=== PATIENT | male | born 1970 | race Caucasian/White ===

== ENCOUNTER 2024-08-15 16:10 | Emergency (ER) | payer SELFPAY ==
[2024-08-15 17:23] LABS: Absolute Basophils 0.2 K/uL (0-0.5); Absolute Eosinophils 0.2 K/uL (0-0.5); Absolute Lymphocytes (CBC) 3.7 K/uL (0.7-4.9); Absolute Monocytes 0.6 K/uL (0.1-1.3); Absolute Neutrophil 2.5 K/uL (1.8-8.0); Basophils % 2.5 % (0-1.3); Eosinophils % 2.6 % (0-4.4); Hematocrit 28.7 % (39.6-49.0); Hemoglobin 10.3 g/dL (13.6-17.9); Lymphocytes % 51.9 % (15.3-44.8); MCH 29.5 pg (27.0-35.0); MCHC 35.9 g/dL (32.0-36.0); MCV 82.3 fL (80-100); MPV 7.7 fL (7.6-11.3); Monocytes % 7.8 % (3.3-12.3); Neutrophils % 35.2 % (41.7-73.7); Nucleated Red Blood Cells % 0.1 % (0-0); Platelets 350 thou/uL (152-406); RBC Red Blood Cell Count 3.49 M/uL (4.33-5.43); Red Cell Distribution Width 16.6 % (12.1-15.2)
[2024-08-15 17:36] LABS: Bicarbonate 36 mEq/L (21-32); Potassium 2.7 mEq/L (3.5-5.1); Sodium Level 138 mEq/L (136-145)
[2024-08-15 17:37] LABS: ALT/SGPT 10 U/L (16-61); AST/SGOT 17 U/L (15-37); Albumin 1.7 g/dL (3.4-5.0); Albumin/Globulin Ratio 0.4 (1.1-1.8); Alkaline Phosphatase 107 U/L (45-117); BUN Blood Urea Nitrogen 8 mg/dL (7-18); Bilirubin Total 0.3 mg/dL (0.2-1.0); Globulin 4.7 g/dL (2.3-3.5); Glomerular Filtration Rate 122 ml/min (=/>90); Glucose Level 200 mg/dL (74-106); Lipase 23 U/L (13-75); Protein, Total 6.4 g/dL (6.4-8.2)
[2024-08-15] MEDS ORDERED: NS KCL 20MEQ 1,000 ML IV ONE (18:28)
[2024-08-15] MEDS ORDERED: POTASSIUM 25 MEQ EFFERV TAB ONE (18:28)
[2024-08-15] MEDS ORDERED: SMZ./TMP. 800/160 MG TABLET ONE (19:26)
--- NOTE | 2024-08-15 20:39 | EDPHYS ---
Physician Documentation [facility] Name: Stuart Patel Age: 54 yrs Sex: Male : 1970 Arrival Date: 08/15/2024 Time: 16:10 Bed 20 Private MD: ED Physician Asim Philip HPI: 08/15 16:55 This 54 yrs old Male presents to ER via EMS with complaints of Decubitus Ulcer. cp 16:55 Patient is a 54-year-old male with past medical history significant for hypertension cp and diabetes who presents to the emergency department with concern for developing a decubitus ulcer. Patient had a visit by home health nurse today who saw concern for a developing ulcer in the decubitus area of the patient today. Patient reportedly had a right below the knee amputation done approximately 2 weeks ago without any complications. Historical: - Allergies: 16:22 No Known Allergies; jb4 - PMHx: 16:22 Hypertension; sciatica; Diabetes mellitus; jb4 - PSHx: 16:22 Right below the knee amputation; jb4 - Immunization history:: Adult Immunizations up to date. - Infectious Disease History:: Denies. - Social history:: Smoking status: Patient denies any tobacco usage or history of. ROS: 17:00 Constitutional: Negative for body aches, chills, fever, poor PO intake, cp 17:00 Constitutional: history per hpi cp 17:00 Neuro: Negative for altered mental status, cp 17:00 All other systems are negative, Exam: 17:05 Constitutional: The patient appears in no acute distress, alert, awake, comfortable, cp non-diaphoretic, non-toxic, well developed, well nourished, 17:05 Head/Face: Normocephalic, atraumatic. cp 17:05 Cardiovascular: Rate: normal, Rhythm: regular, 17:05 Abdomen/GI: Inspection: abdomen appears normal, Palpation: abdomen is soft and non-tender, in all quadrants, 17:05 Musculoskeletal/extremity: Extremities: noted in the right leg: right below knee amputation, surgical wounds appears to be healing well with minimal erythema, wound edges intact, no drainage from wound, 17:05 Skin: small pressure ulcer noted in decubitus area with mild surrounding erythema and swelling, scant drainage from wound. 17:05 Eyes: Periorbital structures: appear normal, Conjunctiva: normal, no exudate, no cp injection, Sclera: no appreciated abnormality, Lids and lashes: appear normal, bilaterally, 17:05 ENT: External ear(s): are unremarkable, Nose: is normal, Mouth: Lips: moist, Oral mucosa: moist, Posterior pharynx: Airway: no evidence of obstruction, patent, 17:05 Neck: ROM/movement: is normal, is supple, without pain, no range of motions limitations, 17:05 Chest/axilla: Inspection: normal, 17:05 Respiratory: the patient does not display signs of respiratory distress, Respirations: normal, no use of accessory muscles, no retractions, labored breathing, is not present, Breath sounds: are clear throughout, no decreased breath sounds, no stridor, no wheezing, 17:05 Neuro: Orientation: to person, place \T\ time. Mentation: is normal, 18:30 ECG was reviewed by the Attending Physician. cp Vital Signs: 16:18 BP 128 / 88; Pulse 92; Resp 16; Temp 97.8(O); Pulse Ox 97% on R/A; Weight 72.57 kg (R); jb4 Height 5 ft. 10 in. ; Pain 4/10; 18:30 BP 134 / 84; Pulse 55; Resp 16; Pulse Ox 96% on R/A; jb4 19:30 BP 142 / 85; Pulse 87; Resp 16; Pulse Ox 94% on R/A; jb4 20:45 BP 114 / 81; Pulse 76; Resp 16; Pulse Ox 95% ; jb4 16:18 Body Mass Index 22.96 (72.57 kg, 177.8 cm) 4 16:18 Pain Scale: Adult jb4 MDM: 16:19 Medical Screening Exam initiated cp 20:38 Data reviewed: vital signs, nurses notes, lab test result(s), and as a result, I will cp discharge patient. 20:38 Differential diagnosis: cellulitis, sepsis, abscess, osteomyelitis. I considered the cp following discharge prescriptions or medication management in the emergency department Medications were administered in the Emergency Department. See MAR. Independent interpretation of the following test(s) in the Emergency Department EKG: See my EKG interpretation above. Care significantly affected by the following chronic conditions: Diabetes, Hypertension. 08/15 16:51 Order name: CBC with Diff; Complete Time: 17:38 cp 0202 17:38 Interpretation: Normal except: RBC 3.49; HGB 10.3; HCT 28.7; RDW 16.6; SANDRA% 35.2; LYM% cp 51.9; BASO% 2.5. 02 16:51 Order name: CMP; Complete Time: 17:38 cp 08/15 17:39 Interpretation: Normal except: K 2.7; CL 97; CO2 36; GLUC 200; CRE 0.49; ALT 10; CA cp 8.1; ALB 1.7; GLOB 4.7; A/G 0.4. 02 16:51 Order name: Lipase; Complete Time: 17:38 cp 08/15 17:41 Order name: EKG; Complete Time: 17:41 cp 08/15 16:51 Order name: Labs collected and sent; Complete Time: 17:18 cp 08/15 16:51 Order name: Wound Care: decubitus ulcer dressing; Complete Time: 20:37 cp 08/15 17:41 Order name: EKG - Nurse/Tech; Complete Time: 18:38 cp EC:30 Rate is 87 beats/min. Rhythm is regular. IA interval is normal. QRS interval is cp prolonged at 102 msec. QT interval is normal. T waves are Inverted in lead aVR. Interpreted by me. Reviewed by me. Administered Medications: 18:38 Drug: NS 0.9% with KCl IV 20 mEq/L 1000 ml IV at calculated rate continuous {Note: jb4 administered over 2 hours per providers instructions..} Route: IV; Rate: calculated rate; Site: right upper arm; 20:38 Follow up: Response: No adverse reaction; IV Status: Completed infusion; IV Intake: jb4 1000ml 18:40 Drug: Potassium PO Effervescent Tablet 50 mEq PO once; dissolve in 4 ounces of water or jb4 juice Route: PO; 21:26 Follow up: Response: No adverse reaction jb4 19:29 Drug: Trimethoprim-Sulfamethoxazole PO (160 mg-800 mg (DS) 1 tablet PO once Route: PO; jb4 21:26 Follow up: Response: No adverse reaction; Marked relief of symptoms jb4 Disposition Summary: 08/15/24 20:39 Discharge Ordered Notes: Location: Home dr5 Problem: new dr5 Symptoms: have improved dr5 Condition: Stable dr5 Diagnosis - Hypokalemia dr5 - Pressure ulcer of other site, stage 2 dr5 Followup: cp - With: Private Physician - When: 5 - 6 days - Reason: Wound Recheck Discharge Instructions: - Discharge Summary Sheet cp - Potassium Content of Foods cp - Preventing Pressure Injuries cp - Pressure Injury cp - Hypokalemia cp Forms: - Medication Reconciliation Form dr5 - Antibiotic Education dr5 - Patient Portal Instructions dr5 - Leadership Thank You Letter dr5 Prescriptions: - Potassium Chloride 20 meq Oral Packet - take 1 packet ORAL route once daily for 5 days 1 packet in 6 (six) ounces of cp water or juice; Take after meal; 5 packet; Refills: 0, Product Selection Permitted - Bactrim DS 800-160 mg Oral Tablet - take 1 tablet ORAL route every 12 hours for 7 days; 14 tablet; Refills: 0, cp Product Selection Permitted Signatures: Dispatcher [employer] EDMS Mohan Wen PA PA cp Alexey Armendariz RN RN jb4 Justen Kearney, SUPERVISOR INTERMEDIATES-C SUPERVISOR INTERMEDIATES-Cdr5 Corrections: (The following items were deleted from the chart) 17:18 16:51 IV Saline Lock ordered. cp jb4
--- NOTE | 2024-08-15 20:39 | ER ---
Nurse's Notes [facility] Name: Stuart Patel Age: 54 yrs Sex: Male : 1970 Arrival Date: 08/15/2024 Time: 16:10 Bed 20 Private MD: Diagnosis: Hypokalemia;Pressure ulcer of other site, stage 2 Presentation: 08/15 16:18 Chief complaint: EMS states: Pt had a recent right below the knee amputation 4 days jb4 ago. Is on IV Cefazolin at home via picc line in the IVAN, Pt is afebrile and A\T\Ox4. Coronavirus screen: At this time, the client does not indicate any symptoms associated with coronavirus-19. Ebola Screen: No symptoms or risks identified at this time. Initial Sepsis Screen: Does the patient meet any 2 criteria? HR > 90 bpm. Yes Does the patient have a suspected source of infection? No. Patient's initial sepsis screen is negative. Risk Assessment: Do you want to hurt yourself or someone else? Patient reports no desire to harm self or others. Onset of symptoms was August 15, 2024. Transition of care: patient was not received from another setting of care. 16:18 Method Of Arrival: EMS: [facility] jb4 16:18 Acuity: VICKI 3 jb4 Triage Assessment: 16:22 General: Appears in no apparent distress. comfortable, Behavior is calm, cooperative, jb4 appropriate for age. Pain: Complains of pain in gluteal cleft Pain does not radiate. Pain currently is 4 out of 10 on a pain scale. EENT: No signs and/or symptoms were reported regarding the EENT system. Neuro: Level of Consciousness is awake, alert, obeys commands, Oriented to person, place, time, situation. Cardiovascular: Patient's skin is warm and dry. Respiratory: Airway is patent Respiratory effort is even, unlabored, Respiratory pattern is regular, symmetrical. GI: No signs and/or symptoms were reported involving the gastrointestinal system. : No signs and/or symptoms were reported regarding the genitourinary system. Derm: Skin is pink, warm \T\ dry. Decubitus located on sacrum approximately 1.5 cm to 2.5 cm is stage II bed has fibrin present is draining none noted. Musculoskeletal: Circulation, motion, and sensation intact. Range of motion: intact in all extremities. Historical: - Allergies: 16:22 No Known Allergies; jb4 - PMHx: 16:22 Hypertension; sciatica; Diabetes mellitus; jb4 - PSHx: 16:22 Right below the knee amputation; jb4 - Immunization history:: Adult Immunizations up to date. - Infectious Disease History:: Denies. - Social history:: Smoking status: Patient denies any tobacco usage or history of. Screenin:24 [facility] ED Fall Risk Assessment (Adult) History of falling in the last 3 months, jb4 including since admission No falls in past 3 months (0 pts) Confusion or Disorientation No (0 pts) Intoxicated or Sedated No (0 pts) Impaired Gait Yes (1 pt) Mobility Assist Device Used Yes (1 pt) Altered Elimination No (0 pt) Score/Fall Risk Level 0 - 2 = Low Risk Oriented to surroundings, Maintained a safe environment. Abuse screen: Denies threats or abuse. Nutritional screening: No deficits noted. Tuberculosis screening: No symptoms or risk factors identified. Assessment: 17:00 Reassessment: Patient appears in no apparent distress at this time. Patient and/or jb4 family updated on plan of care and expected duration. Pain level reassessed. Patient is alert, oriented x 3, equal unlabored respirations, skin warm/dry/pink. 18:00 Reassessment: Patient appears in no apparent distress at this time. Patient and/or jb4 family updated on plan of care and expected duration. Pain level reassessed. Patient is alert, oriented x 3, equal unlabored respirations, skin warm/dry/pink. 18:41 Reassessment: Patient appears in no apparent distress at this time. Patient and/or jb4 family updated on plan of care and expected duration. Pain level reassessed. Patient is alert, oriented x 3, equal unlabored respirations, skin warm/dry/pink. 19:30 Reassessment: Patient appears in no apparent distress at this time. Patient and/or jb4 family updated on plan of care and expected duration. Pain level reassessed. Patient is alert, oriented x 3, equal unlabored respirations, skin warm/dry/pink. 20:37 Reassessment: Patient appears in no apparent distress at this time. Patient and/or jb4 family updated on plan of care and expected duration. Pain level reassessed. Patient is alert, oriented x 3, equal unlabored respirations, skin warm/dry/pink. wet to dry dressing placed on decubitus ulcer. D/c pending consult with ER provider. Vital Signs: 16:18 BP 128 / 88; Pulse 92; Resp 16; Temp 97.8(O); Pulse Ox 97% on R/A; Weight 72.57 kg (R); jb4 Height 5 ft. 10 in. ; Pain 4/10; 18:30 BP 134 / 84; Pulse 55; Resp 16; Pulse Ox 96% on R/A; jb4 19:30 BP 142 / 85; Pulse 87; Resp 16; Pulse Ox 94% on R/A; jb4 20:45 BP 114 / 81; Pulse 76; Resp 16; Pulse Ox 95% ; jb4 16:18 Body Mass Index 22.96 (72.57 kg, 177.8 cm) jb4 16:18 Pain Scale: Adult jb4 ED Course: 16:18 Patient arrived in ED. jb4 16:18 Alexey Armendariz RN is Primary Nurse. jb4 16:19 Mohan Wen PA is PHCP. cp 16:19 Asim Philip MD is Attending Physician. cp 16:22 Triage completed. jb4 16:22 Arm band placed on right wrist. jb4 17:18 Lipase Sent. jb4 17:18 CMP Sent. jb4 17:18 CBC with Diff Sent. jb4 21:24 Patient has correct armband on for positive identification. Bed in low position. Call jb4 light in reach. Side rails up X 1. Provided Education on: discharge instructions. . 21:24 No provider procedures requiring assistance completed. Pt's PICC line remains in place jb4 and working appropriately. Administered Medications: 18:38 Drug: NS 0.9% with KCl IV 20 mEq/L 1000 ml IV at calculated rate continuous {Note: jb4 administered over 2 hours per providers instructions..} Route: IV; Rate: calculated rate; Site: right upper arm; 20:38 Follow up: Response: No adverse reaction; IV Status: Completed infusion; IV Intake: jb4 1000ml 18:40 Drug: Potassium PO Effervescent Tablet 50 mEq PO once; dissolve in 4 ounces of water or jb4 juice Route: PO; 21:26 Follow up: Response: No adverse reaction jb4 19:29 Drug: Trimethoprim-Sulfamethoxazole PO (160 mg-800 mg (DS) 1 tablet PO once Route: PO; jb4 21:26 Follow up: Response: No adverse reaction; Marked relief of symptoms jb4 Medication: 21:24 VIS not applicable for this client. jb4 Intake: 20:38 IV: 1000ml; Total: 1000ml. jb4 Outcome: 20:39 Discharge ordered by . teena 21:24 Discharged to home via wheelchair, with family, jb4 21:24 Condition: stable 21:24 Discharge instructions given to patient, Instructed on discharge instructions, follow up and referral plans. medication usage, Demonstrated understanding of instructions, follow-up care, medications, Prescriptions given X 2, 21:27 Patient left the ED. jb4 Signatures: Mohan Wen PA PA cp Bryson, James, RN RN jb4 Justen Kearney, COMPLIANCE ENGINEER-C COMPLIANCE ENGINEER-Cdr5 Corrections: (The following items were deleted from the chart) 21:24 20:37 Reassessment: Patient appears in no apparent distress at this time. Patient jb4 and/or family updated on plan of care and expected duration. Pain level reassessed. Patient is alert, oriented x 3, equal unlabored respirations, skin warm/dry/pink. wet to dry dressing placed on decubitus ulcer jb4
[2024-08-15 21:31] VITALS: TEMP 97.8
[2024-08-15 21:35] VITALS: BP 114/81; O2SAT 95
--- NOTE | 2024-08-17 12:17 | EKG ---
Test Date: 2024-08-15 Test Time: 18:26:47 Miner Assistant: AM MEASUREMENT RESULTS: Intervals: Rate: 87 SD: 180 QRSD: 102 QT: 400 QTc: 481 Bouse: P: 32 SD: 180 QRS: 61 T: 28 INTERPRETIVE STATEMENTS: Normal sinus rhythm Prolonged QT Abnormal ECG Compared to ECG 08/09/2016 07:12:37 Prolonged QT interval now present Electronically Signed On 08-17-24 12:15:02 NATURAL SCIENCE CURATOR by Gabriel Madrid
== END 2024-08-15 21:27 | disposition home or self-care (01) ==
LOC: ER 16:10
DX: L89.892 Pressure ulcer of other site, stage 2 (principal); E87.6 Hypokalemia
CPT/HCPCS: 36415; 80053; 83690; 85025; 93005; 96360; 96361; 99284; J3480

== ENCOUNTER 2024-08-28 12:44 | Emergency (ER) | payer SELFPAY ==
--- OUTSIDE RECORDS SUMMARY | 2024-08-28 12:50 | XMS REPORT | Continuity of Care Document ---
Author Name Unknown Address [address] [facility] [address] [place] [address] [facility] [address] [facility] [address] [place] [address] Care Team Providers Care Rehab Liaison Name Role Phone Macho Musa Attending Clinician Unavailable Macho Musa Admitting Clinician Unavailable Physician, No Primary or Family Admitting Clinic parker Unavailable Payers Payer Name Policy Type Policy Number Effective Date Expirati on Date Source Allergies, Adverse Reactions, Alerts Allergy Name Allergy Type Status Severity Reaction(s) Onset Date Inactive Date Treating Clinician Comments Source No Known Allergie s DA Active U 2023-07 00:00: 00 [facility] Procedures Procedure Date / Time Performed Performing Clinicia n Source INSERTION OF INFUSION DEV INTO R BASILIC VEIN, PER 2024-08-10 00:00:00 [facility] DETACHMENT AT RIGHT LOWER LEG, HIGH, OPEN APPROACH 2024-07-20 00:00:00 [facility] INSERTION OF INFUSION DEVICE INTO UPPER VEIN, PERC 2024-07-16 00:00:00 [facility] EXCISION OF RIGHT FOOT TENDON, OPEN APPROACH 2024-07-13 00:00:00 [facility] Encounters Start Date/Time End Date/Time Encounter Type Admission Type Attending Clinicians Care Facility Care Department Encounter ID Source 2024-07-13 17:32:00 2024-08-11 20:42:00 Inpatient EM Macho Musa HCABM NEUR [id number] 99 [facility] 2024-07-14 06:02:00 2024-07-14 06:02:00 Outpatient Macho Musa HCACL LABO [id number] 48 [facility] 2022-08-22 13:37:27 2022-08-22 13:37:27 Outpatient SFA SFA [id number] 0[address] [facility] Results Test Description Test Time Test Comments Results Result Co mments Source [id number] 16:31:00* Test Item Value Reference Range Interpretation Comme nts GLUBED (test code = GLUBED) 131 mg/dL 74-106 H Performed by cer tified special warfare operator at [facility] [id number] 12:30:00* Test Item Value Reference Range Interpretation Comme nts GLUBED (test code = GLUBED) 116 mg/dL 74-106 H Performed by cer tified special warfare operator at [facility] [id number] 08:59:00* Test Item Value Reference Range Interpretation Comme nts GLUBED (test code = GLUBED) 88 mg/dL 74-106 N Performed by cer tified special warfare operator at [facility] [id number] 19:45:00* Test Item Value Reference Range Interpretation Comme nts GLUBED (test code = GLUBED) 171 mg/dL 74-106 H Performed by cer tified special warfare operator at [facility] [id number] 16:37:00* Test Item Value Reference Range Interpretation Comme nts GLUBED (test code = GLUBED) 120 mg/dL 74-106 H Performed by cer tified special warfare operator at [facility] [id number] 11:53:00* Test Item Value Reference Range Interpretation Comme nts GLUBED (test code = GLUBED) 119 mg/dL 74-106 H Performed by cer tified special warfare operator at [facility] BASIC METABOLIC [id number] 11:00:00* Test Item Value Reference Range Interpretation Comme nts SODIUM (test code = NA) 139 mmol/L 136-145 N POTASSIUM (test code = K) 3.2 mmol/L 3.5-5.1 L CHLORIDE (test code = CL) 94.0 mmol/L 98-107 L CARBON DIOXIDE (test code = CO2) 35.0 mmol/L 21-32 H ANION GAP (test code = GAP) 13.2 mmol/L 10-20 N GLUCOSE (test code = GLU) 116 mg/dL 74-106 H BLOOD UREA NITROGEN (test code = BUN) 7 mg/dL 7-18 N GLOMERULAR FILTRATION RATE (test code = GFR) > 60 mL/min >=60 The Glomerular Filtration Rate is a calculated parameterbased on serum Creatinine, patient age and sex. GFR valuesless than 60 mL/min/1.73 square meters are indicative ofChronic Kidney Disease. Values less than 15 mL/min/1.73square meters indicate Kidney failure. The calculation forGFR is based on the CKD-EPI (2020) calculation. This formulais race indifferent and is the recommended formula for GFRby the National Kidney Foundation for Adults.The GFR will not calculate if the sex is unknown or if thepatient's age is <18 years. CREATININE (test code = CREAT) 0.40 mg/dL 0.7-1.3 L BUN/CREATININE RATIO (test code = BUN/CREA) 15.6 10-20 N CALCIUM (test code = CA) 7.9 mg/dL 8.5-10.1 L CBC W/AUTO [id number] 10:30:00* Test Item Value Reference Range Interpretation Comme nts WHITE BLOOD CELL (test code = WBC) 7.8 K/mm3 4.5-12.5 N RED BLOOD CELL (test code = RBC) 4.12 mill/mm3 4.0-5.8 N HEMOGLOBIN (test code = HGB) 11.6 gram/dL 13.0-17.5 L HEMATOCRIT (test code = HCT) 36.7 % 42.0-52.0 L MEAN CELL VOLUME (test code = MCV) 89.1 fL 80-98 N MEAN CELL HGB (test code = MCH) 28.2 picogram 27.0-33.0 N MEAN CELL HGB CONCETRATION (test code = MCHC) 31.6 gram/dL 33.0-36.0 L RED CELL DISTRIBUTION WIDTH (test code = RDW) 15.5 % 11.6-16.2 N RED CELL DISTRIBUTION WIDTH SD (test code = RDW-SD) 50.4 fL 37.0-51.0 N PLATELET COUNT (test code = PLT) 385 K/mm3 150-450 N MEAN PLATELET VOLUME (test c ode = MPV) 9.9 fL 6.7-11.0 N NEUTROPHIL % (test code = NT%) 27.6 % 39.0-69.0 L IMMATURE GRANULOCYTE % (test code = IG%) 0.6 % 0.0-5.0 N LYMPHOCYTE % (test code = LY%) 61.3 % 25.0-55.0 H MONOCYTE % (test code = MO%) 7.5 % 0.0-10.0 N EOSINOPHIL % (test code = EO%) 1.5 % 0.0-5.0 N BASOPHIL % (test code = BA%) 1.5 % 0.0-1.0 H NUCLEATED RBC % (test code = NRBC%) 0.0 % 0-0 N NEUTROPHIL # (test code = NT#) 2.14 K/mm3 1.8-7.7 N IMMATURE GRANULOCYTE # (test code = IG#) 0.05 x10 3/uL 0-0.03 H LYMPHOCYTE # (test code = LY#) 4.76 K/mm3 1.0-5.0 N MONOCYTE # (test code = MO#) 0.58 K/mm3 0-0.8 N EOSINOPHIL # (test code = EO#) 0.12 K/mm3 0.0-0.5 N BASOPHIL # (test code = BA#) 0.12 K/mm3 0.0-0.2 N NUCLEATED RBC # (test code = NRBC#) 0.00 K/mm3 0.0-0.1 N [id number] 08:03:00* Test Item Value Reference Range Interpretation Comme nts GLUBED (test code = GLUBED) 81 mg/dL 74-106 N Performed by cer tified special warfare operator at [facility] [id number] 20:45:00* Test Item Value Reference Range Interpretation Comme nts GLUBED (test code = GLUBED) 99 mg/dL 74-106 N Performed by cer tified special warfare operator at [facility] [id number] 16:18:00* Test Item Value Reference Range Interpretation Comme nts GLUBED (test code = GLUBED) 154 mg/dL 74-106 H Performed by cer tified special warfare operator at [facility] [id number] 11:32:00* Test Item Value Reference Range Interpretation Comme nts GLUBED (test code = GLUBED) 155 mg/dL 74-106 H Performed by cer tified special warfare operator at [facility] [id number] 08:18:00* Test Item Value Reference Range Interpretation Comme nts GLUBED (test code = GLUBED) 137 mg/dL 74-106 H Performed by cer tified special warfare operator at [facility] [id number] 20:55:00* Test Item Value Reference Range Interpretation Comme nts GLUBED (test code = GLUBED) 166 mg/dL 74-106 H Performed by cer tified special warfare operator at [facility] [id number] 17:15:00* Test Item Value Reference Range Interpretation Comme nts GLUBED (test code = GLUBED) 136 mg/dL 74-106 H Performed by cer tified special warfare operator at [facility] [id number] 11:09:00* Test Item Value Reference Range Interpretation Comme nts GLUBED (test code = GLUBED) 98 mg/dL 74-106 N Performed by cer tified special warfare operator at [facility] [id number] 07:43:00* Test Item Value Reference Range Interpretation Comme nts GLUBED (test code = GLUBED) 99 mg/dL 74-106 N Performed by cer tified special warfare operator at [facility] [id number] 20:28:00* Test Item Value Reference Range Interpretation Comme nts GLUBED (test code = GLUBED) 137 mg/dL 74-106 H Performed by cer tified special warfare operator at [facility] [id number] 16:32:00* Test Item Value Reference Range Interpretation Comme nts GLUBED (test code = GLUBED) 144 mg/dL 74-106 H Performed by cer tified special warfare operator at [facility] [id number] 12:18:00* Test Item Value Reference Range Interpretation Comme nts GLUBED (test code = GLUBED) 157 mg/dL 74-106 H Performed by cer tified special warfare operator at [facility] [id number] 08:23:00* Test Item Value Reference Range Interpretation Comme nts GLUBED (test code = GLUBED) 98 mg/dL 74-106 N Performed by cer tified special warfare operator at [facility] [id number] 19:57:00* Test Item Value Reference Range Interpretation Comme nts GLUBED (test code = GLUBED) 130 mg/dL 74-106 H Performed by cer tified special warfare operator at [facility] [id number] 16:51:00* Test Item Value Reference Range Interpretation Comme nts GLUBED (test code = GLUBED) 160 mg/dL 74-106 H Performed by cer tified special warfare operator at [facility] [id number] 10:52:00* Test Item Value Reference Range Interpretation Comme nts GLUBED (test code = GLUBED) 92 mg/dL 74-106 N Performed by cer tified special warfare operator at [facility] - MRI L-SPINE W WO [id number] 10:27:00 [facility])Name: CAROLYNN PATEL : 1970 Sex: M FAX: Inga Levin MD [phone] [place]: St: [facility] FAX: Natalya Tolentino [phone] Name: CAROLYNN PATEL [facility] : 1970 Age/S: 54/M [place] [facility] Unit #: [id number] Loc: V[address] [place] [address] Phys: Natalya Tolentino AQUATICS COORDINATOR Acct: [id number] Dis Date: Status: ADM IN PHONE #: [phone] Exam Date: 08/05/2024 1055 FAX #: [phone] Reason: repeatedly bacteremic- MSSA Report Has Been Amended EXAMS: CPT CODE: [id number] MRI L-SPINE W WO CON 09253 Addendum - 08/06/2024 SIGNED 08/06/2024 ADDENDUM: [id number] MRI/[id number] ADDENDUM: Postcontrast images are now available. No enhancement of the conus or the leptomeninges. No leptomeningeal abscess is noted. Intense enhancement of the entire L1 vertebral body with enhancement of the right posterior elements as well. Minimal enhancement of the inferior endplate of T12 vertebral body. These findings may represent osteomyelitis. Less likely contusion. Correlate with ESR and white cell count. Rest of the vertebral body heights are maintained and the marrow signal in normal. IMPRESSION: Intense enhancement of the L1 vertebral body and the inferior endplate of T12 vertebral body. Correlate for osteomyelitis. Less likely contusion. No abnormal enhancement of the conus or the leptomeninges. No disc space enhancement isnoted either including at T12-L1 level to suggest acute discitis. at 1027 Reported and signed by: Rashad Gomez M.D. Transcribed: 08/06/2024 (8354) t.SDR.TH4 Report HISTORY: Repeated bacteremia. COMPARISON: CT abdomen pelvis from August 03, 2024. [facility] MRI L-spine without contrast: PAGE 1 Signed Report (CONTINUED) FAX: Inga Levin MD [phone] [place]: St: [facility] FAX: Natalya Tolentino [phone] Name: CAROLYNN PATEL [facility] : 1970 Age/S: 54/M [address] Unit #: [id number] Loc: [place] [address] Phys: Natalya Tolentino AQUATICS COORDINATOR Acct: [id number] Dis Date: Status: ADM IN PHONE #: [phone] Exam Date: 1055 FAX #: [phone] Reason: repeatedly bacteremic- MSSA Report Has Been Amended EXAMS: CPT CODE: [id number] MRI L-SPINE W WO CON 40537 (Continued) Conus terminating at L1 level without compression, syrinx or myelomalacia. Vertebral body heights are maintained with diffuse edema within the L1 vertebral body. No loss of height. Differential diagnoses includes osteomyelitis or contusion. ADDENDUM will be issued within the postcontrast images are available. Rest of the vertebralbody heights are maintained with normal marrow signal. Disc space loss at T12-L1 and L1-L2 level with disc desiccation. At T12-L1 level no disc herniation, canal or foraminal stenosis. At L1-L2 levelno disc herniation, canal or foraminal stenosis. At L2-L3 level no disc herniation, canal or foraminal stenosis. At L3-L4 level no disc herniation, canal or foraminal stenosis At L4-L5 level no discherniation, canal or foraminal stenosis. Central disc bulge. At L5-S1 level posterior central and bilateral lateral disc protrusion measured 3.8 mm. Effacement of the anterior thecal sac. No canal stenosis. Mild foraminal stenosis bilaterally in combination with facet hypertrophy especially on the right. Correlate for radicular symptoms with exiting bilateral L5 nerve roots specially on the right side. Mild atrophy of the back musculature. IMPRESSION: No conus compression, syrinx or myelomalacia. Diffuse edema of the L1 vertebral body. Correlate for osteomyelitis. Less likely this could represent contusion. No fracture or loss of height. ADDENDUM will be issued when postcontrast images are available. PAGE 2 Signed Report (CONTINUED) FAX: Inga Levin MD [phone] [place]: B St: ADM FAX: Natalya Tolentino [phone] Name: CAROLYNN PATEL [facility] : 1970 Age/S: 54/M [address] [facility] Unit #: [id number] Loc: [address] [place] [address] Phys: Natalya Tolentino AQUATICS COORDINATOR Acct: [id number] Dis Date: Status: ADM IN PHONE #: [phone] Exam Date: 08/05/2024 1055 FAX #: [phone] Reason: repeatedly bacteremic- MSSA Report Has Been Amended EXAMS: CPT CODE: [id number] MRI L-SPINE W WO CON 85168 (Continued) Mild spondylosis at L5-S1 level as described above. at 0854 Reported and signed by: Rashad Gomez M.D. CC: Inga Johns MD; Natalya Tolentino NP Technologist: Marge RIDDLE(R)(MR)(M) Trncard Date/Time/By: 08/06/2024 (0854) : By: [email or web address] Orig Print D/T: S: 08/06/2024 (0908) PAGE 3 Signed [id number] 08:00:00* Test Item Value Reference Range Interpretation Comme nts GLUBED (test code = GLUBED) 85 mg/dL 74-106 N Performed by cer tified special warfare operator at [facility] [id number] 20:30:00* Test Item Value Reference Range Interpretation Comme nts GLUBED (test code = GLUBED) 157 mg/dL 74-106 H Performed by cer tified special warfare operator at [facility] [id number] 16:07:00* Test Item Value Reference Range Interpretation Comme nts GLUBED (test code = GLUBED) 144 mg/dL 74-106 H Performed by cer tified special warfare operator at [facility] [id number] 13:38:00* Test Item Value Reference Range Interpretation Comme nts GLUBED (test code = GLUBED) 107 mg/dL 74-106 H Performed by cer tified special warfare operator at [facility] - MRI C-SPINE W W/O [id number] 12:51:00 [facility] : 1970 Sex: M FAX: Inga Leivn MD [phone] [place]: B St: ADM FAX: Natalya Tolentino [phone] Name: BUDDYCAROLYNN [facility] : 1970 Age/S: 54/M [address] [facility] Unit #: [id number] Loc: [place] [address] Phys: Natalya Tolentino AQUATICS COORDINATOR Acct: [id number] Dis Date: Status: ADM IN PHONE #: [phone] Exam Date: 08/05/2024 1230 FAX #: [phone] Reason: repeatedly bacteremic- MSSA EXAMS: CPTCODE: [id number] MRI C-SPINE W W/O CONT 10202 HISTORY: Repeated bacteremia. COMPARISON: None available. [facility] MRI C-spine with and without contrast: No cerebellar ectopia. No cord compression, syrinx or myelomalacia. No abnormal enhancement of the leptomeninges although the cord after gadolinium administration. No leptomeningeal abscess is noted. Chronic loss of height of C6 vertebral body with normal marrow signal. Rest of the vertebral body heights are maintained and also demonstratednormal marrow signal. Anterolateral marginal osteophytes. Following gadolinium no abnormal enhancement of the vertebral bone marrow. No disc space enhancement. Mild diffuse disc desiccation and diffuse disc space loss. No prevertebral enhancement. At C2-C3 level no disc herniation, canal or foraminal stenosis. At C3-C4 level no disc herniation, canal or foraminal stenosis At C4-C5 level no disc herniation, canal or foraminal stenosis. At C5-C6 level no disc herniation, canal or foraminal stenosis At C6- C7 level no disc herniation, canal or foraminal stenosis. At C7-T1 level no disc herniation, canal or foraminal stenosis. IMPRESSION: No cord compression, syrinx or myelomalacia. No abnormalenhancement of the cord or the leptomeninges. No leptomeningeal abscess. Mild chronic loss of height of C6 vertebral body. Rest of the vertebral body heights are maintained. Marrow signal is normal. No abnormal enhancement of the bone marrow. No prevertebral enhancement. No disc herniation, canal or foraminal stenosis throughout the cervical spine. PAGE 1 Signed Report (CONTINUED) FAX: Inga Levin MD [phone] [place]: St: [facility] FAX: Natalya Tolentino [phone] Name: CAROLYNN PATEL [facility] : 1970 Age/S: 54/M [address] Unit #: [id number] Loc: [address] [place] [address] Phys: Natalya Tolentino NP Acct: [id number] Dis Date: Status: ADM IN PHONE #: [phone] Exam Date: 08/05/2024 1230 FAX #: [phone] Reason: repeatedly bacteremic- MSSA EXAMS: CPT CODE: [id number] MRI C-SPINE W W/O CONT 56508 (Continued) at 1256 Reported and signed by: Rashad Gomez M.D. CC: Inga Johns MD; Natalya Tolentino NP Technologist: Marge Patrick RT(R)(MR)(M) Trnscrd Date/Time/By: 08/05/2024 (6413) : By: [email or web address] Orig Print D/T: S: 08/05/2024 (8752) PAGE 2 Signed Report- MRI T-SPINE W W/O [id number] 12:42:00[facility])Name: CAROLYNN PATEL : 1970 Sex: M FAX: Inga Levin MD [phone] [place]: B St: [facility] FAX: Natalya Tolentino [phone] Name: CAROLYNN PATEL [facility] : 1970 Age/S: 54/M [address] Unit #: [id number] Loc: V.[address] [place] [address] Phys: Natalya Tolentino AQUATICS COORDINATOR Acct: [id number] Dis Date: Status: ADM IN PHONE #: [phone] Exam Date: 08/05/2024 1230 FAX #: [phone] Reason: repeatedly bacteremic- MSSA EXAMS: CPT CODE: [id number] MRI T-SPINE W W/O CONT 24393 HISTORY: Repeated bacteremia. COMPARISON: None available. [facility] MRI T-spine with and without contrast: No cord compression, syrinx or myelomalacia. Following gadolinium no abnormal enhancement of the cord or the leptomeninges. No leptomeningeal abscess visible. Vertebral body heights are maintained. Marrow signal is abnormal and the inferior endplate of T12 vertebral body. Following gadolinium mild enhancement is noted. Correlate for osteomyelitis. Fluid within the disc space at T12-L1 level as well. No significant enhancement around the disc space marked correlate for discitis. Disc spaces otherwise are preserved. No disc herniation, canal or foraminal stenosis throughout the dorsal spine. No prevertebral or paravertebral enhancement is noted. IMPRESSION: No cord compression, syrinx or myelomalacia. No abnormal enhancement of the cord or the leptomeninges or leptomeningeal abscess. Minimal irregularity of the inferior endplate of T12 vertebral body with enhancement may suggest osteomyelitis. Fluid within the disc space as well jxS87-M5 level without significant enhancement. Correlate for discitis. at 1242 Reported and signed by: Rashad Gomez M.D. CC: Inga Johns MD; Natalya Tolentino NP Technologist: Marge Patrick RT(R)(MR)(M) Trnscrd Date/Time/By: 08/05/2024 (1242) : By: [email or web address] Orig Print D/T: S: 08/05/2024 (9662) PAGE 1 Signed [id number] 19:36:00* Test Item Value Reference Range Interpretation Comme nts GLUBED (test code = GLUBED) 154 mg/dL 74-106 H Performed by cer tified special warfare operator at [facility] [id number] 16:12:00* Test Item Value Reference Range Interpretation Comme nts GLUBED (test code = GLUBED) 138 mg/dL 74-106 H Performed by cer tified special warfare operator at [facility] [id number] 11:13:00* Test Item Value Reference Range Interpretation Comme nts GLUBED (test code = GLUBED) 102 mg/dL 74-106 N Performed by cer tified special warfare operator at [facility] [id number] 08:03:00* Test Item Value Reference Range Interpretation Comme nts GLUBED (test code = GLUBED) 136 mg/dL 74-106 H Performed by cer tified special warfare operator at [facility] COMPREHENSIVE METABOLIC [id number] 03:19:00* Test Item Value Reference Range Interpretation Comme nts SODIUM (test code = NA) 137 mmol/L 136-145 N POTASSIUM (test code = K) 3.5 mmol/L 3.5-5.1 N CHLORIDE (test code = CL) 99.0 mmol/L 98-107 N CARBON DIOXIDE (test code = CO2) 32.0 mmol/L 21-32 N ANION GAP (test code = GAP) 9.5 mmol/L 10-20 L GLUCOSE (test code = GLU) 134 mg/dL 74-106 H BLOOD UREA NITROGEN (test code = BUN) 11 mg/dL 7-18 N GLOMERULAR FILTRATION RATE (test code = GFR) > 60 mL/min >=60 The Glomerular Filtration Rate is a calculated parameterbased on serum Creatinine, patient age and sex. GFR valuesless than 60 mL/min/1.73 square meters are indicative ofChronic Kidney Disease. Values less than 15 mL/min/1.73square meters indicate Kidney failure. The calculation forGFR is based on the CKD-EPI (2020) calculation. This formulais race indifferent and is the recommended formula for GFRby the National Kidney Foundation for Adults.The GFR will not calculate if the sex is unknown or if thepatient's age is <18 years. CREATININE (test code = CREAT) 0.50 mg/dL 0.7-1.3 L BUN/CREATININE RATIO (test code = BUN/CREA) 21.2 10-20 H TOTAL PROTEIN (test code = PROT) 6.0 gram/dL 6.4-8.2 L ALBUMIN (test code = ALB) 1.9 g/dL 3.4-5.0 L GLOBULIN (test code = GLOB) 4.1 gram/dL 2.7-4.2 N ALBUMIN/GLOBULIN RATIO (test code = A/G) 0.5 0.75-1.50 L CALCIUM (test code = CA) 8.1 mg/dL 8.5-10.1 L BILIRUBIN TOTAL (test code = BILT) 0.50 mg/dL 0.0-1.0 N SGOT/AST (test code = AST) 34 IUnit/L 15-37 N SGPT/ALT (test code = ALT) 16 IUnit/L 12-78 N ALKALINE PHOSPHATASE TOTAL (test code = ALKP) 106 IUnit/L 45-117 N Note change in reference range due to change in reagent. CBC W/AUTO [id number] 02:56:00* Test Item Value Reference Range Interpretation Comme nts WHITE BLOOD CELL (test code = WBC) 5.0 K/mm3 4.5-12.5 N RED BLOOD CELL (test code = RBC) 3.50 mill/mm3 4.0-5.8 L HEMOGLOBIN (test code = HGB) 10.1 gram/dL 13.0-17.5 L HEMATOCRIT (test code = HCT) 31.0 % 42.0-52.0 L MEAN CELL VOLUME (test code = MCV) 88.6 fL 80-98 N MEAN CELL HGB (test code = MCH) 28.9 picogram 27.0-33.0 N MEAN CELL HGB CONCETRATION (test code = MCHC) 32.6 gram/dL 33.0-36.0 L RED CELL DISTRIBUTION WIDTH (test code = RDW) 16.2 % 11.6-16.2 N RED CELL DISTRIBUTION WIDTH SD (test code = RDW-SD) 51.7 fL 37.0-51.0 H PLATELET COUNT (test code = PLT) 290 K/mm3 150-450 N MEAN PLATELET VOLUME (test c ode = MPV) 9.6 fL 6.7-11.0 N NEUTROPHIL % (test code = NT%) 44.9 % 39.0-69.0 N IMMATURE GRANULOCYTE % (test code = IG%) 3.0 % 0.0-5.0 N LYMPHOCYTE % (test code = LY%) 43.7 % 25.0-55.0 N MONOCYTE % (test code = MO%) 5.2 % 0.0-10.0 N EOSINOPHIL % (test code = EO%) 2.0 % 0.0-5.0 N BASOPHIL % (test code = BA%) 1.2 % 0.0-1.0 H NUCLEATED RBC % (test code = NRBC%) 0.0 % 0-0 N NEUTROPHIL # (test code = NT#) 2.26 K/mm3 1.8-7.7 N IMMATURE GRANULOCYTE # (test code = IG#) 0.15 x10 3/uL 0-0.03 H LYMPHOCYTE # (test code = LY#) 2.20 K/mm3 1.0-5.0 N MONOCYTE # (test code = MO#) 0.26 K/mm3 0-0.8 N EOSINOPHIL # (test code = EO#) 0.10 K/mm3 0.0-0.5 N BASOPHIL # (test code = BA#) 0.06 K/mm3 0.0-0.2 N NUCLEATED RBC # (test code = NRBC#) 0.00 K/mm3 0.0-0.1 N [id number] 19:51:00* Test Item Value Reference Range Interpretation Comme nts GLUBED (test code = GLUBED) 164 mg/dL 74-106 H Performed by cer tified special warfare operator at [facility] - CT CHEST W/O [id number] 18:19:00 [facility]Name: CAROLYNN PATEL : 1970 Sex: M Name: CAROLYNN PATEL [facility] : 1970 Age/S: 54 / M [address] Unit #: [id number] Loc: [place] [address] Phys: Marce Kiser MD Acct: [id number] Dis Date: Status: ADM INPHONE #: [phone] Exam Date: 08/03/2024 1756 FAX #: [phone] Reason: bactermia EXAMS: CPT CODE: [id number] CT CHEST W/O CONTRAST 23688 PROCEDURE: CT chest without contrast INDICATION: bacteremia COMPARISON: None TECHNIQUE: Transaxial CT of the chest was obtained without IV contrast. Coronal and sagittal reformatted images were obtained. All CT scans at this facility use dose modulation, iterative reconstruction, and/or weight-based dosing when appropriate to reduce radiation dose to aslow as reasonably achievable. DICOM images are available for review. FINDINGS: Lower neck and mediastinum: Visualized thyroid is unremarkable. No lymphadenopathy. Esophagus is unremarkable. Cardiovascular: Normal heart size. Thoracic aorta and main pulmonary artery are normal in caliber. No pericardial effusion. Airways, lungs, and pleura: Tracheobronchial tree is unremarkable. Consolidation in the bilateral lung bases including bilateral lower lobes. No pneumothorax or large pleural effusion.Osseous and chest wall: No acute or destructive osseous abnormality. No focal chest wall abnormality. IMPRESSION: Consolidation in the bilateral lung bases concerning for atelectasis or aspiration pneumonitis. at 1819 Reported and signed by: Kelsey Bashir M.D. CC: Inga Johns MD; Marce Kiser MD Technologist:RT ANTOINE CTDI: DLP: Trnscb Date/Time: 08/03/2024 (1818) Orig Print D/T: S: 08/03/2024 (1823) PAGE 1 Signed Report- CT ABD PELVIS W/[id number] 18:16:00 [facility] ([facility])Name: CAROLYNN PATEL : 1970 Sex: M Name: CAROLYNN PATEL [facility] : 1970 Age/S: 54 / M [address] [facility] Unit #: [id number] Loc: [facility] [place] [address] Phys: Marce Kiser MD Acct: [id number] Dis Date: Status: ADM IN PHONE #: [phone] Exam Date: 08/03/2024 175 FAX #: [phone] Reason: bactermia EXAMS: CPT CODE: [id number] CT ABD PELVIS W/CONT 64930 EXAM: - CT ABD PELVIS W/CONT INDICATION: bactermia COMPARISON: None. TECHNIQUE: Helical acquisition was obtained through the abdomen and pelvis after the administration of intravenous contrast. Coronal and sagittal reformats were performed and interpreted. All CT scans at this facility use dose modulation, iterative reconstruction, and/or weight based dosing when appropriate to reduce radiation dose to as low as reasonably achievable. DICOM images are available for review. FINDINGS: Hepatobiliary: 1.4 cm hypodensity in the left hepatic lobe is indeterminate. There is hepatic steatosis. No calcified gallstones. No intrahepatic or extrahepatic biliary dilatation. Spleen: Unremarkable. Pancreas: Unremarkable. Adrenals: Unremarkable. Genitourinary: Normal kidneys. Bladder wall thickening. Gastrointestinal: Normal course and caliber without inflammat ory change. Lymphovascular: Moderate atherosclerotic calcification of the abdominal aorta and branch vessels. Normal course and caliber. Normal IVC. No abdominopelvic lymphadenopathy. Peritoneum: Noascites or pneumoperitoneum. Osseous and abdominal wall: No acute or destructive osseous abnormality. Soft tissues are unremarkable. IMPRESSION: Bladder wall thickening. Correlate with urinalysis for cystitis. PAGE 1 Signed Report (CONTINUED) Name: CAROLYNN PATEL [facility] : 1970 Age/S: 54 / M [address] [facility] Unit #: [id number] Loc: [facility] [place] [address] Phys: Marce iKser MD Acct: [id number] Dis Date: Status: ADM IN PHONE #: [phone] Exam Date: 08/03/2024 1759 FAX #: [phone] Reason: bactermia EXAMS: CPT CODE: [id number] CT ABD PELVIS W/CONT 94881 (Continued) Indeterminate hypodensity in the left hepatic lobe. Nonemergent outpatient follow-up MRI liver is recommended. at 181 Reported and signed by: Sue Bashir M.D. CC: Inga Johns MD; Marce Kiser MD Technologist:RT ANTOINE CTDI: DLP:Trnscb Date/Time: 08/03/2024 (1815) Orig Print D/T: S: 08/03/2024 (1818) PAGE 2 Signed [id number] 17:09:00* Test Item Value Reference Range Interpretation Comme nts GLUBED (test code = GLUBED) 131 mg/dL 74-106 H Performed by cer tified special warfare operator at [facility] [id number] 11:42:00* Test Item Value Reference Range Interpretation Comme nts GLUBED (test code = GLUBED) 161 mg/dL 74-106 H Performed by cer tified special warfare operator at [facility] [id number] 08:07:00* Test Item Value Reference Range Interpretation Comme nts GLUBED (test code = GLUBED) 113 mg/dL 74-106 H Performed by cer tified special warfare operator at [facility] COMPREHENSIVE METABOLIC [id number] 04:09:00* Test Item Value Reference Range Interpretation Comme nts SODIUM (test code = NA) 137 mmol/L 136-145 N POTASSIUM (test code = K) 4.0 mmol/L 3.5-5.1 N CHLORIDE (test code = CL) 98.0 mmol/L 98-107 N CARBON DIOXIDE (test code = CO2) 32.0 mmol/L 21-32 N ANION GAP (test code = GAP) 11.0 mmol/L 10-20 N GLUCOSE (test code = GLU) 116 mg/dL 74-106 H BLOOD UREA NITROGEN (test code = BUN) 12 mg/dL 7-18 N GLOMERULAR FILTRATION RATE (test code = GFR) > 60 mL/min >=60 The Glomerular Filtration Rate is a calculated parameterbased on serum Creatinine, patient age and sex. GFR valuesless than 60 mL/min/1.73 square meters are indicative ofChronic Kidney Disease. Values less than 15 mL/min/1.73square meters indicate Kidney failure. The calculation forGFR is based on the CKD-EPI (202) calculation. This formulais race indifferent and is the recommended formula for GFRby the National Kidney Foundation for Adults.The GFR will not calculate if the sex is unknown or if thepatient's age is <18 years. CREATININE (test code = CREAT) 0.60 mg/dL 0.7-1.3 L BUN/CREATININE RATIO (test code = BUN/CREA) 21.1 10-20 H TOTAL PROTEIN (test code = PROT) 6.0 gram/dL 6.4-8.2 L ALBUMIN (test code = ALB) 1.9 g/dL 3.4-5.0 L GLOBULIN (test code = GLOB) 4.1 gram/dL 2.7-4.2 N ALBUMIN/GLOBULIN RATIO (test code = A/G) 0.5 0.75-1.50 L CALCIUM (test code = CA) 8.2 mg/dL 8.5-10.1 L BILIRUBIN TOTAL (test code = BILT) 0.30 mg/dL 0.0-1.0 N SGOT/AST (test code = AST) 26 IUnit/L 15-37 N SGPT/ALT (test code = ALT) 13 IUnit/L 12-78 N ALKALINE PHOSPHATASE TOTAL (test code = ALKP) 104 IUnit/L 45-117 N Note change in reference range due to change in reagent. CBC W/AUTO [id number] 03:39:00* Test Item Value Reference Range Interpretation Comme nts WHITE BLOOD CELL (test code = WBC) 7.3 K/mm3 4.5-12.5 N RED BLOOD CELL (test code = RBC) 3.33 mill/mm3 4.0-5.8 L HEMOGLOBIN (test code = HGB) 9.6 gram/dL 13.0-17.5 L HEMATOCRIT (test code = HCT) 29.3 % 42.0-52.0 L MEAN CELL VOLUME (test code = MCV) 88.0 fL 80-98 N MEAN CELL HGB (test code = MCH) 28.8 picogram 27.0-33.0 N MEAN CELL HGB CONCETRATION (test code = MCHC) 32.8 gram/dL 33.0-36.0 L RED CELL DISTRIBUTION WIDTH (test code = RDW) 15.9 % 11.6-16.2 N RED CELL DISTRIBUTION WIDTH SD (test code = RDW-SD) 51.2 fL 37.0-51.0 H PLATELET COUNT (test code = PLT) 274 K/mm3 150-450 N MEAN PLATELET VOLUME (test c ode = MPV) 9.7 fL 6.7-11.0 N NEUTROPHIL % (test code = NT%) 44.3 % 39.0-69.0 N IMMATURE GRANULOCYTE % (test code = IG%) 1.4 % 0.0-5.0 N LYMPHOCYTE % (test code = LY%) 45.4 % 25.0-55.0 N MONOCYTE % (test code = MO%) 6.6 % 0.0-10.0 N EOSINOPHIL % (test code = EO%) 1.6 % 0.0-5.0 N BASOPHIL % (test code = BA%) 0.7 % 0.0-1.0 N NUCLEATED RBC % (test code = NRBC%) 0.0 % 0-0 N NEUTROPHIL # (test code = NT#) 3.25 K/mm3 1.8-7.7 N IMMATURE GRANULOCYTE # (test code = IG#) 0.10 x10 3/uL 0-0.03 H LYMPHOCYTE # (test code = LY#) 3.32 K/mm3 1.0-5.0 N MONOCYTE # (test code = MO#) 0.48 K/mm3 0-0.8 N EOSINOPHIL # (test code = EO#) 0.12 K/mm3 0.0-0.5 N BASOPHIL # (test code = BA#) 0.05 K/mm3 0.0-0.2 N NUCLEATED RBC # (test code = NRBC#) 0.00 K/mm3 0.0-0.1 N [id number] 20:45:00* Test Item Value Reference Range Interpretation Comme nts GLUBED (test code = GLUBED) 132 mg/dL 74-106 H Performed by cer tified special warfare operator at [facility] - XR SWLW FUNC W/C [id number] 18:08:00 [facility] 1970 Sex: M FAX: Inga Levin MD [phone] [place]: B St: ADM Name: CAROLYNN PATEL [facility] : 1970 Age/S:54/M [address] [facility] Unit #: [id number] Loc: V.[address] [place] [address] Phys: Inga Johns MD Acct: [id number] Dis Date: Status: ADM IN PHONE #: [phone] Exam Date: 08/02/2024 8530 FAX #: [phone] Reason: RULE OUT ASPIRATION EXAMS: CPT CODE: [id number] XR SWLW FUNC W/C V 26032 CLINICAL HISTORY: RULE OUT ASPIRATION TECHNIQUE: Fluoroscopic swallow function evaluation in conjunction withspeech therapy. Fluoroscopy Time: 131 seconds Number of Images: 14 IMPRESSION: Handling of varying consistencies of barium were evaluated. There is an instance of penetration of mixed consistency barium however no aspiration is seen. Please see separate speech pathology report for complete discussion. [facility] at 1808 Reported and signed by: Bertrand Conklin MD CC: Inga Johns MD Technologist: Aly RIDDLE(R) Trnscrd Date/Time/By: 08/02/2024 (1807) : By: [email or web address] Orig Print D/T: S: 08/02/2024 (1811) PAGE 1 Signed ReportGLUBED 2024-08-02 16:31:00* Test Item Value Reference Range Interpretation Comme nts GLUBED (test code = GLUBED) 174 mg/dL 74-106 H Performed by cer tified special warfare operator at [facility] [id number] 11:25:00* Test Item Value Reference Range Interpretation Comme nts GLUBED (test code = GLUBED) 139 mg/dL 74-106 H Performed by cer tified special warfare operator at [facility] [id number] 08:23:00* Test Item Value Reference Range Interpretation Comme nts GLUBED (test code = GLUBED) 159 mg/dL 74-106 H Performed by cer tified special warfare operator at [facility] COMPREHENSIVE METABOLIC [id number] 06:54:00* Test Item Value Reference Range Interpretation Comme nts SODIUM (test code = NA) 136 mmol/L 136-145 N POTASSIUM (test code = K) 3.8 mmol/L 3.5-5.1 N CHLORIDE (test code = CL) 98.0 mmol/L 98-107 N CARBON DIOXIDE (test code = CO2) 34.0 mmol/L 21-32 H ANION GAP (test code = GAP) 7.8 mmol/L 10-20 L GLUCOSE (test code = GLU) 187 mg/dL 74-106 H BLOOD UREA NITROGEN (test code = BUN) 13 mg/dL 7-18 N GLOMERULAR FILTRATION RATE (test code = GFR) > 60 mL/min >=60 The Glomerular Filtration Rate is a calculated parameterbased on serum Creatinine, patient age and sex. GFR valuesless than 60 mL/min/1.73 square meters are indicative ofChronic Kidney Disease. Values less than 15 mL/min/1.73square meters indicate Kidney failure. The calculation forGFR is based on the CKD-EPI (2021) calculation. This formulais race indifferent and is the recommended formula for GFRby the National Kidney Foundation for Adults.The GFR will not calculate if the sex is unknown or if thepatient's age is <18 years. CREATININE (test code = CREAT) 0.60 mg/dL 0.7-1.3 L BUN/CREATININE RATIO (test code = BUN/CREA) 22.4 10-20 H TOTAL PROTEIN (test code = PROT) 5.5 gram/dL 6.4-8.2 L ALBUMIN (test code = ALB) 1.7 g/dL 3.4-5.0 L GLOBULIN (test code = GLOB) 3.8 gram/dL 2.7-4.2 N ALBUMIN/GLOBULIN RATIO (test code = A/G) 0.4 0.75-1.50 L CALCIUM (test code = CA) 7.7 mg/dL 8.5-10.1 L BILIRUBIN TOTAL (test code = BILT) 0.30 mg/dL 0.0-1.0 N SGOT/AST (test code = AST) 23 IUnit/L 15-37 N SGPT/ALT (test code = ALT) 11 IUnit/L 12-78 L ALKALINE PHOSPHATASE TOTAL (test code = ALKP) 115 IUnit/L 45-117 N Note change in reference range due to change in reagent. CBC W/AUTO [id number] 06:24:00* Test Item Value Reference Range Interpretation Comme nts WHITE BLOOD CELL (test code = WBC) 5.8 K/mm3 4.5-12.5 N RED BLOOD CELL (test code = RBC) 3.19 mill/mm3 4.0-5.8 L HEMOGLOBIN (test code = HGB) 9.2 gram/dL 13.0-17.5 L HEMATOCRIT (test code = HCT) 28.1 % 42.0-52.0 L MEAN CELL VOLUME (test code = MCV) 88.1 fL 80-98 N MEAN CELL HGB (test code = MCH) 28.8 picogram 27.0-33.0 N MEAN CELL HGB CONCETRATION (test code = MCHC) 32.7 gram/dL 33.0-36.0 L RED CELL DISTRIBUTION WIDTH (test code = RDW) 15.9 % 11.6-16.2 N RED CELL DISTRIBUTION WIDTH SD (test code = RDW-SD) 51.5 fL 37.0-51.0 H PLATELET COUNT (test code = PLT) 259 K/mm3 150-450 N MEAN PLATELET VOLUME (test c ode = MPV) 10.3 fL 6.7-11.0 N NEUTROPHIL % (test code = NT%) 38.3 % 39.0-69.0 L IMMATURE GRANULOCYTE % (test code = IG%) 1.7 % 0.0-5.0 N LYMPHOCYTE % (test code = LY%) 49.5 % 25.0-55.0 N MONOCYTE % (test code = MO%) 8.6 % 0.0-10.0 N EOSINOPHIL % (test code = EO%) 1.2 % 0.0-5.0 N BASOPHIL % (test code = BA%) 0.7 % 0.0-1.0 N NUCLEATED RBC % (test code = NRBC%) 0.0 % 0-0 N NEUTROPHIL # (test code = NT#) 2.24 K/mm3 1.8-7.7 N IMMATURE GRANULOCYTE # (test code = IG#) 0.10 x10 3/uL 0-0.03 H LYMPHOCYTE # (test code = LY#) 2.89 K/mm3 1.0-5.0 N MONOCYTE # (test code = MO#) 0.50 K/mm3 0-0.8 N EOSINOPHIL # (test code = EO#) 0.07 K/mm3 0.0-0.5 N BASOPHIL # (test code = BA#) 0.04 K/mm3 0.0-0.2 N NUCLEATED RBC # (test code = NRBC#) 0.00 K/mm3 0.0-0.1 N [id number] 20:43:00* Test Item Value Reference Range Interpretation Comme nts GLUBED (test code = GLUBED) 176 mg/dL 74-106 H Performed by cer tified special warfare operator at [facility] [id number] 17:15:00* Test Item Value Reference Range Interpretation Comme nts GLUBED (test code = GLUBED) 132 mg/dL 74-106 H Performed by cer tified special warfare operator at [facility] [id number] 12:02:00* Test Item Value Reference Range Interpretation Comme nts GLUBED (test code = GLUBED) 132 mg/dL 74-106 H Performed by cer tified special warfare operator at [facility] [id number] 08:18:00* Test Item Value Reference Range Interpretation Comme nts GLUBED (test code = GLUBED) 87 mg/dL 74-106 N Performed by cer tified special warfare operator at [facility] [id number] 20:56:00* Test Item Value Reference Range Interpretation Comme nts GLUBED (test code = GLUBED) 127 mg/dL 74-106 H Performed by cer tified special warfare operator at [facility] [id number] 17:03:00* Test Item Value Reference Range Interpretation Comme nts GLUBED (test code = GLUBED) 108 mg/dL 74-106 H Performed by cer tified special warfare operator at [facility] [id number] 12:47:00* Test Item Value Reference Range Interpretation Comme nts GLUBED (test code = GLUBED) 129 mg/dL 74-106 H Performed by cer tified special warfare operator at [facility] [id number] 07:44:00* Test Item Value Reference Range Interpretation Comme nts GLUBED (test code = GLUBED) 107 mg/dL 74-106 H Performed by cer tified special warfare operator at [facility] [id number] 21:23:00* Test Item Value Reference Range Interpretation Comme nts GLUBED (test code = GLUBED) 177 mg/dL 74-106 H Performed by cer tified special warfare operator at [facility] [id number] 20:07:00* Test Item Value Reference Range Interpretation Comme nts GLUBED (test code = GLUBED) 166 mg/dL 74-106 H Performed by cer tified special warfare operator at [facility] - CTA [id number] 19:46:00 [facility] ([facility])Name: CAROLYNN PATEL : 1970 Sex: M Name: CAROLYNN PATEL [facility] : 1970 Age/S: 54 / M [address] [facility] Unit #: [id number] Loc: [facility] [place] [address] Phys: Romi Henriquez MD Acct: [id number] Dis Date: Status: ADM IN PHONE #: [phone] Exam Date: 07/30/20241915 FAX #: [phone] Reason: Stroke EXAMS: CPTCODE: [id number] CTA NECK [address] ANGIOGRAPHY CLINICAL HISTORY: Stroke COMPARISON: No prior studies are available for comparison. TECHNIQUE: Axial images acquired from the calvarial vertex through the thoracic inlet after the administration of intravenous contrast per routine CT angiography protocol with three-dimensional multiplanar reformatted sequences. All CT scans at [facility] use dose modulation, iterative reconstruction, and/or weight based dosing when appropriate to reduce radiation dose to as low as reasonably achievable. DICOM images are available for review. FINDINGS: Intracranially, the visualized portions of the brain parenchyma demonstrates symmetric enhancement bilaterally without evidence of abnormal parenchymal enhancement. The skull base, calvaria, orbits, and overlying soft tissues are intact. CTA-Intracranial: The visualized anterior and posteriorarterial circulation are patent without flow limiting stenosis, branch vessel occlusion, aneurysm, or vascular malformation. Patent dural venous sinuses. CTA-Extracranial: Classical aortic arch branch configuration is identified, without stenosis of the supraaortic great vessel origins. The course and caliber of the cervical segments of the carotid arteries, to include the carotid bifurcations, appear unremarkable without high grade stenosis, occlusion, or vascular malformation. Vertebral artery origins are patent with normal cervical course and caliber. No high grade stenosis, occlusion, or vascular malformation. The visualized cervical neck soft tissues are within normal limits in CT appearance. The visualized portion of the superior mediastinum and PAGE 1 Signed Report (CONTINUED) Name: CAROLYNN PATEL [facility] : 1970 Age/S: 54 / M [address] [facility] Unit #: [id number] Loc: [facility] [place] [address] Phys: Romi Henriquez MD Acct: [id number] Dis Date: Status: ADM IN PHONE #: [phone] Exam Date: 07/30/20241915 FAX #: [phone] Reason: Stroke EXAMS: CPT CODE: [id number] CTA NECK 37962 (Continued) overlying thoracic tissues are unremarkable. IMPRESSION: Patency of the intracranial vessels bilaterally without vascular abnormality. Patency of the extracranial vessels bilaterally without vascular abnormality. *NASCET criteria was used to calculate the degree of vessel stenosis, if present* at 194 Reported and signed by: Kelsey Bashir M.D. CC: Inga Johns MD; Romi Henriquez MD Technologist:TAYE NGUYEN, RT(R) CT CTDI: DLP: Trnscb Date/Time: 07/30/2024 (1945) Orig Print D/T: S: 07/30/2024 (1948) PAGE 2 Signed Report- CTA [id number] 19:46:00 [facility] ([facility]Name: CAROLYNN PATEL : 1970 Sex: M Name: CAROLYNN PATEL [facility] : 1970 Age/S: 54 / M [address] Unit #: [id number] Loc: [facility] [place] [address] Phys: Romi Henriquez MD Acct: [id number] Dis Date: Status: ADM IN PHONE #: [phone] Exam Date: 07/30/20241915 FAX #: [phone] Reason: Stroke EXAMS: CPTCODE: [id number] CTA HEAD [address] ANGIOGRAPHY CLINICAL HISTORY: Stroke COMPARISON: No prior studies are available for comparison. TECHNIQUE: Axial images acquired from the calvarial vertex through the thoracic inlet after the administration of intravenous contrast per routine CT angiography protocol with three-dimensional multiplanar reformatted sequences. All CT scans at this facility use dose modulation, iterative reconstruction, and/or weight based dosing when appropriate to reduce radiation dose to as low as reasonably achievable. DICOM images are available for review. FINDINGS: Intracranially, the visualized portions of the brain parenchyma demonstrates symmetric enhancement bilaterally without evidence of abnormal parenchymal enhancement. The skull base, calvaria, orbits, and overlying soft tissues are intact. CTA-Intracranial: The visualized anterior and posterior arterial circulation are patent without flow limiting stenosis, branch vessel occlusion, aneurysm, or vascular malformation. Patent dural venous sinuses. CTA-Extracranial: Classical aortic arch branch configuration is identified, without stenosis of the supraaortic great vessel origins. The course and caliber of the cervical segments of the carotid arteries, to include the carotid bifurcations, appear unremarkable without high grade stenosis, occlusion, or vascular malformation. Vertebral arteryorigins are patent with normal cervical course and caliber. No high grade stenosis, occlusion, or vascular malformation. The visualized cervical neck soft tissues are within normal limits in CT appearance. The visualized portion of the superior mediastinum and PAGE 1 Signed Report (CONTINUED) Name:CAROLYNN PATEL [facility] : 1970 Age/S: 54 / M [address] Unit #: [id number] Loc:[facility] [place] [address] Phys: Romi Henriquez MD Acct: [id number] Dis Date: Status: ADM IN PHONE #:[phone] Exam Date: 07/30/20241915 FAX #: [phone] Reason: Stroke EXAMS: CPT CODE: [id number] CTA HEAD 99275 (Continued) overlying thoracic tissues are unremarkable. IMPRESSION: Patency of the intracranial vessels bilaterally without vascular abnormality. Patency of the extracranial vessels bilaterally without vascular abnormality. *NASCET criteria was used to calculate the degree of vessel stenosis, if present* at 1946 Reported and signed by: Kelsey Bashir M.D. CC: Inga Johns MD; Romi Henriquez MD Technologist:TAYE NGUYEN, RT(R) CT CTDI: DLP: Trnscb Date/Time: 07/30/2024 (1945) Orig Print D/T: S: 07/30/2024 (1949) PAGE 2 Signed ReportGLUBED 2024-07-30 16:04:00* Test Item Value Reference Range Interpretation Comme nts GLUBED (test code = GLUBED) 120 mg/dL 74-106 H Performed by [employer] [facility] Not[facility]~Notified Nurse~ [id number] 11:45:00* Test Item Value Reference Range Interpretation Comme nts GLUBED (test code = GLUBED) 173 mg/dL 74-106 H Performed by [employer] special warfare operator at [facility] [id number] 07:53:00* Test Item Value Reference Range Interpretation Comme nts GLUBED (test code = GLUBED) 185 mg/dL 74-106 H Performed by [employer] special warfare operator at [facility] LIPID PROFILE (CORONARY RISK)2024-07-30 05:15:00* Test Item Value Reference Range Interpretation Comme nts TRIGLYCERIDES (test code = TRIG) 307 mg/dL 20-150 H CHOLESTEROL (test code = CHOL) 114 mg/dL 0-200 N CHOLESTEROL/HDL RATIO (test code = CHOLHDL) 19.0 RATIO 0-4.9 H RISK ASSOC IATED WITH CHOL/HDL RATIOS: Risk Male Female1/2 AVERAGE 3.43 3.27AVERAGE 4.97 4.442X AVERAGE 9.55 7.053X AVERAGE 23.39 11.04 REFERENCE VALUE IS RELATED TO RISK LEVELS ASRECOMMENDED BY THE ANDI. HEART, LUNG, AND BLOOD INST. HDL CHOLESTEROL (test code = HDL) 6 mg/dL 40-60 L LIPOPROTEIN LDL (test code = LDL) 52 mg/dL 0-99 N ===== Refe rence Interval: mg/dL mmol/L --Optimal <100 <2.6Near/above optimal 100-129 2.6-3.3Borderline High 130-159 3.4-4.1High 160-189 4.1-4.9Very High >=190 >=4.9========= This LDL result is a direct measurement.========= COMPREHENSIVE METABOLIC [id number] 05:14:00* Test Item Value Reference Range Interpretation Comme nts SODIUM (test code = NA) 140 mmol/L 136-145 N POTASSIUM (test code = K) 3.1 mmol/L 3.5-5.1 L CHLORIDE (test code = CL) 98.0 mmol/L 98-107 N CARBON DIOXIDE (test code = CO2) 36.0 mmol/L 21-32 H ANION GAP (test code = GAP) 9.1 mmol/L 10-20 L GLUCOSE (test code = GLU) 168 mg/dL 74-106 H BLOOD UREA NITROGEN (test code = BUN) 19 mg/dL 7-18 H GLOMERULAR FILTRATION RATE (test code = GFR) > 60 mL/min >=60 The Glomerular Filtration Rate is a calculated parameterbased on serum Creatinine, patient age and sex. GFR valuesless than 60 mL/min/1.73 square meters are indicative ofChronic Kidney Disease. Values less than 15 mL/min/1.73square meters indicate Kidney failure. The calculation forGFR is based on the CKD-EPI (202) calculation. This formulais race indifferent and is the recommended formula for GFRby the National Kidney Foundation for Adults.The GFR will not calculate if the sex is unknown or if thepatient's age is <18 years. CREATININE (test code = CREAT) 0.50 mg/dL 0.7-1.3 L BUN/CREATININE RATIO (test code = BUN/CREA) 35.2 10-20 H TOTAL PROTEIN (test code = PROT) 5.1 gram/dL 6.4-8.2 L ALBUMIN (test code = ALB) 1.5 g/dL 3.4-5.0 L GLOBULIN (test code = GLOB) 3.6 gram/dL 2.7-4.2 N ALBUMIN/GLOBULIN RATIO (test code = A/G) 0.4 0.75-1.50 L CALCIUM (test code = CA) 7.8 mg/dL 8.5-10.1 L BILIRUBIN TOTAL (test code = BILT) 0.30 mg/dL 0.0-1.0 N SGOT/AST (test code = AST) 25 IUnit/L 15-37 N SGPT/ALT (test code = ALT) 11 IUnit/L 12-78 L ALKALINE PHOSPHATASE TOTAL (test code = ALKP) 112 IUnit/L 45-117 N Note change in reference range due to change in reagent. CBC W/AUTO [id number] 04:45:00* Test Item Value Reference Range Interpretation Comme nts WHITE BLOOD CELL (test code = WBC) 7.6 K/mm3 4.5-12.5 N RED BLOOD CELL (test code = RBC) 2.83 mill/mm3 4.0-5.8 L HEMOGLOBIN (test code = HGB) 8.1 gram/dL 13.0-17.5 L HEMATOCRIT (test code = HCT) 25.5 % 42.0-52.0 L MEAN CELL VOLUME (test code = MCV) 90.1 fL 80-98 N MEAN CELL HGB (test code = MCH) 28.6 picogram 27.0-33.0 N MEAN CELL HGB CONCETRATION (test code = MCHC) 31.8 gram/dL 33.0-36.0 L RED CELL DISTRIBUTION WIDTH (test code = RDW) 16.2 % 11.6-16.2 N RED CELL DISTRIBUTION WIDTH SD (test code = RDW-SD) 53.9 fL 37.0-51.0 H PLATELET COUNT (test code = PLT) 178 K/mm3 150-450 N MEAN PLATELET VOLUME (test c ode = MPV) 10.6 fL 6.7-11.0 N NEUTROPHIL % (test code = NT%) 39.9 % 39.0-69.0 N IMMATURE GRANULOCYTE % (test code = IG%) 0.7 % 0.0-5.0 N LYMPHOCYTE % (test code = LY%) 46.4 % 25.0-55.0 N MONOCYTE % (test code = MO%) 10.6 % 0.0-10.0 H EOSINOPHIL % (test code = EO%) 1.7 % 0.0-5.0 N BASOPHIL % (test code = BA%) 0.7 % 0.0-1.0 N NUCLEATED RBC % (test code = NRBC%) 0.0 % 0-0 N NEUTROPHIL # (test code = NT#) 3.04 K/mm3 1.8-7.7 N IMMATURE GRANULOCYTE # (test code = IG#) 0.05 x10 3/uL 0-0.03 H LYMPHOCYTE # (test code = LY#) 3.53 K/mm3 1.0-5.0 N MONOCYTE # (test code = MO#) 0.81 K/mm3 0-0.8 H EOSINOPHIL # (test code = EO#) 0.13 K/mm3 0.0-0.5 N BASOPHIL # (test code = BA#) 0.05 K/mm3 0.0-0.2 N NUCLEATED RBC # (test code = NRBC#) 0.00 K/mm3 0.0-0.1 N [id number] 21:11:00* Test Item Value Reference Range Interpretation Comme nts GLUBED (test code = GLUBED) 148 mg/dL 74-106 H Performed by cer arsen special warfare operator at [facility] - MRI BRAIN W/O [id number] 20:24:00 [facility] ([facility])Name: CAROLYNN PATEL DOB: 1970 Sex: M FAX: Inga Levin MD [phone] [place]: St: ADM Name: CAROLYNN PATEL [facility] : 1970 Age/S: 54/M [address] [facility] Unit #: [id number] Loc: [address] [place] [address] Phys: Inga Johns MD Acct: [id number] Dis Date: Status: ADM IN PHONE #: [phone] Exam Date: 07/29/2024 1755 FAX #: [phone] Reason: Acute vs chronic infarct seen on CT EXAMS: CPT CODE: [id number] MRI BRAIN W/O CONTRAST 46557 PROCEDURE: MRI BRAIN WITHOUT CONTRAST INDICATION: 54 years of age, Male, with concern forinfarct.. TECHNIQUE: Whole brain sagittal T1, axial FSE T2, FLAIR, diffusion, and T1 and potentially coronal FSE T2 or similar sequences were obtained. COMPARISON: None. FINDINGS: Restricted diffusion with associated FLAIR signal hyperintensity in the left occipital lobe and temporal lobe compatible with acute infarct. Discrete intra-axial mass lesion is not identified. No hydrocephalus or midline shift. No aggressive or destructive osseous lesion within the skull base or calvaria. IMPRESSION: Acute infarct involving the left temporal and occipital lobe. Significant findings were verbally relayed to Dr. Tan on 07/29/2024 8:24 PM. at 2023 Reported and signed by: Kelsey Bashir M.D. CC: Inga Johns MD Technologist: Marge Patrick RT(R)(MR)(M) Trnscrd Date/Time/By: 07/29/2024 (2023) : By: Orig Print D/T: S: 07/29/2024 (2027) PAGE 1 Signed [id number] 16:24:00* Test Item Value Reference Range Interpretation Comme nts GLUBED (test code = GLUBED) 244 mg/dL 74-106 H Performed by cer tified special warfare operator at [facility] - CT HEAD/BRAIN W/O [id number] 12:06:00 [facility])Name: CAROLYNN PATEL : 1970 Sex: M Name: CAROLYNN PATEL [facility] : 1970 Age/S: 54 / M [address] [facility] Unit #: [id number] Loc: [place] [address] Phys: Natalya Tolentino AQUATICS COORDINATOR Acct: [id number] Dis Date: Status: ADM IN PHONE #: [phone] Exam Date: 07/29/2024 1201 FAX #: [phone] Reason: CODE STROKE EXAMS: CPT CODE: [id number] CT HEAD/BRAIN W/O CONT 87593 HISTORY: CODE STROKE TECHNIQUE: Noncontrast 2.5mm axial CT of the head. Examination acquired within [address] dose reduction protocol: Automated exposure control adjustment of mA and/or kV according to patient size or iterative reconstruction dose optimization techniques were used. COMPARISON: None FINDINGS: No lacerations or contusions of the scalp or facial soft tissues. Calvarium and skull base are intact. No acute hemorrhage. No intracranial mass, mass effect, or midline shift. No effacement of the sulci or dalal-white matter interface. 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 There is an infarct in the left temporal lobe adjacent to the posterior horn of the left lateral ventricle. Visualized paranasal sinuses are clear. Partial opacification of the right mastoid air cells. Left mastoid air cells are clear. Orbital contents are unremarkable. IMPRESSION: No acute intracranial hemorrhage. 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 There is an infarct in the left temporal lobe adjacent to the posterior horn of the left lateral ventricle which is age indeterminate. This can be better assessed with MRI. Findings were reported by telephone at 12:05 PM July 29, [address] Johns. [facility] PAGE 1 Signed Report (CONTINUED) Name: CAROLYNN PATEL [facility] : 1970 Age/S: 54 / M [address] [facility] Unit #: [id number] Loc: [place] [address] Phys: Natalya Tolentino Acct: [id number] Dis Date: Status: ADM IN PHONE #: [phone] Exam Date: 07/29/2024 1201 FAX #: [phone] Reason: CODE STROKE EXAMS: CPT CODE: [id number] CT HEAD/BRAIN W/O CONT 75899 (Continued) at 1206 Reported and signed by: Bertrand Conklin MD CC: Inga Johns MD; Natalya Tolentino NP Technologist:Kellie GuevaraRT(R),CT; TAYE Duval CTDI: DLP: Trnscb Date/Time: 07/29/2024 (1206) [id number] Orig Print D/T: S: 07/29/2024 (0106) PAGE 2 Signed [id number] 11:20:00* Test Item Value Reference Range Interpretation Comme nts GLUBED (test code = GLUBED) 164 mg/dL 74-106 H Performed by cer tified special warfare operator at [facility] [id number] 08:23:00* Test Item Value Reference Range Interpretation Comme nts GLUBED (test code = GLUBED) 162 mg/dL 74-106 H Performed by cer tified special warfare operator at [facility] [id number] 21:34:00* Test Item Value Reference Range Interpretation Comme nts GLUBED (test code = GLUBED) 232 mg/dL 74-106 H Performed by cer tified special warfare operator at [facility] [id number] 13:05:00* Test Item Value Reference Range Interpretation Comme nts GLUBED (test code = GLUBED) 118 mg/dL 74-106 H Performed by cer tified special warfare operator at [facility] [id number] 10:58:00* Test Item Value Reference Range Interpretation Comme nts GLUBED (test code = GLUBED) 97 mg/dL 74-106 N Performed by cer tified special warfare operator at [facility] [id number] 08:42:00* Test Item Value Reference Range Interpretation Comme nts GLUBED (test code = GLUBED) 193 mg/dL 74-106 H Performed by cer tified special warfare operator at [facility] [id number] 07:37:00* Test Item Value Reference Range Interpretation Comme nts GLUBED (test code = GLUBED) 177 mg/dL 74-106 H Performed by cer tified special warfare operator at [facility] PROTHROMBIN [id number] 04:55:00* Test Item Value Reference Range Interpretation Comme nts PROTHROMBIN TIME PATIENT (test code = PTP) 12.6 seconds 10.0-14.0 N INTERNATIONAL NORMAL RATIO (test code = INR) 1.2 0.8-1.2 N The therapeutic range for oral anticoagulant therapy formost indications is an international normalized ratio (INR)of between 2.0 and 3.0. The recommended therapeutic INRrange for various clinical situations is listed below: Clinical Situation INR range Pulmonary embolism treatment (2.0-3.0)Venous thrombosis treatmentVenous thrombosis prophylaxis (high risk surgery)Prevention of systemic embolism from: Acute myocardial infarction Valvular heart disease Atrial fibrillation Mechanical prosthetic heart valves (2.5-3.5) IS PATIENT ON ANTICOAGULANTS? NSPECIMEN COMMENTS: Do STAT unless on chartCOMMENTS TO FOUNDER PRESIDENT AND CEO: and results w/in last 7 daysBASIC METABOLIC PANEL 2024-07-28 04:41:00* Test Item Value Reference Range Interpretation Comme nts SODIUM (test code = NA) 139 mmol/L 136-145 N POTASSIUM (test code = K) 2.8 mmol/L 3.5-5.1 LL Results called t o [id number] by [id number] 07/28/24 0440Critical results verified and read back by Nurse? Y FOR ALL ICU PATIENT EXCLUDING HOLD PLEASE CALL [phone] CHLORIDE (test code = CL) 96.0 mmol/L 98-107 L CARBON DIOXIDE (test code = CO2) 38.0 mmol/L 21-32 H ANION GAP (test code = GAP) 7.8 mmol/L 10-20 L GLUCOSE (test code = GLU) 147 mg/dL 74-106 H BLOOD UREA NITROGEN (test code = BUN) 19 mg/dL 7-18 H GLOMERULAR FILTRATION RATE (test code = GFR) > 60 mL/min >=60 The Glomerular Filtration Rate is a calculated parameterbased on serum Creatinine, patient age and sex. GFR valuesless than 60 mL/min/1.73 square meters are indicative ofChronic Kidney Disease. Values less than 15 mL/min/1.73square meters indicate Kidney failure. The calculation forGFR is based on the CKD-EPI (2020) calculation. This formulais race indifferent and is the recommended formula for GFRby the National Kidney Foundation for Adults.The GFR will not calculate if the sex is unknown or if thepatient's age is <18 years. CREATININE (test code = CREAT) 0.50 mg/dL 0.7-1.3 L BUN/CREATININE RATIO (test code = BUN/CREA) 39.6 10-20 H CALCIUM (test code = CA) 7.9 mg/dL 8.5-10.1 L SPECIMEN COMMENTS: Do STAT unless on chart SPECIMEN COMMENTS: and results are w/[facility] [id number] 04:32:00* Test Item Value Reference Range Interpretation Comme nts WHITE BLOOD CELL (test code = WBC) 9.3 K/mm3 4.5-12.5 N RED BLOOD CELL (test code = RBC) 2.98 mill/mm3 4.0-5.8 L HEMOGLOBIN (test code = HGB) 8.7 gram/dL 13.0-17.5 L HEMATOCRIT (test code = HCT) 26.9 % 42.0-52.0 L MEAN CELL VOLUME (test code = MCV) 90.3 fL 80-98 N MEAN CELL HGB (test code = MCH) 29.2 picogram 27.0-33.0 N MEAN CELL HGB CONCETRATION (test code = MCHC) 32.3 gram/dL 33.0-36.0 L RED CELL DISTRIBUTION WIDTH (test code = RDW) 15.9 % 11.6-16.2 N RED CELL DISTRIBUTION WIDTH SD (test code = RDW-SD) 52.9 fL 37.0-51.0 H PLATELET COUNT (test code = PLT) 264 K/mm3 150-450 MEAN PLATELET VOLUME (test c ode = MPV) 10.4 fL 6.7-11.0 N NEUTROPHIL % (test code = NT%) 56.6 % 39.0-69.0 N IMMATURE GRANULOCYTE % (test code = IG%) 1.3 % 0.0-5.0 N LYMPHOCYTE % (test code = LY%) 32.2 % 25.0-55.0 N MONOCYTE % (test code = MO%) 8.2 % 0.0-10.0 N EOSINOPHIL % (test code = EO%) 1.1 % 0.0-5.0 N BASOPHIL % (test code = BA%) 0.6 % 0.0-1.0 N NUCLEATED RBC % (test code = NRBC%) 0.0 % 0-0 N NEUTROPHIL # (test code = NT#) 5.28 K/mm3 1.8-7.7 N IMMATURE GRANULOCYTE # (test code = IG#) 0.12 x10 3/uL 0-0.03 H LYMPHOCYTE # (test code = LY#) 3.01 K/mm3 1.0-5.0 N MONOCYTE # (test code = MO#) 0.77 K/mm3 0-0.8 N EOSINOPHIL # (test code = EO#) 0.10 K/mm3 0.0-0.5 N BASOPHIL # (test code = BA#) 0.06 K/mm3 0.0-0.2 N NUCLEATED RBC # (test code = NRBC#) 0.00 K/mm3 0.0-0.1 N SPECIMEN COMMENTS: Do STAT unless on chartSPECIMEN COMMENTS: and results are w/in last 7 [id number] 20:34:00* Test Item Value Reference Range Interpretation Comme nts GLUBED (test code = GLUBED) 125 mg/dL 74-106 H Performed by cer tified special warfare operator at [facility] [id number] 20:34:00* Test Item Value Reference Range Interpretation Comme nts GLUBED (test code = GLUBED) 150 mg/dL 74-106 H Performed by cer tified special warfare operator at [facility] [id number] 11:01:00* Test Item Value Reference Range Interpretation Comme nts GLUBED (test code = GLUBED) 179 mg/dL 74-106 H Performed by cer tified special warfare operator at [facility] [id number] 07:42:00* Test Item Value Reference Range Interpretation Comme nts GLUBED (test code = GLUBED) 118 mg/dL 74-106 H Performed by cer tified special warfare operator at [facility] - XR CHEST 1 [id number] 07:18:00 [facility] ([facility])Name: BUDDYCAROLYNN : 1970 Sex: M FAX: Inga Levin MD [phone] [place]: St: ADM FAX: Jamel Viera [phone] Name: CAROLYNN PATEL [facility] : 1970 Age/S: 54/M [address] [facility] Unit #: [id number] Loc: V.[address] [place] [address] Phys: Jamel Viera MD Acct: [id number] Dis Date: Status: ADM IN PHONE #: [phone] Exam Date: 07/27/2024 0226 FAX #: [phone] Reason: LOW BP, RAPID RESPONSE CALLED EXAMS: CPT CODE: [id number] XR CHEST 1 V 59669 HISTORY: Low BP and rapid response. COMPARISON: Previous day. [facility]. Suboptimal inspiration. Crowding of bronchovascular markings. Dependent changes. Patchy new right mid lung infiltrate. No effusion. No congestion. Cardiomegaly. IMPRESSION: Patchy new right mid lung infiltrate. at 0718 Reported and signed by: Rashad Gomez M.D. CC: Inga Johns MD; Jamel Viera MD Technologist: GERALD RIDDLE(R) Trnscrd Date/Time/By: 07/27/2024 (0718) : By: SusanaTH4 Orig Print D/T: S: 07/27/2024 (0743) PAGE 1 Signed [id number] 07:05:00* Test Item Value Reference Range Interpretation Comme nts GLUBED (test code = GLUBED) 349 mg/dL 74-106 H Performed by cer tified special warfare operator [facility]~ CBC W/MANUAL [id number] 03:33:00* Test Item Value Reference Range Interpretation Comme nts WHITE BLOOD CELL (test code = WBC) 16.3 K/mm3 4.5-12.5 H RED BLOOD CELL (test code = RBC) 2.90 mill/mm3 4.0-5.8 L HEMOGLOBIN (test code = HGB) 8.7 gram/dL 13.0-17.5 L HEMATOCRIT (test code = HCT) 26.5 % 42.0-52.0 L MEAN CELL VOLUME (test code = MCV) 91.4 fL 80-98 N MEAN CELL HGB (test code = MCH) 30.0 picogram 27.0-33.0 N MEAN CELL HGB CONCETRATION (test code = MCHC) 32.8 gram/dL 33.0-36.0 L RED CELL DISTRIBUTION WIDTH (test code = RDW) 16.1 % 11.6-16.2 N RED CELL DISTRIBUTION WIDTH SD (test code = RDW-SD) 53.5 fL 37.0-51.0 H PLATELET COUNT (test code = PLT) 316 K/mm3 150-450 RESULT VERIFIED BY REPEAT ANALYSIS MEAN PLATELET VOLUME (test code = MPV) 10.7 fL 6.7-11.0 N NEUTROPHIL % (test code = NT%) 72.5 % 39.0-69.0 H IMMATURE GRANULOCYTE % (test code = IG%) 0.9 % 0.0-5.0 N LYMPHOCYTE % (test code = LY%) 21.8 % 25.0-55.0 L MONOCYTE % (test code = MO%) 4.4 % 0.0-10.0 N EOSINOPHIL % (test code = EO%) 0.2 % 0.0-5.0 N BASOPHIL % (test code = BA%) 0.2 % 0.0-1.0 N NUCLEATED RBC % (test code = NRBC%) 0.0 % 0-0 N NEUTROPHIL # (test code = NT#) 11.81 K/mm3 1.8-7.7 H IMMATURE GRANULOCYTE # (test code = IG#) 0.14 x10 3/uL 0-0.03 H LYMPHOCYTE # (test code = LY#) 3.55 K/mm3 1.0-5.0 N MONOCYTE # (test code = MO#) 0.71 K/mm3 0-0.8 N EOSINOPHIL # (test code = EO#) 0.03 K/mm3 0.0-0.5 N BASOPHIL # (test code = BA#) 0.04 K/mm3 0.0-0.2 N NUCLEATED RBC # (test code = NRBC#) 0.00 K/mm3 0.0-0.1 N STAIN ACCEPTABILITY (test code = STN ACCEPTABLE) STAIN ACCEPTABLE TOTAL CELLS COUNTED (test code = TCC) 120 #CELLS SEGMENTED NEUTROPHILS (test code = SEG) 88.3 % 39-69 H LYMPHOCYTE (test code = LYMPH) 10.0 % 25-55 L MONOCYTE (test code = MON) 1.7 % 0-10 N MORPHOLOGY COMMENT (test code = MOC) PLATELET ESTIMATE (test code = PLTEST) ADEQUATE PLATELET MORPHOLOGY (test code = PLTMORPH) NORMAL MANUAL DIFF REQUIRED (test code = MDIFF) DIFF NEEDED BAND NEUTROPHIL (test code = BAND) 0 % 0-10 N REACTIVE LYMPH (test code = RELYMPH) 0 % EOSINOPHIL (test code = EOS) 0 % 0.0-5.0 N BASOPHIL (test code = BASO) 0 % 0-1.0 N METAMYELOCYTE (test code = META) 0 % 0-0 N MYELOCYTE (test code = MYELO) 0 % 0.0-0.0 N PROMYELOCYTE (test code = PROM) 0 % 0-0 N POLYCHROMASIA (test code = POLC) 1+ HYPOCHROMIA (test code = HYPO) 1+ ANISOCYTOSIS (test code = ANISO) 1+ IMMATURE FORMS (test code = IMMAT) 0 % 0-0 N COMPREHENSIVE METABOLIC [id number] 03:06:00* Test Item Value Reference Range Interpretation Comme nts SODIUM (test code = NA) 139 mmol/L 136-145 N POTASSIUM (test code = K) 3.5 mmol/L 3.5-5.1 N CHLORIDE (test code = CL) 97.0 mmol/L 98-107 L CARBON DIOXIDE (test code = CO2) 35.0 mmol/L 21-32 H ANION GAP (test code = GAP) 10.5 mmol/L 10-20 N GLUCOSE (test code = GLU) 140 mg/dL 74-106 H BLOOD UREA NITROGEN (test code = BUN) 26 mg/dL 7-18 H GLOMERULAR FILTRATION RATE (test code = GFR) > 60 mL/min >=60 The Glomerular Filtration Rate is a calculated parameterbased on serum Creatinine, patient age and sex. GFR valuesless than 60 mL/min/1.73 square meters are indicative ofChronic Kidney Disease. Values less than 15 mL/min/1.73square meters indicate Kidney failure. The calculation forGFR is based on the CKD-EPI (2020) calculation. This formulais race indifferent and is the recommended formula for GFRby the National Kidney Foundation for Adults.The GFR will not calculate if the sex is unknown or if thepatient's age is <18 years. CREATININE (test code = CREAT) 0.60 mg/dL 0.7-1.3 L BUN/CREATININE RATIO (test code = BUN/CREA) 44.1 10-20 H TOTAL PROTEIN (test code = PROT) 5.8 gram/dL 6.4-8.2 L ALBUMIN (test code = ALB) 1.4 g/dL 3.4-5.0 L GLOBULIN (test code = GLOB) 4.4 gram/dL 2.7-4.2 H ALBUMIN/GLOBULIN RATIO (test code = A/G) 0.3 0.75-1.50 L CALCIUM (test code = CA) 7.9 mg/dL 8.5-10.1 L BILIRUBIN TOTAL (test code = BILT) 0.20 mg/dL 0.0-1.0 N SGOT/AST (test code = AST) 35 IUnit/L 15-37 N SGPT/ALT (test code = ALT) 15 IUnit/L 12-78 N ALKALINE PHOSPHATASE TOTAL (test code = ALKP) 153 IUnit/L 45-117 H Note change in reference range due to change in reagent. [id number] 03:06:00* Test Item Value Reference Range Interpretation Comme nts PHOSPHORUS (test code = PHOS) 3.0 mg/dL 2.5-4.9 N [id number] 03:06:00* Test Item Value Reference Range Interpretation Comme nts MAGNESIUM (test code = MAG) 1.9 mg/dL 1.8-2.4 N HEPATIC FUNCTION [id number] 21:08:00* Test Item Value Reference Range Interpretation Comme nts TOTAL PROTEIN (test code = PROT) 6.8 gram/dL 6.4-8.2 N ALBUMIN (test code = ALB) 1.9 g/dL 3.4-5.0 L GLOBULIN (test code = GLOB) 4.9 gram/dL 2.7-4.2 H ALBUMIN/GLOBULIN RATIO (test code = A/G) 0.4 0.75-1.50 L BILIRUBIN TOTAL (test code = BILT) 0.40 mg/dL 0.0-1.0 N BILIRUBIN DIRECT (test code = BILD) 0.20 mg/dL 0.0-0.20 N SGOT/AST (test code = AST) 41 IUnit/L 15-37 H SGPT/ALT (test code = ALT) 16 IUnit/L 12-78 N ALKALINE PHOSPHATASE TOTAL (test code = ALKP) 194 IUnit/L 45-117 H Note change in reference range due to change in reagent. [id number] 20:26:00* Test Item Value Reference Range Interpretation Comme nts GLUBED (test code = GLUBED) 208 mg/dL 74-106 H Performed by cer tified special warfare operator at [facility] LACTIC [id number] 18:34:00* Test Item Value Reference Range Interpretation Comme nts LACTIC ACID (test code = LACT) 1.4 mmol/L 0.50-1.90 N BASIC METABOLIC [id number] 18:20:00* Test Item Value Reference Range Interpretation Comme nts SODIUM (test code = NA) 136 mmol/L 136-145 N POTASSIUM (test code = K) 2.7 mmol/L 3.5-5.1 Results called t o [id number] by [id number] 07/26/24 1817Critical results verified and read back by Nurse? Y FOR ALL ICU PATIENT EXCLUDING HOLD PLEASE CALL [phone] CHLORIDE (test code = CL) 92.0 mmol/L 98-107 L CARBON DIOXIDE (test code = CO2) 39.0 mmol/L 21-32 H ANION GAP (test code = GAP) 7.7 mmol/L 10-20 L GLUCOSE (test code = GLU) 145 mg/dL 74-106 H BLOOD UREA NITROGEN (test code = BUN) 25 mg/dL 7-18 H GLOMERULAR FILTRATION RATE (test code = GFR) > 60 mL/min >=60 The Glomerular Filtration Rate is a calculated parameterbased on serum Creatinine, patient age and sex. GFR valuesless than 60 mL/min/1.73 square meters are indicative ofChronic Kidney Disease. Values less than 15 mL/min/1.73square meters indicate Kidney failure. The calculation forGFR is based on the CKD-EPI (2020) calculation. This formulais race indifferent and is the recommended formula for GFRby the National Kidney Foundation for Adults.The GFR will not calculate if the sex is unknown or if thepatient's age is <18 years. CREATININE (test code = CREAT) 0.70 mg/dL 0.7-1.3 N BUN/CREATININE RATIO (test code = BUN/CREA) 35.2 10-20 H CALCIUM (test code = CA) 8.3 mg/dL 8.5-10.1 L [id number] 18:20:00* Test Item Value Reference Range Interpretation Comme nts PHOSPHORUS (test code = PHOS) 1.1 mg/dL 2.5-4.9 L [id number] 18:20:00* Test Item Value Reference Range Interpretation Comme nts MAGNESIUM (test code = MAG) 1.6 mg/dL 1.8-2.4 L [id number] 17:48:00* Test Item Value Reference Range Interpretation Comme nts GLUBED (test code = GLUBED) 144 mg/dL 74-106 H Performed by cer tified special warfare operator at [facility] LACTIC [id number] 17:38:00* Test Item Value Reference Range Interpretation Comme nts LACTIC ACID (test code = LACT) 1.9 mmol/L 0.50-1.90 N CALCIUM [id number] 17:35:00* Test Item Value Reference Range Interpretation Comme nts CALCIUM IONIZED (test code = SAKSHI) 1.09 mmol/L 1.09-1.30 N CBC W/AUTO [id number] 17:13:00* Test Item Value Reference Range Interpretation Comme nts WHITE BLOOD CELL (test code = WBC) 17.0 K/mm3 4.5-12.5 H RED BLOOD CELL (test code = RBC) 3.42 mill/mm3 4.0-5.8 L HEMOGLOBIN (test code = HGB) 10.1 gram/dL 13.0-17.5 L HEMATOCRIT (test code = HCT) 29.8 % 42.0-52.0 L MEAN CELL VOLUME (test code = MCV) 87.1 fL 80-98 N MEAN CELL HGB (test code = MCH) 29.5 picogram 27.0-33.0 N MEAN CELL HGB CONCETRATION (test code = MCHC) 33.9 gram/dL 33.0-36.0 N RED CELL DISTRIBUTION WIDTH (test code = RDW) 15.8 % 11.6-16.2 N RED CELL DISTRIBUTION WIDTH SD (test code = RDW-SD) 50.4 fL 37.0-51.0 N PLATELET COUNT (test code = PLT) 368 K/mm3 150-450 N MEAN PLATELET VOLUME (test c ode = MPV) 10.3 fL 6.7-11.0 N NEUTROPHIL % (test code = NT%) 84.4 % 39.0-69.0 H IMMATURE GRANULOCYTE % (test code = IG%) 0.8 % 0.0-5.0 N LYMPHOCYTE % (test code = LY%) 9.4 % 25.0-55.0 L MONOCYTE % (test code = MO%) 4.8 % 0.0-10.0 N EOSINOPHIL % (test code = EO%) 0.1 % 0.0-5.0 N BASOPHIL % (test code = BA%) 0.5 % 0.0-1.0 N NUCLEATED RBC % (test code = NRBC%) 0.0 % 0-0 N NEUTROPHIL # (test code = NT#) 14.34 K/mm3 1.8-7.7 H IMMATURE GRANULOCYTE # (test code = IG#) 0.14 x10 3/uL 0-0.03 H LYMPHOCYTE # (test code = LY#) 1.59 K/mm3 1.0-5.0 N MONOCYTE # (test code = MO#) 0.82 K/mm3 0-0.8 H EOSINOPHIL # (test code = EO#) 0.02 K/mm3 0.0-0.5 N BASOPHIL # (test code = BA#) 0.08 K/mm3 0.0-0.2 N NUCLEATED RBC # (test code = NRBC#) 0.00 K/mm3 0.0-0.1 N - XR CHEST 1 [id number] 17:12:00 [facility] : 1970 Sex: M FAX: Inga Levin MD [phone] [place]: [address] St: ADM Name: CAROLYNN PATEL [facility] : 1970 Age/S:54/M [address] [facility] Unit #: [id number] Loc: V.[address] [place] [address] Phys: Inga Johns MD Acct: [id number] Dis Date: Status: ADM IN PHONE #: [phone] Exam Date: 07/26/2024 1700 FAX #: [phone] Reason: SEPSIS EXAMS: CPT CODE: [id number] XR CHEST 1 V 41216 Single View Portable Chest Clinical History: SEPSIS Results: Single view chest compared to recent previous exam reveals bilateral interstitial lung opacities to be persistent but improved. The remaining visualized lines and tubes are unchanged. Impression: Improved chest. at 1712 Reported and signed by: Kelsey Bashir M.D. CC: Inga Johns MD Technologist: Aly Oneill RT(R) [place] Date/Time/By: 07/26/2024 ([id number]) : By: Orig Print D/T: S: 07/26/2024 ([id number]) PAGE 1 Signed [id number] 12:14:00* Test Item Value Reference Range Interpretation Comme nts SURGICAL (test code = SR) R UN DATE: 07/26/24 [facility] PAGE 1 RUN TIME: 1214 Specimen Inquiry RUN USER: INTERFACE P ATIENT: CAROLYNN PATEL LOC: SKY U #: [id number] AGE/SX: 54/M ROOM: [facility] RE07/13/24REG DR: Inga Johns MD : 70 BED: A DIS: STATUS: ADM IN TLOC: SPEC #: [id number] RECD: 07/21/24 STATUS: JACKIE COSTA #: [id number] [place]: 07/20/24- SUBM DR: Jimenez Sanchez MD ENTERED: 07/21/24 SP TYPE: SURGICAL OTHR DR: No Primary or Family Physician Macho Musa MD, David W MD Shebib, Zaher MD Young, Lauren E NPORDERED: [id number], [id number], ANATOMIC SPEC COPIES TO: No Primary or Family Physician Jimenez Sanchez MD [address] [place] [address] [place] [address] [facility] [place] [address] [email or web address] Juan Carlos Lord MD [address] [place] [address] Marce Kiser MD [address] [facility]. [address] [place] [address] Kim Mansfield AQUATICS COORDINATOR [address] [place] [address] PROCEDURES: 60745 (07/21/24) 84816 (07/26/24-120) TISSUES: AMPUTATED LARGE PART (EXTREMITY), NON-TRAUMATIC - RIGHT BKA CONTINUED ON NEXT PAGE R UN DATE: 07/26/24 [facility] PAGE 2 RUN TIME: 1214 Specimen Inquiry RUN USER: INTERFACE S PEC #: [id number] PATIENT: CAROLYNN PATEL #[id number] (Continued) FINAL DIAGNOSIS RIGHT LEG, BELOW KNEE AMPUTATION:- Gangrene- Acute osteomyelitis.- Severe peripheral vascular disease.- Viable surgical resection margins. GROSS DESCRIPTION Specimen A is received fresh in a red biohazard bag, labeled with the patient's name,medical record number, "right EMMA" and consists of a right below the knee amputation (heelto toe: 23.0, heel to resection: 36.0) which is cleanly transected below the knee. The legis welch-pink with 5 yellow tinged nail bearing toes. There is a portion of skin that hasbeen previously removed on the plantar surface of the foot to the medial aspect of thelower leg that appears to be dusky and necroitc. The 5th toe is sectioned to revealslightly porous welch-pink to dusky cut surfaces. The anterior tibial artery is sectioned toreveal stenosis up to 10% and the posterior tibial artery is sectioned to reveal stenosisup to 5%. Transplant Nurse Practitioner sections are submitted in A1-A5, following decalcification of A3. Section code:A1: Bone marrow resection margin, representativeA2: Skin and soft tissue resection margin, representativeA3: 5th toe, bilingual inside sales representative cross sectionA4: Anterior tibial artery, bilingual inside sales representative cross sectionA5: Posterior tibial artery, bilingual inside sales representative cross section Technical component excluding immunohistochemistry is performed at [facility], [address] [place] [address],[place] [address] Technical component of all immunohistochemistry is performed at [facility], [address] [place] [address], [address], [place] [address] Immunohistochemistry: This test was developed and its performance characteristicsdetermined by this laboratory. It has not been approved nor does it need approval by the USFDA. Appropriate positive and negative controls are reviewed and judged to be acceptable.This laboratory is certified under the Clinical Laboratory Improvement Amendments (CLIA-88)as qualified to perform high complexity clinical laboratory testing. Unless gross only, the diagnosis is based upon microscopic examination. CLINICAL INFORMATION COLLECTION DATE: 07/20/2024PRE-OP DIAGNOSIS: RIGHT FOOT NECROSIS ------- Signed SIGNATURE ON FILE Elodia Cash 07/26/24 1214 END OF REPORT [id number] 11:52:00* Test Item Value Reference Range Interpretation Comme nts GLUBED (test code = GLUBED) 197 mg/dL 74-106 H Performed by cer tified special warfare operator at [facility] [id number] 08:08:00* Test Item Value Reference Range Interpretation Comme nts GLUBED (test code = GLUBED) 179 mg/dL 74-106 H Performed by cer tified special warfare operator at [facility] [id number] 20:49:00* Test Item Value Reference Range Interpretation Comme nts GLUBED (test code = GLUBED) 127 mg/dL 74-106 H Performed by cer tified special warfare operator at [facility] [id number] 17:16:00* Test Item Value Reference Range Interpretation Comme nts GLUBED (test code = GLUBED) 154 mg/dL 74-106 H Performed by cer tified special warfare operator at [facility] CBC W/MANUAL [id number] 12:03:00* Test Item Value Reference Range Interpretation Comme nts WHITE BLOOD CELL (test code = WBC) 8.0 K/mm3 4.5-12.5 N RED BLOOD CELL (test code = RBC) 3.02 mill/mm3 4.0-5.8 L HEMOGLOBIN (test code = HGB) 8.9 gram/dL 13.0-17.5 L HEMATOCRIT (test code = HCT) 26.8 % 42.0-52.0 L MEAN CELL VOLUME (test code = MCV) 88.7 fL 80-98 N MEAN CELL HGB (test code = MCH) 29.5 picogram 27.0-33.0 N MEAN CELL HGB CONCETRATION (test code = MCHC) 33.2 gram/dL 33.0-36.0 N RED CELL DISTRIBUTION WIDTH (test code = RDW) 15.5 % 11.6-16.2 N RED CELL DISTRIBUTION WIDTH SD (test code = RDW-SD) 50.2 fL 37.0-51.0 N PLATELET COUNT (test code = PLT) 405 K/mm3 150-450 N MEAN PLATELET VOLUME (test code = MPV) 10.1 fL 6.7-11.0 N NEUTROPHIL % (test code = NT%) % 39.0-69.0 IMMATURE GRANULOCYTE % (test code = IG%) 0.9 % 0.0-5.0 N LYMPHOCYTE % (test code = LY%) % 25.0-55.0 MONOCYTE % (test code = MO%) % 0.0-10.0 EOSINOPHIL % (test code = EO%) % 0.0-5.0 BASOPHIL % (test code = BA%) % 0.0-1.0 NEUTROPHIL # (test code = NT#) 4.55 K/mm3 1.8-7.7 N LYMPHOCYTE # (test code = LY#) 2.65 K/mm3 1.0-5.0 N MONOCYTE # (test code = MO#) 0.66 K/mm3 0-0.8 N EOSINOPHIL # (test code = EO#) 0.06 K/mm3 0.0-0.5 N BASOPHIL # (test code = BA#) 0.05 K/mm3 0.0-0.2 N MANUAL DIFF REQUIRED (test code = MDIFF) DIFF NEEDED STAIN ACCEPTABILITY (test code = STN ACCEPTABLE) STAIN ACCEPTABLE TOTAL CELLS COUNTED (test code = TCC) 115 #CELLS SEGMENTED NEUTROPHILS (test code = SEG) 65.2 % 39-69 N LYMPHOCYTE (test code = LYMPH) 13.0 % 25-55 L MONOCYTE (test code = MON) 6.1 % 0-10 N EOSINOPHIL (test code = EOS) 0 % 0.0-5.0 N CABOT RINGS (test code = CAB) MORPHOLOGY COMMENT (test code = MOC) NORMAL PLATELET ESTIMATE (test code = PLTEST) ADEQUATE PLATELET MORPHOLOGY (test code = PLTMORPH) SIZE VARIABLE NUCLEATED RBC % (test code = NRBC%) 0.0 % 0-0 N IMMATURE GRANULOCYTE # (test code = IG#) 0.07 x10 3/uL 0-0.03 H NUCLEATED RBC # (test code = NRBC#) 0.00 K/mm3 0.0-0.1 N BAND NEUTROPHIL (test code = BAND) 15.7 % 0-10 H REACTIVE LYMPH (test code = RELYMPH) 0 % BASOPHIL (test code = BASO) 0 % 0-1.0 N METAMYELOCYTE (test code = META) 0 % 0-0 N MYELOCYTE (test code = MYELO) 0 % 0.0-0.0 N PROMYELOCYTE (test code = PROM) 0 % 0-0 N HYPOCHROMIA (test code = HYPO) 1+ ANISOCYTOSIS (test code = ANISO) 1+ MACROCYTOSIS (test code = MACR) 1+ IMMATURE FORMS (test code = IMMAT) 0 % 0-0 N [id number] 12:01:00* Test Item Value Reference Range Interpretation Comme nts GLUBED (test code = GLUBED) 237 mg/dL 74-106 H Performed by cer tified special warfare operator at [facility] BASIC METABOLIC [id number] 11:50:00* Test Item Value Reference Range Interpretation Comme nts SODIUM (test code = NA) 133 mmol/L 136-145 L POTASSIUM (test code = K) 3.0 mmol/L 3.5-5.1 L CHLORIDE (test code = CL) 90.0 mmol/L 98-107 L CARBON DIOXIDE (test code = CO2) 39.0 mmol/L 21-32 H ANION GAP (test code = GAP) 7.0 mmol/L 10-20 L GLUCOSE (test code = GLU) 226 mg/dL 74-106 H BLOOD UREA NITROGEN (test code = BUN) 20 mg/dL 7-18 H GLOMERULAR FILTRATION RATE (test code = GFR) > 60 mL/min >=60 The Glomerular Filtration Rate is a calculated parameterbased on serum Creatinine, patient age and sex. GFR valuesless than 60 mL/min/1.73 square meters are indicative ofChronic Kidney Disease. Values less than 15 mL/min/1.73square meters indicate Kidney failure. The calculation forGFR is based on the CKD-EPI (202) calculation. This formulais race indifferent and is the recommended formula for GFRby the National Kidney Foundation for Adults.The GFR will not calculate if the sex is unknown or if thepatient's age is <18 years. CREATININE (test code = CREAT) 0.50 mg/dL 0.7-1.3 L BUN/CREATININE RATIO (test code = BUN/CREA) 37.0 10-20 H CALCIUM (test code = CA) 7.7 mg/dL 8.5-10.1 L [id number] 08:21:00* Test Item Value Reference Range Interpretation Comme nts GLUBED (test code = GLUBED) 178 mg/dL 74-106 H Performed by cer tified special warfare operator at [facility] [id number] 19:55:00* Test Item Value Reference Range Interpretation Comme nts GLUBED (test code = GLUBED) 192 mg/dL 74-106 H Performed by cer tified special warfare operator [facility]Notified Nurse~ [id number] 15:57:00* Test Item Value Reference Range Interpretation Comme nts GLUBED (test code = GLUBED) 136 mg/dL 74-106 H Performed by cer tified special warfare operator at [facility] [id number] 11:34:00* Test Item Value Reference Range Interpretation Comme nts GLUBED (test code = GLUBED) 213 mg/dL 74-106 H Performed by cer tified special warfare operator at [facility] [id number] 07:34:00* Test Item Value Reference Range Interpretation Comme nts GLUBED (test code = GLUBED) 271 mg/dL 74-106 H Performed by cer tified special warfare operator at [facility] [id number] 20:26:00* Test Item Value Reference Range Interpretation Comme nts GLUBED (test code = GLUBED) 227 mg/dL 74-106 H Performed by cer tified special warfare operator at [facility] [id number] 16:17:00* Test Item Value Reference Range Interpretation Comme nts GLUBED (test code = GLUBED) 171 mg/dL 74-106 H Performed by cer tified special warfare operator at [facility] [id number] 11:42:00* Test Item Value Reference Range Interpretation Comme nts GLUBED (test code = GLUBED) 147 mg/dL 74-106 H Performed by cer tified special warfare operator at [facility] [id number] 07:41:00* Test Item Value Reference Range Interpretation Comme nts GLUBED (test code = GLUBED) 188 mg/dL 74-106 H Performed by cer tified special warfare operator at [facility] [id number] 20:15:00* Test Item Value Reference Range Interpretation Comme nts GLUBED (test code = GLUBED) 211 mg/dL 74-106 H Performed by cer tified special warfare operator at [facility] [id number] 15:50:00* Test Item Value Reference Range Interpretation Comme nts GLUBED (test code = GLUBED) 189 mg/dL 74-106 H Performed by cer tified special warfare operator at [facility] - XR CHEST 1 [id number] 11:40:00 [facility]Name: CAROLYNN PATEL : 1970 Sex: M FAX: Y Tom Barillas [phone] [place]: St: [facility] FAX: Jimenez Sanchez MD [phone] Name: CAROLYNN PATEL [facility] : 1970 Age/S: 54/M [address] [facility] Unit #: [id number] Loc: V.30[address] [place] [address] Phys: Tom Barillas MD Acct: [id number] Dis Date: Status: ADM IN PHONE #: [phone] Exam Date: 07/22/2024 1110 FAX #: [phone] Reason: DYSPNEA EXAMS: CPT CODE: [id number] XR CHEST 1 V 52016 HISTORY: Dyspnea. COMPARISON: July 13, 2024. [facility] Suboptimal inspiration. Dependent changes. No infiltrates, effusion or congestion. Moderate cardiomegaly. IMPRESSION: No acute infiltrates, effusion or congestion. Dependent changes. at 1140 Reported and signed by: Rashad Gomez M.D. CC: Tom Barillas MD; Jimenez Sanchez MD Technologist: Morgan Wilkerson RT(R); Rebekah Pace RT(R) Trnscrd Date/Time/By: 07/22/2024 (1140) : By: [email or web address] Orig Print D/T: S: 07/22/2024 (6048) PAGE 1 Signed [id number] 11:15:00* Test Item Value Reference Range Interpretation Comme nts GLUBED (test code = GLUBED) 128 mg/dL 74-106 H Performed by cer tified special warfare operator at [facility] [id number] 08:41:00* Test Item Value Reference Range Interpretation Comme nts GLUBED (test code = GLUBED) 132 mg/dL 74-106 H Performed by cer tified special warfare operator at [facility] [id number] 20:53:00* Test Item Value Reference Range Interpretation Comme nts GLUBED (test code = GLUBED) 130 mg/dL 74-106 H Performed by cer tified special warfare operator at [facility] [id number] 18:22:00* Test Item Value Reference Range Interpretation Comme nts GLUBED (test code = GLUBED) 160 mg/dL 74-106 H Performed by cer tified special warfare operator at [facility] [id number] 12:49:00* Test Item Value Reference Range Interpretation Comme nts GLUBED (test code = GLUBED) 142 mg/dL 74-106 H Performed by cer tified special warfare operator at [facility] [id number] 08:58:00* Test Item Value Reference Range Interpretation Comme nts GLUBED (test code = GLUBED) 104 mg/dL 74-106 N Performed by cer tified special warfare operator at [facility] CBC W/MANUAL [id number] 05:31:00* Test Item Value Reference Range Interpretation Comme nts WHITE BLOOD CELL (test code = WBC) 10.6 K/mm3 4.5-12.5 N RED BLOOD CELL (test code = RBC) 3.19 mill/mm3 4.0-5.8 L HEMOGLOBIN (test code = HGB) 9.5 gram/dL 13.0-17.5 L HEMATOCRIT (test code = HCT) 28.4 % 42.0-52.0 L MEAN CELL VOLUME (test code = MCV) 89.0 fL 80-98 N MEAN CELL HGB (test code = MCH) 29.8 picogram 27.0-33.0 N MEAN CELL HGB CONCETRATION (test code = MCHC) 33.5 gram/dL 33.0-36.0 N RED CELL DISTRIBUTION WIDTH (test code = RDW) 15.5 % 11.6-16.2 N RED CELL DISTRIBUTION WIDTH SD (test code = RDW-SD) 50.4 fL 37.0-51.0 N PLATELET COUNT (test code = PLT) 615 K/mm3 150-450 H MEAN PLATELET VOLUME (test code = MPV) 9.3 fL 6.7-11.0 N IMMATURE GRANULOCYTE % (test code = IG%) 7.4 % 0.0-5.0 H "The appeara nce of immature granulocytes (myelocytes,pro-my elocytes, meta-myelocytes) in the peripheral blood ofnon- individuals can indicate a response toinfection, inflammation, or other stimulus to the bonemarrow" NUCLEATED RBC % (test code = NRBC%) 0.0 % 0-0 N NEUTROPHIL # (test code = NT#) 7.43 K/mm3 1.8-7.7 N IMMATURE GRANULOCYTE # (test code = IG#) 0.78 x10 3/uL 0-0.03 H LYMPHOCYTE # (test code = LY#) 1.58 K/mm3 1.0-5.0 N MONOCYTE # (test code = MO#) 0.60 K/mm3 0-0.8 N EOSINOPHIL # (test code = EO#) 0.09 K/mm3 0.0-0.5 N BASOPHIL # (test code = BA#) 0.10 K/mm3 0.0-0.2 N NUCLEATED RBC # (test code = NRBC#) 0.00 K/mm3 0.0-0.1 N MANUAL DIFF REQUIRED (test code = MDIFF) YES STAIN ACCEPTABILITY (test code = STN ACCEPTABLE) STAIN ACCEPTABLE TOTAL CELLS COUNTED (test code = TCC) 115 #CELLS SEGMENTED NEUTROPHILS (test code = SEG) 86.9 % 39-69 H LYMPHOCYTE (test code = LYMPH) 7.8 % 25-55 L MONOCYTE (test code = MON) 1.7 % 0-10 N EOSINOPHIL (test code = EOS) 0.9 % 0.0-5.0 N CABOT RINGS (test code = CAB) MORPHOLOGY COMMENT (test code = MOC) PLATELET ESTIMATE (test code = PLTEST) INCREASED PLATELET MORPHOLOGY (test code = PLTMORPH) NORMAL BAND NEUTROPHIL (test code = BAND) 0 % 0-10 N REACTIVE LYMPH (test code = RELYMPH) 0 % BASOPHIL (test code = BASO) 0.9 % 0-1.0 N METAMYELOCYTE (test code = META) 0 % 0-0 N MYELOCYTE (test code = MYELO) 0.9 % 0.0-0.0 H PROMYELOCYTE (test code = PROM) 0 % 0-0 N POLYCHROMASIA (test code = POLC) 1+ ANISOCYTOSIS (test code = ANISO) 1+ MACROCYTOSIS (test code = MACR) 1+ IMMATURE FORMS (test code = IMMAT) 0.9 % 0-0 H BASIC METABOLIC [id number] 05:04:00* Test Item Value Reference Range Interpretation Comme nts SODIUM (test code = NA) 128 mmol/L 136-145 L POTASSIUM (test code = K) 4.3 mmol/L 3.5-5.1 N CHLORIDE (test code = CL) 93.0 mmol/L 98-107 L CARBON DIOXIDE (test code = CO2) 31.0 mmol/L 21-32 N ANION GAP (test code = GAP) 8.3 mmol/L 10-20 L GLUCOSE (test code = GLU) 110 mg/dL 74-106 H BLOOD UREA NITROGEN (test code = BUN) 13 mg/dL 7-18 N GLOMERULAR FILTRATION RATE (test code = GFR) > 60 mL/min >=60 The Glomerular Filtration Rate is a calculated parameterbased on serum Creatinine, patient age and sex. GFR valuesless than 60 mL/min/1.73 square meters are indicative ofChronic Kidney Disease. Values less than 15 mL/min/1.73square meters indicate Kidney failure. The calculation forGFR is based on the CKD-EPI (202) calculation. This formulais race indifferent and is the recommended formula for GFRby the National Kidney Foundation for Adults.The GFR will not calculate if the sex is unknown or if thepatient's age is <18 years. CREATININE (test code = CREAT) 0.40 mg/dL 0.7-1.3 L BUN/CREATININE RATIO (test code = BUN/CREA) 34.2 10-20 H CALCIUM (test code = CA) 7.4 mg/dL 8.5-10.1 L [id number] 21:06:00* Test Item Value Reference Range Interpretation Comme nts GLUBED (test code = GLUBED) 124 mg/dL 74-106 H Performed by cer tified special warfare operator at [facility] [id number] 15:58:00* Test Item Value Reference Range Interpretation Comme nts GLUBED (test code = GLUBED) 109 mg/dL 74-106 H Performed by cer tified special warfare operator at [facility] [id number] 11:02:00* Test Item Value Reference Range Interpretation Comme nts GLUBED (test code = GLUBED) 143 mg/dL 74-106 H Performed by cer tified special warfare operator at [facility] [id number] 07:36:00* Test Item Value Reference Range Interpretation Comme nts GLUBED (test code = GLUBED) 200 mg/dL 74-106 H Performed by cer tified special warfare operator at [facility] [id number] 19:52:00* Test Item Value Reference Range Interpretation Comme nts GLUBED (test code = GLUBED) 190 mg/dL 74-106 H Performed by cer tified special warfare operator at [facility] [id number] 16:06:00* Test Item Value Reference Range Interpretation Comme nts GLUBED (test code = GLUBED) 164 mg/dL 74-106 H Performed by cer tified special warfare operator at [facility] [id number] 12:18:00* Test Item Value Reference Range Interpretation Comme nts GLUBED (test code = GLUBED) 228 mg/dL 74-106 H Performed by cer tified special warfare operator at [facility] [id number] 07:10:00* Test Item Value Reference Range Interpretation Comme nts GLUBED (test code = GLUBED) 150 mg/dL 74-106 H Performed by cer tified special warfare operator at [facility] [id number] 23:04:00* Test Item Value Reference Range Interpretation Comme nts GLUBED (test code = GLUBED) 243 mg/dL 74-106 H Performed by cer tified special warfare operator at [facility] [id number] 15:49:00* Test Item Value Reference Range Interpretation Comme nts GLUBED (test code = GLUBED) 187 mg/dL 74-106 H Performed by cer tified special warfare operator at [facility] [id number] 11:32:00* Test Item Value Reference Range Interpretation Comme nts GLUBED (test code = GLUBED) 168 mg/dL 74-106 H Performed by cer tified special warfare operator at [facility] [id number] 07:09:00* Test Item Value Reference Range Interpretation Comme nts GLUBED (test code = GLUBED) 132 mg/dL 74-106 H Performed by cer tified special warfare operator at [facility] BASIC METABOLIC [id number] 04:10:00* Test Item Value Reference Range Interpretation Comme nts SODIUM (test code = NA) 131 mmol/L 136-145 L POTASSIUM (test code = K) 3.0 mmol/L 3.5-5.1 L CHLORIDE (test code = CL) 94.0 mmol/L 98-107 L CARBON DIOXIDE (test code = CO2) 33.0 mmol/L 21-32 H ANION GAP (test code = GAP) 7.0 mmol/L 10-20 L GLUCOSE (test code = GLU) 137 mg/dL 74-106 H BLOOD UREA NITROGEN (test code = BUN) 8 mg/dL 7-18 N GLOMERULAR FILTRATION RATE (test code = GFR) > 60 mL/min >=60 The Glomerular Filtration Rate is a calculated parameterbased on serum Creatinine, patient age and sex. GFR valuesless than 60 mL/min/1.73 square meters are indicative ofChronic Kidney Disease. Values less than 15 mL/min/1.73square meters indicate Kidney failure. The calculation forGFR is based on the CKD-EPI (202) calculation. This formulais race indifferent and is the recommended formula for GFRby the National Kidney Foundation for Adults.The GFR will not calculate if the sex is unknown or if thepatient's age is <18 years. CREATININE (test code = CREAT) 0.50 mg/dL 0.7-1.3 L BUN/CREATININE RATIO (test code = BUN/CREA) 17.0 10-20 N CALCIUM (test code = CA) 7.6 mg/dL 8.5-10.1 L CBC W/O [id number] 03:55:00* Test Item Value Reference Range Interpretation Comme nts WHITE BLOOD CELL (test code = WBC) 17.4 K/mm3 4.5-12.5 H RED BLOOD CELL (test code = RBC) 3.35 mill/mm3 4.0-5.8 L HEMOGLOBIN (test code = HGB) 10.1 gram/dL 13.0-17.5 L HEMATOCRIT (test code = HCT) 29.2 % 42.0-52.0 L MEAN CELL VOLUME (test code = MCV) 87.2 fL 80-98 N MEAN CELL HGB (test code = MCH) 30.1 picogram 27.0-33.0 N MEAN CELL HGB CONCETRATION (test code = MCHC) 34.6 gram/dL 33.0-36.0 N RED CELL DISTRIBUTION WIDTH (test code = RDW) 15.3 % 11.6-16.2 N PLATELET COUNT (test code = PLT) 463 K/mm3 150-450 H MEAN PLATELET VOLUME (test c ode = MPV) 10.3 fL 6.7-11.0 N [id number] 20:50:00* Test Item Value Reference Range Interpretation Comme nts GLUBED (test code = GLUBED) 189 mg/dL 74-106 H Performed by cer tified special warfare operator at [facility] [id number] 15:54:00* Test Item Value Reference Range Interpretation Comme nts GLUBED (test code = GLUBED) 148 mg/dL 74-106 H Performed by cer tified special warfare operator at [facility] [id number] 11:03:00* Test Item Value Reference Range Interpretation Comme nts GLUBED (test code = GLUBED) 225 mg/dL 74-106 H Performed by cer tified special warfare operator at [facility] [id number] 07:17:00* Test Item Value Reference Range Interpretation Comme nts GLUBED (test code = GLUBED) 181 mg/dL 74-106 H Performed by cer tified special warfare operator at [facility] [id number] 23:24:00* Test Item Value Reference Range Interpretation Comme nts GLUBED (test code = GLUBED) 175 mg/dL 74-106 H Performed by cer tified special warfare operator at [facility] [id number] 19:59:00* Test Item Value Reference Range Interpretation Comme nts GLUBED (test code = GLUBED) 176 mg/dL 74-106 H Performed by cer tified special warfare operator at [facility] [id number] 15:35:00* Test Item Value Reference Range Interpretation Comme nts GLUBED (test code = GLUBED) 176 mg/dL 74-106 H Performed by cer tified special warfare operator at [facility] [id number] 13:41:00* Test Item Value Reference Range Interpretation Dixon alvarez SURGICAL (test code = SR) R UN DATE: 07/16/24 [facility] - [facility] PAGE 1 RUN TIME: 1341 Specimen Inquiry RUN USER: INTERFACE P ATIENT: CAROLYNN PATEL LOC: [facility] U #: [id number] AGE/SX: 54/M ROOM: [facility] RE07/13/24REG DR: Jimenez Sanchez MD : 70 BED: A DIS: STATUS: ADM IN TLOC: SPEC #: [id number] RECD: 07/15/24 STATUS: JACKIE REEstuardo #: [id number] [place]: 07/13/24- SUBM DR: Jimenez Sanchez MD ENTERED: 07/15/24 SP TYPE: SURGICAL OTHR DR: No Primary or Family Physician Macho Musa MD,Marce Wylie MD, MD, Lauren E NPORDERED: [id number], ANATOMIC SPEC COPIES TO: No Primary or Family Physician Jimenez Sanchez MD [address] [place] [address] [place] [address] [facility] [place] [address] [email or web address] Juan Carlos Lord MD [address] [place] [address] Marce Kiser MD [address] [place] [address] Kim Mansfield AQUATICS COORDINATOR [address] [place] [address] PROCEDURES: [id number] (07/15/24) TISSUES: DEBRIDEMENT SKIN OR SOFT TISSUE - RIGHT FOOT CONTINUED ON NEXT PAGE R UN DATE: 07/16/24 [facility] PAGE 2 RUN TIME: 1341 Specimen Inquiry RUN USER: INTERFACE S PEC #: [id number] PATIENT: CAROLYNN PATEL #[id number] (Continued) FINAL DIAGNOSIS RIGHT FOOT, DEBRIDEMENT:- Acute inflammation, necrosis and reparative changes.- No malignant features noted. GROSS DESCRIPTION Specimen A is received in formalin labeled with the patient's name, medical record number"right foot debrided tissue" and consists of an aggregate of welch-brown necrotic skin andsoft tissue fragments measuring 12.0 x 10.0 x 5.0 cm in aggregate. The specimen issectioned to reveal necrotic cut surfaces. Transplant Nurse Practitioner sections are submitted in A1-A2. Technical component excluding immunohistochemistry is performed at [facility], [address] [place] [address] Technical component of all immunohistochemistry is performed at [facility], [address] [place] [address], [address], [place] [address] Immunohistochemistry: This test was developed and its performance characteristicsdetermined by this laboratory. It has not been approved nor does it need approval by the USFDA. Appropriate positive and negative controls are reviewed and judged to be acceptable.This laboratory is certified under the Clinical Laboratory Improvement Amendments (CLIA-88)as qualified to perform high complexity clinical laboratory testing. Unless gross only, the diagnosis is based upon microscopic examination. CLINICAL INFORMATION COLLECTION DATE: 07/13/24 ------- Signed SIGNATURE ON FILE Elodia Cash 07/16/24 1341 END OF REPORT - CT ABD PELVIS [id number] 13:12:00 [facility] ([facility])Name: CAROLYNN PATEL : 1970 Sex: M Name: CAROLYNN PATEL [facility] : 1970 Age/S: 54 / M [address] [facility] Unit #: [id number] Loc: [facility] [place] [address] Phys: Marce Kiser MD Acct: [id number] Dis Date: Status: ADM IN PHONE #: [phone] Exam Date: 07/16/2024 1110 FAX #: [phone] Reason: sepsis bactermia EXAMS: CPT CODE: [id number] CT ABD PELVIS W/CONT [id number] REASON FOR EXAM: sepsis bactermia EXAM ORDER DATE: 07/16/2024 10:13 AM Ordering M.DPricilla: Marce Kiser MD PROCEDURE: Axial CT images were acquired through the abdomen/pelvis at 5 mm intervals. Sagittal and coronal reformatted images were generated. CT dosereduction protocol: Automated exposure control adjustment of mA and/or kV according to patient sizeor iterative reconstruction dose optimization techniques were used. Phases of contrast: venous and delayed COMPARISON: None FINDINGS: Visualized thorax: Tiny bilateral pleural effusions. Bibasilar subsegmental atelectasis. Hepatobiliary system: Grossly normal Pancreas: Grossly normal Spleen: Grossly normal Adrenal glands: Grossly normal Genitourinary system: Grossly normal Gastrointestinal tract and appendix: Grossly normal Abdominal vascular structures: Grossly normal Other: No free fluid or free air. No abnormal lymph nodes. Musculoskeletal structures and abdominal wall: Grossly normal IMPRESSION: The abdomen and pelvis are within normal limits. There are tiny bilateral pleural effusions with subsegmental atelectasis in the underlying lung bases. PAGE 1 Signed Report (CONTINUED) Name: CAROLYNN PATEL [facility] : 1970 Age/S: 54 / M [facility] Unit #: [id number] Loc: [facility] [place] [address] Phys: Marce Kiser MD Acct: [id number] Dis Date: Status: ADM IN PHONE #: [phone] Exam Date: 07/16/2024 1110 FAX #: [phone] Reason: sepsis bactermia EXAMS: CPT CODE: [id number] CT ABD PELVIS W/CONT [id number] (Continued) [facility] 1312 Reported and signed by: Bertrand Conklin MD CC: Jimenez Sanchez MD; Marce Kiser MD Technologist:TAYE NGUYEN, RT(R) CT CTDI: DLP: Trnscb Date/Time: 07/16/2024 (1312) t.SDR.RR31 PAGE 2 Signed ReportAB HIV 1 11:25:00* Test Item Value Reference Range Interpretation Comme nts AB HIV 1 2 (test code = CAT07KZ) Nonreactive NonReactive It is recognized that currently available assays for thedetection of antibodies to HIV-1 and/or HIV-2 may notdetect all infected individuals. A negative test result doesnot exclude the possibility of exposure to or infection withHIV. HIV antibodies may be undetectable in some stages ofthe infection and in some clinical conditions. [id number] 11:24:00* Test Item Value Reference Range Interpretation Comme nts GLUBED (test code = GLUBED) 173 mg/dL 74-106 H Performed by cer tified special warfare operator at [facility] [id number] 07:11:00* Test Item Value Reference Range Interpretation Comme nts GLUBED (test code = GLUBED) 189 mg/dL 74-106 H Performed by cer tified special warfare operator at [facility] BASIC METABOLIC [id number] 06:25:00* Test Item Value Reference Range Interpretation Comme nts SODIUM (test code = NA) 134 mmol/L 136-145 L POTASSIUM (test code = K) 3.6 mmol/L 3.5-5.1 N CHLORIDE (test code = CL) 98.0 mmol/L 98-107 N CARBON DIOXIDE (test code = CO2) 27.0 mmol/L 21-32 N ANION GAP (test code = GAP) 12.6 mmol/L 10-20 N GLUCOSE (test code = GLU) 169 mg/dL 74-106 H BLOOD UREA NITROGEN (test code = BUN) 16 mg/dL 7-18 N GLOMERULAR FILTRATION RATE (test code = GFR) > 60 mL/min >=60 The Glomerular Filtration Rate is a calculated parameterbased on serum Creatinine, patient age and sex. GFR valuesless than 60 mL/min/1.73 square meters are indicative ofChronic Kidney Disease. Values less than 15 mL/min/1.73square meters indicate Kidney failure. The calculation forGFR is based on the CKD-EPI (2020) calculation. This formulais race indifferent and is the recommended formula for GFRby the National Kidney Foundation for Adults.The GFR will not calculate if the sex is unknown or if thepatient's age is <18 years. CREATININE (test code = CREAT) 0.50 mg/dL 0.7-1.3 L BUN/CREATININE RATIO (test code = BUN/CREA) 33.3 10-20 H CALCIUM (test code = CA) 7.5 mg/dL 8.5-10.1 L [id number] 20:03:00* Test Item Value Reference Range Interpretation Comme nts GLUBED (test code = GLUBED) 138 mg/dL 74-106 H Performed by cer tified special warfare operator at [facility] [id number] 16:25:00* Test Item Value Reference Range Interpretation Comme nts GLUBED (test code = GLUBED) 172 mg/dL 74-106 H Performed by cer tified special warfare operator at [facility] [id number] 11:16:00* Test Item Value Reference Range Interpretation Comme nts GLUBED (test code = GLUBED) 205 mg/dL 74-106 H Performed by cer tified special warfare operator at [facility] [id number] 07:19:00* Test Item Value Reference Range Interpretation Comme nts GLUBED (test code = GLUBED) 199 mg/dL 74-106 H Performed by cer tified special warfare operator at [facility] COMPREHENSIVE METABOLIC [id number] 06:53:00* Test Item Value Reference Range Interpretation Comme nts SODIUM (test code = NA) 134 mmol/L 136-145 L POTASSIUM (test code = K) 3.7 mmol/L 3.5-5.1 N CHLORIDE (test code = CL) 98.0 mmol/L 98-107 N CARBON DIOXIDE (test code = CO2) 26.0 mmol/L 21-32 N ANION GAP (test code = GAP) 13.7 mmol/L 10-20 N GLUCOSE (test code = GLU) 228 mg/dL 74-106 H BLOOD UREA NITROGEN (test code = BUN) 25 mg/dL 7-18 H GLOMERULAR FILTRATION RATE (test code = GFR) > 60 mL/min >=60 The Glomerular Filtration Rate is a calculated parameterbased on serum Creatinine, patient age and sex. GFR valuesless than 60 mL/min/1.73 square meters are indicative ofChronic Kidney Disease. Values less than 15 mL/min/1.73square meters indicate Kidney failure. The calculation forGFR is based on the CKD-EPI (202) calculation. This formulais race indifferent and is the recommended formula for GFRby the National Kidney Foundation for Adults.The GFR will not calculate if the sex is unknown or if thepatient's age is <18 years. CREATININE (test code = CREAT) 0.60 mg/dL 0.7-1.3 L BUN/CREATININE RATIO (test code = BUN/CREA) 43.9 10-20 H TOTAL PROTEIN (test code = PROT) 4.8 gram/dL 6.4-8.2 L ALBUMIN (test code = ALB) 1.1 g/dL 3.4-5.0 L GLOBULIN (test code = GLOB) 3.7 gram/dL 2.7-4.2 N ALBUMIN/GLOBULIN RATIO (test code = A/G) 0.3 0.75-1.50 L CALCIUM (test code = CA) 7.7 mg/dL 8.5-10.1 L BILIRUBIN TOTAL (test code = BILT) 0.50 mg/dL 0.0-1.0 N SGOT/AST (test code = AST) 100 IUnit/L 15-37 H SGPT/ALT (test code = ALT) 46 IUnit/L 12-78 N ALKALINE PHOSPHATASE TOTAL (test code = ALKP) 131 IUnit/L 45-117 H Note change in reference range due to change in reagent. CBC W/O [id number] 06:27:00* Test Item Value Reference Range Interpretation Comme nts WHITE BLOOD CELL (test code = WBC) 16.7 K/mm3 4.5-12.5 H RED BLOOD CELL (test code = RBC) 3.34 mill/mm3 4.0-5.8 L HEMOGLOBIN (test code = HGB) 10.1 gram/dL 13.0-17.5 L HEMATOCRIT (test code = HCT) 29.9 % 42.0-52.0 L MEAN CELL VOLUME (test code = MCV) 89.5 fL 80-98 N MEAN CELL HGB (test code = MCH) 30.2 picogram 27.0-33.0 N MEAN CELL HGB CONCETRATION (test code = MCHC) 33.8 gram/dL 33.0-36.0 N RED CELL DISTRIBUTION WIDTH (test code = RDW) 14.8 % 11.6-16.2 N PLATELET COUNT (test code = PLT) 364 K/mm3 150-450 N MEAN PLATELET VOLUME (test c ode = MPV) 11.2 fL 6.7-11.0 H [id number] 19:22:00* Test Item Value Reference Range Interpretation Comme nts GLUBED (test code = GLUBED) 132 mg/dL 74-106 H Performed by cer tified special warfare operator at [facility] [id number] 15:19:00* Test Item Value Reference Range Interpretation Comme nts GLUBED (test code = GLUBED) 207 mg/dL 74-106 H Performed by cer tified special warfare operator at [facility] [id number] 11:08:00* Test Item Value Reference Range Interpretation Comme nts GLUBED (test code = GLUBED) 154 mg/dL 74-106 H Performed by cer tified special warfare operator at [facility] [id number] 07:19:00* Test Item Value Reference Range Interpretation Comme nts GLUBED (test code = GLUBED) 183 mg/dL 74-106 H Performed by cer tified special warfare operator at [facility] CBC W/MANUAL [id number] 05:59:00* Test Item Value Reference Range Interpretation Comme nts WHITE BLOOD CELL (test code = WBC) 18.4 K/mm3 4.5-12.5 H RED BLOOD CELL (test code = RBC) 3.57 mill/mm3 4.0-5.8 L HEMOGLOBIN (test code = HGB) 10.7 gram/dL 13.0-17.5 L HEMATOCRIT (test code = HCT) 31.4 % 42.0-52.0 L MEAN CELL VOLUME (test code = MCV) 88.0 fL 80-98 N MEAN CELL HGB (test code = MCH) 30.0 picogram 27.0-33.0 N MEAN CELL HGB CONCETRATION (test code = MCHC) 34.1 gram/dL 33.0-36.0 N RED CELL DISTRIBUTION WIDTH (test code = RDW) 14.0 % 11.6-16.2 N RED CELL DISTRIBUTION WIDTH SD (test code = RDW-SD) 45.4 fL 37.0-51.0 N PLATELET COUNT (test code = PLT) 342 K/mm3 150-450 N MEAN PLATELET VOLUME (test code = MPV) 11.2 fL 6.7-11.0 H IMMATURE GRANULOCYTE % (test code = IG%) 4.9 % 0.0-5.0 N NUCLEATED RBC % (test code = NRBC%) 0.0 % 0-0 N NEUTROPHIL # (test code = NT#) 14.37 K/mm3 1.8-7.7 H IMMATURE GRANULOCYTE # (test code = IG#) 0.89 x10 3/uL 0-0.03 H LYMPHOCYTE # (test code = LY#) 2.11 K/mm3 1.0-5.0 N MONOCYTE # (test code = MO#) 0.88 K/mm3 0-0.8 H EOSINOPHIL # (test code = EO#) 0.04 K/mm3 0.0-0.5 N BASOPHIL # (test code = BA#) 0.06 K/mm3 0.0-0.2 N NUCLEATED RBC # (test code = NRBC#) 0.00 K/mm3 0.0-0.1 N MANUAL DIFF REQUIRED (test code = MDIFF) YES STAIN ACCEPTABILITY (test code = STN ACCEPTABLE) STAIN ACCEPTABLE TOTAL CELLS COUNTED (test code = TCC) 115 #CELLS SEGMENTED NEUTROPHILS (test code = SEG) 88.7 % 39-69 H LYMPHOCYTE (test code = LYMPH) 8.7 % 25-55 L MONOCYTE (test code = MON) 2.6 % 0-10 N EOSINOPHIL (test code = EOS) 0 % 0.0-5.0 N CABOT RINGS (test code = CAB) MORPHOLOGY COMMENT (test code = MOC) NORMAL PLATELET ESTIMATE (test code = PLTEST) ADEQUATE PLATELET MORPHOLOGY (test code = PLTMORPH) SIZE VARIABLE BAND NEUTROPHIL (test code = BAND) 0 % 0-10 N REACTIVE LYMPH (test code = RELYMPH) 0 % BASOPHIL (test code = BASO) 0 % 0-1.0 N METAMYELOCYTE (test code = META) 0 % 0-0 N MYELOCYTE (test code = MYELO) 0 % 0.0-0.0 N PROMYELOCYTE (test code = PROM) 0 % 0-0 N POLYCHROMASIA (test code = POLC) 3+ ANISOCYTOSIS (test code = ANISO) 2+ MACROCYTOSIS (test code = MACR) 1+ SPHEROCYTES (test code = SPH) 1+ ELLIPTOCYTES (test code = ELL) 1+ OVALOCYTES (test code = OVAL) 1+ IMMATURE FORMS (test code = IMMAT) 0 % 0-0 N COMPREHENSIVE METABOLIC [id number] 04:32:00* Test Item Value Reference Range Interpretation Comme nts SODIUM (test code = NA) 136 mmol/L 136-145 N POTASSIUM (test code = K) 3.0 mmol/L 3.5-5.1 L CHLORIDE (test code = CL) 96.0 mmol/L 98-107 L CARBON DIOXIDE (test code = CO2) 31.0 mmol/L 21-32 N ANION GAP (test code = GAP) 12.0 mmol/L 10-20 N GLUCOSE (test code = GLU) 152 mg/dL 74-106 H BLOOD UREA NITROGEN (test code = BUN) 32 mg/dL 7-18 H GLOMERULAR FILTRATION RATE (test code = GFR) > 60 mL/min >=60 The Glomerular Filtration Rate is a calculated parameterbased on serum Creatinine, patient age and sex. GFR valuesless than 60 mL/min/1.73 square meters are indicative ofChronic Kidney Disease. Values less than 15 mL/min/1.73square meters indicate Kidney failure. The calculation forGFR is based on the CKD-EPI (2020) calculation. This formulais race indifferent and is the recommended formula for GFRby the National Kidney Foundation for Adults.The GFR will not calculate if the sex is unknown or if thepatient's age is <18 years. CREATININE (test code = CREAT) 0.70 mg/dL 0.7-1.3 N BUN/CREATININE RATIO (test code = BUN/CREA) 43.2 10-20 H TOTAL PROTEIN (test code = PROT) 5.9 gram/dL 6.4-8.2 L ALBUMIN (test code = ALB) 1.7 g/dL 3.4-5.0 L GLOBULIN (test code = GLOB) 4.2 gram/dL 2.7-4.2 N ALBUMIN/GLOBULIN RATIO (test code = A/G) 0.4 0.75-1.50 L CALCIUM (test code = CA) 8.4 mg/dL 8.5-10.1 L BILIRUBIN TOTAL (test code = BILT) 0.40 mg/dL 0.0-1.0 N SGOT/AST (test code = AST) 88 IUnit/L 15-37 H SGPT/ALT (test code = ALT) 35 IUnit/L 12-78 N ALKALINE PHOSPHATASE TOTAL (test code = ALKP) 141 IUnit/L 45-117 H Note change in reference range due to change in reagent. [id number] 04:32:00* Test Item Value Reference Range Interpretation Comme nts PHOSPHORUS (test code = PHOS) 2.7 mg/dL 2.5-4.9 N [id number] 04:32:00* Test Item Value Reference Range Interpretation Comme nts MAGNESIUM (test code = MAG) 2.4 mg/dL 1.8-2.4 N [id number] 04:24:00* Test Item Value Reference Range Interpretation Comme nts TROPONIN-HS (test code = TROPI) 6.370 pg/mL 0-54 N 99th Percentile Upper Reference Limit (URL):Females: 34 pg/mLMales: 54 pg/mL In order to distinguish acute elevations of high sensitivitytroponin from other clinical conditions, the FourthUniversal Definition of Myocardial Infarction stressesclinical assessment and the demonstration of a rise and/orfall in serial troponin results above the URL. These results were obtained using [employer] IM TnIHreagent. Results from different methodologies should not becompared to one another as quantitative results and URLs mayvary by method. NOTE: A Positive Bias may occur for patients taking Biotin Supplements.NOTE: Current test methodology (pg/mL) units differ from prior test methodology (ng/mL) by a factor of 1000. DRUGS OF ABUSE SCREEN [id number] 02:50:00* Test Item Value Reference Range Interpretation Comme nts URN COCAINE (test code = COCAURN) NEGATIVE See_Comment [Automated messa ge] The system which generated this result transmitted reference range: <300 ng/mL. The reference range was not used to interpret this result as normal/abnormal. URN CANNABINOIDS (test code = CANNABURN) NEGATIVE See_Comment [Automated mes olimpia] The system which generated this result transmitted reference range: <50 ng/mL. The reference range was not used to interpret this result as normal/abnormal. URN AMPHETAMINE (test code = AMPHETURN) NEGATIVE See_Comment [Automated mes olimpia] The system which generated this result transmitted reference range: <1000 ng/mL. The reference range was not used to interpret this result as normal/abnormal. URN BARBITURATE (test code = BARBITURN) NEGATIVE See_Comment [Automated mes olimpia] The system which generated this result transmitted reference range: <200 ng/mL. The reference range was not used to interpret this result as normal/abnormal. URN BENZODIAZEPINE (test code = BENZOURN) NEGATIVE See_Comment [Automated mess age] The system which generated this result transmitted reference range: <200 ng/mL. The reference range was not used to interpret this result as normal/abnormal. URN OPIATES (test code = OPIATURN) POSITIVE See_Comment [Automated messa ge] The system which generated this result transmitted reference range: <300 ng/mL. The reference range was not used to interpret this result as normal/abnormal. URN PHENCYCLIDINE (PCP) (test code = PHENCURN) NEGATIVE See_Comment [Automate d message] The system which generated this result transmitted reference range: <25 ng/mL. The reference range was not used to interpret this result as normal/abnormal. URN METHADONE (test code = METHAURN) NEGATIVE See_Comment [Automated messa ge] The system which generated this result transmitted reference range: <300 ng/mL. The reference range was not used to interpret this result as normal/abnormal. Indication for culture: RiskForSepsis-no oth srcURINALYSIS [id number] 02:50:00* Test Item Value Reference Range Interpretation Comme nts UA COLOR (test code = COLU) PINKISH YELLOW A UA APPEARANCE (test code = APPU) CLOUDY CLEAR A UA GLUCOSE DIPSTICK (test code = DGLUU) 70-100 (1+) mg/dL NEGATIVE UA BILIRUBIN DIPSTICK (test code = BILU) 1+ (Small 0.5-1.0) NEGATIVE UA KETONE DIPSTICK (test code = KETU) 2+ mg/dL NEGATIVE UA SPECIFIC GRAVITY (test code = SGU) <=1.005 1.001-1.035 UA BLOOD DIPSTICK (test code = EUSEBIO) TRACE NEGATIVE UA PH DIPSTICK (test code = MAREK) 6.0 5.0-8.0 UA PROTEIN DIPSTICK (test code = PROU) 1+ mg/dL Neg-15 UA UROBILINIOGEN DIPSTICK (test code = URO) >=8.0 mg/dL 0.0-0.2 UA NITRITE DIPSTICK (test code = BRANDON) NEGATIVE NEGATIVE UA LEUKOCYTE ESTERASE W REFLEX (test code = LEUUR) NEGATIVE NEGATIVE UA WBC (test code = WBCU) 0-5 per HPF 0-5 UA RBC (test code = RBCU) 0-2 #/HPF 0-5 UA EPITHELIAL CELLS (test code = EPIU) Rare (0-1/hpf) per HPF FEW UA BACTERIA (test code = BACU) FEW #/HPF NONE Indication for culture: RiskForSepsis-no oth srcUA RFLX MICR CULT IF INDICATED 2024-07-14 02:37:00* Test Item Value Reference Range Interpretation Comme nts UA COLOR (test code = COLU) YELLOW UA APPEARANCE (test code = APPU) CLEAR UA BILIRUBIN DIPSTICK (test code = BILU) NEGATIVE UA SPECIFIC GRAVITY (test code = SGU) 1.001-1.0 35 UA PH DIPSTICK (test code = MAREK) 5.0-8.0 UA UROBILINIOGEN DIPSTICK (t est code = URO) mg/dL 0.0-0.2 UA NITRITE DIPSTICK (test co de = BRANDON) NEGATIVE UA LEUKOCYTE ESTERASE W REFL EX (test code = LEUUR) NEGATIVE UA WBC (test code = WBCU) per HPF 0-5 UA RBC (test code = RBCU) per HPF 0-5 UA EPITHELIAL CELLS (test co de = EPIU) per HPF Few UA BACTERIA (test code = BACU) per HPF NONE Indication for culture: RiskForSepsis-no oth [id number] 02:06:00* Test Item Value Reference Range Interpretation Comme nts GLUBED (test code = GLUBED) 162 mg/dL 74-106 H Performed by cer tified special warfare operator at [facility] [id number] 23:44:00* Test Item Value Reference Range Interpretation Comme nts TROPONIN-HS (test code = TROPI) 6.000 pg/mL 0-54 N 99th Percentile Upper Reference Limit (URL):Females: 34 pg/mLMales: 54 pg/mL In order to distinguish acute elevations of high sensitivitytroponin from other clinical conditions, the FourthUniversal Definition of Myocardial Infarction stressesclinical assessment and the demonstration of a rise and/orfall in serial troponin results above the URL. These results were obtained using [employer] IM TnIHreagent. Results from different methodologies should not becompared to one another as quantitative results and URLs mayvary by method. NOTE: A Positive Bias may occur for patients taking Biotin Supplements.NOTE: Current test methodology (pg/mL) units differ from prior test methodology (ng/mL) by a factor of 1000. [id number] 23:38:00* Test Item Value Reference Range Interpretation Comme nts GLYCOSYLATED HEMOGLOBIN (HA1C) (test code = GLYHGB) 11.2 % HbA1 SUGGESTED DIAGNOSIS: HbA1C (%) ------ Diabetic >6.4Prediabetes 5.7 - 6.4Normal <5.7 ESTIMATED AVERAGE GLUCOSE (test code = EAG) 275 MG/DL [id number] 21:08:00* Test Item Value Reference Range Interpretation Comme nts GLUBED (test code = GLUBED) 222 mg/dL 74-106 H Performed by cer tified special warfare operator at [facility] CBC W/MANUAL [id number] 18:06:00* Test Item Value Reference Range Interpretation Comme nts WHITE BLOOD CELL (test code = WBC) 22.7 K/mm3 4.5-12.5 H RED BLOOD CELL (test code = RBC) 3.85 mill/mm3 4.0-5.8 L HEMOGLOBIN (test code = HGB) 12.0 gram/dL 13.0-17.5 L HEMATOCRIT (test code = HCT) 34.1 % 42.0-52.0 L MEAN CELL VOLUME (test code = MCV) 88.6 fL 80-98 N MEAN CELL HGB (test code = MCH) 31.2 picogram 27.0-33.0 N MEAN CELL HGB CONCETRATION (test code = MCHC) 35.2 gram/dL 33.0-36.0 N RED CELL DISTRIBUTION WIDTH (test code = RDW) 14.1 % 11.6-16.2 N RED CELL DISTRIBUTION WIDTH SD (test code = RDW-SD) 45.6 fL 37.0-51.0 N PLATELET COUNT (test code = PLT) 376 K/mm3 150-450 N MEAN PLATELET VOLUME (test code = MPV) 11.1 fL 6.7-11.0 H IMMATURE GRANULOCYTE % (test code = IG%) 4.3 % 0.0-5.0 N NUCLEATED RBC % (test code = NRBC%) 0.0 % 0-0 N NEUTROPHIL # (test code = NT#) 18.99 K/mm3 1.8-7.7 H IMMATURE GRANULOCYTE # (test code = IG#) 0.98 x10 3/uL 0-0.03 H LYMPHOCYTE # (test code = LY#) 1.57 K/mm3 1.0-5.0 N MONOCYTE # (test code = MO#) 1.09 K/mm3 0-0.8 H EOSINOPHIL # (test code = EO#) 0.00 K/mm3 0.0-0.5 N BASOPHIL # (test code = BA#) 0.08 K/mm3 0.0-0.2 N NUCLEATED RBC # (test code = NRBC#) 0.00 K/mm3 0.0-0.1 N MANUAL DIFF REQUIRED (test code = MDIFF) YES STAIN ACCEPTABILITY (test code = STN ACCEPTABLE) STAIN ACCEPTABLE TOTAL CELLS COUNTED (test code = TCC) 116 #CELLS SEGMENTED NEUTROPHILS (test code = SEG) 73.3 % 39-69 H BAND NEUTROPHIL (test code = BAND) 13.8 % 0-10 H LYMPHOCYTE (test code = LYMPH) 7.7 % 25-55 L REACTIVE LYMPH (test code = RELYMPH) 0 % MONOCYTE (test code = MON) 0.9 % 0-10 N EOSINOPHIL (test code = EOS) 0 % 0.0-5.0 N BASOPHIL (test code = BASO) 0 % 0-1.0 N METAMYELOCYTE (test code = META) 0 % 0-0 N MYELOCYTE (test code = MYELO) 0 % 0.0-0.0 N PROMYELOCYTE (test code = PROM) 1.7 % 0-0 H PLASMA CELL (test code = MAI) 2.6 0.0-0.0 H POLYCHROMASIA (test code = POLC) 1+ POIKILOCYTOSIS (test code = POIK) 1+ ANISOCYTOSIS (test code = ANISO) 1+ MACROCYTOSIS (test code = MACR) 1+ STOMATOCYTES (test code = STO) 1+ PLATELET ESTIMATE (test code = PLTEST) ADEQUATE PLATELET MORPHOLOGY (test code = PLTMORPH) SIZE VARIABLE IMMATURE FORMS (test code = IMMAT) 0 % 0-0 N Notes Date/Time Note Provider Source 2024-08-11 11:39:00 [facility] ([facility]) Hospitalist Discharge Summary REPORT#:[id number] REPORT STATUS: Signed REPORT INITIALIZATION DATE:08/11/24 TIME: 1138 PATIENT: CAROLYNN PATEL UNIT #: [id number] ROOM/BED: : 70 AGE: 54 SEX: M ATTEND: Macho Musa MD ADM AUTHOR: Naima Tse NP REPT SERVICE DT/TIME: 08/11/24 1139 * ALL edits or amendments must be made on the electronic/computer document * General Information Date of admission: Observation Start Date: Date of admission: 07/13/24 Discharge date: 08/11/24 Discharge diagnosis: see dc diagnosis below in hosital course Hospital course: 1.Acute necrotizing fasciitis of right lower extremity -Status post debridement by general surgery on 07/13/24, general surgeon recommends BKA -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 -Patient started on IV cefazolin 2 g every 8 hours.Will need IV ancef for 8 weeks on dc. -Repeat blood cx ordered growing gram positive cocci in clusters on gram stain. -Dced ancef and switched to naficillin. Repeat blood culture x 72 hours negative 2.Acute hypoxic respiratory failure -07/22: Possibly related to lethargy from MANUFACTURING INTERN pump, MANUFACTURING INTERN pump discontinued, started on IV Dilaudid and [place] p.o. -Obtain chest x-ray: No acute infiltrates, effusions or congestion -Sputum cultures ordered -Incentive spirometery -Started on breathing treatments -Pulm consult: Severe hypoalbuminemia, recommends diuresis ,check urine protein level.Ordered,not sent out. -Started on Lasix 20 mg IV every 12 hours and reassess clinically -CTA chest shows consolidation B/L lung bases concerning for atelectasis or aspiration pneumonitis. RESOLVED 3.Sepsis secondary to necrotizing fasciitis -Present on admission, normal lactic acid, wbc elevated, Tachycardic -Blood cultures positive for Staphylococcus aureus -Wound with Morganella morganii continue with cefazolin every 8 hrs x 8 weeks from 07/16/24 per ID -IV antibiotics to be set up. -Pt spiking fevers ,hypotensive and tachycardic ,given IV fluid boluses. -CXR shows patchy new right mid lung infiltrate. -Repeat blood cx ordered shows gram positive cocci in clusters on gram stain. -Dced ancef and started on naficillin. -CT abdomen/pelvis shows bladder wall thickening. Correlate with urinalysis for cystitis.Indeterminate hypodensity in the left hepatic lobe. Nonemergent outpatient follow-up MRI liver is recommended. -Check UA. -CTA chest shows consolidation B/L lung bases concerning for atelectasis or aspiration pneumonitis. Improving 4.MSSA bacteremia -IV cefazolin 2g q8hrs x 8 weeks from 07/16/2024 per ID. -Cardiology consulted for KALYAN.Unable to be done since unable to be scheduled and unable to get consent. -Repeat blood cx ordered growing gram positive cocci in clusters on gram stain. -Dced ancef and started on naficillin. 5.Type II diabetes mellitus with hyperglycemia -Uncontrolled, Hgb A1C 11.2% -On insulin sliding scale and lantus 10u bedtime 6.Hypokalemia -Potassium 3.0, given 40meq oral KCL -Replace and monitor as needed. -Is 3.1 ,replaced. Resolved 7.Superficial thrombosis of cephalic vein in right upper extremity -DVT ruled out -Doppler US is negative for DVT, but showed superficial vein thrombosis noted in the right cephalic vein 8.Hypertension -Blood pressure 160s-170s systolic. -Started on Coreg 3.125 mg twice daily -Allow for permissive hypertension ,contorl BP for systolic greater than 190 and diastolic greater than 110.On prn hydralazine based on these parameters. 9.Tobacco use disorder -Nicotine patch prn 10.Leukocytosis -WBC count is 16 ,due to MSSA bacteremia . -On ancef ,ID following.Dced ancef and switched to naficillin.Trend white count and vital signs .Improved. Resolved 11.Anemia of chronic disease -Monitor H and H ,transfuse if Hb is less than 7. 12.Acute metabolic enecephalopathy due to acute cerebrovascular accident -CT of the brain shows no acute intracranial hemorrhage. 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 There is an infarct in the left temporal lobe adjacent to the posterior horn of the left lateral ventricle which is age indeterminate. This can be better assessed with MRI. -MRI brain without contrast shows acute infarct involving the left temporal and occipital lobe.. -Started on ASA and statin.Monitor neurochecks. -CTA head and neck unremarkable. -2D echo ordered showed EF OF 60-64%. -Allow for permissive hypertension ,contorl BP for systolic greater than 190 and diastolic greater than 110.On prn hydralazine based on these parameters. -PT/OT/ST consulted.Modified barium swallow done ,showed handling of varying consistencies of barium . There is an instance of penetration of mixed consistency barium however no aspiration is seen. -Neurology consulted. Improved DVT Px :Lovenox 40mg daily Code status :Full code.No known next of kin information. Pt. condition on discharge: stable Med Rec Med Rec Discharge meds: Start taking the following new medications: ATORVASTATIN (LIPITOR) 40 MG TAB 40 MILLIGRAM ORAL BEDTIME. Qty = 90 Refills = 1 carvediloL (carvediloL) 3.125 MG TAB 3.125 MILLIGRAM ORAL TWICE DAILY. Qty = 90 Refills = 1 ASPIRIN EC (ECOTRIN) 81 MG TAB.EC 81 MILLIGRAM ORAL DAILY. Qty = 90 Refills = 1 INSULIN NPH/REG INSULIN HUM (NovoLIN 70/30) 100 UNIT/ML (70-30) VIAL 10 UNITS SUBCUTANEOUS TWICE DAILY BEFORE MEALS. Qty = 100 Refills = 1 Instructions: dispense with insulin needles Objective VS/I O Last Documented: Result Date Time Pulse Ox 96 08/11 917 B/P 120/72 08/11 917 B/P Mean 87.7 08/11 917 Temp 98.2 08/11 917 Pulse 72 08/11 09 Resp 18 08/11 0414 O2 Flow Rate 2 08/01 0748 O2 Delivery Nasal cannula 07/31 1999 FiO2 32 07/28 0847 General appearance: alert, awake Head/Eyes: atraumatic, normal conjunctiva/sclera, normocephalic, PERRL ENT: moist mucosal membranes, normal ear left, normal ear right, normal nose Neck: supple/no meningismus, no masses or swelling Cardiovascular: normal capillary refill, normal heart sounds, regular rate rhythm Respiratory: decreased breath sounds, hypoxia, on oxygen, symmetric expansion, no distress Abdomen: normal bowel sounds, soft, no distention Genitourinary: no bladder distention, no flank pain, no urinary catheter Extremities: edema, moves all, right BKA Musculoskeletal: decreased ROM (R BKA) Neuro/ADDICTION COUNSELOR: alert Skin: dry, intact Psychiatry: abnl judgment/insight, normal affect, normal mood Results Findings/Data: Laboratory Tests: 08/11 08/10 08/10 08/10 0848 1941 1619 1144 Chemistry POC Glucose (74 - 106 mg/dL) 88 171 H 120 H 119 H Discharge Instructions PCP PCP follow-up: PCP: No Primary or Family Physician Discharge to: Home/Self Care Additional Discharge Routines: Contract Specialist Follow-Up Diet: Resume Home Diet/Feeds Activity: Resume Normal Activity Follow-up Appointments Consulting provider 1: Provider 1: Marce Kiser MD Specialty: Infectious Disease Consult follow up timeframe: In 1-2 weeks Quality: Discharge Current Medications Current medication review: I attest that the foregoing medication list in the medical record is true, accurate, and complete to the best of my knowledge. at 1144 at 1437 RPT #:[id number] END OF REPORT [facility] 2024-08-11 09:02:00 [facility] ([facility]) Infectious Dis. Progress Note REPORT#:[id number] REPORT STATUS: Signed REPORT INITIALIZATION DATE:08/11/24 TIME: 901 PATIENT: CAROLYNN PATEL UNIT #: [id number] ROOM/BED: [address] : 70 AGE: 54 SEX: M ATTEND: Macho Musa MD ADM AUTHOR: Marce Kiser MD REPT SERVICE DT/TIME: 08/11/24 0902 * ALL edits or amendments must be made on the electronic/computer document * Marce Kiser 08/11/24 0902: Subjective Chief complaint: Bacteremia Staphylococcus aureus Septic Emboli to brain likely Objective Physical Exam Wound/incision: Location: Right foot dressing Site condition: dressing clean dry Head/Eyes: atraumatic ENT: moist mucosal membranes, normal dentition, normal nose Neck: full range of motion, non-tender, normal thyroid Cardiovascular: normal heart sounds, regular rate rhythm Respiratory: clear to auscultation, aerating well Extremities: moves all, normal capillary refill Musculoskeletal: normal inspection Psychiatry: normal affect Diagnosis, Assessment Plan Free Text A P: Sepsis on admission -we will recheck a blood culture -the patient remains bacteremic MSSA bacteremia present on admission Wound with Morganella morganii Necrotizing soft tissue infection Wound with morgenella IMPRESSION: The abdomen and pelvis are within normal limits. There are tiny bilateral pleural effusions with subsegmental atelectasis in the underlying lung bases. s/p BKA 07/20 The patient remains bacteremic we will recheck a blood culture nafcillin And Invanz septic emboli to brain MRI -Ostoemyelitis of Lumbar spine -thoracic spine osteomyelitis/discitis -will speak with IR for any aspiration that may be necessary KALYAN still needed- but unable to obtain consent repeat cultures are pending The case discussed with the family prognosis extremely poor they are aware recommend comfort care Natalya Tolentino 08/11/24 1318: Diagnosis, Assessment Plan Free Text A P: Discharging home with his father on IV ABT at 1318 at 1700 RPT #:[id number] END OF REPORT [facility] 2024-08-10 16:35:00 [facility] ([facility] Infectious Dis. Progress Note REPORT#:[id number] REPORT STATUS: Signed REPORT INITIALIZATION DATE:08/10/24 TIME: 163 PATIENT: CAROLYNN PATEL UNIT #: [id number] ROOM/BED: [address] : 70 AGE: 54 SEX: M ATTEND: Macho Musa MD ADM AUTHOR: Natalay Tolentino AQUATICS COORDINATOR REPT SERVICE DT/TIME: 08/10/24 1635 * ALL edits or amendments must be made on the electronic/computer document * Subjective Chief complaint: Bacteremia Staphylococcus aureus Septic Emboli to brain likely Objective General VS/I O: Vital Signs Date Temp Pulse Resp B/P B/P Mean Pulse Ox FiO2 08/10-08/11 97.7-98.6 63-73 17-18 108-124/69-78 81.7-93.1 94-98 Last Documented: Result Date Time Pulse Ox 96 08/11 1158 B/P 121/76 08/11 1158 B/P Mean 91.0 08/11 1158 O2 Delivery Room air 08/11 1158 Temp 97.9 08/11 1158 Pulse 70 08/11 1158 Resp 17 08/11 1158 O2 Flow Rate 2 08/01 0748 FiO2 32 07/28 0847 Vital Signs: Date Time Temp Pulse Resp B/P B/P Pulse O2 O2 Flow FiO2 Mean Ox Delivery Rate 08/11 1158 97.9 70 17 121/76 91.0 96 Room air 08/11 0918 98.2 72 120/72 87.7 96 08/11 0414 97.7 68 18 118/76 89.6 95 08/11 0035 98.6 63 18 124/78 93.1 98 08/10 1934 98.1 73 18 108/69 81.7 94 08/10 1634 98.1 71 17 119/73 88.2 94 PATIENT WEIGHT: Weight (lb): 140 Weight (oz): 4.69 Weight (kg): 63.636 Medications: Active Meds + DC'd Last 24 Hrs Sodium Chloride (SODIUM CHLORIDE PF 10 ML FLUSH) 10 ML BID IV Lidocaine HCl (LIDOCAINE HCL 1%) 5 ML ONCE ONE INJ (CAN) Sodium Chloride (SODIUM CHLORIDE PF 10 ML FLUSH) 10 ML ASDIR PRN IV Nafcillin Sodium (NAFCILLIN SODIUM) 2 GM Q6H IV Dextrose/Water (DEXTROSE 5%) 100 ML Ertapenem (INVanz) 1 G Q24H IV Sodium Chloride (SODIUM CHLORIDE 0.9%) 100 ML Aspirin (ECOTRIN) 81 MG DAILY PO Atorvastatin Calcium (LIPITOR 40MG TAB) 40 MG BEDTIME PO Perflutren Lipid Microsphere (DEFINITY) 1.1 ML PROCEDURE IV (CKD) Acetaminophen (ACETAMINOPHEN) 650 MG Q6H PRN PRN RECTAL Sodium Chloride (SODIUM CHLORIDE 0.9%) 1,000 ML .[id number] IV Acetaminophen (TYLENOL) 650 MG Q6H PRN PRN PO Furosemide (LASIX 20MG Inj) 20 MG Q12HR IV Albuterol Sulfate (ALBUTEROL SULFATE) 1.25 MG RTQ4H PRN PRN INH Diphenhydramine HCl (diphenhydrAMINE HCL) 12.5 MG Q4H PRN PRN IV Naloxone HCl (NARCAN) 0.1 MG Q2M PRN PRN IV Ondansetron HCl (ondansetron HCL) 4 MG Q6H PRN PRN IV Nicotine (HABITROL 21MG PATCH) 21 MG DAILY PRN PRN TRANSDERM (CKD) Carvedilol (COREG 3.125MG TAB) 3.125 MG BID PO Insulin Glargine (Lantus/Semglee) 10 UNIT BEDTIME SUBQ Famotidine (PEPCID TAB) 20 MG BID AC PO Enoxaparin Sodium (LOVENOX 40MG SYRINGE) 40 MG 1700 SUBQ Tramadol HCl (ULTRAM) 50 MG Q4H PRN PRN PO Thiamine HCl (THIAMINE HCL) 100 MG DAILY PO Calcium Carbonate (TUMS 500MG) 1,000 MG Q6H PRN PRN PO Docusate Sodium (COLACE 100 MG CAPSULE) 100 MG BID PRN PRN PO Guaifenesin (guaiFENesin) 200 MG Q6H PRN PRN PO Insulin Human Lispro (Admelog) S/SCALE MED AC HS SUBQ Melatonin (MELATONIN) 6 MG BEDTIME PRN PRN PO Simethicone (SIMETHICONE) 80 MG Q6H PRN PRN PO Dextrose/Water (DEXTROSE 50%-WATER) 50 ML ASDIR PRN IV (CKD) Physical Exam Wound/incision: Location: Right foot dressing Site condition: dressing clean dry Head/Eyes: atraumatic ENT: moist mucosal membranes, normal dentition, normal nose Neck: full range of motion, non-tender, normal thyroid Cardiovascular: normal heart sounds, regular rate rhythm Respiratory: clear to auscultation, aerating well Extremities: moves all, normal capillary refill Musculoskeletal: normal inspection Psychiatry: normal affect Diagnosis, Assessment Plan Free Text A P: Sepsis on admission -we will recheck a blood culture -the patient remains bacteremic MSSA bacteremia present on admission Wound with Morganella morganii Necrotizing soft tissue infection Wound with morgenella IMPRESSION: The abdomen and pelvis are within normal limits. There are tiny bilateral pleural effusions with subsegmental atelectasis in the underlying lung bases. s/p BKA 07/20 The patient remains bacteremic we will recheck a blood culture nafcillin And Invanz septic emboli to brain MRI -Ostoemyelitis of Lumbar spine -thoracic spine osteomyelitis/discitis -will speak with IR for any aspiration that may be necessary Patient is discharging with IV ABT with his father at home explained this patient is very sick however, father understands and so does the mother Discussed with Dr. kiser at 1318 at 1700 RPT #:[id number] END OF REPORT [facility] 2024-08-10 09:50:00 [facility] ([facility]) Hospitalist Progress Note REPORT#:[id number] REPORT STATUS: Signed REPORT INITIALIZATION DATE:08/10/24 TIME: 949 PATIENT: CAROLYNN PATEL UNIT #: [id number] ROOM/BED: [facility] : 70 AGE: 54 SEX: M ATTEND: Macho Musa MD ADM AUTHOR: Kings Oliva AQUATICS COORDINATOR REPT SERVICE DT/TIME: 08/10/24 0950 * ALL edits or amendments must be made on the electronic/computer document * Kings Oliva 08/10/24 0950: Subjective Chief complaint: Blood culture negative x 72 hours. Insert PICC line, case management to arrange for home antibiotics Ancef 2 g every 8 hours x 6 weeks per ID Patient reports: No: complaints. Nursing reports: No: complaints. Objective General VS/I O: Vital Signs: Date Time Temp Pulse Resp B/P B/P Pulse O2 O2 Flow FiO2 Mean Ox Delivery Rate 08/10 0727 36.8 66 17 132/83 99.2 93 08/10 0439 36.5 59 18 112/74 86.8 95 08/09 2332 36.5 84 18 120/78 91.9 94 08/09 2040 36.5 78 18 129/76 93.6 98 08/09 1609 36.8 78 17 119/71 87.1 94 08/09 1141 36.4 68 17 126/76 93.0 98 24 hour I O ending at 0700: 08/10 0700 08/09 1900 Intake Total Output Total 250 Balance -250 Output, Urine 250 PATIENT WEIGHT: Weight (lb): 140 Weight (oz): 4.69 Weight (kg): 63.636 Medications: Active Meds + DC'd Last 24 Hrs Nafcillin Sodium (NAFCILLIN SODIUM) 2 GM Q6H IV Dextrose/Water (DEXTROSE 5%) 100 ML Ertapenem (INVanz) 1 G Q24H IV Sodium Chloride (SODIUM CHLORIDE 0.9%) 100 ML Aspirin (ECOTRIN) 81 MG DAILY PO Atorvastatin Calcium (LIPITOR 40MG TAB) 40 MG BEDTIME PO Perflutren Lipid Microsphere (DEFINITY) 1.1 ML PROCEDURE IV (CKD) Acetaminophen (ACETAMINOPHEN) 650 MG Q6H PRN PRN RECTAL Sodium Chloride (SODIUM CHLORIDE 0.9%) 1,000 ML .[id number] IV Acetaminophen (TYLENOL) 650 MG Q6H PRN PRN PO Furosemide (LASIX 20MG Inj) 20 MG Q12HR IV Albuterol Sulfate (ALBUTEROL SULFATE) 1.25 MG RTQ4H PRN PRN INH Diphenhydramine HCl (diphenhydrAMINE HCL) 12.5 MG Q4H PRN PRN IV Naloxone HCl (NARCAN) 0.1 MG Q2M PRN PRN IV Ondansetron HCl (ondansetron HCL) 4 MG Q6H PRN PRN IV Nicotine (HABITROL 21MG PATCH) 21 MG DAILY PRN PRN TRANSDERM (CKD) Carvedilol (COREG 3.125MG TAB) 3.125 MG BID PO Insulin Glargine (Lantus/Semglee) 10 UNIT BEDTIME SUBQ Famotidine (PEPCID TAB) 20 MG BID AC PO Enoxaparin Sodium (LOVENOX 40MG SYRINGE) 40 MG 1700 SUBQ Tramadol HCl (ULTRAM) 50 MG Q4H PRN PRN PO Thiamine HCl (THIAMINE HCL) 100 MG DAILY PO Calcium Carbonate (TUMS 500MG) 1,000 MG Q6H PRN PRN PO Docusate Sodium (COLACE 100 MG CAPSULE) 100 MG BID PRN PRN PO Guaifenesin (guaiFENesin) 200 MG Q6H PRN PRN PO Insulin Human Lispro (Admelog) S/SCALE MED AC HS SUBQ Melatonin (MELATONIN) 6 MG BEDTIME PRN PRN PO Simethicone (SIMETHICONE) 80 MG Q6H PRN PRN PO Dextrose/Water (DEXTROSE 50%-WATER) 50 ML ASDIR PRN IV (CKD) Physical Exam General appearance: alert, awake Head/Eyes: atraumatic, normal conjunctiva/sclera, normocephalic, PERRL ENT: moist mucosal membranes, normal ear left, normal ear right, normal nose Neck: supple/no meningismus, no masses or swelling Cardiovascular: normal capillary refill, normal heart sounds, regular rate rhythm Respiratory: decreased breath sounds, hypoxia, on oxygen, symmetric expansion, no distress Abdomen: normal bowel sounds, soft, no distention Genitourinary: no bladder distention, no flank pain, no urinary catheter Extremities: edema, moves all, right BKA Musculoskeletal: decreased ROM (R BKA) Neuro/ADDICTION COUNSELOR: alert Skin: dry, intact Psychiatry: abnl judgment/insight, normal affect, normal mood Results Findings/Data: Laboratory Tests 08/10 08/09 08/09 08/09 0759 2037 1603 1107 Chemistry POC Glucose (74 - 106 mg/dL) 81 99 154 H 155 H Results: vital signs reviewed, current med profile rev'd Diagnosis, Assessment Plan Free Text DxA P Notes Free text DxA P notes: 1.Acute necrotizing fasciitis of right lower extremity -Status post debridement by general surgery on 07/13/24, general surgeon recommends BKA -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 -Patient started on IV cefazolin 2 g every 8 hours.Will need IV ancef for 8 weeks on dc. -Repeat blood cx ordered growing gram positive cocci in clusters on gram stain. -Dced ancef and switched to naficillin. Repeat blood culture x 72 hours negative 2.Acute hypoxic respiratory failure -07/22: Possibly related to lethargy from MANUFACTURING INTERN pump, MANUFACTURING INTERN pump discontinued, started on IV Dilaudid and [place] p.o. -Obtain chest x-ray: No acute infiltrates, effusions or congestion -Sputum cultures ordered -Incentive spirometery -Started on breathing treatments -Pulm consult: Severe hypoalbuminemia, recommends diuresis ,check urine protein level.Ordered,not sent out. -Started on Lasix 20 mg IV every 12 hours and reassess clinically -CTA chest shows consolidation B/L lung bases concerning for atelectasis or aspiration pneumonitis. RESOLVED 3.Sepsis secondary to necrotizing fasciitis -Present on admission, normal lactic acid, wbc elevated, Tachycardic -Blood cultures positive for Staphylococcus aureus -Wound with Morganella morganii continue with cefazolin every 8 hrs x 8 weeks from 07/16/24 per ID -IV antibiotics to be set up. -Pt spiking fevers ,hypotensive and tachycardic ,given IV fluid boluses. -CXR shows patchy new right mid lung infiltrate. -Repeat blood cx ordered shows gram positive cocci in clusters on gram stain. -Dced ancef and started on naficillin. -CT abdomen/pelvis shows bladder wall thickening. Correlate with urinalysis for cystitis.Indeterminate hypodensity in the left hepatic lobe. Nonemergent outpatient follow-up MRI liver is recommended. -Check UA. -CTA chest shows consolidation B/L lung bases concerning for atelectasis or aspiration pneumonitis. Improving 4.MSSA bacteremia -IV cefazolin 2g q8hrs x 8 weeks from 07/16/2024 per ID. -Cardiology consulted for KALYAN.Unable to be done since unable to be scheduled and unable to get consent. -Repeat blood cx ordered growing gram positive cocci in clusters on gram stain. -Dced ancef and started on naficillin. 5.Type II diabetes mellitus with hyperglycemia -Uncontrolled, Hgb A1C 11.2% -On insulin sliding scale and lantus 10u bedtime 6.Hypokalemia -Potassium 3.0, given 40meq oral KCL -Replace and monitor as needed. -Is 3.1 ,replaced. Resolved 7.Superficial thrombosis of cephalic vein in right upper extremity -DVT ruled out -Doppler US is negative for DVT, but showed superficial vein thrombosis noted in the right cephalic vein 8.Hypertension -Blood pressure 160s-170s systolic. -Started on Coreg 3.125 mg twice daily -Allow for permissive hypertension ,contorl BP for systolic greater than 190 and diastolic greater than 110.On prn hydralazine based on these parameters. 9.Tobacco use disorder -Nicotine patch prn 10.Leukocytosis -WBC count is 16 ,due to MSSA bacteremia . -On ancef ,ID following.Dced ancef and switched to naficillin.Trend white count and vital signs .Improved. Resolved 11.Anemia of chronic disease -Monitor H and H ,transfuse if Hb is less than 7. 12.Acute metabolic enecephalopathy due to acute cerebrovascular accident -CT of the brain shows no acute intracranial hemorrhage. 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 There is an infarct in the left temporal lobe adjacent to the posterior horn of the left lateral ventricle which is age indeterminate. This can be better assessed with MRI. -MRI brain without contrast shows acute infarct involving the left temporal and occipital lobe.. -Started on ASA and statin.Monitor neurochecks. -CTA head and neck unremarkable. -2D echo ordered showed EF OF 60-64%. -Allow for permissive hypertension ,contorl BP for systolic greater than 190 and diastolic greater than 110.On prn hydralazine based on these parameters. -PT/OT/ST consulted.Modified barium swallow done ,showed handling of varying consistencies of barium . There is an instance of penetration of mixed consistency barium however no aspiration is seen. -Neurology consulted. Improved DVT Px :Lovenox 40mg daily Code status :Full code.No known next of kin information. 35 minutes spent in reviewing labs ,imaging and discussing plan of care with the patient. Dispo: repeat Blood CX negative/PICC line/abx per ID Quality: Gen Med Crit Care VTE Prophylaxis VTE prophylaxis initiated: yes (Lovenox) Current Medications Current medication review: I attest that the foregoing medication list in the medical record is true, accurate, and complete to the best of my knowledge. Advanced Care Plan 65 or Older Discussed with: patient (full code) at 0951 at 1635 RPT #:[id number] END OF REPORT [facility] 2024-08-09 19:50:00 [facility] ([facility]) Infectious Dis. Progress Note REPORT#:[id number] REPORT STATUS: Signed REPORT INITIALIZATION DATE:08/09/24 TIME: 1949 PATIENT: CAROLYNN PATEL UNIT #: [id number] ROOM/BED: A : 70 AGE: 54 SEX: M ATTEND: Macho Musa MD ADM AUTHOR: Natalya Tolentino AQUATICS COORDINATOR REPT SERVICE DT/TIME: 08/09/241949 * ALL edits or amendments must be made on the electronic/computer document * Subjective Chief complaint: Bacteremia Staphylococcus aureus Septic Emboli to brain likely Objective General VS/I O: Vital Signs Date Temp Pulse Resp B/P B/P Mean Pulse Ox FiO2 08/10-08/11 97.7-98.6 63-73 17-18 108-124/69-78 81.7-93.1 94-98 Last Documented: Result Date Time Pulse Ox 96 08/11 1158 B/P 121/76 08/11 1158 B/P Mean 91.0 08/11 1158 O2 Delivery Room air 08/11 1158 Temp 97.9 08/11 1158 Pulse 70 08/11 1158 Resp 17 08/11 1158 O2 Flow Rate 2 08/01 0748 FiO2 32 07/28 0847 Vital Signs: Date Time Temp Pulse Resp B/P B/P Pulse O2 O2 Flow FiO2 Mean Ox Delivery Rate 08/11 1158 97.9 70 17 121/76 91.0 96 Room air 08/11 0918 98.2 72 120/72 87.7 96 08/11 0414 97.7 68 18 118/76 89.6 95 08/11 0035 98.6 63 18 124/78 93.1 98 08/10 1934 98.1 73 18 108/69 81.7 94 08/10 1634 98.1 71 17 119/73 88.2 94 PATIENT WEIGHT: Weight (lb): 140 Weight (oz): 4.69 Weight (kg): 63.636 Medications: Active Meds + DC'd Last 24 Hrs Sodium Chloride (SODIUM CHLORIDE PF 10 ML FLUSH) 10 ML BID IV Lidocaine HCl (LIDOCAINE HCL 1%) 5 ML ONCE ONE INJ (CAN) Sodium Chloride (SODIUM CHLORIDE PF 10 ML FLUSH) 10 ML ASDIR PRN IV Nafcillin Sodium (NAFCILLIN SODIUM) 2 GM Q6H IV Dextrose/Water (DEXTROSE 5%) 100 ML Ertapenem (INVanz) 1 G Q24H IV Sodium Chloride (SODIUM CHLORIDE 0.9%) 100 ML Aspirin (ECOTRIN) 81 MG DAILY PO Atorvastatin Calcium (LIPITOR 40MG TAB) 40 MG BEDTIME PO Perflutren Lipid Microsphere (DEFINITY) 1.1 ML PROCEDURE IV (CKD) Acetaminophen (ACETAMINOPHEN) 650 MG Q6H PRN PRN RECTAL Sodium Chloride (SODIUM CHLORIDE 0.9%) 1,000 ML .[id number] IV Acetaminophen (TYLENOL) 650 MG Q6H PRN PRN PO Furosemide (LASIX 20MG Inj) 20 MG Q12HR IV Albuterol Sulfate (ALBUTEROL SULFATE) 1.25 MG RTQ4H PRN PRN INH Diphenhydramine HCl (diphenhydrAMINE HCL) 12.5 MG Q4H PRN PRN IV Naloxone HCl (NARCAN) 0.1 MG Q2M PRN PRN IV Ondansetron HCl (ondansetron HCL) 4 MG Q6H PRN PRN IV Nicotine (HABITROL 21MG PATCH) 21 MG DAILY PRN PRN TRANSDERM (CKD) Carvedilol (COREG 3.125MG TAB) 3.125 MG BID PO Insulin Glargine (Lantus/Semglee) 10 UNIT BEDTIME SUBQ Famotidine (PEPCID TAB) 20 MG BID AC PO Enoxaparin Sodium (LOVENOX 40MG SYRINGE) 40 MG 1700 SUBQ Tramadol HCl (ULTRAM) 50 MG Q4H PRN PRN PO Thiamine HCl (THIAMINE HCL) 100 MG DAILY PO Calcium Carbonate (TUMS 500MG) 1,000 MG Q6H PRN PRN PO Docusate Sodium (COLACE 100 MG CAPSULE) 100 MG BID PRN PRN PO Guaifenesin (guaiFENesin) 200 MG Q6H PRN PRN PO Insulin Human Lispro (Admelog) S/SCALE MED AC HS SUBQ Melatonin (MELATONIN) 6 MG BEDTIME PRN PRN PO Simethicone (SIMETHICONE) 80 MG Q6H PRN PRN PO Dextrose/Water (DEXTROSE 50%-WATER) 50 ML ASDIR PRN IV (CKD) Physical Exam General appearance: alert, awake Wound/incision: Location: Right foot dressing Site condition: dressing clean dry Head/Eyes: atraumatic ENT: moist mucosal membranes, normal dentition, normal nose Neck: full range of motion, non-tender, normal thyroid Cardiovascular: normal heart sounds, regular rate rhythm Respiratory: clear to auscultation, aerating well Extremities: moves all, normal capillary refill Musculoskeletal: normal inspection Psychiatry: normal affect Results Findings/Data: Laboratory Tests 08/11 08/11 08/10 08/10 1214 0848 1941 1619 Chemistry POC Glucose (74 - 106 mg/dL) 116 H 88 171 H 120 H Diagnosis, Assessment Plan Free Text A P: Sepsis on admission -we will recheck a blood culture -the patient remains bacteremic MSSA bacteremia present on admission Wound with Morganella morganii Necrotizing soft tissue infection Wound with morgenella IMPRESSION: The abdomen and pelvis are within normal limits. There are tiny bilateral pleural effusions with subsegmental atelectasis in the underlying lung bases. s/p BKA 07/20 The patient remains bacteremic we will recheck a blood culture nafcillin And Invanz septic emboli to brain MRI -Ostoemyelitis of Lumbar spine -thoracic spine osteomyelitis/discitis -will speak with IR for any aspiration that may be necessary KALYAN still needed- but unable to obtain consent repeat cultures are pending The case discussed with the family prognosis extremely poor they are aware recommend comfort care at 1314 at 1700 RPT #:[id number] END OF REPORT [facility] 2024-08-09 10:00:00 [facility] ([facility] Hospitalist Progress Note REPORT#:[id number] REPORT STATUS: Signed REPORT INITIALIZATION DATE:08/09/24 TIME: 1000 PATIENT: CAROLYNN PATEL UNIT #: [id number] ROOM/BED: [address] : 70 AGE: 54 SEX: M ATTEND: Macho Musa MD ADM AUTHOR: Kings Oliva AQUATICS COORDINATOR REPT SERVICE DT/TIME: 08/09/24 1000 * ALL edits or amendments must be made on the electronic/computer document * Kings Oliva 08/09/24 1000: Subjective Chief complaint: Blood culture negative x 72 hours. Insert PICC line, case management to arrange for home antibiotics Ancef 2 g every 8 hours x 6 weeks per ID Patient reports: No: complaints. Nursing reports: No: complaints. Objective General VS/I O: Vital Signs: Date Time Temp Pulse Resp B/P B/P Pulse O2 O2 Flow FiO2 Mean Ox Delivery Rate 08/09 0714 36.5 70 17 122/80 93.6 95 08/09 0435 36.5 73 18 108/72 83.7 95 08/08 2332 36.6 74 18 106/69 81.3 91 08/08 1933 36.5 74 18 102/64 76.6 90 08/08 1638 36.6 69 17 111/72 85.0 95 08/08 1117 36.4 69 17 118/77 90.6 98 24 hour I O ending at 0700: 08/09 0700 08/08 1900 Intake Total Output Total 900 Balance -900 Output, Urine 900 PATIENT WEIGHT: Weight (lb): 140 Weight (oz): 4.69 Weight (kg): 63.636 Medications: Active Meds + DC'd Last 24 Hrs Nafcillin Sodium (NAFCILLIN SODIUM) 2 GM Q6H IV Dextrose/Water (DEXTROSE 5%) 100 ML Ertapenem (INVanz) 1 G Q24H IV Sodium Chloride (SODIUM CHLORIDE 0.9%) 100 ML Aspirin (ECOTRIN) 81 MG DAILY PO Atorvastatin Calcium (LIPITOR 40MG TAB) 40 MG BEDTIME PO Perflutren Lipid Microsphere (DEFINITY) 1.1 ML PROCEDURE IV (CKD) Acetaminophen (ACETAMINOPHEN) 650 MG Q6H PRN PRN RECTAL Sodium Chloride (SODIUM CHLORIDE 0.9%) 1,000 ML .[id number] IV Acetaminophen (TYLENOL) 650 MG Q6H PRN PRN PO Furosemide (LASIX 20MG Inj) 20 MG Q12HR IV Albuterol Sulfate (ALBUTEROL SULFATE) 1.25 MG RTQ4H PRN PRN INH Diphenhydramine HCl (diphenhydrAMINE HCL) 12.5 MG Q4H PRN PRN IV Naloxone HCl (NARCAN) 0.1 MG Q2M PRN PRN IV Ondansetron HCl (ondansetron HCL) 4 MG Q6H PRN PRN IV Nicotine (HABITROL 21MG PATCH) 21 MG DAILY PRN PRN TRANSDERM (CKD) Carvedilol (COREG 3.125MG TAB) 3.125 MG BID PO Insulin Glargine (Lantus/Semglee) 10 UNIT BEDTIME SUBQ Famotidine (PEPCID TAB) 20 MG BID AC PO Enoxaparin Sodium (LOVENOX 40MG SYRINGE) 40 MG 1700 SUBQ Tramadol HCl (ULTRAM) 50 MG Q4H PRN PRN PO Thiamine HCl (THIAMINE HCL) 100 MG DAILY PO Calcium Carbonate (TUMS 500MG) 1,000 MG Q6H PRN PRN PO Docusate Sodium (COLACE 100 MG CAPSULE) 100 MG BID PRN PRN PO Guaifenesin (guaiFENesin) 200 MG Q6H PRN PRN PO Insulin Human Lispro (Admelog) S/SCALE MED AC HS SUBQ Melatonin (MELATONIN) 6 MG BEDTIME PRN PRN PO Simethicone (SIMETHICONE) 80 MG Q6H PRN PRN PO Dextrose/Water (DEXTROSE 50%-WATER) 50 ML ASDIR PRN IV (CKD) Physical Exam General appearance: alert, awake Head/Eyes: atraumatic, normal conjunctiva/sclera, normocephalic, PERRL ENT: moist mucosal membranes, normal ear left, normal ear right, normal nose Neck: supple/no meningismus, no masses or swelling Cardiovascular: normal capillary refill, normal heart sounds, regular rate rhythm Respiratory: decreased breath sounds, hypoxia, on oxygen, symmetric expansion, no distress Abdomen: normal bowel sounds, soft, no distention Genitourinary: no bladder distention, no flank pain, no urinary catheter Extremities: edema, moves all, right BKA Musculoskeletal: decreased ROM (R BKA) Neuro/ADDICTION COUNSELOR: alert Skin: dry, intact Psychiatry: abnl judgment/insight, normal affect, normal mood Results Findings/Data: Laboratory Tests 08/09 08/08 08/08 08/08 0812 2054 1705 1108 Chemistry POC Glucose (74 - 106 mg/dL) 137 H 166 H 136 H 98 Results: vital signs reviewed, current med profile rev'd Diagnosis, Assessment Plan Orders: Procedure Date/time Status PICC 08/09 0957 Active Free Text DxA P Notes Free text DxA P notes: 1.Acute necrotizing fasciitis of right lower extremity -Status post debridement by general surgery on 07/13/24, general surgeon recommends BKA -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 -Patient started on IV cefazolin 2 g every 8 hours.Will need IV ancef for 8 weeks on dc. -Repeat blood cx ordered growing gram positive cocci in clusters on gram stain. -Dced ancef and switched to naficillin. Repeat blood culture x 72 hours negative 2.Acute hypoxic respiratory failure -07/22: Possibly related to lethargy from MANUFACTURING INTER[employer] pump, MANUFACTURING INTERN pump discontinued, started on IV Dilaudid and [place] p.o. -Obtain chest x-ray: No acute infiltrates, effusions or congestion -Sputum cultures ordered -Incentive spirometery -Started on breathing treatments -Pulm consult: Severe hypoalbuminemia, recommends diuresis ,check urine protein level.Ordered,not sent out. -Started on Lasix 20 mg IV every 12 hours and reassess clinically -CTA chest shows consolidation B/L lung bases concerning for atelectasis or aspiration pneumonitis. RESOLVED 3.Sepsis secondary to necrotizing fasciitis -Present on admission, normal lactic acid, wbc elevated, Tachycardic -Blood cultures positive for Staphylococcus aureus -Wound with Morganella morganii continue with cefazolin every 8 hrs x 8 weeks from 07/16/24 per ID -IV antibiotics to be set up. -Pt spiking fevers ,hypotensive and tachycardic ,given IV fluid boluses. -CXR shows patchy new right mid lung infiltrate. -Repeat blood cx ordered shows gram positive cocci in clusters on gram stain. -Dced ancef and started on naficillin. -CT abdomen/pelvis shows bladder wall thickening. Correlate with urinalysis for cystitis.Indeterminate hypodensity in the left hepatic lobe. Nonemergent outpatient follow-up MRI liver is recommended. -Check UA. -CTA chest shows consolidation B/L lung bases concerning for atelectasis or aspiration pneumonitis. Improving 4.MSSA bacteremia -IV cefazolin 2g q8hrs x 8 weeks from 07/16/2024 per ID. -Cardiology consulted for KALYAN.Unable to be done since unable to be scheduled and unable to get consent. -Repeat blood cx ordered growing gram positive cocci in clusters on gram stain. -Dced ancef and started on naficillin. 5.Type II diabetes mellitus with hyperglycemia -Uncontrolled, Hgb A1C 11.2% -On insulin sliding scale and lantus 10u bedtime 6.Hypokalemia -Potassium 3.0, given 40meq oral KCL -Replace and monitor as needed. -Is 3.1 ,replaced. Resolved 7.Superficial thrombosis of cephalic vein in right upper extremity -DVT ruled out -Doppler US is negative for DVT, but showed superficial vein thrombosis noted in the right cephalic vein 8.Hypertension -Blood pressure 160s-170s systolic. -Started on Coreg 3.125 mg twice daily -Allow for permissive hypertension ,contorl BP for systolic greater than 190 and diastolic greater than 110.On prn hydralazine based on these parameters. 9.Tobacco use disorder -Nicotine patch prn 10.Leukocytosis -WBC count is 16 ,due to MSSA bacteremia . -On ancef ,ID following.Dced ancef and switched to naficillin.Trend white count and vital signs .Improved. Resolved 11.Anemia of chronic disease -Monitor H and H ,transfuse if Hb is less than 7. 12.Acute metabolic enecephalopathy due to acute cerebrovascular accident -CT of the brain shows no acute intracranial hemorrhage. 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 There is an infarct in the left temporal lobe adjacent to the posterior horn of the left lateral ventricle which is age indeterminate. This can be better assessed with MRI. -MRI brain without contrast shows acute infarct involving the left temporal and occipital lobe.. -Started on ASA and statin.Monitor neurochecks. -CTA head and neck unremarkable. -2D echo ordered showed EF OF 60-64%. -Allow for permissive hypertension ,contorl BP for systolic greater than 190 and diastolic greater than 110.On prn hydralazine based on these parameters. -PT/OT/ST consulted.Modified barium swallow done ,showed handling of varying consistencies of barium . There is an instance of penetration of mixed consistency barium however no aspiration is seen. -Neurology consulted. Improved DVT Px :Lovenox 40mg daily Code status :Full code.No known next of kin information. 35 minutes spent in reviewing labs ,imaging and discussing plan of care with the patient. Dispo: repeat Blood CX negative/PICC line/abx per ID Quality: Gen Med Crit Care VTE Prophylaxis VTE prophylaxis initiated: yes (Lovenox) Current Medications Current medication review: I attest that the foregoing medication list in the medical record is true, accurate, and complete to the best of my knowledge. Advanced Care Plan 65 or Older Discussed with: patient (full code) at 1005 at 1415 RPT #:[id number] END OF REPORT [facility] 2024-08-08 10:12:00 [facility] ([facility]) Hospitalist Progress Note REPORT#:[id number] REPORT STATUS: Signed REPORT INITIALIZATION DATE:08/08/24 TIME: 101 PATIENT: CAROLYNN PATEL UNIT #: [id number] ROOM/BED: [address] : 70 AGE: 54 SEX: M ATTEND: Macho Musa MD ADM AUTHOR: Kings Oliva AQUATICS COORDINATOR REPT SERVICE DT/TIME: 08/08/24 1012 * ALL edits or amendments must be made on the electronic/computer document * Kings Oliva 08/08/24 1012: Subjective Chief complaint: stable/ spoke to dad in room and called marie JIM at [phone] PO abx upon discharge. Family will take patient to [place] Patient reports: No: complaints. Nursing reports: No: complaints. Objective General VS/I O: Vital Signs: Date Time Temp Pulse Resp B/P B/P Pulse O2 O2 Flow FiO2 Mean Ox Delivery Rate 08/08 0743 36.5 69 17 121/79 92.6 95 08/08 0440 36.3 69 18 110/74 85.8 94 08/07 2331 36.6 63 18 131/88 0.0 99 08/07 1916 36.4 79 18 117/78 91.2 94 08/07 1559 36.3 80 16 119/76 90.1 96 08/07 1207 36.4 78 17 148/84 105.2 94 PATIENT WEIGHT: Weight (lb): 140 Weight (oz): 4.69 Weight (kg): 63.636 Medications: Active Meds + DC'd Last 24 Hrs Nafcillin Sodium (NAFCILLIN SODIUM) 2 GM Q6H IV Dextrose/Water (DEXTROSE 5%) 100 ML Ertapenem (INVanz) 1 G Q24H IV Sodium Chloride (SODIUM CHLORIDE 0.9%) 100 ML Aspirin (ECOTRIN) 81 MG DAILY PO Atorvastatin Calcium (LIPITOR 40MG TAB) 40 MG BEDTIME PO Perflutren Lipid Microsphere (DEFINITY) 1.1 ML PROCEDURE IV (CKD) Acetaminophen (ACETAMINOPHEN) 650 MG Q6H PRN PRN RECTAL Sodium Chloride (SODIUM CHLORIDE 0.9%) 1,000 ML .[id number] IV Acetaminophen (TYLENOL) 650 MG Q6H PRN PRN PO Furosemide (LASIX 20MG Inj) 20 MG Q12HR IV Albuterol Sulfate (ALBUTEROL SULFATE) 1.25 MG RTQ4H PRN PRN INH Diphenhydramine HCl (diphenhydrAMINE HCL) 12.5 MG Q4H PRN PRN IV Naloxone HCl (NARCAN) 0.1 MG Q2M PRN PRN IV Ondansetron HCl (ondansetron HCL) 4 MG Q6H PRN PRN IV Nicotine (HABITROL 21MG PATCH) 21 MG DAILY PRN PRN TRANSDERM (CKD) Carvedilol (COREG 3.125MG TAB) 3.125 MG BID PO Insulin Glargine (Lantus/Semglee) 10 UNIT BEDTIME SUBQ Famotidine (PEPCID TAB) 20 MG BID AC PO Enoxaparin Sodium (LOVENOX 40MG SYRINGE) 40 MG 1700 SUBQ Tramadol HCl (ULTRAM) 50 MG Q4H PRN PRN PO Thiamine HCl (THIAMINE HCL) 100 MG DAILY PO Calcium Carbonate (TUMS 500MG) 1,000 MG Q6H PRN PRN PO Docusate Sodium (COLACE 100 MG CAPSULE) 100 MG BID PRN PRN PO Guaifenesin (guaiFENesin) 200 MG Q6H PRN PRN PO Insulin Human Lispro (Admelog) S/SCALE MED AC HS SUBQ Melatonin (MELATONIN) 6 MG BEDTIME PRN PRN PO Simethicone (SIMETHICONE) 80 MG Q6H PRN PRN PO Dextrose/Water (DEXTROSE 50%-WATER) 50 ML ASDIR PRN IV (CKD) Physical Exam General appearance: alert, awake Head/Eyes: atraumatic, normal conjunctiva/sclera, normocephalic, PERRL ENT: moist mucosal membranes, normal ear left, normal ear right, normal nose Neck: supple/no meningismus, no masses or swelling Cardiovascular: normal capillary refill, normal heart sounds, regular rate rhythm Respiratory: decreased breath sounds, hypoxia, on oxygen, symmetric expansion, no distress Abdomen: normal bowel sounds, soft, no distention Genitourinary: no bladder distention, no flank pain, no urinary catheter Extremities: edema, moves all, right BKA Musculoskeletal: decreased ROM (R BKA) Neuro/ADDICTION COUNSELOR: alert Skin: dry, intact Psychiatry: abnl judgment/insight, normal affect, normal mood Results Findings/Data: Laboratory Tests 08/08 08/07 08/07 08/07 0742 2027 1628 1211 Chemistry POC Glucose (74 - 106 mg/dL) 99 137 H 144 H 157 H Results: vital signs reviewed, current med profile rev'd Diagnosis, Assessment Plan Free Text DxA P Notes Free text DxA P notes: 1.Acute necrotizing fasciitis of right lower extremity -Status post debridement by general surgery on 07/13/24, general surgeon recommends BKA -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 -Patient started on IV cefazolin 2 g every 8 hours.Will need IV ancef for 8 weeks on dc. -Repeat blood cx ordered growing gram positive cocci in clusters on gram stain. -Dced ancef and switched to naficillin. Repeat blood culture x 48 hours negative 2.Acute hypoxic respiratory failure -07/22: Possibly related to lethargy from MANUFACT[employer]ING INTER[employer] pump, MANUFACTURING INTERN pump discontinued, started on IV Dilaudid and [place] p.o. -Obtain chest x-ray: No acute infiltrates, effusions or congestion -Sputum cultures ordered -Incentive spirometery -Started on breathing treatments -Pulm consult: Severe hypoalbuminemia, recommends diuresis ,check urine protein level.Ordered,not sent out. -Started on Lasix 20 mg IV every 12 hours and reassess clinically -CTA chest shows consolidation B/L lung bases concerning for atelectasis or aspiration pneumonitis. RESOLVED 3.Sepsis secondary to necrotizing fasciitis -Present on admission, normal lactic acid, wbc elevated, Tachycardic -Blood cultures positive for Staphylococcus aureus -Wound with Morganella morganii continue with cefazolin every 8 hrs x 8 weeks from 07/16/24 per ID -IV antibiotics to be set up. -Pt spiking fevers ,hypotensive and tachycardic ,given IV fluid boluses. -CXR shows patchy new right mid lung infiltrate. -Repeat blood cx ordered shows gram positive cocci in clusters on gram stain. -Dced ancef and started on naficillin. -CT abdomen/pelvis shows bladder wall thickening. Correlate with urinalysis for cystitis.Indeterminate hypodensity in the left hepatic lobe. Nonemergent outpatient follow-up MRI liver is recommended. -Check UA. -CTA chest shows consolidation B/L lung bases concerning for atelectasis or aspiration pneumonitis. Improving 4.MSSA bacteremia -IV cefazolin 2g q8hrs x 8 weeks from 07/16/2024 per ID. -Cardiology consulted for KALYAN.Unable to be done since unable to be scheduled and unable to get consent. -Repeat blood cx ordered growing gram positive cocci in clusters on gram stain. -Dced ancef and started on naficillin. 5.Type II diabetes mellitus with hyperglycemia -Uncontrolled, Hgb A1C 11.2% -On insulin sliding scale and lantus 10u bedtime 6.Hypokalemia -Potassium 3.0, given 40meq oral KCL -Replace and monitor as needed. -Is 3.1 ,replaced. Resolved 7.Superficial thrombosis of cephalic vein in right upper extremity -DVT ruled out -Doppler US is negative for DVT, but showed superficial vein thrombosis noted in the right cephalic vein 8.Hypertension -Blood pressure 160s-170s systolic. -Started on Coreg 3.125 mg twice daily -Allow for permissive hypertension ,contorl BP for systolic greater than 190 and diastolic greater than 110.On prn hydralazine based on these parameters. 9.Tobacco use disorder -Nicotine patch prn 10.Leukocytosis -WBC count is 16 ,due to MSSA bacteremia . -On ancef ,ID following.Dced ancef and switched to naficillin.Trend white count and vital signs .Improved. Resolved 11.Anemia of chronic disease -Monitor H and H ,transfuse if Hb is less than 7. 12.Acute metabolic enecephalopathy due to acute cerebrovascular accident -CT of the brain shows no acute intracranial hemorrhage. 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 There is an infarct in the left temporal lobe adjacent to the posterior horn of the left lateral ventricle which is age indeterminate. This can be better assessed with MRI. -MRI brain without contrast shows acute infarct involving the left temporal and occipital lobe.. -Started on ASA and statin.Monitor neurochecks. -CTA head and neck unremarkable. -2D echo ordered showed EF OF 60-64%. -Allow for permissive hypertension ,contorl BP for systolic greater than 190 and diastolic greater than 110.On prn hydralazine based on these parameters. -PT/OT/ST consulted.Modified barium swallow done ,showed handling of varying consistencies of barium . There is an instance of penetration of mixed consistency barium however no aspiration is seen. -Neurology consulted. Improved DVT Px :Lovenox 40mg daily Code status :Full code.No known next of kin information. 35 minutes spent in reviewing labs ,imaging and discussing plan of care with the patient. Dispo: repeat Blood CX negative/will DC with p.o. antibiotic Quality: Gen Med Crit Care VTE Prophylaxis VTE prophylaxis initiated: yes (Lovenox) Current Medications Current medication review: I attest that the foregoing medication list in the medical record is true, accurate, and complete to the best of my knowledge. Advanced Care Plan 65 or Older Discussed with: patient (full code) at 1015 at 1208 RPT #:[id number] END OF REPORT [facility] 2024-08-07 15:06:00 [facility] ([facility]) Infectious Dis. Progress Note REPORT#:[id number] REPORT STATUS: Signed REPORT INITIALIZATION DATE:08/07/24 TIME: 1506 PATIENT: CAROLYNN PATEL UNIT #: [id number] ROOM/BED: [facility] : 70 AGE: 54 SEX: M ATTEND: Macho Musa MD ADM AUTHOR: Marce Kiser MD REPT SERVICE DT/TIME: 08/07/24 1506 * ALL edits or amendments must be made on the electronic/computer document * Subjective Chief complaint: Bacteremia Staphylococcus aureus Septic Emboli to brain likely Objective Physical Exam Wound/incision: Location: Right foot dressing Site condition: dressing clean dry Head/Eyes: atraumatic ENT: moist mucosal membranes, normal dentition, normal nose Neck: full range of motion, non-tender, normal thyroid Cardiovascular: normal heart sounds, regular rate rhythm Respiratory: clear to auscultation, aerating well Extremities: moves all, normal capillary refill Musculoskeletal: normal inspection Psychiatry: normal affect Diagnosis, Assessment Plan Free Text A P: Sepsis on admission -we will recheck a blood culture -the patient remains bacteremic MSSA bacteremia present on admission Wound with Morganella morganii Necrotizing soft tissue infection Wound with morgenella IMPRESSION: The abdomen and pelvis are within normal limits. There are tiny bilateral pleural effusions with subsegmental atelectasis in the underlying lung bases. s/p BKA 07/20 The patient remains bacteremic we will recheck a blood culture nafcillin And Invanz septic emboli to brain MRI -Ostoemyelitis of Lumbar spine -thoracic spine osteomyelitis/discitis -will speak with IR for any aspiration that may be necessary KALYAN still needed- but unable to obtain consent repeat cultures are pending The case discussed with the family prognosis extremely poor they are aware recommend comfort care at 1507 RPT #:[id number] END OF REPORT [facility] 2024-08-07 13:37:00 [facility] ([facility] Hospitalist Progress Note REPORT#:[id number] REPORT STATUS: Signed REPORT INITIALIZATION DATE:08/07/24 TIME: 1336 PATIENT: CAROLYNN PATEL UNIT #: [id number] ROOM/BED: [address] : 70 AGE: 54 SEX: M ATTEND: Macho Musa MD ADM AUTHOR: Kings Oliva AQUATICS COORDINATOR REPT SERVICE DT/TIME: 08/07/241336 * ALL edits or amendments must be made on the electronic/computer document * Kings Oliva 08/07/24 133: Subjective Chief complaint: stable/ spoke to dad in room Patient reports: No: complaints. Nursing reports: No: complaints. Objective General VS/I O: Vital Signs: Date Time Temp Pulse Resp B/P B/P Pulse O2 O2 Flow FiO2 Mean Ox Delivery Rate 08/07 1207 36.4 78 17 148/84 105.2 94 08/07 0758 36.3 70 17 153/82 105.4 93 08/07 0420 36.5 62 18 128/84 98.5 97 08/06 2338 36.3 71 18 122/79 93.6 94 08/06 1947 36.4 68 18 123/82 95.7 92 08/06 1601 36.8 74 17 110/70 83.3 93 PATIENT WEIGHT: Weight (lb): 140 Weight (oz): 4.69 Weight (kg): 63.636 Medications: Active Meds + DC'd Last 24 Hrs Gadoterate Meglumine (DOTAREM) 12.7272 ML ONCE PRN IV (DC) Sodium Chloride (SODIUM CHLORIDE PF 10 ML FLUSH) 10 ML ASDIR PRN IV (DC) Nafcillin Sodium (NAFCILLIN SODIUM) 2 GM Q6H IV Dextrose/Water (DEXTROSE 5%) 100 ML Ertapenem (INVanz) 1 G Q24H IV Sodium Chloride (SODIUM CHLORIDE 0.9%) 100 ML Aspirin (ECOTRIN) 81 MG DAILY PO Atorvastatin Calcium (LIPITOR 40MG TAB) 40 MG BEDTIME PO Perflutren Lipid Microsphere (DEFINITY) 1.1 ML PROCEDURE IV (CKD) Acetaminophen (ACETAMINOPHEN) 650 MG Q6H PRN PRN RECTAL Sodium Chloride (SODIUM CHLORIDE 0.9%) 1,000 ML .[id number] IV Acetaminophen (TYLENOL) 650 MG Q6H PRN PRN PO Furosemide (LASIX 20MG Inj) 20 MG Q12HR IV Albuterol Sulfate (ALBUTEROL SULFATE) 1.25 MG RTQ4H PRN PRN INH Diphenhydramine HCl (diphenhydrAMINE HCL) 12.5 MG Q4H PRN PRN IV Naloxone HCl (NARCAN) 0.1 MG Q2M PRN PRN IV Ondansetron HCl (ondansetron HCL) 4 MG Q6H PRN PRN IV Nicotine (HABITROL 21MG PATCH) 21 MG DAILY PRN PRN TRANSDERM (CKD) Carvedilol (COREG 3.125MG TAB) 3.125 MG BID PO Insulin Glargine (Lantus/Semglee) 10 UNIT BEDTIME SUBQ Famotidine (PEPCID TAB) 20 MG BID AC PO Enoxaparin Sodium (LOVENOX 40MG SYRINGE) 40 MG 1700 SUBQ Tramadol HCl (ULTRAM) 50 MG Q4H PRN PRN PO Thiamine HCl (THIAMINE HCL) 100 MG DAILY PO Calcium Carbonate (TUMS 500MG) 1,000 MG Q6H PRN PRN PO Docusate Sodium (COLACE 100 MG CAPSULE) 100 MG BID PRN PRN PO Guaifenesin (guaiFENesin) 200 MG Q6H PRN PRN PO Insulin Human Lispro (Admelog) S/SCALE MED AC HS SUBQ Melatonin (MELATONIN) 6 MG BEDTIME PRN PRN PO Simethicone (SIMETHICONE) 80 MG Q6H PRN PRN PO Dextrose/Water (DEXTROSE 50%-WATER) 50 ML ASDIR PRN IV (CKD) Physical Exam General appearance: alert, awake Head/Eyes: atraumatic, normal conjunctiva/sclera, normocephalic, PERRL ENT: moist mucosal membranes, normal ear left, normal ear right, normal nose Neck: supple/no meningismus, no masses or swelling Cardiovascular: normal capillary refill, normal heart sounds, regular rate rhythm Respiratory: decreased breath sounds, hypoxia, on oxygen, symmetric expansion, no distress Abdomen: normal bowel sounds, soft, no distention Genitourinary: no bladder distention, no flank pain, no urinary catheter Extremities: edema, moves all, right BKA Musculoskeletal: decreased ROM (R BKA) Neuro/ADDICTION COUNSELOR: alert Skin: dry, intact Psychiatry: abnl judgment/insight, normal affect, normal mood Results Findings/Data: Laboratory Tests 08/07 08/07 08/06 08/06 1211 0731 1944 1600 Chemistry POC Glucose (74 - 106 mg/dL) 157 H 98 130 H 160 H Results: vital signs reviewed, current med profile rev'd Diagnosis, Assessment Plan Free Text DxA P Notes Free text DxA P notes: 1.Acute necrotizing fasciitis of right lower extremity -Status post debridement by general surgery on 07/13/24, general surgeon recommends BKA -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 -Patient started on IV cefazolin 2 g every 8 hours.Will need IV ancef for 8 weeks on dc. -Repeat blood cx ordered growing gram positive cocci in clusters on gram stain. -Dced ancef and switched to naficillin. 2.Acute hypoxic respiratory failure -07/22: Possibly related to lethargy from MANUFACTURING INTERN pump, MANUFACTURING INTERN pump discontinued, started on IV Dilaudid and [place] p.o. -Obtain chest x-ray: No acute infiltrates, effusions or congestion -Sputum cultures ordered -Incentive spirometery -Started on breathing treatments -Pulm consult: Severe hypoalbuminemia, recommends diuresis ,check urine protein level.Ordered,not sent out. -Started on Lasix 20 mg IV every 12 hours and reassess clinically -CTA chest shows consolidation B/L lung bases concerning for atelectasis or aspiration pneumonitis. 3.Sepsis secondary to necrotizing fasciitis -Present on admission, normal lactic acid, wbc elevated, Tachycardic -Blood cultures positive for Staphylococcus aureus -Wound with Morganella morganii continue with cefazolin every 8 hrs x 8 weeks from 07/16/24 per ID -IV antibiotics to be set up. -Pt spiking fevers ,hypotensive and tachycardic ,given IV fluid boluses. -CXR shows patchy new right mid lung infiltrate. -Repeat blood cx ordered shows gram positive cocci in clusters on gram stain. -Dced ancef and started on naficillin. -CT abdomen/pelvis shows bladder wall thickening. Correlate with urinalysis for cystitis.Indeterminate hypodensity in the left hepatic lobe. Nonemergent outpatient follow-up MRI liver is recommended. -Check UA. -CTA chest shows consolidation B/L lung bases concerning for atelectasis or aspiration pneumonitis. 4.MSSA bacteremia -IV cefazolin 2g q8hrs x 8 weeks from 07/16/2024 per ID. -Cardiology consulted for KALYAN.Unable to be done since unable to be scheduled and unable to get consent. -Repeat blood cx ordered growing gram positive cocci in clusters on gram stain. -Dced ancef and started on naficillin. 5.Type II diabetes mellitus with hyperglycemia -Uncontrolled, Hgb A1C 11.2% -On insulin sliding scale and lantus 10u bedtime 6.Hypokalemia -Potassium 3.0, given 40meq oral KCL -Replace and monitor as needed. -Is 3.1 ,replaced. 7.Superficial thrombosis of cephalic vein in right upper extremity -DVT ruled out -Doppler US is negative for DVT, but showed superficial vein thrombosis noted in the right cephalic vein 8.Hypertension -Blood pressure 160s-170s systolic. -Started on Coreg 3.125 mg twice daily -Allow for permissive hypertension ,contorl BP for systolic greater than 190 and diastolic greater than 110.On prn hydralazine based on these parameters. 9.Tobacco use disorder -Nicotine patch prn 10.Leukocytosis -WBC count is 16 ,due to MSSA bacteremia . -On ancef ,ID following.Dced ancef and switched to naficillin.Trend white count and vital signs .Improved. 11.Anemia of chronic disease -Monitor H and H ,transfuse if Hb is less than 7. 12.Acute metabolic enecephalopathy due to acute cerebrovascular accident -CT of the brain shows no acute intracranial hemorrhage. 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 There is an infarct in the left temporal lobe adjacent to the posterior horn of the left lateral ventricle which is age indeterminate. This can be better assessed with MRI. -MRI brain without contrast shows acute infarct involving the left temporal and occipital lobe.. -Started on ASA and statin.Monitor neurochecks. -CTA head and neck unremarkable. -2D echo ordered showed EF OF 60-64%. -Allow for permissive hypertension ,contorl BP for systolic greater than 190 and diastolic greater than 110.On prn hydralazine based on these parameters. -PT/OT/ST consulted.Modified barium swallow done ,showed handling of varying consistencies of barium . There is an instance of penetration of mixed consistency barium however no aspiration is seen. -Neurology consulted. DVT Px :Lovenox 40mg daily Code status :Full code.No known next of kin information. 35 minutes spent in reviewing labs ,imaging and discussing plan of care with the patient. Dispo:Rehab eval ordered.If pt not accepted at rehab ,will need to DC home with home health.Repeat blood cx ordered,once negative can dc Quality: Gen Med Crit Care VTE Prophylaxis VTE prophylaxis initiated: yes (Lovenox) Current Medications Current medication review: I attest that the foregoing medication list in the medical record is true, accurate, and complete to the best of my knowledge. Advanced Care Plan 65 or Older Discussed with: patient (full code) at [phone] at [phone] RPT #:[id number] END OF REPORT [facility] 2024-08-06 11:32:00 [facility] ([facility]) Infectious Dis. Progress Note REPORT#:[id number] REPORT STATUS: Signed REPORT INITIALIZATION DATE:08/06/24 TIME: 113 PATIENT: CAROLYNN PATEL UNIT #: [id number] ROOM/BED: [address] : 70 AGE: 54 SEX: M ATTEND: Macho Musa MD ADM AUTHOR: Natalya Tolentino AQUATICS COORDINATOR REPT SERVICE DT/TIME: 08/06/24 1132 * ALL edits or amendments must be made on the electronic/computer document * Subjective Chief complaint: Bacteremia Staphylococcus aureus Septic Emboli to brain likely Review of Systems All systems rev neg: except as marked Unable to obtain due to: limited Objective General VS/I O: Vital Signs Date Temp Pulse Resp B/P B/P Mean Pulse Ox FiO2 08/05-08/06 97.7-99.1 68-94 15- 94-122/64-82 73.7-94.9 93-95 Last Documented: Result Date Time Pulse Ox 95 08/06 1117 B/P 110/77 08/06 1117 B/P Mean 88.0 08/06 1117 Temp 97.7 08/06 1117 Pulse 74 08/06 1117 Resp 17 08/06 1117 O2 Flow Rate 2 08/01 0748 O2 Delivery Nasal cannula 07/31 2000 FiO2 32 07/28 0847 Vital Signs: Date Time Temp Pulse Resp B/P B/P Pulse O2 O2 Flow FiO2 Mean Ox Delivery Rate 08/06 1117 97.7 74 17 110/77 88.0 95 08/06 0736 98.1 73 15 122/79 93.2 94 08/06 0431 98.1 68 18 114/76 88.8 95 08/05 2351 97.9 78 18 121/82 94.9 94 08/05 1944 99.1 94 18 94/64 73.7 93 08/05 1528 98.1 88 15 101/70 80.5 93 24 hour I O ending at 0700: 08/06 0700 08/05 1900 Intake Total 1180.00 Output Total 300 Balance 880.00 Intake, IV 1100.00 Intake, Oral 80 Output, Urine 300 Patient 63.636 kg Weight Weight Estimated Measurement Method PATIENT WEIGHT: Weight (lb): 140 Weight (oz): 4.69 Weight (kg): 63.636 Medications: Active Meds + DC'd Last 24 Hrs Gadoterate Meglumine (DOTAREM) 12.7272 ML ONCE PRN IV (CKD) Gadoterate Meglumine (DOTAREM) 0 .STK-MED ONE IV (DC) Sodium Chloride (SODIUM CHLORIDE PF 10 ML FLUSH) 10 ML ASDIR PRN IV Gadoterate Meglumine (DOTAREM) 12.7272 ML ONCE PRN IV (DC) Sodium Chloride (SODIUM CHLORIDE PF 10 ML FLUSH) 10 ML ASDIR PRN IV (DC) Nafcillin Sodium (NAFCILLIN SODIUM) 2 GM Q6H IV Dextrose/Water (DEXTROSE 5%) 100 ML Ertapenem (INVanz) 1 G Q24H IV Sodium Chloride (SODIUM CHLORIDE 0.9%) 100 ML Aspirin (ECOTRIN) 81 MG DAILY PO Atorvastatin Calcium (LIPITOR 40MG TAB) 40 MG BEDTIME PO Perflutren Lipid Microsphere (DEFINITY) 1.1 ML PROCEDURE IV (CKD) Acetaminophen (ACETAMINOPHEN) 650 MG Q6H PRN PRN RECTAL Sodium Chloride (SODIUM CHLORIDE 0.9%) 1,000 ML .[id number] IV Acetaminophen (TYLENOL) 650 MG Q6H PRN PRN PO Furosemide (LASIX 20MG Inj) 20 MG Q12HR IV Albuterol Sulfate (ALBUTEROL SULFATE) 1.25 MG RTQ4H PRN PRN INH Diphenhydramine HCl (diphenhydrAMINE HCL) 12.5 MG Q4H PRN PRN IV Naloxone HCl (NARCAN) 0.1 MG Q2M PRN PRN IV Ondansetron HCl (ondansetron HCL) 4 MG Q6H PRN PRN IV Nicotine (HABITROL 21MG PATCH) 21 MG DAILY PRN PRN TRANSDERM (CKD) Carvedilol (COREG 3.125MG TAB) 3.125 MG BID PO Insulin Glargine (Lantus/Semglee) 10 UNIT BEDTIME SUBQ Famotidine (PEPCID TAB) 20 MG BID AC PO Enoxaparin Sodium (LOVENOX 40MG SYRINGE) 40 MG 1700 SUBQ Tramadol HCl (ULTRAM) 50 MG Q4H PRN PRN PO Thiamine HCl (THIAMINE HCL) 100 MG DAILY PO Calcium Carbonate (TUMS 500MG) 1,000 MG Q6H PRN PRN PO Docusate Sodium (COLACE 100 MG CAPSULE) 100 MG BID PRN PRN PO Guaifenesin (guaiFENesin) 200 MG Q6H PRN PRN PO Insulin Human Lispro (Admelog) S/SCALE MED AC HS SUBQ Melatonin (MELATONIN) 6 MG BEDTIME PRN PRN PO Simethicone (SIMETHICONE) 80 MG Q6H PRN PRN PO Dextrose/Water (DEXTROSE 50%-WATER) 50 ML ASDIR PRN IV (CKD) Physical Exam General appearance: alert, awake Wound/incision: Location: Right foot dressing Site condition: dressing clean dry Head/Eyes: atraumatic ENT: moist mucosal membranes, normal dentition, normal nose Neck: full range of motion, non-tender, normal thyroid Cardiovascular: normal heart sounds, regular rate rhythm Respiratory: clear to auscultation, aerating well Extremities: moves all, normal capillary refill Musculoskeletal: normal inspection Psychiatry: normal affect Results Findings/Data: Laboratory Tests 08/06 08/06 08/05 08/05 08/05 1047 0753 2000 1552 1244 Chemistry POC Glucose (74 - 106 mg/dL) 92 85 157 H 144 H 107 H Diagnosis, Assessment Plan Free Text A P: Sepsis on admission -we will recheck a blood culture -the patient remains bacteremic MSSA bacteremia present on admission Wound with Morganella morganii Necrotizing soft tissue infection Wound with morgenella IMPRESSION: The abdomen and pelvis are within normal limits. There are tiny bilateral pleural effusions with subsegmental atelectasis in the underlying lung bases. s/p BKA 07/20 The patient remains bacteremic we will recheck a blood culture nafcillin And Invanz septic emboli to brain MRI -Ostoemyelitis of Lumbar spine -thoracic spine osteomyelitis/discitis -will speak with IR for any aspiration that may be necessary KALYAN still needed- but unable to obtain consent repeat cultures are pending prognosis is poor discussed with Dr. Kiser at 1139 at 1411 RPT #:[id number] END OF REPORT [facility] 2024-08-06 10:20:00 [facility] ([facility]) Hospitalist Progress Note REPORT#:[id number] REPORT STATUS: Signed REPORT INITIALIZATION DATE:08/06/24 TIME: 1020 PATIENT: CAROLYNN PATEL UNIT #: [id number] ROOM/BED: [address] : 70 AGE: 54 SEX: M ATTEND: Macho Musa MD ADM AUTHOR: Kings Oliva AQUATICS COORDINATOR REPT SERVICE DT/TIME: 08/06/24 1020 * ALL edits or amendments must be made on the electronic/computer document * Kings Oliva 08/06/24 1020: Subjective Chief complaint: pending negative blood cx/will need PO abx since patient have no benefit Patient reports: No: complaints. Nursing reports: No: complaints. Objective General VS/I O: Vital Signs: Date Time Temp Pulse Resp B/P B/P Pulse O2 O2 Flow FiO2 Mean Ox Delivery Rate 08/06 0736 36.7 73 15 122/79 93.2 94 08/06 0431 36.7 68 18 114/76 88.8 95 08/05 2351 36.6 78 18 121/82 94.9 94 08/05 1944 37.3 94 18 94/64 73.7 93 08/05 1528 36.7 88 15 101/70 80.5 93 24 hour I O ending at 0700: 08/06 0700 08/05 1900 Intake Total 1180.00 Output Total 300 Balance 880.00 Intake, IV 1100.00 Intake, Oral 80 Output, Urine 300 Patient 63.636 kg Weight Weight Estimated Measurement Method PATIENT WEIGHT: Weight (lb): 140 Weight (oz): 4.69 Weight (kg): 63.636 Medications: Active Meds + DC'd Last 24 Hrs Gadoterate Meglumine (DOTAREM) 12.7272 ML ONCE PRN IV (CKD) Gadoterate Meglumine (DOTAREM) 0 .STK-MED ONE IV (DC) Sodium Chloride (SODIUM CHLORIDE PF 10 ML FLUSH) 10 ML ASDIR PRN IV Gadoterate Meglumine (DOTAREM) 0 .STK-MED ONE .ROUTE (DC) Gadoterate Meglumine (DOTAREM) 12.7272 ML ONCE PRN IV (DC) Sodium Chloride (SODIUM CHLORIDE PF 10 ML FLUSH) 10 ML ASDIR PRN IV (DC) Nafcillin Sodium (NAFCILLIN SODIUM) 2 GM Q6H IV Dextrose/Water (DEXTROSE 5%) 100 ML Ertapenem (INVanz) 1 G Q24H IV Sodium Chloride (SODIUM CHLORIDE 0.9%) 100 ML Aspirin (ECOTRIN) 81 MG DAILY PO Atorvastatin Calcium (LIPITOR 40MG TAB) 40 MG BEDTIME PO Perflutren Lipid Microsphere (DEFINITY) 1.1 ML PROCEDURE IV (CKD) Acetaminophen (ACETAMINOPHEN) 650 MG Q6H PRN PRN RECTAL Sodium Chloride (SODIUM CHLORIDE 0.9%) 1,000 ML .[id number] IV Acetaminophen (TYLENOL) 650 MG Q6H PRN PRN PO Furosemide (LASIX 20MG Inj) 20 MG Q12HR IV Albuterol Sulfate (ALBUTEROL SULFATE) 1.25 MG RTQ4H PRN PRN INH Diphenhydramine HCl (diphenhydrAMINE HCL) 12.5 MG Q4H PRN PRN IV Naloxone HCl (NARCAN) 0.1 MG Q2M PRN PRN IV Ondansetron HCl (ondansetron HCL) 4 MG Q6H PRN PRN IV Nicotine (HABITROL 21MG PATCH) 21 MG DAILY PRN PRN TRANSDERM (CKD) Carvedilol (COREG 3.125MG TAB) 3.125 MG BID PO Insulin Glargine (Lantus/Semglee) 10 UNIT BEDTIME SUBQ Famotidine (PEPCID TAB) 20 MG BID AC PO Enoxaparin Sodium (LOVENOX 40MG SYRINGE) 40 MG 1700 SUBQ Tramadol HCl (ULTRAM) 50 MG Q4H PRN PRN PO Thiamine HCl (THIAMINE HCL) 100 MG DAILY PO Calcium Carbonate (TUMS 500MG) 1,000 MG Q6H PRN PRN PO Docusate Sodium (COLACE 100 MG CAPSULE) 100 MG BID PRN PRN PO Guaifenesin (guaiFENesin) 200 MG Q6H PRN PRN PO Insulin Human Lispro (Admelog) S/SCALE MED AC HS SUBQ Melatonin (MELATONIN) 6 MG BEDTIME PRN PRN PO Simethicone (SIMETHICONE) 80 MG Q6H PRN PRN PO Dextrose/Water (DEXTROSE 50%-WATER) 50 ML ASDIR PRN IV (CKD) Physical Exam General appearance: alert, awake Head/Eyes: atraumatic, normal conjunctiva/sclera, normocephalic, PERRL ENT: moist mucosal membranes, normal ear left, normal ear right, normal nose Neck: supple/no meningismus, no masses or swelling Cardiovascular: normal capillary refill, normal heart sounds, regular rate rhythm Respiratory: decreased breath sounds, hypoxia, on oxygen, symmetric expansion, no distress Abdomen: normal bowel sounds, soft, no distention Genitourinary: no bladder distention, no flank pain, no urinary catheter Extremities: edema, moves all, right BKA Musculoskeletal: decreased ROM (R BKA) Neuro/ADDICTION COUNSELOR: alert Skin: dry, intact Psychiatry: abnl judgment/insight, normal affect, normal mood Results Findings/Data: Laboratory Tests 08/06 08/05 08/05 08/05 0753 2000 1552 1244 Chemistry POC Glucose (74 - 106 mg/dL) 85 157 H 144 H 107 H Radiology data: Recent Impressions: [facility] - MRI L-SPINE W WO CON 08/05 1045 Report Impression - Status: SIGNED Entered: 08/06/2024 0908 IMPRESSION: No conus compression, syrinx or myelomalacia. Diffuse edema of the L1 vertebral body. Correlate for osteomyelitis. Less likely this could represent contusion. No fracture or loss of height. ADDENDUM will be issued when postcontrast images are available. Mild spondylosis at L5-S1 level as described above. Impression By: Sonu Gomez M.D. [facility] - MRI C-SPINE W W/O CONT 08/05 1050 Report Impression - Status: SIGNED Entered: 08/05/2024 1254 IMPRESSION: No cord compression, syrinx or myelomalacia. No abnormal enhancement of the cord or the leptomeninges. No leptomeningeal abscess. Mild chronic loss of height of C6 vertebral body. Rest of the vertebral body heights are maintained. Marrow signal is normal. No abnormal enhancement of the bone marrow. No prevertebral enhancement. No disc herniation, canal or foraminal stenosis throughout the cervical spine. Impression By: Sonu Gomez M.D. [facility] - MRI T-SPINE W W/O CONT 08/05 1050 Report Impression - Status: SIGNED Entered: 08/05/2024 1245 IMPRESSION: No cord compression, syrinx or myelomalacia. No abnormal enhancement of the cord or the leptomeninges or leptomeningeal abscess. Minimal irregularity of the inferior endplate of T12 vertebral body with enhancement may suggest osteomyelitis. Fluid within the disc space as well at T12-L1 level without significant enhancement. Correlate for discitis. Impression By: [email or web address] - Rashad Gomez M.D. Results: vital signs reviewed, current med profile rev'd Diagnosis, Assessment Plan Free Text DxA P Notes Free text DxA P notes: 1.Acute necrotizing fasciitis of right lower extremity -Status post debridement by general surgery on 07/13/24, general surgeon recommends BKA -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 -Patient started on IV cefazolin 2 g every 8 hours.Will need IV ancef for 8 weeks on dc. -Repeat blood cx ordered growing gram positive cocci in clusters on gram stain. -Dced ancef and switched to naficillin. 2.Acute hypoxic respiratory failure -07/22: Possibly related to lethargy from MANUFACTURING INTERN pump, MANUFACTURING INTERN pump discontinued, started on IV Dilaudid and [place] p.o. -Obtain chest x-ray: No acute infiltrates, effusions or congestion -Sputum cultures ordered -Incentive spirometery -Started on breathing treatments -Pulm consult: Severe hypoalbuminemia, recommends diuresis ,check urine protein level.Ordered,not sent out. -Started on Lasix 20 mg IV every 12 hours and reassess clinically -CTA chest shows consolidation B/L lung bases concerning for atelectasis or aspiration pneumonitis. 3.Sepsis secondary to necrotizing fasciitis -Present on admission, normal lactic acid, wbc elevated, Tachycardic -Blood cultures positive for Staphylococcus aureus -Wound with Morganella morganii continue with cefazolin every 8 hrs x 8 weeks from 07/16/24 per ID -IV antibiotics to be set up. -Pt spiking fevers ,hypotensive and tachycardic ,given IV fluid boluses. -CXR shows patchy new right mid lung infiltrate. -Repeat blood cx ordered shows gram positive cocci in clusters on gram stain. -Dced ancef and started on naficillin. -CT abdomen/pelvis shows bladder wall thickening. Correlate with urinalysis for cystitis.Indeterminate hypodensity in the left hepatic lobe. Nonemergent outpatient follow-up MRI liver is recommended. -Check UA. -CTA chest shows consolidation B/L lung bases concerning for atelectasis or aspiration pneumonitis. 4.MSSA bacteremia -IV cefazolin 2g q8hrs x 8 weeks from 07/16/2024 per ID. -Cardiology consulted for KALYAN.Unable to be done since unable to be scheduled and unable to get consent. -Repeat blood cx ordered growing gram positive cocci in clusters on gram stain. -Dced ancef and started on naficillin. 5.Type II diabetes mellitus with hyperglycemia -Uncontrolled, Hgb A1C 11.2% -On insulin sliding scale and lantus 10u bedtime 6.Hypokalemia -Potassium 3.0, given 40meq oral KCL -Replace and monitor as needed. -Is 3.1 ,replaced. 7.Superficial thrombosis of cephalic vein in right upper extremity -DVT ruled out -Doppler US is negative for DVT, but showed superficial vein thrombosis noted in the right cephalic vein 8.Hypertension -Blood pressure 160s-170s systolic. -Started on Coreg 3.125 mg twice daily -Allow for permissive hypertension ,contorl BP for systolic greater than 190 and diastolic greater than 110.On prn hydralazine based on these parameters. 9.Tobacco use disorder -Nicotine patch prn 10.Leukocytosis -WBC count is 16 ,due to MSSA bacteremia . -On ancef ,ID following.Dced ancef and switched to naficillin.Trend white count and vital signs .Improved. 11.Anemia of chronic disease -Monitor H and H ,transfuse if Hb is less than 7. 12.Acute metabolic enecephalopathy due to acute cerebrovascular accident -CT of the brain shows no acute intracranial hemorrhage. 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 There is an infarct in the left temporal lobe adjacent to the posterior horn of the left lateral ventricle which is age indeterminate. This can be better assessed with MRI. -MRI brain without contrast shows acute infarct involving the left temporal and occipital lobe.. -Started on ASA and statin.Monitor neurochecks. -CTA head and neck unremarkable. -2D echo ordered showed EF OF 60-64%. -Allow for permissive hypertension ,contorl BP for systolic greater than 190 and diastolic greater than 110.On prn hydralazine based on these parameters. -PT/OT/ST consulted.Modified barium swallow done ,showed handling of varying consistencies of barium . There is an instance of penetration of mixed consistency barium however no aspiration is seen. -Neurology consulted. DVT Px :Lovenox 40mg daily Code status :Full code.No known next of kin information. 35 minutes spent in reviewing labs ,imaging and discussing plan of care with the patient. Dispo:Rehab eval ordered.If pt not accepted at rehab ,will need to DC home with home health.Repeat blood cx ordered,once negative can dc Quality: Gen Med Crit Care VTE Prophylaxis VTE prophylaxis initiated: yes (Lovenox) Current Medications Current medication review: I attest that the foregoing medication list in the medical record is true, accurate, and complete to the best of my knowledge. Advanced Care Plan 65 or Older Discussed with: patient (full code) at 1021 at 1213 RPT #:[id number] END OF REPORT [facility] 2024-08-05 13:22:00 [facility] ([facility]) Infectious Dis. Progress Note REPORT#:[id number] REPORT STATUS: Signed REPORT INITIALIZATION DATE:08/05/24 TIME: 1321 PATIENT: CAROLYNN PATEL UNIT #: [id number] ROOM/BED: 2045-A : 70 AGE: 54 SEX: M ATTEND: Macho Musa MD ADM AUTHOR: Marce Kiser MD REPT SERVICE DT/TIME: 08/05/24 1322 * ALL edits or amendments must be made on the electronic/computer document * Subjective Chief complaint: Bacteremia Staphylococcus aureus Septic Emboli to brain likely Objective Physical Exam Wound/incision: Location: Right foot dressing Site condition: dressing clean dry Head/Eyes: atraumatic ENT: moist mucosal membranes, normal dentition, normal nose Neck: full range of motion, non-tender, normal thyroid Cardiovascular: normal heart sounds, regular rate rhythm Respiratory: clear to auscultation, aerating well Extremities: moves all, normal capillary refill Musculoskeletal: normal inspection Psychiatry: normal affect Diagnosis, Assessment Plan Free Text A P: Sepsis on admission we will recheck a blood culture the patient remains bacteremic MSSA bacteremia present on admission Wound with Morganella morganii Necrotizing soft tissue infection Wound with morgenella IMPRESSION: The abdomen and pelvis are within normal limits. There are tiny bilateral pleural effusions with subsegmental atelectasis in the underlying lung bases. s/p BKA 07/20 The patient remains bacteremic we will recheck a blood culture The patient remains bacteremic Will change to nafcillin And Invanz septic emboli to brain get MRI spine if able KALYAN still needed- but unable to obtain consent repeat cultures tomorrow prognosis is poor discussed with Dr. Kiser at 1416 RPT #:[id number] END OF REPORT [facility] 2024-08-05 13:18:00 [facility] ([facility]) Hospitalist Progress Note REPORT#:[id number] REPORT STATUS: Signed REPORT INITIALIZATION DATE:08/05/24 TIME: 1317 PATIENT: CAROLYNN PATEL UNIT #: [id number] ROOM/BED: [facility] : 70 AGE: 54 SEX: M ATTEND: Macho Musa MD ADM AUTHOR: Kings Oliva AQUATICS COORDINATOR REPT SERVICE DT/TIME: 08/05/241317 * ALL edits or amendments must be made on the electronic/computer document * Kings Oliva 08/05/24 1318: Subjective Chief complaint: pending negative blood cx/will need PO abx since patient have no benefit Patient reports: No: complaints. Nursing reports: No: complaints. Objective General VS/I O: Vital Signs: Date Time Temp Pulse Resp B/P B/P Pulse O2 O2 Flow FiO2 Mean Ox Delivery Rate 08/05 0747 36.7 74 15 126/83 97.1 95 08/05 0504 36.7 74 18 133/87 102.3 96 08/05 0004 36.4 64 18 113/76 88.6 97 08/04 1917 36.6 68 18 96/59 71.4 98 08/04 1505 36.8 73 14 103/70 80.9 90 24 hour I O ending at 0700: 08/05 0700 08/04 1900 Intake Total Output Total Balance Patient 63.636 kg Weight Weight Estimated Measurement Method PATIENT WEIGHT: Weight (lb): 140 Weight (oz): 4.69 Weight (kg): 63.636 Medications: Active Meds + DC'd Last 24 Hrs Gadoterate Meglumine (DOTAREM) 0 .STK-MED ONE .ROUTE (DC) Gadoterate Meglumine (DOTAREM) 12.7272 ML ONCE PRN IV (CKD) Sodium Chloride (SODIUM CHLORIDE PF 10 ML FLUSH) 10 ML ASDIR PRN IV Nafcillin Sodium (NAFCILLIN SODIUM) 2 GM Q6H IV Dextrose/Water (DEXTROSE 5%) 100 ML Ertapenem (INVanz) 1 G Q24H IV Sodium Chloride (SODIUM CHLORIDE 0.9%) 100 ML Aspirin (ECOTRIN) 81 MG DAILY PO Atorvastatin Calcium (LIPITOR 40MG TAB) 40 MG BEDTIME PO Perflutren Lipid Microsphere (DEFINITY) 1.1 ML PROCEDURE IV (CKD) Acetaminophen (ACETAMINOPHEN) 650 MG Q6H PRN PRN RECTAL Sodium Chloride (SODIUM CHLORIDE 0.9%) 1,000 ML .[id number] IV Acetaminophen (TYLENOL) 650 MG Q6H PRN PRN PO Furosemide (LASIX 20MG Inj) 20 MG Q12HR IV Albuterol Sulfate (ALBUTEROL SULFATE) 1.25 MG RTQ4H PRN PRN INH Diphenhydramine HCl (diphenhydrAMINE HCL) 12.5 MG Q4H PRN PRN IV Naloxone HCl (NARCAN) 0.1 MG Q2M PRN PRN IV Ondansetron HCl (ondansetron HCL) 4 MG Q6H PRN PRN IV Nicotine (HABITROL 21MG PATCH) 21 MG DAILY PRN PRN TRANSDERM (CKD) Carvedilol (COREG 3.125MG TAB) 3.125 MG BID PO Insulin Glargine (Lantus/Semglee) 10 UNIT BEDTIME SUBQ Famotidine (PEPCID TAB) 20 MG BID AC PO Enoxaparin Sodium (LOVENOX 40MG SYRINGE) 40 MG 1700 SUBQ Tramadol HCl (ULTRAM) 50 MG Q4H PRN PRN PO Thiamine HCl (THIAMINE HCL) 100 MG DAILY PO Calcium Carbonate (TUMS 500MG) 1,000 MG Q6H PRN PRN PO Docusate Sodium (COLACE 100 MG CAPSULE) 100 MG BID PRN PRN PO Guaifenesin (guaiFENesin) 200 MG Q6H PRN PRN PO Insulin Human Lispro (Admelog) S/SCALE MED AC HS SUBQ Melatonin (MELATONIN) 6 MG BEDTIME PRN PRN PO Simethicone (SIMETHICONE) 80 MG Q6H PRN PRN PO Dextrose/Water (DEXTROSE 50%-WATER) 50 ML ASDIR PRN IV (CKD) Physical Exam General appearance: alert, awake Head/Eyes: atraumatic, normal conjunctiva/sclera, normocephalic, PERRL ENT: moist mucosal membranes, normal ear left, normal ear right, normal nose Neck: supple/no meningismus, no masses or swelling Cardiovascular: normal capillary refill, normal heart sounds, regular rate rhythm Respiratory: decreased breath sounds, hypoxia, on oxygen, symmetric expansion, no distress Abdomen: normal bowel sounds, soft, no distention Genitourinary: no bladder distention, no flank pain, no urinary catheter Extremities: edema, moves all, right BKA Musculoskeletal: decreased ROM (R BKA) Neuro/ADDICTION COUNSELOR: alert Skin: dry, intact Psychiatry: abnl judgment/insight, normal affect, normal mood Diagnosis, Assessment Plan Free Text DxA P Notes Free text DxA P notes: 1.Acute necrotizing fasciitis of right lower extremity -Status post debridement by general surgery on 07/13/24, general surgeon recommends BKA -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 -Patient started on IV cefazolin 2 g every 8 hours.Will need IV ancef for 8 weeks on dc. -Repeat blood cx ordered growing gram positive cocci in clusters on gram stain. -Dced ancef and switched to naficillin. 2.Acute hypoxic respiratory failure -1/9: Possibly related to lethargy from MANUFACTURING INTERN pump, MANUFACTURING INTERN pump discontinued, started on IV Dilaudid and [place] p.o. -Obtain chest x-ray: No acute infiltrates, effusions or congestion -Sputum cultures ordered -Incentive spirometery -Started on breathing treatments -Pulm consult: Severe hypoalbuminemia, recommends diuresis ,check urine protein level.Ordered,not sent out. -Started on Lasix 20 mg IV every 12 hours and reassess clinically -CTA chest shows consolidation B/L lung bases concerning for atelectasis or aspiration pneumonitis. 3.Sepsis secondary to necrotizing fasciitis -Present on admission, normal lactic acid, wbc elevated, Tachycardic -Blood cultures positive for Staphylococcus aureus -Wound with Morganella morganii continue with cefazolin every 8 hrs x 8 weeks from 07/16/24 per ID -IV antibiotics to be set up. -Pt spiking fevers ,hypotensive and tachycardic ,given IV fluid boluses. -CXR shows patchy new right mid lung infiltrate. -Repeat blood cx ordered shows gram positive cocci in clusters on gram stain. -Dced ancef and started on naficillin. -CT abdomen/pelvis shows bladder wall thickening. Correlate with urinalysis for cystitis.Indeterminate hypodensity in the left hepatic lobe. Nonemergent outpatient follow-up MRI liver is recommended. -Check UA. -CTA chest shows consolidation B/L lung bases concerning for atelectasis or aspiration pneumonitis. 4.MSSA bacteremia -IV cefazolin 2g q8hrs x 8 weeks from 07/16/2024 per ID. -Cardiology consulted for KALYAN.Unable to be done since unable to be scheduled and unable to get consent. -Repeat blood cx ordered growing gram positive cocci in clusters on gram stain. -Dced ancef and started on naficillin. 5.Type II diabetes mellitus with hyperglycemia -Uncontrolled, Hgb A1C 11.2% -On insulin sliding scale and lantus 10u bedtime 6.Hypokalemia -Potassium 3.0, given 40meq oral KCL -Replace and monitor as needed. -Is 3.1 ,replaced. 7.Superficial thrombosis of cephalic vein in right upper extremity -DVT ruled out -Doppler US is negative for DVT, but showed superficial vein thrombosis noted in the right cephalic vein 8.Hypertension -Blood pressure 160s-170s systolic. -Started on Coreg 3.125 mg twice daily -Allow for permissive hypertension ,contorl BP for systolic greater than 190 and diastolic greater than 110.On prn hydralazine based on these parameters. 9.Tobacco use disorder -Nicotine patch prn 10.Leukocytosis -WBC count is 16 ,due to MSSA bacteremia . -On ancef ,ID following.Dced ancef and switched to naficillin.Trend white count and vital signs .Improved. 11.Anemia of chronic disease -Monitor H and H ,transfuse if Hb is less than 7. 12.Acute metabolic enecephalopathy due to acute cerebrovascular accident -CT of the brain shows no acute intracranial hemorrhage. 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 There is an infarct in the left temporal lobe adjacent to the posterior horn of the left lateral ventricle which is age indeterminate. This can be better assessed with MRI. -MRI brain without contrast shows acute infarct involving the left temporal and occipital lobe.. -Started on ASA and statin.Monitor neurochecks. -CTA head and neck unremarkable. -2D echo ordered showed EF OF 60-64%. -Allow for permissive hypertension ,contorl BP for systolic greater than 190 and diastolic greater than 110.On prn hydralazine based on these parameters. -PT/OT/ST consulted.Modified barium swallow done ,showed handling of varying consistencies of barium . There is an instance of penetration of mixed consistency barium however no aspiration is seen. -Neurology consulted. DVT Px :Lovenox 40mg daily Code status :Full code.No known next of kin information. 35 minutes spent in reviewing labs ,imaging and discussing plan of care with the patient. Dispo:Rehab eval ordered.If pt not accepted at rehab ,will need to DC home with home health.Repeat blood cx ordered,once negative can dc Quality: Gen Med Crit Care VTE Prophylaxis VTE prophylaxis initiated: yes (Lovenox) Current Medications Current medication review: I attest that the foregoing medication list in the medical record is true, accurate, and complete to the best of my knowledge. Advanced Care Plan 65 or Older Discussed with: patient (full code) at 1327 at 1412 RPT #:[id number] END OF REPORT [facility] 2024-08-04 15:45:00 [facility] ([facility]) Infectious Dis. Progress Note REPORT#:[id number] REPORT STATUS: Signed REPORT INITIALIZATION DATE:08/04/24 TIME: 1544 PATIENT: CAROLYNN PATEL UNIT #: [id number] ROOM/BED: [address] : 70 AGE: 54 SEX: M ATTEND: Inga Johns MD ADM AUTHOR: Natalya Tolentino AQUATICS COORDINATOR REPT SERVICE DT/TIME: 08/04/24 154 * ALL edits or amendments must be made on the electronic/computer document * Natalya Tolentino 08/04/24 154: Subjective Chief complaint: Bacteremia Staphylococcus aureus Septic Emboli to brain likely Review of Systems Unable to obtain due to: limited Objective General VS/I O: Vital Signs Date Temp Pulse Resp B/P B/P Mean Pulse Ox FiO2 08/03-08/04 97.7-99.5 71-91 14-18 103-127/70-80 80.9-95.8 90-98 Last Documented: Result Date Time Pulse Ox 90 08/04 1505 B/P 103/70 08/04 1505 B/P Mean 80.9 08/04 1505 Temp 98.2 08/04 1505 Pulse 73 08/04 1505 Resp 14 08/04 1505 O2 Flow Rate 2 08/01 0748 O2 Delivery Nasal cannula 07/31 2000 FiO2 32 07/28 0847 Vital Signs: Date Time Temp Pulse Resp B/P B/P Pulse O2 O2 Flow FiO2 Mean Ox Delivery Rate 08/04 1505 98.2 73 14 103/70 80.9 90 08/04 1050 98.1 76 14 106/70 82.2 95 08/04 0728 99.5 85 17 115/77 89.7 93 08/04 0444 97.9 91 18 122/79 93.2 98 08/04 0018 97.7 78 18 127/80 95.8 98 08/03 1938 98.2 71 18 122/79 93.3 93 08/03 1648 98.2 75 17 113/72 86.0 92 PATIENT WEIGHT: Weight (lb): 140 Weight (oz): 4.69 Weight (kg): 63.636 Medications: Active Meds + DC'd Last 24 Hrs Nafcillin Sodium (NAFCILLIN SODIUM) 2 GM Q6H IV Dextrose/Water (DEXTROSE 5%) 100 ML Iopamidol (ISOVUE-370) 0 .STK-MED ONE .ROUTE (DC) Ertapenem (INVanz) 1 G Q24H IV Sodium Chloride (SODIUM CHLORIDE 0.9%) 100 ML Nafcillin Sodium (NAFCILLIN SODIUM) 2 GM Q6H IV (DC) Dextrose/Water (DEXTROSE 5%) 100 ML Ertapenem (INVanz) 1 G Q24H IV (CAN) Aspirin (ECOTRIN) 81 MG DAILY PO Atorvastatin Calcium (LIPITOR 40MG TAB) 40 MG BEDTIME PO Perflutren Lipid Microsphere (DEFINITY) 1.1 ML PROCEDURE IV (CKD) Acetaminophen (ACETAMINOPHEN) 650 MG Q6H PRN PRN RECTAL Sodium Chloride (SODIUM CHLORIDE 0.9%) 1,000 ML .[id number] IV Acetaminophen (TYLENOL) 650 MG Q6H PRN PRN PO Furosemide (LASIX 20MG Inj) 20 MG Q12HR IV Albuterol Sulfate (ALBUTEROL SULFATE) 1.25 MG RTQ4H PRN PRN INH Diphenhydramine HCl (diphenhydrAMINE HCL) 12.5 MG Q4H PRN PRN IV Naloxone HCl (NARCAN) 0.1 MG Q2M PRN PRN IV Ondansetron HCl (ondansetron HCL) 4 MG Q6H PRN PRN IV Nicotine (HABITROL 21MG PATCH) 21 MG DAILY PRN PRN TRANSDERM (CKD) Carvedilol (COREG 3.125MG TAB) 3.125 MG BID PO Insulin Glargine (Lantus/Semglee) 10 UNIT BEDTIME SUBQ Cefazolin Sodium (Cefazolin Sodium) 2 GM Q8H IV (DC) Sodium Chloride (SODIUM CHLORIDE 0.9%) 100 ML Famotidine (PEPCID TAB) 20 MG BID AC PO Enoxaparin Sodium (LOVENOX 40MG SYRINGE) 40 MG 1700 SUBQ Tramadol HCl (ULTRAM) 50 MG Q4H PRN PRN PO Thiamine HCl (THIAMINE HCL) 100 MG DAILY PO Calcium Carbonate (TUMS 500MG) 1,000 MG Q6H PRN PRN PO Docusate Sodium (COLACE 100 MG CAPSULE) 100 MG BID PRN PRN PO Guaifenesin (guaiFENesin) 200 MG Q6H PRN PRN PO Insulin Human Lispro (Admelog) S/SCALE MED AC HS SUBQ Melatonin (MELATONIN) 6 MG BEDTIME PRN PRN PO Simethicone (SIMETHICONE) 80 MG Q6H PRN PRN PO Dextrose/Water (DEXTROSE 50%-WATER) 50 ML ASDIR PRN IV (CKD) Physical Exam General appearance: alert, awake Wound/incision: Location: Right foot dressing Site condition: dressing clean dry Head/Eyes: atraumatic ENT: moist mucosal membranes, normal dentition, normal nose Neck: full range of motion, non-tender, normal thyroid Cardiovascular: normal heart sounds, regular rate rhythm Respiratory: clear to auscultation, aerating well Extremities: moves all, normal capillary refill Musculoskeletal: normal inspection Psychiatry: normal affect Results Findings/Data: Laboratory Tests 08/04 08/04 08/04 08/03 08/03 1108 0758 [id number] 1950 1703 Chemistry Sodium (136 - 145 mmol/L) 137 Potassium (3.5 - 5.1 mmol/L) 3.5 Chloride (98 - 107 mmol/L) 99.0 Carbon Dioxide (21 - 32 mmol/L) 32.0 Anion Gap (10 - 20 mmol/L) 9.5 L BUN (7 - 18 mg/dL) 11 Creatinine (0.7 - 1.3 mg/dL) 0.50 L Glomerular Filtr Rate (>=60 mL/min) > 60 BUN/Creatinine Ratio (10 - 20) 21.2 H Glucose (74 - 106 mg/dL) 134 H POC Glucose (74 - 106 mg/dL) 102 136 H 164 H 131 H Calcium (8.5 - 10.1 mg/dL) 8.1 L Total Bilirubin (0.0 - 1.0 mg/dL) 0.50 AST (15 - 37 IUnit/L) 34 ALT (12 - 78 IUnit/L) 16 Total Alk Phosphatase (45 - 117 106 IUnit/L) Total Protein (6.4 - 8.2 gram/dL) 6.0 L Albumin (3.4 - 5.0 g/dL) 1.9 L Globulin (2.7 - 4.2 gram/dL) 4.1 Albumin/Globulin Ratio (0.75 - 1.50) 0.5 L Laboratory Tests 08/04 0246 Hematology WBC (4.5 - 12.5 K/mm3) 5.0 RBC (4.0 - 5.8 mill/mm3) 3.50 L Hgb (13.0 - 17.5 gram/dL) 10.1 L Hct (42.0 - 52.0 %) 31.0 L MCV (80 - 98 fL) 88.6 MCH (27.0 - 33.0 picogram) 28.9 MCHC (33.0 - 36.0 gram/dL) 32.6 L RDW (11.6 - 16.2 %) 16.2 RDW Std Deviation (37.0 - 51.0 fL) 51.7 H Plt Count (150 - 450 K/mm3) 290 MPV (6.7 - 11.0 fL) 9.6 Neut % (Auto) (39.0 - 69.0 %) 44.9 Lymph % (Auto) (25.0 - 55.0 %) 43.7 [place] % (Auto) (0.0 - 10.0 %) 5.2 Eos % (Auto) (0.0 - 5.0 %) 2.0 Baso % (Auto) (0.0 - 1.0 %) 1.2 H Neut # (Auto) (1.8 - 7.7 K/mm3) 2.26 Lymph # (Auto) (1.0 - 5.0 K/mm3) 2.20 [place] # (Auto) (0 - 0.8 K/mm3) 0.26 Eos # (Auto) (0.0 - 0.5 K/mm3) 0.10 Baso # (Auto) (0.0 - 0.2 K/mm3) 0.06 Nucleated RBC % (0 - 0 %) 0.0 Nucleated RBCs # (Man) (0.0 - 0.1 K/mm3) 0.00 Radiology data: Recent Impressions: CAT SCAN - CT CHEST W/O CONTRAST 08/03 1751 Report Impression - Status: SIGNED Entered: 08/03/2024 9813 IMPRESSION: Consolidation in the bilateral lung bases concerning for atelectasis or aspiration pneumonitis. Impression By: DR.DIWWA Karo Bashir M.D. CAT SCAN - CT ABD PELVIS W/CONT 08/03 1756 Report Impression - Status: SIGNED Entered: 08/03/20241818 IMPRESSION: Bladder wall thickening. Correlate with urinalysis for cystitis. Indeterminate hypodensity in the left hepatic lobe. Nonemergent outpatient follow-up MRI liver is recommended. Impression By: DR.DIWWA Karo Bashir M.D. Diagnosis, Assessment Plan Free Text A P: Sepsis on admission we will recheck a blood culture the patient remains bacteremic MSSA bacteremia present on admission Wound with Morganella morganii Necrotizing soft tissue infection Wound with morgenella IMPRESSION: The abdomen and pelvis are within normal limits. There are tiny bilateral pleural effusions with subsegmental atelectasis in the underlying lung bases. s/p BKA 07/20 The patient remains bacteremic we will recheck a blood culture The patient remains bacteremic Will change to nafcillin And Invanz septic emboli to brain get MRI spine if able KALYAN still needed- but unable to obtain consent repeat cultures tomorrow prognosis is poor discussed with Dr. Kiser Orders: Procedure Date/time Status MRI Procedure Screening 08/04 1547 Active MRI T-SPINE W W/O CONT 08/04 154 Active MRI L-SPINE W W/O CONT 08/04 1547 Active MRI C-SPINE W W/O CONT 08/04 1547 Active at 1550 at 0821 RPT #:[id number] END OF REPORT [facility] 2024-08-04 14:39:00 [facility] ([facility]) Hospitalist Progress Note REPORT#:[id number] REPORT STATUS: Signed REPORT INITIALIZATION DATE:08/04/24 TIME: 1438 PATIENT: CAROLYNN PATEL UNIT #: [id number] ROOM/BED: 2045- : 70 AGE: 54 SEX: M ATTEND: Inga Johns MD ADM AUTHOR: Kings Oliva NP REPT SERVICE DT/TIME: 08/04/24 1439 * ALL edits or amendments must be made on the electronic/computer document * Kings Oliva N 08/04/24 1439: Subjective Chief complaint: pending negative blood cx Patient reports: No: complaints. Nursing reports: No: complaints. Objective General VS/I O: Vital Signs: Date Time Temp Pulse Resp B/P B/P Pulse O2 O2 Flow FiO2 Mean Ox Delivery Rate 08/04 1050 36.7 76 14 106/70 82.2 95 08/04 0728 37.5 85 17 115/77 89.7 93 08/04 0444 36.6 91 18 122/79 93.2 98 08/04 0018 36.5 78 18 127/80 95.8 98 08/03 1938 36.8 71 18 122/79 93.3 93 08/03 1648 36.8 75 17 113/72 86.0 92 PATIENT WEIGHT: Weight (lb): 140 Weight (oz): 4.69 Weight (kg): 63.636 Medications: Active Meds + DC'd Last 24 Hrs Nafcillin Sodium (NAFCILLIN SODIUM) 2 GM Q6H IV Dextrose/Water (DEXTROSE 5%) 100 ML Iopamidol (ISOVUE-370) 0 .STK-MED ONE .ROUTE (DC) Ertapenem (INVanz) 1 G Q24H IV Sodium Chloride (SODIUM CHLORIDE 0.9%) 100 ML Nafcillin Sodium (NAFCILLIN SODIUM) 2 GM Q6H IV (DC) Dextrose/Water (DEXTROSE 5%) 100 ML Ertapenem (INVanz) 1 G Q24H IV (CAN) Aspirin (ECOTRIN) 81 MG DAILY PO Atorvastatin Calcium (LIPITOR 40MG TAB) 40 MG BEDTIME PO Perflutren Lipid Microsphere (DEFINITY) 1.1 ML PROCEDURE IV (CKD) Acetaminophen (ACETAMINOPHEN) 650 MG Q6H PRN PRN RECTAL Sodium Chloride (SODIUM CHLORIDE 0.9%) 1,000 ML .[id number] IV Acetaminophen (TYLENOL) 650 MG Q6H PRN PRN PO Furosemide (LASIX 20MG Inj) 20 MG Q12HR IV Albuterol Sulfate (ALBUTEROL SULFATE) 1.25 MG RTQ4H PRN PRN INH Diphenhydramine HCl (diphenhydrAMINE HCL) 12.5 MG Q4H PRN PRN IV Naloxone HCl (NARCAN) 0.1 MG Q2M PRN PRN IV Ondansetron HCl (ondansetron HCL) 4 MG Q6H PRN PRN IV Nicotine (HABITROL 21MG PATCH) 21 MG DAILY PRN PRN TRANSDERM (CKD) Carvedilol (COREG 3.125MG TAB) 3.125 MG BID PO Insulin Glargine (Lantus/Semglee) 10 UNIT BEDTIME SUBQ Cefazolin Sodium (Cefazolin Sodium) 2 GM Q8H IV (DC) Sodium Chloride (SODIUM CHLORIDE 0.9%) 100 ML Famotidine (PEPCID TAB) 20 MG BID AC PO Enoxaparin Sodium (LOVENOX 40MG SYRINGE) 40 MG 1700 SUBQ Tramadol HCl (ULTRAM) 50 MG Q4H PRN PRN PO Thiamine HCl (THIAMINE HCL) 100 MG DAILY PO Calcium Carbonate (TUMS 500MG) 1,000 MG Q6H PRN PRN PO Docusate Sodium (COLACE 100 MG CAPSULE) 100 MG BID PRN PRN PO Guaifenesin (guaiFENesin) 200 MG Q6H PRN PRN PO Insulin Human Lispro (Admelog) S/SCALE MED AC HS SUBQ Melatonin (MELATONIN) 6 MG BEDTIME PRN PRN PO Simethicone (SIMETHICONE) 80 MG Q6H PRN PRN PO Dextrose/Water (DEXTROSE 50%-WATER) 50 ML ASDIR PRN IV (CKD) Physical Exam General appearance: alert, awake Head/Eyes: atraumatic, normal conjunctiva/sclera, normocephalic, PERRL ENT: moist mucosal membranes, normal ear left, normal ear right, normal nose Neck: supple/no meningismus, no masses or swelling Cardiovascular: normal capillary refill, normal heart sounds, regular rate rhythm Respiratory: decreased breath sounds, hypoxia, on oxygen, symmetric expansion, no distress Abdomen: normal bowel sounds, soft, no distention Genitourinary: no bladder distention, no flank pain, no urinary catheter Extremities: edema, moves all, right BKA Musculoskeletal: decreased ROM (R BKA) Neuro/ADDICTION COUNSELOR: alert Skin: dry, intact Psychiatry: abnl judgment/insight, normal affect, normal mood Results Findings/Data: Laboratory Tests 08/04 08/04 08/04 08/03 08/03 1108 0758 0246 1950 1703 Chemistry Sodium (136 - 145 mmol/L) 137 Potassium (3.5 - 5.1 mmol/L) 3.5 Chloride (98 - 107 mmol/L) 99.0 Carbon Dioxide (21 - 32 mmol/L) 32.0 Anion Gap (10 - 20 mmol/L) 9.5 L BUN (7 - 18 mg/dL) 11 Creatinine (0.7 - 1.3 mg/dL) 0.50 L Glomerular Filtr Rate (>=60 mL/min) > 60 BUN/Creatinine Ratio (10 - 20) 21.2 H Glucose (74 - 106 mg/dL) 134 H POC Glucose (74 - 106 mg/dL) 102 136 H 164 H 131 H Calcium (8.5 - 10.1 mg/dL) 8.1 L Total Bilirubin (0.0 - 1.0 mg/dL) 0.50 AST (15 - 37 IUnit/L) 34 ALT (12 - 78 IUnit/L) 16 Total Alk Phosphatase (45 - 117 106 IUnit/L) Total Protein (6.4 - 8.2 gram/dL) 6.0 L Albumin (3.4 - 5.0 g/dL) 1.9 L Globulin (2.7 - 4.2 gram/dL) 4.1 Albumin/Globulin Ratio (0.75 - 1.50) 0.5 L Laboratory Tests 08/04 0246 Hematology WBC (4.5 - 12.5 K/mm3) 5.0 RBC (4.0 - 5.8 mill/mm3) 3.50 L Hgb (13.0 - 17.5 gram/dL) 10.1 L Hct (42.0 - 52.0 %) 31.0 L MCV (80 - 98 fL) 88.6 MCH (27.0 - 33.0 picogram) 28.9 MCHC (33.0 - 36.0 gram/dL) 32.6 L RDW (11.6 - 16.2 %) 16.2 RDW Std Deviation (37.0 - 51.0 fL) 51.7 H Plt Count (150 - 450 K/mm3) 290 MPV (6.7 - 11.0 fL) 9.6 Neut % (Auto) (39.0 - 69.0 %) 44.9 Lymph % (Auto) (25.0 - 55.0 %) 43.7 [place] % (Auto) (0.0 - 10.0 %) 5.2 Eos % (Auto) (0.0 - 5.0 %) 2.0 Baso % (Auto) (0.0 - 1.0 %) 1.2 H Neut # (Auto) (1.8 - 7.7 K/mm3) 2.26 Lymph # (Auto) (1.0 - 5.0 K/mm3) 2.20 [place] # (Auto) (0 - 0.8 K/mm3) 0.26 Eos # (Auto) (0.0 - 0.5 K/mm3) 0.10 Baso # (Auto) (0.0 - 0.2 K/mm3) 0.06 Nucleated RBC % (0 - 0 %) 0.0 Nucleated RBCs # (Man) (0.0 - 0.1 K/mm3) 0.00 Radiology data: Recent Impressions: CAT SCAN - CT CHEST W/O CONTRAST 08/03 1751 Report Impression - Status: SIGNED Entered: 08/03/2024 1823 IMPRESSION: Consolidation in the bilateral lung bases concerning for atelectasis or aspiration pneumonitis. Impression By: DR.DIWWA Karo Bashir M.D. CAT SCAN - CT ABD PELVIS W/CONT 08/03 1755 Report Impression - Status: SIGNED Entered: 08/03/2024 1819 IMPRESSION: Bladder wall thickening. Correlate with urinalysis for cystitis. Indeterminate hypodensity in the left hepatic lobe. Nonemergent outpatient follow-up MRI liver is recommended. Impression By: DR.DIWWA Karo Bashir M.D. Results: vital signs reviewed, current med profile rev'd Diagnosis, Assessment Plan Free Text DxA P Notes Free text DxA P notes: 1.Acute necrotizing fasciitis of right lower extremity -Status post debridement by general surgery on 07/13/24, general surgeon recommends BKA -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 -Patient started on IV cefazolin 2 g every 8 hours.Will need IV ancef for 8 weeks on dc. -Repeat blood cx ordered growing gram positive cocci in clusters on gram stain. -Dced ancef and switched to naficillin. 2.Acute hypoxic respiratory failure -07/22: Possibly related to lethargy from MANUFACTURING INTERN pump, MANUFACTURING INTERN pump discontinued, started on IV Dilaudid and [place] p.o. -Obtain chest x-ray: No acute infiltrates, effusions or congestion -Sputum cultures ordered -Incentive spirometery -Started on breathing treatments -Pulm consult: Severe hypoalbuminemia, recommends diuresis ,check urine protein level.Ordered,not sent out. -Started on Lasix 20 mg IV every 12 hours and reassess clinically -CTA chest shows consolidation B/L lung bases concerning for atelectasis or aspiration pneumonitis. 3.Sepsis secondary to necrotizing fasciitis -Present on admission, normal lactic acid, wbc elevated, Tachycardic -Blood cultures positive for Staphylococcus aureus -Wound with Morganella morganii continue with cefazolin every 8 hrs x 8 weeks from 07/16/24 per ID -IV antibiotics to be set up. -Pt spiking fevers ,hypotensive and tachycardic ,given IV fluid boluses. -CXR shows patchy new right mid lung infiltrate. -Repeat blood cx ordered shows gram positive cocci in clusters on gram stain. -Dced ancef and started on naficillin. -CT abdomen/pelvis shows bladder wall thickening. Correlate with urinalysis for cystitis.Indeterminate hypodensity in the left hepatic lobe. Nonemergent outpatient follow-up MRI liver is recommended. -Check UA. -CTA chest shows consolidation B/L lung bases concerning for atelectasis or aspiration pneumonitis. 4.MSSA bacteremia -IV cefazolin 2g q8hrs x 8 weeks from 07/16/2024 per ID. -Cardiology consulted for KALYAN.Unable to be done since unable to be scheduled and unable to get consent. -Repeat blood cx ordered growing gram positive cocci in clusters on gram stain. -Dced ancef and started on naficillin. 5.Type II diabetes mellitus with hyperglycemia -Uncontrolled, Hgb A1C 11.2% -On insulin sliding scale and lantus 10u bedtime 6.Hypokalemia -Potassium 3.0, given 40meq oral KCL -Replace and monitor as needed. -Is 3.1 ,replaced. 7.Superficial thrombosis of cephalic vein in right upper extremity -DVT ruled out -Doppler US is negative for DVT, but showed superficial vein thrombosis noted in the right cephalic vein 8.Hypertension -Blood pressure 160s-170s systolic. -Started on Coreg 3.125 mg twice daily -Allow for permissive hypertension ,contorl BP for systolic greater than 190 and diastolic greater than 110.On prn hydralazine based on these parameters. 9.Tobacco use disorder -Nicotine patch prn 10.Leukocytosis -WBC count is 16 ,due to MSSA bacteremia . -On ancef ,ID following.Dced ancef and switched to naficillin.Trend white count and vital signs .Improved. 11.Anemia of chronic disease -Monitor H and H ,transfuse if Hb is less than 7. 12.Acute metabolic enecephalopathy due to acute cerebrovascular accident -CT of the brain shows no acute intracranial hemorrhage. 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 There is an infarct in the left temporal lobe adjacent to the posterior horn of the left lateral ventricle which is age indeterminate. This can be better assessed with MRI. -MRI brain without contrast shows acute infarct involving the left temporal and occipital lobe.. -Started on ASA and statin.Monitor neurochecks. -CTA head and neck unremarkable. -2D echo ordered showed EF OF 60-64%. -Allow for permissive hypertension ,contorl BP for systolic greater than 190 and diastolic greater than 110.On prn hydralazine based on these parameters. -PT/OT/ST consulted.Modified barium swallow done ,showed handling of varying consistencies of barium . There is an instance of penetration of mixed consistency barium however no aspiration is seen. -Neurology consulted. DVT Px :Lovenox 40mg daily Code status :Full code.No known next of kin information. 35 minutes spent in reviewing labs ,imaging and discussing plan of care with the patient. Dispo:Rehab eval ordered.If pt not accepted at rehab ,will need to DC home with home health.Repeat blood cx ordered yesterday,continue to be positive ,once negative ,PICC line can be placed. Quality: Gen Med Crit Care VTE Prophylaxis VTE prophylaxis initiated: yes (Lovenox) Current Medications Current medication review: I attest that the foregoing medication list in the medical record is true, accurate, and complete to the best of my knowledge. Advanced Care Plan 65 or Older Discussed with: patient (full code) at 1441 at 2114 RPT #:[id number] END OF REPORT [facility] 2024-08-03 19:27:00 [facility] ([facility]) Hospitalist Progress Note REPORT#:[id number] REPORT STATUS: Signed REPORT INITIALIZATION DATE:08/03/24 TIME: 1926 PATIENT: CAROLYNN PATEL UNIT #: [id number] ROOM/BED: : 70 AGE: 54 SEX: M ATTEND: Inga Johns MD ADM AUTHOR: Inga Johns MD REPT SERVICE DT/TIME: 08/03/241926 * ALL edits or amendments must be made on the electronic/computer document * Subjective Chief complaint: Pt seen and examined,is awake ,alert ,reports pain in R LE .Has dyarthria, slurred speech.Was febrile ,hypotensive and tachycardic .Resolved now.Was to have KALYAN ,cancelled since unable to be scheduled and unable to get consent. Patient reports: Yes: complaints, pain (R LE), pain controlled. Nursing reports: Yes: complaints (dysarthria,slurred speech), pain (R LE), pain controlled. Review of Systems Constitutional: Reports: generalized weakness, lethargy, malaise. Musculoskeletal: Reports: extremity pain (R LE). All systems rev neg: except as noted Objective General VS/I O: Vital Signs: Date Time Temp Pulse Resp B/P B/P Pulse O2 O2 Flow FiO2 Mean Ox Delivery Rate 08/03 1648 98.2 75 17 113/72 86.0 92 08/03 1115 97.7 81 16 125/72 89.3 91 08/03 0731 98.2 75 17 133/84 100.4 95 08/03 0459 98.2 70 18 125/80 94.7 96 08/02 2330 97.7 81 18 134/79 97.5 95 08/02 1948 97.7 69 18 155/85 108.0 98 PATIENT WEIGHT: Weight (lb): 140 Weight (oz): 4.69 Weight (kg): 63.636 Medications: Active Meds + DC'd Last 24 Hrs Nafcillin Sodium (NAFCILLIN SODIUM) 2 GM Q6H IV Dextrose/Water (DEXTROSE 5%) 100 ML Iopamidol (ISOVUE-370) 0 .STK-MED ONE .ROUTE (DC) Ertapenem (INVanz) 1 G Q24H IV Sodium Chloride (SODIUM CHLORIDE 0.9%) 100 ML Nafcillin Sodium (NAFCILLIN SODIUM) 2 GM Q6H IV (DC) Dextrose/Water (DEXTROSE 5%) 100 ML Ertapenem (INVanz) 1 G Q24H IV (CAN) Aspirin (ECOTRIN) 81 MG DAILY PO Atorvastatin Calcium (LIPITOR 40MG TAB) 40 MG BEDTIME PO Perflutren Lipid Microsphere (DEFINITY) 1.1 ML PROCEDURE IV (CKD) Acetaminophen (ACETAMINOPHEN) 650 MG Q6H PRN PRN RECTAL Sodium Chloride (SODIUM CHLORIDE 0.9%) 1,000 ML .[id number] IV Acetaminophen (TYLENOL) 650 MG Q6H PRN PRN PO Furosemide (LASIX 20MG Inj) 20 MG Q12HR IV Albuterol Sulfate (ALBUTEROL SULFATE) 1.25 MG RTQ4H PRN PRN INH Diphenhydramine HCl (diphenhydrAMINE HCL) 12.5 MG Q4H PRN PRN IV Naloxone HCl (NARCAN) 0.1 MG Q2M PRN PRN IV Ondansetron HCl (ondansetron HCL) 4 MG Q6H PRN PRN IV Nicotine (HABITROL 21MG PATCH) 21 MG DAILY PRN PRN TRANSDERM (CKD) Carvedilol (COREG 3.125MG TAB) 3.125 MG BID PO Insulin Glargine (Lantus/Semglee) 10 UNIT BEDTIME SUBQ Cefazolin Sodium (Cefazolin Sodium) 2 GM Q8H IV (DC) Sodium Chloride (SODIUM CHLORIDE 0.9%) 100 ML Famotidine (PEPCID TAB) 20 MG BID AC PO Enoxaparin Sodium (LOVENOX 40MG SYRINGE) 40 MG 1700 SUBQ Tramadol HCl (ULTRAM) 50 MG Q4H PRN PRN PO Thiamine HCl (THIAMINE HCL) 100 MG DAILY PO Calcium Carbonate (TUMS 500MG) 1,000 MG Q6H PRN PRN PO Docusate Sodium (COLACE 100 MG CAPSULE) 100 MG BID PRN PRN PO Guaifenesin (guaiFENesin) 200 MG Q6H PRN PRN PO Insulin Human Lispro (Admelog) S/SCALE MED AC HS SUBQ Melatonin (MELATONIN) 6 MG BEDTIME PRN PRN PO Simethicone (SIMETHICONE) 80 MG Q6H PRN PRN PO Dextrose/Water (DEXTROSE 50%-WATER) 50 ML ASDIR PRN IV (CKD) Physical Exam General appearance: alert, awake, oriented Head/Eyes: atraumatic, normal conjunctiva/sclera, normocephalic, PERRL ENT: moist mucosal membranes, normal ear left, normal ear right, normal nose Neck: supple/no meningismus, no masses or swelling Cardiovascular: normal capillary refill, normal heart sounds, regular rate rhythm Respiratory: decreased breath sounds, hypoxia, on oxygen, symmetric expansion, no distress Abdomen: normal bowel sounds, soft, no distention Genitourinary: no bladder distention, no flank pain, no urinary catheter Extremities: edema, moves all, right BKA Musculoskeletal: decreased ROM (R BKA) Neuro/ADDICTION COUNSELOR: abnormal speech (Slurred,dysarthric), alert, oriented X 3, CNII-XII intact, no motor deficits, no sensory deficits Skin: dry, intact Psychiatry: abnl judgment/insight, normal affect, normal mood Results Findings/Data: Laboratory Tests 08/03 08/03 08/03 08/03 08/03 1950 1703 1135 0758 0256 Chemistry Sodium (136 - 145 mmol/L) 137 Potassium (3.5 - 5.1 mmol/L) 4.0 Chloride (98 - 107 mmol/L) 98.0 Carbon Dioxide (21 - 32 mmol/L) 32.0 Anion Gap (10 - 20 mmol/L) 11.0 BUN (7 - 18 mg/dL) 12 Creatinine (0.7 - 1.3 mg/dL) 0.60 L Glomerular Filtr Rate (>=60 mL/min) > 60 BUN/Creatinine Ratio (10 - 20) 21.1 H Glucose (74 - 106 mg/dL) 116 H POC Glucose (74 - 106 mg/dL) 164 H 131 H 161 H 113 H Calcium (8.5 - 10.1 mg/dL) 8.2 L Total Bilirubin (0.0 - 1.0 mg/dL) 0.30 AST (15 - 37 IUnit/L) 26 ALT (12 - 78 IUnit/L) 13 Total Alk Phosphatase (45 - 117 IUnit/L) 104 Total Protein (6.4 - 8.2 gram/dL) 6.0 L Albumin (3.4 - 5.0 g/dL) 1.9 L Globulin (2.7 - 4.2 gram/dL) 4.1 Albumin/Globulin Ratio (0.75 - 1.50) 0.5 L Laboratory Tests 08/03 0256 Hematology WBC (4.5 - 12.5 K/mm3) 7.3 RBC (4.0 - 5.8 mill/mm3) 3.33 L Hgb (13.0 - 17.5 gram/dL) 9.6 L Hct (42.0 - 52.0 %) 29.3 L MCV (80 - 98 fL) 88.0 MCH (27.0 - 33.0 picogram) 28.8 MCHC (33.0 - 36.0 gram/dL) 32.8 L RDW (11.6 - 16.2 %) 15.9 RDW Std Deviation (37.0 - 51.0 fL) 51.2 H Plt Count (150 - 450 K/mm3) 274 MPV (6.7 - 11.0 fL) 9.7 Neut % (Auto) (39.0 - 69.0 %) 44.3 Lymph % (Auto) (25.0 - 55.0 %) 45.4 [place] % (Auto) (0.0 - 10.0 %) 6.6 Eos % (Auto) (0.0 - 5.0 %) 1.6 Baso % (Auto) (0.0 - 1.0 %) 0.7 Neut # (Auto) (1.8 - 7.7 K/mm3) 3.25 Lymph # (Auto) (1.0 - 5.0 K/mm3) 3.32 [place] # (Auto) (0 - 0.8 K/mm3) 0.48 Eos # (Auto) (0.0 - 0.5 K/mm3) 0.12 Baso # (Auto) (0.0 - 0.2 K/mm3) 0.05 Nucleated RBC % (0 - 0 %) 0.0 Nucleated RBCs # (Man) (0.0 - 0.1 K/mm3) 0.00 Radiology data: Recent Impressions: CAT SCAN - CT CHEST W/O CONTRAST 08/03 1751 Report Impression - Status: SIGNED Entered: 08/03/2024 182 IMPRESSION: Consolidation in the bilateral lung bases concerning for atelectasis or aspiration pneumonitis. Impression By: DR.[email or web address] Karo Bashir M.D. CAT SCAN - CT ABD PELVIS W/CONT 08/03 1755 Report Impression - Status: SIGNED Entered: 08/03/2024 181 IMPRESSION: Bladder wall thickening. Correlate with urinalysis for cystitis. Indeterminate hypodensity in the left hepatic lobe. Nonemergent outpatient follow-up MRI liver is recommended. Impression By: DR.DIWWA Karo Bashir M.D. 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 -Patient started on IV cefazolin 2 g every 8 hours.Will need IV ancef for 8 weeks on dc. -Repeat blood cx ordered growing gram positive cocci in clusters on gram stain. -Dced ancef and switched to naficillin. 2.Acute hypoxic respiratory failure -07/22: Possibly related to lethargy from MANUFACTURING INTERN pump, MANUFACTURING INTERN pump discontinued, started on IV Dilaudid and [place] p.o. -Obtain chest x-ray: No acute infiltrates, effusions or congestion -Sputum cultures ordered -Incentive spirometery -Started on breathing treatments -Pulm consult: Severe hypoalbuminemia, recommends diuresis ,check urine protein level.Ordered,not sent out. -Started on Lasix 20 mg IV every 12 hours and reassess clinically -CTA chest shows consolidation B/L lung bases concerning for atelectasis or aspiration pneumonitis. 3.Sepsis secondary to necrotizing fasciitis -Present on admission, normal lactic acid, wbc elevated, Tachycardic -Blood cultures positive for Staphylococcus aureus -Wound with Morganella morganii continue with cefazolin every 8 hrs x 8 weeks from 07/16/24 per ID -IV antibiotics to be set up. -Pt spiking fevers ,hypotensive and tachycardic ,given IV fluid boluses. -CXR shows patchy new right mid lung infiltrate. -Repeat blood cx ordered shows gram positive cocci in clusters on gram stain. -Dced ancef and started on naficillin. -CT abdomen/pelvis shows bladder wall thickening. Correlate with urinalysis for cystitis.Indeterminate hypodensity in the left hepatic lobe. Nonemergent outpatient follow-up MRI liver is recommended. -Check UA. -CTA chest shows consolidation B/L lung bases concerning for atelectasis or aspiration pneumonitis. 4.MSSA bacteremia -IV cefazolin 2g q8hrs x 8 weeks from 07/16/2024 per ID. -Cardiology consulted for KALYAN.Unable to be done since unable to be scheduled and unable to get consent. -Repeat blood cx ordered growing gram positive cocci in clusters on gram stain. -Dced ancef and started on naficillin. 5.Type II diabetes mellitus with hyperglycemia -Uncontrolled, Hgb A1C 11.2% -On insulin sliding scale and lantus 10u bedtime 6.Hypokalemia -Potassium 3.0, given 40meq oral KCL -Replace and monitor as needed. -Is 3.1 ,replaced. 7.Superficial thrombosis of cephalic vein in right upper extremity -DVT ruled out -Doppler US is negative for DVT, but showed superficial vein thrombosis noted in the right cephalic vein 8.Hypertension -Blood pressure 160s-170s systolic. -Started on Coreg 3.125 mg twice daily -Allow for permissive hypertension ,contorl BP for systolic greater than 190 and diastolic greater than 110.On prn hydralazine based on these parameters. 9.Tobacco use disorder -Nicotine patch prn 10.Leukocytosis -WBC count is 16 ,due to MSSA bacteremia . -On ancef ,ID following.Dced ancef and switched to naficillin.Trend white count and vital signs .Improved. 11.Anemia of chronic disease -Monitor H and H ,transfuse if Hb is less than 7. 12.Acute metabolic enecephalopathy due to acute cerebrovascular accident -CT of the brain shows no acute intracranial hemorrhage. 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 There is an infarct in the left temporal lobe adjacent to the posterior horn of the left lateral ventricle which is age indeterminate. This can be better assessed with MRI. -MRI brain without contrast shows acute infarct involving the left temporal and occipital lobe.. -Started on ASA and statin.Monitor neurochecks. -CTA head and neck unremarkable. -2D echo ordered showed EF OF 60-64%. -Allow for permissive hypertension ,contorl BP for systolic greater than 190 and diastolic greater than 110.On prn hydralazine based on these parameters. -PT/OT/ST consulted.Modified barium swallow done ,showed handling of varying consistencies of barium . There is an instance of penetration of mixed consistency barium however no aspiration is seen. -Neurology consulted. DVT Px :Lovenox 40mg daily Code status :Full code.No known next of kin information. 35 minutes spent in reviewing labs ,imaging and discussing plan of care with the patient. Dispo:Rehab eval ordered.If pt not accepted at rehab ,will need to DC home with home health.Repeat blood cx ordered yesterday,continue to be positive ,once negative ,PICC line can be placed. Quality: Gen Med Crit Care VTE Prophylaxis VTE prophylaxis initiated: yes (Lovenox) Current Medications Current medication review: I attest that the foregoing medication list in the medical record is true, accurate, and complete to the best of my knowledge. Advanced Care Plan 65 or Older Discussed with: patient (full code) at 2211 RPT #:[id number] END OF REPORT [facility] 2024-08-03 16:19:00 [facility] ([facility]) Infectious Dis. Progress Note REPORT#:[id number] REPORT STATUS: Signed REPORT INITIALIZATION DATE:08/03/24 TIME: 1618 PATIENT: CAROLYNN PATEL UNIT #: [id number] [address] AGE: 54 SEX: M ATTEND: Inga Johns MD ADM AUTHOR: Marce Kiser MD REPT SERVICE DT/TIME: 08/03/24 1619 * ALL edits or amendments must be made on the electronic/computer document * Subjective Chief complaint: Bacteremia Staphylococcus aureus present on admission MSSA bacteremia right lower extremity painPt seen and examined,is confused,lethargic ,not following commands.Was febrile ,hypotensive and tachycardic .Was to have KALYAN yesterday ,cancelled since unable to be scheduled and unable to get consent. Review of Systems Constitutional: fatigue. Objective General VS/I O: Vital Signs Date Temp Pulse Resp B/P B/P Mean Pulse Ox FiO2 08/02-08/03 97.7-98.2 69-81 16-18 125-155/72-85 89.3-108.0 91-98 Last Documented: Result Date Time Pulse Ox 91 08/03 1115 B/P 125/72 08/03 1115 B/P Mean 89.3 08/03 1115 Temp 97.7 08/03 1115 Pulse 81 08/03 1115 Resp 16 08/03 1115 O2 Flow Rate 2 08/01 0748 O2 Delivery Nasal cannula 07/31 2000 FiO2 32 07/28 0847 Vital Signs: Date Time Temp Pulse Resp B/P B/P Pulse O2 O2 Flow FiO2 Mean Ox Delivery Rate 08/03 1115 97.7 81 16 125/72 89.3 91 08/03 0731 98.2 75 17 133/84 100.4 95 08/03 0459 98.2 70 18 125/80 94.7 96 08/02 2330 97.7 81 18 134/79 97.5 95 08/02 1948 97.7 69 18 155/85 108.0 98 PATIENT WEIGHT: Weight (lb): 140 Weight (oz): 4.69 Weight (kg): 63.636 Medications: Active Meds + DC'd Last 24 Hrs Aspirin (ECOTRIN) 81 MG DAILY PO Atorvastatin Calcium (LIPITOR 40MG TAB) 40 MG BEDTIME PO Perflutren Lipid Microsphere (DEFINITY) 1.1 ML PROCEDURE IV (CKD) Acetaminophen (ACETAMINOPHEN) 650 MG Q6H PRN PRN RECTAL Sodium Chloride (SODIUM CHLORIDE 0.9%) 1,000 ML .[id number] IV Acetaminophen (TYLENOL) 650 MG Q6H PRN PRN PO Furosemide (LASIX 20MG Inj) 20 MG Q12HR IV Albuterol Sulfate (ALBUTEROL SULFATE) 1.25 MG RTQ4H PRN PRN INH Diphenhydramine HCl (diphenhydrAMINE HCL) 12.5 MG Q4H PRN PRN IV Naloxone HCl (NARCAN) 0.1 MG Q2M PRN PRN IV Ondansetron HCl (ondansetron HCL) 4 MG Q6H PRN PRN IV Nicotine (HABITROL 21MG PATCH) 21 MG DAILY PRN PRN TRANSDERM (CKD) Carvedilol (COREG 3.125MG TAB) 3.125 MG BID PO Insulin Glargine (Lantus/Semglee) 10 UNIT BEDTIME SUBQ Cefazolin Sodium (Cefazolin Sodium) 2 GM Q8H IV Sodium Chloride (SODIUM CHLORIDE 0.9%) 100 ML Famotidine (PEPCID TAB) 20 MG BID AC PO Enoxaparin Sodium (LOVENOX 40MG SYRINGE) 40 MG 1700 SUBQ Tramadol HCl (ULTRAM) 50 MG Q4H PRN PRN PO Thiamine HCl (THIAMINE HCL) 100 MG DAILY PO Calcium Carbonate (TUMS 500MG) 1,000 MG Q6H PRN PRN PO Docusate Sodium (COLACE 100 MG CAPSULE) 100 MG BID PRN PRN PO Guaifenesin (guaiFENesin) 200 MG Q6H PRN PRN PO Insulin Human Lispro (Admelog) S/SCALE MED AC HS SUBQ Melatonin (MELATONIN) 6 MG BEDTIME PRN PRN PO Simethicone (SIMETHICONE) 80 MG Q6H PRN PRN PO Dextrose/Water (DEXTROSE 50%-WATER) 50 ML ASDIR PRN IV (CKD) Physical Exam General appearance: altered mental status Wound/incision: Location: Right foot dressing Site condition: dressing clean dry Head/Eyes: atraumatic ENT: moist mucosal membranes, normal dentition, normal nose Neck: full range of motion, non-tender, normal thyroid Cardiovascular: normal heart sounds, regular rate rhythm Respiratory: clear to auscultation, aerating well Extremities: moves all, normal capillary refill Musculoskeletal: normal inspection Psychiatry: normal affect Diagnosis, Assessment Plan Free Text A P: Sepsis on admission we will recheck a blood culture the patient remains bacteremic MSSA bacteremia present on admission Wound with Morganella morganii Necrotizing soft tissue infection Wound with morgenella IMPRESSION: The abdomen and pelvis are within normal limits. There are tiny bilateral pleural effusions with subsegmental atelectasis in the underlying lung bases. s/p BKA 07/20 The patient remains bacteremic we will recheck a blood culture The patient remains bacteremic Will change to nafcillin And Invanz at 1623 RPT #:[id number] END OF REPORT [facility] 2024-08-02 22:39:00 [facility] ([facility]) Hospitalist Progress Note REPORT#:[id number] REPORT STATUS: Signed REPORT INITIALIZATION DATE:08/02/24 TIME: 2238 PATIENT: CAROLYNN PATEL UNIT #: [id number] ROOM/BED: 2045 : 70 AGE: 54 SEX: M ATTEND: Inga Johns MD ADM AUTHOR: Inga Johns MD REPT SERVICE DT/TIME: 08/02/242238 * ALL edits or amendments must be made on the electronic/computer document * Subjective Chief complaint: Pt seen and examined,is awake ,alert ,reports pain in R LE .Has dyarthria, slurred speech.Was febrile ,hypotensive and tachycardic .Resolved now.Was to have KALYAN ,cancelled since unable to be scheduled and unable to get consent. Patient reports: Yes: complaints, pain (R LE), pain controlled. Nursing reports: Yes: complaints (dysarthria,slurred speech), pain (R LE), pain controlled. Review of Systems Constitutional: Reports: generalized weakness, lethargy, malaise. Musculoskeletal: Reports: extremity pain (R LE). All systems rev neg: except as noted Objective General VS/I O: Vital Signs: Date Time Temp Pulse Resp B/P B/P Pulse O2 O2 Flow FiO2 Mean Ox Delivery Rate 08/02 1948 97.7 69 18 155/85 108.0 98 08/02 1612 98.1 66 16 122/76 91.1 98 08/02 1121 98.1 69 16 115/72 86.2 97 08/02 0800 98.2 67 16 135/81 98.9 93 08/02 0501 97.7 66 18 107/71 83.3 94 08/02 0003 97.9 76 18 117/75 88.8 88 24 hour I O ending at 0700: 08/02 0700 08/01 1900 Intake Total Output Total Balance Number 1 Bowel Movements PATIENT WEIGHT: Weight (lb): 140 Weight (oz): 4.69 Weight (kg): 63.636 Medications: Active Meds + DC'd Last 24 Hrs Barium Sulfate (VARIBAR PUDDING) 10 ML .STK-MED ONE PO (DC) Barium Sulfate (VARIBAR THIN LIQUID) 30 ML .STK-MED ONE PO (DC) Aspirin (ECOTRIN) 81 MG DAILY PO Atorvastatin Calcium (LIPITOR 40MG TAB) 40 MG BEDTIME PO Perflutren Lipid Microsphere (DEFINITY) 1.1 ML PROCEDURE IV (CKD) Acetaminophen (ACETAMINOPHEN) 650 MG Q6H PRN PRN RECTAL Sodium Chloride (SODIUM CHLORIDE 0.9%) 1,000 ML .[id number] IV Acetaminophen (TYLENOL) 650 MG Q6H PRN PRN PO Furosemide (LASIX 20MG Inj) 20 MG Q12HR IV Albuterol Sulfate (ALBUTEROL SULFATE) 1.25 MG RTQ4H PRN PRN INH Diphenhydramine HCl (diphenhydrAMINE HCL) 12.5 MG Q4H PRN PRN IV Naloxone HCl (NARCAN) 0.1 MG Q2M PRN PRN IV Ondansetron HCl (ondansetron HCL) 4 MG Q6H PRN PRN IV Nicotine (HABITROL 21MG PATCH) 21 MG DAILY PRN PRN TRANSDERM (CKD) Carvedilol (COREG 3.125MG TAB) 3.125 MG BID PO Insulin Glargine (Lantus/Semglee) 10 UNIT BEDTIME SUBQ Cefazolin Sodium (Cefazolin Sodium) 2 GM Q8H IV Sodium Chloride (SODIUM CHLORIDE 0.9%) 100 ML Famotidine (PEPCID TAB) 20 MG BID AC PO Enoxaparin Sodium (LOVENOX 40MG SYRINGE) 40 MG 1700 SUBQ Tramadol HCl (ULTRAM) 50 MG Q4H PRN PRN PO Thiamine HCl (THIAMINE HCL) 100 MG DAILY PO Calcium Carbonate (TUMS 500MG) 1,000 MG Q6H PRN PRN PO Docusate Sodium (COLACE 100 MG CAPSULE) 100 MG BID PRN PRN PO Guaifenesin (guaiFENesin) 200 MG Q6H PRN PRN PO Insulin Human Lispro (Admelog) S/SCALE MED AC HS SUBQ Melatonin (MELATONIN) 6 MG BEDTIME PRN PRN PO Simethicone (SIMETHICONE) 80 MG Q6H PRN PRN PO Dextrose/Water (DEXTROSE 50%-WATER) 50 ML ASDIR PRN IV (CKD) Physical Exam General appearance: alert, awake, oriented Head/Eyes: atraumatic, normal conjunctiva/sclera, normocephalic, PERRL ENT: moist mucosal membranes, normal ear left, normal ear right, normal nose Neck: supple/no meningismus, no masses or swelling Cardiovascular: normal capillary refill, normal heart sounds, regular rate rhythm Respiratory: decreased breath sounds, hypoxia, on oxygen, symmetric expansion, no distress Abdomen: normal bowel sounds, soft, no distention Genitourinary: no bladder distention, no flank pain, no urinary catheter Extremities: edema, moves all, right BKA Musculoskeletal: decreased ROM (R BKA) Neuro/ADDICTION COUNSELOR: abnormal speech (Slurred,dysarthric), alert, oriented X 3, CNII-XII intact, no motor deficits, no sensory deficits Skin: dry, intact Psychiatry: abnl judgment/insight, normal affect, normal mood Results Findings/Data: Laboratory Tests 08/02 1611 1120 0801 0523 Chemistry Sodium (136 - 145 mmol/L) 136 Potassium (3.5 - 5.1 mmol/L) 3.8 Chloride (98 - 107 mmol/L) 98.0 Carbon Dioxide (21 - 32 mmol/L) 34.0 H Anion Gap (10 - 20 mmol/L) 7.8 L BUN (7 - 18 mg/dL) 13 Creatinine (0.7 - 1.3 mg/dL) 0.60 L Glomerular Filtr Rate (>=60 mL/min) > 60 BUN/Creatinine Ratio (10 - 20) 22.4 H Glucose (74 - 106 mg/dL) 187 H POC Glucose (74 - 106 mg/dL) 132 H 174 H 139 H 159 H Calcium (8.5 - 10.1 mg/dL) 7.7 L Total Bilirubin (0.0 - 1.0 mg/dL) 0.30 AST (15 - 37 IUnit/L) 23 ALT (12 - 78 IUnit/L) 11 L Total Alk Phosphatase (45 - 117 115 IUnit/L) Total Protein (6.4 - 8.2 gram/dL) 5.5 L Albumin (3.4 - 5.0 g/dL) 1.7 L Globulin (2.7 - 4.2 gram/dL) 3.8 Albumin/Globulin Ratio (0.75 - 1.50) 0.4 L Laboratory Tests 08/02 0523 Hematology WBC (4.5 - 12.5 K/mm3) 5.8 RBC (4.0 - 5.8 mill/mm3) 3.19 L Hgb (13.0 - 17.5 gram/dL) 9.2 L Hct (42.0 - 52.0 %) 28.1 L MCV (80 - 98 fL) 88.1 MCH (27.0 - 33.0 picogram) 28.8 MCHC (33.0 - 36.0 gram/dL) 32.7 L RDW (11.6 - 16.2 %) 15.9 RDW Std Deviation (37.0 - 51.0 fL) 51.5 H Plt Count (150 - 450 K/mm3) 259 MPV (6.7 - 11.0 fL) 10.3 Neut % (Auto) (39.0 - 69.0 %) 38.3 L Lymph % (Auto) (25.0 - 55.0 %) 49.5 [place] % (Auto) (0.0 - 10.0 %) 8.6 Eos % (Auto) (0.0 - 5.0 %) 1.2 Baso % (Auto) (0.0 - 1.0 %) 0.7 Neut # (Auto) (1.8 - 7.7 K/mm3) 2.24 Lymph # (Auto) (1.0 - 5.0 K/mm3) 2.89 [place] # (Auto) (0 - 0.8 K/mm3) 0.50 Eos # (Auto) (0.0 - 0.5 K/mm3) 0.07 Baso # (Auto) (0.0 - 0.2 K/mm3) 0.04 Nucleated RBC % (0 - 0 %) 0.0 Nucleated RBCs # (Man) (0.0 - 0.1 K/mm3) 0.00 Radiology data: Recent Impressions: RADIOLOGY - XR SWLW FUNC W/C V 08/02 1403 Report Impression - Status: SIGNED Entered: 08/02/2024 1812 IMPRESSION: Handling of varying consistencies of barium were evaluated. There is an instance of penetration of mixed consistency barium however no aspiration is seen. Please see separate speech pathology report for complete discussion. 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 -Patient started on IV cefazolin 2 g every 8 hours.Will need IV ancef for 8 weeks on dc. -Repeat blood cx ordered. 2.Acute hypoxic respiratory failure -07/22: Possibly related to lethargy from MANUFACTURING INTERN pump, MANUFACTURING INTERN pump discontinued, started on IV Dilaudid and [place] p.o. -Obtain chest x-ray: No acute infiltrates, effusions or congestion -Sputum cultures -Incentive spirometery -Started on breathing treatments -Pulm consult: Severe hypoalbuminemia, recommends diuresis ,check urine protein level.Ordered,not sent out. -Started on Lasix 20 mg IV every 12 hours and reassess clinically 3.Sepsis secondary to necrotizing fasciitis -Present on admission, normal lactic acid, wbc elevated, Tachycardic -Blood cultures positive for Staphylococcus aureus -Wound with Morganella morganii continue with cefazolin every 8 hrs x 8 weeks from 07/16/24 per ID -IV antibiotics to be set up. -Pt spiking fevers ,hypotensive and tachycardic ,given IV fluid boluses. -CXR shows patchy new right mid lung infiltrate. -Repeat blood cx ordered. 4.MSSA bacteremia -IV cefazolin 2g q8hrs x 8 weeks from 07/16/2024 per ID. -Cardiology consulted for KALYAN.Unable to be done since unable to be scheduled and unable to get consent. -Repeat blood cx ordered. 5.Type II diabetes mellitus with hyperglycemia -Uncontrolled, Hgb A1C 11.2% -On insulin sliding scale and lantus 10u bedtime 6.Hypokalemia -Potassium 3.0, given 40meq oral KCL -Replace and monitor as needed. -Is 3.1 ,replaced. 7.Superficial thrombosis of cephalic vein in right upper extremity -DVT ruled out -Doppler US is negative for DVT, but showed superficial vein thrombosis noted in the right cephalic vein 8.Hypertension -Blood pressure 160s-170s systolic. -Started on Coreg 3.125 mg twice daily -Allow for permissive hypertension ,contorl BP for systolic greater than 190 and diastolic greater than 110.On prn hydralazine based on these parameters. 9.Tobacco use disorder -Nicotine patch prn 10.Leukocytosis -WBC count is 16 ,due to MSSA bacteremia . -On ancef ,ID following.Trend white count and vital signs .Improved. 11.Anemia of chronic disease -Monitor H and H ,transfuse if Hb is less than 7. 12.Acute metabolic enecephalopathy due to acute cerebrovascular accident -CT of the brain shows no acute intracranial hemorrhage. 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 There is an infarct in the left temporal lobe adjacent to the posterior horn of the left lateral ventricle which is age indeterminate. This can be better assessed with MRI. -MRI brain without contrast shows acute infarct involving the left temporal and occipital lobe.. -Started on ASA and statin.Monitor neurochecks. -CTA head and neck unremarkable. -2D echo ordered showed EF OF 60-64%. -Allow for permissive hypertension ,contorl BP for systolic greater than 190 and diastolic greater than 110.On prn hydralazine based on these parameters. -PT/OT/ST consulted.Modified barium swallow done ,showed handling of varying consistencies of barium . There is an instance of penetration of mixed consistency barium however no aspiration is seen. -Neurology consulted. DVT Px :Lovenox 40mg daily Code status :Full code.No known next of kin information. 35 minutes spent in reviewing labs ,imaging and discussing plan of care with the patient. Dispo:Rehab eval ordered.If pt not accepted at rehab ,will need to DC home with home health.Repeat blood cx ordered today,if negative ,PICC line can be placed. Quality: Gen Med Crit Care VTE Prophylaxis VTE prophylaxis initiated: yes (Lovenox) Current Medications Current medication review: I attest that the foregoing medication list in the medical record is true, accurate, and complete to the best of my knowledge. Advanced Care Plan 65 or Older Discussed with: patient (full code) at 2244 RPT #:[id number] END OF REPORT [facility] 2024-08-02 15:49:00 [facility] ([facility]) Infectious Dis. Progress Note REPORT#:[id number] REPORT STATUS: Signed REPORT INITIALIZATION DATE:08/02/24 TIME: 154 PATIENT: CAROLYNN PATEL UNIT #: [id number] ROOM/BED: [facility] : 70 AGE: 54 SEX: M ATTEND: Inga Johns MD ADM AUTHOR: Marce Kiser MD REPT SERVICE DT/TIME: 08/02/24 1549 * ALL edits or amendments must be made on the electronic/computer document * Subjective Chief complaint: Bacteremia Staphylococcus aureus present on admission MSSA bacteremia right lower extremity painPt seen and examined,is confused,lethargic ,not following commands.Was febrile ,hypotensive and tachycardic .Was to have KALYAN yesterday ,cancelled since unable to be scheduled and unable to get consent. Review of Systems Constitutional: fatigue. Objective General VS/I O: Vital Signs Date Temp Pulse Resp B/P B/P Mean Pulse Ox FiO2 08/01-08/02 97.7-98.2 66-78 16-18 107-159/71-87 83.3-110.8 88-97 Last Documented: Result Date Time Pulse Ox 97 08/02 1121 B/P 115/72 08/02 1121 B/P Mean 86.2 08/02 1121 Temp 98.1 08/02 1121 Pulse 69 08/02 1121 Resp 16 08/02 1121 O2 Flow Rate 2 08/01 0748 O2 Delivery Nasal cannula 07/31 2000 FiO2 32 07/28 0847 Vital Signs: Date Time Temp Pulse Resp B/P B/P Pulse O2 O2 Flow FiO2 Mean Ox Delivery Rate 08/02 1121 98.1 69 16 115/72 86.2 97 08/02 0800 98.2 67 16 135/81 98.9 93 08/02 0501 97.7 66 18 107/71 83.3 94 08/02 0003 97.9 76 18 117/75 88.8 88 08/01 1921 97.9 78 18 147/86 106.5 95 08/01 1559 97.7 66 16 159/87 110.8 96 24 hour I O ending at 0700: 08/02 0700 08/01 1900 Intake Total Output Total Balance Number 1 Bowel Movements PATIENT WEIGHT: Weight (lb): 140 Weight (oz): 4.69 Weight (kg): 63.636 Medications: Active Meds + DC'd Last 24 Hrs Barium Sulfate (VARIBAR PUDDING) 10 ML .STK-MED ONE PO (DC) Barium Sulfate (VARIBAR THIN LIQUID) 30 ML .STK-MED ONE PO (DC) Aspirin (ECOTRIN) 81 MG DAILY PO Atorvastatin Calcium (LIPITOR 40MG TAB) 40 MG BEDTIME PO Perflutren Lipid Microsphere (DEFINITY) 1.1 ML PROCEDURE IV (CKD) Acetaminophen (ACETAMINOPHEN) 650 MG Q6H PRN PRN RECTAL Sodium Chloride (SODIUM CHLORIDE 0.9%) 1,000 ML .[id number] IV Acetaminophen (TYLENOL) 650 MG Q6H PRN PRN PO Furosemide (LASIX 20MG Inj) 20 MG Q12HR IV Albuterol Sulfate (ALBUTEROL SULFATE) 1.25 MG RTQ4H PRN PRN INH Diphenhydramine HCl (diphenhydrAMINE HCL) 12.5 MG Q4H PRN PRN IV Naloxone HCl (NARCAN) 0.1 MG Q2M PRN PRN IV Ondansetron HCl (ondansetron HCL) 4 MG Q6H PRN PRN IV Nicotine (HABITROL 21MG PATCH) 21 MG DAILY PRN PRN TRANSDERM (CKD) Carvedilol (COREG 3.125MG TAB) 3.125 MG BID PO Insulin Glargine (Lantus/Semglee) 10 UNIT BEDTIME SUBQ Cefazolin Sodium (Cefazolin Sodium) 2 GM Q8H IV Sodium Chloride (SODIUM CHLORIDE 0.9%) 100 ML Famotidine (PEPCID TAB) 20 MG BID AC PO Enoxaparin Sodium (LOVENOX 40MG SYRINGE) 40 MG 1700 SUBQ Tramadol HCl (ULTRAM) 50 MG Q4H PRN PRN PO Thiamine HCl (THIAMINE HCL) 100 MG DAILY PO Calcium Carbonate (TUMS 500MG) 1,000 MG Q6H PRN PRN PO Docusate Sodium (COLACE 100 MG CAPSULE) 100 MG BID PRN PRN PO Guaifenesin (guaiFENesin) 200 MG Q6H PRN PRN PO Insulin Human Lispro (Admelog) S/SCALE MED AC HS SUBQ Melatonin (MELATONIN) 6 MG BEDTIME PRN PRN PO Simethicone (SIMETHICONE) 80 MG Q6H PRN PRN PO Dextrose/Water (DEXTROSE 50%-WATER) 50 ML ASDIR PRN IV (CKD) Physical Exam General appearance: alert, awake Wound/incision: Location: Right foot dressing Site condition: dressing clean dry Head/Eyes: atraumatic ENT: moist mucosal membranes, normal dentition, normal nose Neck: full range of motion, non-tender, normal thyroid Cardiovascular: normal heart sounds, regular rate rhythm Respiratory: clear to auscultation, aerating well Extremities: moves all, normal capillary refill Musculoskeletal: normal inspection Psychiatry: normal affect Diagnosis, Assessment Plan Free Text A P: Sepsis on admission we will recheck a blood culture MSSA bacteremia present on admission Wound with Morganella morganii Necrotizing soft tissue infection Wound with morgenella IMPRESSION: The abdomen and pelvis are within normal limits. There are tiny bilateral pleural effusions with subsegmental atelectasis in the underlying lung bases. s/p BKA 07/20 The patient remains bacteremic we will recheck a blood culture at 1550 [facility] #:[id number] END OF REPORT [facility] 2024-08-01 23:48:00 [facility] ([facility]) Hospitalist Progress Note REPORT#:[id number] REPORT STATUS: Signed REPORT INITIALIZATION DATE:08/01/24 TIME: 2347 PATIENT: CAROLYNN PATEL UNIT #: [id number] ROOM/BED: : 70 AGE: 54 SEX: M ATTEND: Inga Johns MD ADM AUTHOR: Inga Johns MD REPT SERVICE DT/TIME: 08/01/242347 * ALL edits or amendments must be made on the electronic/computer document * Subjective Chief complaint: Pt seen and examined,is awake ,alert ,reports pain in R LE .Has dyarthria, slurred speech.Was febrile ,hypotensive and tachycardic .Resolved now.Was to have KALYAN ,cancelled since unable to be scheduled and unable to get consent. Patient reports: Yes: complaints, pain (RLE), pain controlled. Nursing reports: Yes: complaints (Slurred speech,dysarthria), pain (R LE), pain controlled. Review of Systems Constitutional: Reports: generalized weakness, lethargy, malaise. Musculoskeletal: Reports: extremity pain (R LE). All systems rev neg: except as noted Objective General VS/I O: Vital Signs: Date Time Temp Pulse Resp B/P B/P Pulse O2 O2 Flow FiO2 Mean Ox Delivery Rate 08/01 1921 97.9 78 18 147/86 106.5 95 08/01 1559 97.7 66 16 159/87 110.8 96 08/01 1139 98.2 62 16 149/87 107.9 94 08/01 0748 2 08/01 0730 98.2 67 16 122/78 92.8 95 08/01 0446 97.5 64 18 124/78 93.6 96 07/31 2353 97.7 65 18 112/70 84.1 95 PATIENT WEIGHT: Weight (lb): 140 Weight (oz): 4.69 Weight (kg): 63.636 Medications: Active Meds + DC'd Last 24 Hrs Aspirin (ECOTRIN) 81 MG DAILY PO Atorvastatin Calcium (LIPITOR 40MG TAB) 40 MG BEDTIME PO Perflutren Lipid Microsphere (DEFINITY) 1.1 ML PROCEDURE IV (CKD) Acetaminophen (ACETAMINOPHEN) 650 MG Q6H PRN PRN RECTAL Sodium Chloride (SODIUM CHLORIDE 0.9%) 1,000 ML .[id number] IV Acetaminophen (TYLENOL) 650 MG Q6H PRN PRN PO Furosemide (LASIX 20MG Inj) 20 MG Q12HR IV Albuterol Sulfate (ALBUTEROL SULFATE) 1.25 MG RTQ4H PRN PRN INH Diphenhydramine HCl (diphenhydrAMINE HCL) 12.5 MG Q4H PRN PRN IV Naloxone HCl (NARCAN) 0.1 MG Q2M PRN PRN IV Ondansetron HCl (ondansetron HCL) 4 MG Q6H PRN PRN IV Nicotine (HABITROL 21MG PATCH) 21 MG DAILY PRN PRN TRANSDERM (CKD) Carvedilol (COREG 3.125MG TAB) 3.125 MG BID PO Insulin Glargine (Lantus/Semglee) 10 UNIT BEDTIME SUBQ Cefazolin Sodium (Cefazolin Sodium) 2 GM Q8H IV Sodium Chloride (SODIUM CHLORIDE 0.9%) 100 ML Famotidine (PEPCID TAB) 20 MG BID AC PO Enoxaparin Sodium (LOVENOX 40MG SYRINGE) 40 MG 1700 SUBQ Tramadol HCl (ULTRAM) 50 MG Q4H PRN PRN PO Thiamine HCl (THIAMINE HCL) 100 MG DAILY PO Calcium Carbonate (TUMS 500MG) 1,000 MG Q6H PRN PRN PO Docusate Sodium (COLACE 100 MG CAPSULE) 100 MG BID PRN PRN PO Guaifenesin (guaiFENesin) 200 MG Q6H PRN PRN PO Insulin Human Lispro (Admelog) S/SCALE MED AC HS SUBQ Melatonin (MELATONIN) 6 MG BEDTIME PRN PRN PO Simethicone (SIMETHICONE) 80 MG Q6H PRN PRN PO Dextrose/Water (DEXTROSE 50%-WATER) 50 ML ASDIR PRN IV (CKD) Physical Exam General appearance: alert, awake, oriented Head/Eyes: atraumatic, normal conjunctiva/sclera, normocephalic, PERRL ENT: moist mucosal membranes, normal ear left, normal ear right, normal nose Neck: supple/no meningismus, no masses or swelling Cardiovascular: normal capillary refill, normal heart sounds, regular rate rhythm Respiratory: decreased breath sounds, hypoxia, on oxygen, symmetric expansion, no distress Abdomen: normal bowel sounds, soft, no distention Genitourinary: no bladder distention, no flank pain, no urinary catheter Extremities: edema, moves all, right BKA Musculoskeletal: decreased ROM (R BKA) Neuro/ADDICTION COUNSELOR: abnormal speech (Slurred,dysarthric), alert, oriented X 3, CNII-XII intact, no motor deficits, no sensory deficits Skin: dry, intact Psychiatry: abnl judgment/insight, normal affect, normal mood Results Findings/Data: Laboratory Tests 08/01 1558 1137 0730 Chemistry POC Glucose (74 - 106 mg/dL) 176 H 132 H 132 H 87 Diagnosis, Assessment Plan Free Text DxA P Notes Free text DxA P notes: 1.Acute necrotizing fasciitis of right lower extremity -Status post debridement by general surgery on 07/13/24, general surgeon recommends BKA -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 -Patient started on IV cefazolin 2 g every 8 hours.Will need IV ancef for 8 weeks on dc. 2.Acute hypoxic respiratory failure -07/22: Possibly related to lethargy from MANUFACTURING INTER[employer] pump, MANUFACTURING INTERN pump discontinued, started on IV Dilaudid and [place] p.o. -Obtain chest x-ray: No acute infiltrates, effusions or congestion -Sputum cultures -Incentive spirometery -Started on breathing treatments -Pulm consult: Severe hypoalbuminemia, recommends diuresis ,check urine protein level.Ordered,not sent out. -Started on Lasix 20 mg IV every 12 hours and reassess clinically 3.Sepsis secondary to necrotizing fasciitis -Present on admission, normal lactic acid, wbc elevated, Tachycardic -Blood cultures positive for Staphylococcus aureus -Wound with Morganella morganii continue with cefazolin every 8 hrs x 8 weeks from 07/16/24 per ID -IV antibiotics to be set up. -Pt spiking fevers ,hypotensive and tachycardic ,given IV fluid boluses. -CXR shows patchy new right mid lung infiltrate. 4.MSSA bacteremia -IV cefazolin 2g q8hrs x 8 weeks from 07/16/2024 per ID. -Cardiology consulted for KALYAN.Unable to be done since unable to be scheduled and unable to get consent. 5.Type II diabetes mellitus with hyperglycemia -Uncontrolled, Hgb A1C 11.2% -On insulin sliding scale and lantus 10u bedtime 6.Hypokalemia -Potassium 3.0, given 40meq oral KCL -Replace and monitor as needed. -Is 3.1 today,replaced. 7.Superficial thrombosis of cephalic vein in right upper extremity -DVT ruled out -Doppler US is negative for DVT, but showed superficial vein thrombosis noted in the right cephalic vein 8.Hypertension -Blood pressure 160s-170s systolic. -Started on Coreg 3.125 mg twice daily -Allow for permissive hypertension ,contorl BP for systolic greater than 190 and diastolic greater than 110.On prn hydralazine based on these parameters. 9.Tobacco use disorder -Nicotine patch prn 10.Leukocytosis -WBC count is 16 ,due to MSSA bacteremia . -On ancef ,ID following.Trend white count and vital signs .Improved. 11.Anemia of chronic disease -Monitor H and H ,transfuse if Hb is less than 7. 12.Acute metabolic enecephalopathy due to acute cerebrovascular accident -CT of the brain shows no acute intracranial hemorrhage. 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 There is an infarct in the left temporal lobe adjacent to the posterior horn of the left lateral ventricle which is age indeterminate. This can be better assessed with MRI. -MRI brain without contrast shows acute infarct involving the left temporal and occipital lobe.. -Started on ASA and statin.Monitor neurochecks. -CTA head and neck unremarkable. -2D echo ordered showed EF OF 60-64%. -Allow for permissive hypertension ,contorl BP for systolic greater than 190 and diastolic greater than 110.On prn hydralazine based on these parameters. -PT/OT/ST consulted. -Neurology consulted. DVT Px :Lovenox 40mg daily Code status :Full code.No known next of kin information. 35 minutes spent in reviewing labs ,imaging and discussing plan of care with the patient. Dispo:Rehab eval ordered. Quality: Gen [facility] Crit Care VTE Prophylaxis VTE prophylaxis initiated: yes (Lovenox) Current Medications Current medication review: I attest that the foregoing medication list in the medical record is true, accurate, and complete to the best of my knowledge. Advanced Care Plan 65 or Older Discussed with: patient (full code) at 0137 RPT #:[id number] END OF REPORT [facility] 2024-08-01 14:45:00 [facility] ([facility]) Infectious Dis. Progress Note REPORT#:[id number] REPORT STATUS: Signed REPORT INITIALIZATION DATE:08/01/24 TIME: 1445 PATIENT: CAROLYNN PATEL UNIT #: [id number] ROOM/BED: [address] : 70 AGE: 54 SEX: M ATTEND: Inga Johns MD ADM AUTHOR: Marce Kiser MD REPT SERVICE DT/TIME: 08/01/24 1445 * ALL edits or amendments must be made on the electronic/computer document * Subjective Chief complaint: Bacteremia Staphylococcus aureus present on admission MSSA bacteremia right lower extremity painPt seen and examined,is confused,lethargic ,not following commands.Was febrile ,hypotensive and tachycardic .Was to have KALYAN yesterday ,cancelled since unable to be scheduled and unable to get consent. Review of Systems Constitutional: fatigue. Objective General VS/I O: Vital Signs Date Temp Pulse Resp B/P B/P Mean Pulse Ox FiO2 07/31-08/01 97.5-98.4 62-84 16-18 100-149/51-87 0.0-107.9 91-96 Last Documented: Result Date Time Pulse Ox 94 08/01 1139 B/P 149/87 08/01 1139 B/P Mean 107.9 08/01 1139 Temp 98.2 08/01 1139 Pulse 62 08/01 1139 Resp 16 08/01 1139 O2 Flow Rate 2 08/01 0748 O2 Delivery Nasal cannula 07/31 1999 FiO2 32 07/28 0847 Vital Signs: Date Time Temp Pulse Resp B/P B/P Pulse O2 O2 Flow FiO2 Mean Ox Delivery Rate 08/01 1139 98.2 62 16 149/87 107.9 94 08/01 0748 2 08/01 0730 98.2 67 16 122/78 92.8 95 08/01 0446 97.5 64 18 124/78 93.6 96 07/31 2353 97.7 65 18 112/70 84.1 95 07/31 2015 97.7 70 18 102/51 0.0 95 07/31 1999 Nasal 2 cannula 07/31 1639 98.4 84 16 100/63 75.3 91 PATIENT WEIGHT: Weight (lb): 140 Weight (oz): 4.69 Weight (kg): 63.636 Medications: Active Meds + DC'd Last 24 Hrs Aspirin (ECOTRIN) 81 MG DAILY PO Iopamidol (ISOVUE-370) 100 ML ONCE PRN IV (DC) Sodium Chloride (SODIUM CHLORIDE PF 10 ML FLUSH) 10 ML ASDIR PRN IV (DC) Atorvastatin Calcium (LIPITOR 40MG TAB) 40 MG BEDTIME PO Perflutren Lipid Microsphere (DEFINITY) 1.1 ML PROCEDURE IV (CKD) Acetaminophen (ACETAMINOPHEN) 650 MG Q6H PRN PRN RECTAL Sodium Chloride (SODIUM CHLORIDE 0.9%) 1,000 ML .[id number] IV Acetaminophen (TYLENOL) 650 MG Q6H PRN PRN PO Furosemide (LASIX 20MG Inj) 20 MG Q12HR IV Albuterol Sulfate (ALBUTEROL SULFATE) 1.25 MG RTQ4H PRN PRN INH Diphenhydramine HCl (diphenhydrAMINE HCL) 12.5 MG Q4H PRN PRN IV Naloxone HCl (NARCAN) 0.1 MG Q2M PRN PRN IV Ondansetron HCl (ondansetron HCL) 4 MG Q6H PRN PRN IV Nicotine (HABITROL 21MG PATCH) 21 MG DAILY PRN PRN TRANSDERM (CKD) Carvedilol (COREG 3.125MG TAB) 3.125 MG BID PO Insulin Glargine (Lantus/Semglee) 10 UNIT BEDTIME SUBQ Cefazolin Sodium (Cefazolin Sodium) 2 GM Q8H IV Sodium Chloride (SODIUM CHLORIDE 0.9%) 100 ML Famotidine (PEPCID TAB) 20 MG BID AC PO Enoxaparin Sodium (LOVENOX 40MG SYRINGE) 40 MG 1700 SUBQ Tramadol HCl (ULTRAM) 50 MG Q4H PRN PRN PO Thiamine HCl (THIAMINE HCL) 100 MG DAILY PO Calcium Carbonate (TUMS 500MG) 1,000 MG Q6H PRN PRN PO Docusate Sodium (COLACE 100 MG CAPSULE) 100 MG BID PRN PRN PO Guaifenesin (guaiFENesin) 200 MG Q6H PRN PRN PO Insulin Human Lispro (Admelog) S/SCALE MED AC HS SUBQ Melatonin (MELATONIN) 6 MG BEDTIME PRN PRN PO Simethicone (SIMETHICONE) 80 MG Q6H PRN PRN PO Dextrose/Water (DEXTROSE 50%-WATER) 50 ML ASDIR PRN IV (CKD) Physical Exam General appearance: alert, awake Wound/incision: Location: Right foot dressing Site condition: dressing clean dry Head/Eyes: atraumatic ENT: moist mucosal membranes, normal dentition, normal nose Neck: full range of motion, non-tender, normal thyroid Cardiovascular: normal heart sounds, regular rate rhythm Respiratory: clear to auscultation, aerating well Extremities: moves all, normal capillary refill Musculoskeletal: normal inspection Psychiatry: normal affect Diagnosis, Assessment Plan Free Text A P: Sepsis on admission MSSA bacteremia present on admission Wound with Morganella morganii Necrotizing soft tissue infection Wound with morgenella IMPRESSION: The abdomen and pelvis are within normal limits. There are tiny bilateral pleural effusions with subsegmental atelectasis in the underlying lung bases. Will need long-term IV antibiotic at least 8 weeks End therapy 09/11 blood cultures negative s/p BKA 07/20 at 1446 RPT #:[id number] END OF REPORT [facility] 2024-07-31 19:43:00 [facility] ([facility]) Hospitalist Progress Note REPORT#:[id number] REPORT STATUS: Signed REPORT INITIALIZATION DATE:07/31/24 TIME: 1942 PATIENT: CAROLYNN PATEL UNIT #: [id number] ROOM/BED: 6-A : 70 AGE: 54 SEX: M ATTEND: Inga Johns MD ADM AUTHOR: Inga Johns MD REPT SERVICE DT/TIME: 07/31/241942 * ALL edits or amendments must be made on the electronic/computer document * Subjective Chief complaint: Pt seen and examined,is awake ,alert ,reports pain in R LE .Has dyarthria, slurred speech.Was febrile ,hypotensive and tachycardic .Was to have KALYAN ,cancelled since unable to be scheduled and unable to get consent. Patient reports: Yes: complaints, pain (R LE), pain controlled. Nursing reports: Yes: complaints (dysarthria,slurred speech), pain (R LE ), pain controlled. Review of Systems Constitutional: Reports: generalized weakness, lethargy, malaise. Musculoskeletal: Reports: extremity pain (R LE). All systems rev neg: except as noted Objective General VS/I O: Vital Signs: Date Time Temp Pulse Resp B/P B/P Pulse O2 O2 Flow FiO2 Mean Ox Delivery Rate 07/31 1639 98.4 84 16 100/63 75.3 91 07/31 1115 98.2 72 16 111/72 84.8 96 07/31 1003 2 07/31 0744 97.5 71 16 104/67 79.2 92 07/31 0524 97.9 77 16 100/63 75.4 96 07/30 2311 98.4 121 16 116/75 88.5 95 07/30 2006 97.2 65 19 131/82 98.2 100 24 hour I O ending at 0700: 07/31 0700 07/30 1900 Intake Total Output Total 800 Balance -800 Output, Urine 800 PATIENT WEIGHT: Weight (lb): 140 Weight (oz): 4.69 Weight (kg): 63.636 Medications: Active Meds + DC'd Last 24 Hrs Aspirin (ECOTRIN) 81 MG DAILY PO Iopamidol (ISOVUE-370) 100 ML ONCE PRN IV (DC) Sodium Chloride (SODIUM CHLORIDE PF 10 ML FLUSH) 10 ML ASDIR PRN IV (DC) Aspirin (ECOTRIN) 325 MG DAILY PO (DC) Atorvastatin Calcium (LIPITOR 40MG TAB) 40 MG BEDTIME PO Perflutren Lipid Microsphere (DEFINITY) 1.1 ML PROCEDURE IV (CKD) Acetaminophen (ACETAMINOPHEN) 650 MG Q6H PRN PRN RECTAL Sodium Chloride (SODIUM CHLORIDE 0.9%) 1,000 ML .[id number] IV Acetaminophen (TYLENOL) 650 MG Q6H PRN PRN PO Furosemide (LASIX 20MG Inj) 20 MG Q12HR IV Albuterol Sulfate (ALBUTEROL SULFATE) 1.25 MG RTQ4H PRN PRN INH Diphenhydramine HCl (diphenhydrAMINE HCL) 12.5 MG Q4H PRN PRN IV Naloxone HCl (NARCAN) 0.1 MG Q2M PRN PRN IV Ondansetron HCl (ondansetron HCL) 4 MG Q6H PRN PRN IV Nicotine (HABITROL 21MG PATCH) 21 MG DAILY PRN PRN TRANSDERM (CKD) Carvedilol (COREG 3.125MG TAB) 3.125 MG BID PO Insulin Glargine (Lantus/Semglee) 10 UNIT BEDTIME SUBQ Cefazolin Sodium (Cefazolin Sodium) 2 GM Q8H IV Sodium Chloride (SODIUM CHLORIDE 0.9%) 100 ML Famotidine (PEPCID TAB) 20 MG BID AC PO Enoxaparin Sodium (LOVENOX 40MG SYRINGE) 40 MG 1700 SUBQ Tramadol HCl (ULTRAM) 50 MG Q4H PRN PRN PO Thiamine HCl (THIAMINE HCL) 100 MG DAILY PO Calcium Carbonate (TUMS 500MG) 1,000 MG Q6H PRN PRN PO Docusate Sodium (COLACE 100 MG CAPSULE) 100 MG BID PRN PRN PO Guaifenesin (guaiFENesin) 200 MG Q6H PRN PRN PO Insulin Human Lispro (Admelog) S/SCALE MED AC HS SUBQ Melatonin (MELATONIN) 6 MG BEDTIME PRN PRN PO Simethicone (SIMETHICONE) 80 MG Q6H PRN PRN PO Dextrose/Water (DEXTROSE 50%-WATER) 50 ML ASDIR PRN IV (CKD) Physical Exam General appearance: alert, awake, oriented Head/Eyes: atraumatic, normal conjunctiva/sclera, normocephalic, PERRL ENT: moist mucosal membranes, normal ear left, normal ear right, normal nose Neck: supple/no meningismus, no masses or swelling Cardiovascular: normal capillary refill, normal heart sounds, regular rate rhythm Respiratory: decreased breath sounds, hypoxia, on oxygen, symmetric expansion, no distress Abdomen: normal bowel sounds, soft, no distention Genitourinary: no bladder distention, no flank pain, no urinary catheter Extremities: edema, moves all, right BKA Musculoskeletal: decreased ROM (R BKA) Neuro/ADDICTION COUNSELOR: abnormal speech (Slurred,dysarthric), alert, oriented X 3, CNII-XII intact, no motor deficits, no sensory deficits Skin: dry, intact Psychiatry: abnl judgment/insight, normal affect, normal mood Results Findings/Data: Laboratory Tests 07/31 07/31 07/31 07/30 07/30 1654 1246 0743 [id number] 2005 Chemistry POC Glucose (74 - 106 mg/dL) 108 H 129 H 107 H 177 H 166 H Diagnosis, Assessment Plan Free Text DxA P Notes Free text DxA P notes: 1.Acute necrotizing fasciitis of right lower extremity -Status post debridement by general surgery on 07/13/24, general surgeon recommends BKA -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 -Patient started on IV cefazolin 2 g every 8 hours.Will need IV ancef for 8 weeks on dc. 2.Acute hypoxic respiratory failure -07/22: Possibly related to lethargy from MANUFACT[employer]ING INTER[employer] pump, MANUFACTURING INTER[employer] pump discontinued, started on IV Dilaudid and [place] p.o. -Obtain chest x-ray: No acute infiltrates, effusions or congestion -Sputum cultures -Incentive spirometery -Started on breathing treatments -Pulm consult: Severe hypoalbuminemia, recommends diuresis ,check urine protein level.Ordered,not sent out. -Started on Lasix 20 mg IV every 12 hours and reassess clinically 3.Sepsis secondary to necrotizing fasciitis -Present on admission, normal lactic acid, wbc elevated, Tachycardic -Blood cultures positive for Staphylococcus aureus -Wound with Morganella morganii continue with cefazolin every 8 hrs x 8 weeks from 07/16/24 per ID -IV antibiotics to be set up. -Pt spiking fevers ,hypotensive and tachycardic ,given IV fluid boluses. -CXR shows patchy new right mid lung infiltrate. 4.MSSA bacteremia -IV cefazolin 2g q8hrs x 8 weeks from 07/16/2024 per ID. -Cardiology consulted for KALYAN.Unable to be done since unable to be scheduled and unable to get consent. 5.Type II diabetes mellitus with hyperglycemia -Uncontrolled, Hgb A1C 11.2% -On insulin sliding scale and lantus 10u bedtime 6.Hypokalemia -Potassium 3.0, given 40meq oral KCL -Replace and monitor as needed. -Is 3.1 today,replaced. 7.Superficial thrombosis of cephalic vein in right upper extremity -DVT ruled out -Doppler US is negative for DVT, but showed superficial vein thrombosis noted in the right cephalic vein 8.Hypertension -Blood pressure 160s-170s systolic. -Started on Coreg 3.125 mg twice daily -Allow for permissive hypertension ,contorl BP for systolic greater than 190 and diastolic greater than 110.On prn hydralazine based on these parameters. 9.Tobacco use disorder -Nicotine patch prn 10.Leukocytosis -WBC count is 16 ,due to MSSA bacteremia . -On ancef ,ID following.Trend white count and vital signs .Improved. 11.Anemia of chronic disease -Monitor H and H ,transfuse if Hb is less than 7. 12.Acute metabolic enecephalopathy due to acute cerebrovascular accident -CT of the brain shows no acute intracranial hemorrhage. 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 There is an infarct in the left temporal lobe adjacent to the posterior horn of the left lateral ventricle which is age indeterminate. This can be better assessed with MRI. -MRI brain without contrast shows acute infarct involving the left temporal and occipital lobe.. -Started on ASA and statin.Monitor neurochecks. -CTA head and neck unremarkable. -2D echo ordered showed EF OF 60-64%. -Allow for permissive hypertension ,contorl BP for systolic greater than 190 and diastolic greater than 110.On prn hydralazine based on these parameters. -PT/OT/ST consulted. -Neurology consulted. DVT Px :Lovenox 40mg daily Code status :Full code.No known next of kin information. 35 minutes spent in reviewing labs ,imaging and discussing plan of care with the patient. Dispo:Rehab eval ordered. Quality: Gen [facility] Crit Care VTE Prophylaxis VTE prophylaxis initiated: yes (Lovenox) Current Medications Current medication review: I attest that the foregoing medication list in the medical record is true, accurate, and complete to the best of my knowledge. Advanced Care Plan 65 or Older Discussed with: patient (full code) at 2348 RPT #:[id number] END OF REPORT [facility] 2024-07-31 18:11:00 [facility] ([facility] Neurology Progress Note REPORT#:[id number] REPORT STATUS: Signed REPORT INITIALIZATION DATE:07/31/24 TIME: 1810 PATIENT: CAROLYNN PATEL UNIT #: [id number] ROOM/BED: [facility] : 70 AGE: 54 SEX: M ATTEND: Inga Johns MD ADM AUTHOR: Romi Henriquez MD REPT SERVICE DT/TIME: 07/31/241 * ALL edits or amendments must be made on the electronic/computer document * Subjective Chief Complaint: Hospital follow up for stroke HPI: No acute events overnight. Mr. Patel remains encephalopathic, though he answers more orientation questions correctly during this encounter. The patient voices no concerns. Review of Systems Constitutional: Denies: chills, fatigue, fever, generalized weakness, lethargy, malaise, recent wt loss. Skin: Denies: abrasion, bruising, contusion, diaphoresis, ecchymosis, itching, laceration, rash, swelling. Allergy/Immun: Denies: allergic reaction, anaphylaxis, hives, itching, rhinorrhea, sneezing. Eyes: Denies: redness, discharge, visual loss/blurred, itching, diplopia, eye pain, photophobia, swelling. ENT: Denies: earache, hearing loss, nasal congestion, sore throat, voice change. Respiratory: Denies: MOLINA (dyspnea on exertion), non productive cough, productive cough ( sputum), SOB, wheezing. Cardiovascular: Denies: chest pain, edema, palpitations. GI: Denies: abdominal pain, anorexia, constipation, diarrhea, dysphagia, GERD, nausea, vomiting. Musculoskeletal: Arthritis: Denies: left upper, left lower, right upper, right lower, bilateral. Extremity pain: Denies: left upper, left lower, right upper, right lower, bilateral. Extremity swelling: Denies: left upper, left lower, right upper, right lower, bilateral. Joint pain: Denies: left upper, left lower, right upper, right lower, bilateral. Joint swelling: Denies: left upper, left lower, right upper, right lower, bilateral. Myalgias: Denies: left upper, left lower, right upper, right lower, bilateral. Other musculoskeletal: Denies: lumbar pain, neck pain, thoracic pain. Heme: Denies: bleeding, bruising. Endocrine: Denies: cold intolerance, heat intolerance, polydipsia, polyphagia, polyuria, weight gain, weight loss. Neuro: Reports: confusion. Denies: bladder dysfunction, bowel dysfunction, change in LOC, dizziness, focal weakness, gait problem, headache, lightheaded, numbness, seizure, slurred speech, spinning sensation, syncope, unable to speak, vision change, weakness. Psych: Reports: confusion. Denies: agitation, anxiety, auditory hallucination, change in mental status, depression, homicidal ideation, suicidal ideation, visual hallucination. Objective General VS: Last Documented: Result Date Time Pulse Ox 91 07/31 1639 B/P 100/63 07/31 1639 B/P Mean 75.3 07/31 1639 Temp 98.4 07/31 1639 Pulse 84 07/31 1639 Resp 16 07/31 1639 O2 Flow Rate 2 07/31 1003 O2 Delivery Nasal cannula 07/30 193 FiO2 32 07/28 0847 PATIENT WEIGHT: Weight (lb): 140 Weight (oz): 4.69 Weight (kg): 63.636 Medications Active Meds + DC'd Last 24 Hrs Aspirin (ECOTRIN) 81 MG DAILY PO Iopamidol (ISOVUE-370) 0 .STK-MED ONE .ROUTE (DC) Iopamidol (ISOVUE-370) 0 .STK-MED ONE .ROUTE (DC) Iopamidol (ISOVUE-370) 100 ML ONCE PRN IV (DC) Sodium Chloride (SODIUM CHLORIDE PF 10 ML FLUSH) 10 ML ASDIR PRN IV (DC) Aspirin (ECOTRIN) 325 MG DAILY PO (DC) Atorvastatin Calcium (LIPITOR 40MG TAB) 40 MG BEDTIME PO Perflutren Lipid Microsphere (DEFINITY) 1.1 ML PROCEDURE IV (CKD) Acetaminophen (ACETAMINOPHEN) 650 MG Q6H PRN PRN RECTAL Sodium Chloride (SODIUM CHLORIDE 0.9%) 1,000 ML .[id number] IV Acetaminophen (TYLENOL) 650 MG Q6H PRN PRN PO Furosemide (LASIX 20MG Inj) 20 MG Q12HR IV Albuterol Sulfate (ALBUTEROL SULFATE) 1.25 MG RTQ4H PRN PRN INH Diphenhydramine HCl (diphenhydrAMINE HCL) 12.5 MG Q4H PRN PRN IV Naloxone HCl (NARCAN) 0.1 MG Q2M PRN PRN IV Ondansetron HCl (ondansetron HCL) 4 MG Q6H PRN PRN IV Nicotine (HABITROL 21MG PATCH) 21 MG DAILY PRN PRN TRANSDERM (CKD) Carvedilol (COREG 3.125MG TAB) 3.125 MG BID PO Insulin Glargine (Lantus/Semglee) 10 UNIT BEDTIME SUBQ Cefazolin Sodium (Cefazolin Sodium) 2 GM Q8H IV Sodium Chloride (SODIUM CHLORIDE 0.9%) 100 ML Famotidine (PEPCID TAB) 20 MG BID AC PO Enoxaparin Sodium (LOVENOX 40MG SYRINGE) 40 MG 1700 SUBQ Tramadol HCl (ULTRAM) 50 MG Q4H PRN PRN PO Thiamine HCl (THIAMINE HCL) 100 MG DAILY PO Calcium Carbonate (TUMS 500MG) 1,000 MG Q6H PRN PRN PO Docusate Sodium (COLACE 100 MG CAPSULE) 100 MG BID PRN PRN PO Guaifenesin (guaiFENesin) 200 MG Q6H PRN PRN PO Insulin Human Lispro (Admelog) S/SCALE MED AC HS SUBQ Melatonin (MELATONIN) 6 MG BEDTIME PRN PRN PO Simethicone (SIMETHICONE) 80 MG Q6H PRN PRN PO Dextrose/Water (DEXTROSE 50%-WATER) 50 ML ASDIR PRN IV (CKD) Physical Exam General appearance: alert, awake, no acute distress Head/Eyes: atraumatic, clear cornea, normal conjunctiva/sclera, normocephalic ENT: moist mucosal membranes Cardiovascular: regular rate and rhythm, normal heart sounds, no murmur Respiratory: aerating well, clear to auscultation, no distress Extremities: moves all, normal temperature, pulses present, no edema, Right [id number] amputation Musculoskeletal: full range of motion, normal inspection Skin: dry, intact, normal color, normal temperature, Healing incision of the right foreleg stump Speech Speech: normal Mental Status Orientation: Yes: to place (Hospital/[facility] (), state), to person. No: to time, to situation. LOC: alert Mental status: normal Cognitive Function Cognitive function: poor recall Cranial Nerves Cranial nerves: Normal: II, III, IV, V, , VII, VIII, IX, X, XI, XII. Sensory Exam Sensory: Normal: pin prick, light touch. Motor Testing Motor testing 1: Normal: tone, strength. Abnormal: bulk (Diffusely diminished). Motor Testing 2: No asterixis, No dystonia, No fasciculation, No myoclonus, No tremor Upper strength detail: R bicep (5/5), L bicep (5/5), R tricep (5/5), L tricep (5 /5), R wrist extensor (5/5), L wrist extensor (5/5), R wrist flexor (5/5), L wrist flexor (5/5), R intrinsics hand (5/5), L intrinsics hand (5/5), R thenar ( 5/5), L thenar (5/5), No drift of either arm Lower strength detail: R illiopsoas (5/5), L illiopsoas (5/5), R quadriceps (5/5 ), L quadriceps (5/5), R hamstring (5/5), L hamstring (5/5), L gastroc (5/5), L anterior tib (5/5), L toe extensors (5/5), L toe flexors (5/5), No drift of either leg Cerebellar Test Cerebellar test: Normal R finger/nose/finger, Normal L finger/nose/finger, Normal L heel/knee/ odell Nystagmus: absent Reflexes Tendon reflexes: 1+: R Bicep, L Bicep, R Tricep, L Tricep, R brachioradialis, L brachioradialis, R Patella (Trace), L Patella (Trace), L achilles (Trace). Plantar reflexes: Down: Left. Gait Gait: Deferred Results Findings/Data: Laboratory Tests 07/31 07/31 07/31 07/30 07/30 1654 1246 0743 2122 2005 Chemistry POC Glucose (74 - 106 mg/dL) 108 H 129 H 107 H 177 H 166 H Radiology Data: Recent Impressions: CAT SCAN - CTA NECK 07/30 1915 Report Impression - Status: SIGNED Entered: 07/30/2024 194 IMPRESSION: Patency of the intracranial vessels bilaterally without vascular abnormality. Patency of the extracranial vessels bilaterally without vascular abnormality. *NASCET criteria was used to calculate the degree of vessel stenosis, if present* Impression By: DR.DIWWA Karo Bashir M.D. CAT SCAN - CTA HEAD 07/30 1915 Report Impression - Status: SIGNED Entered: 07/30/2024 1950 IMPRESSION: Patency of the intracranial vessels bilaterally without vascular abnormality. Patency of the extracranial vessels bilaterally without vascular abnormality. *NASCET criteria was used to calculate the degree of vessel stenosis, if present* Impression By: DR.DIWWA Karo Bashir M.D. Results: labs reviewed, vital signs reviewed, vital signs stable, current med profile rev'd Scores - Neuro NIH Stroke Scale NIHSS applicable: Yes NIHSS NIHSS Response Value Level of consciousness: Alert and responsive (0) 0 Ask month age: 1 question right (1) 1 Blink eyes/squeeze hands: Performs both tasks (0) 0 Horizontal EOM: NL side/side eye mvmt (0) 0 Visual chan: No visual loss (0) 0 Facial palsy: Normal symmetry (0) 0 Right arm motor drift (10s) No drift 10 sec (0) 0 Left arm motor drift (10s) No drift 10 sec (0) 0 Right leg motor drift (5s) No drift 5 sec (0) 0 Left leg motor drift (5s) No drift 5 sec (0) 0 Limb ataxia FNF/Heel-Odell No ataxia (0) 0 Sensation (arms/legs/face): No sensory loss (0) 0 Language aphasia: No aphasia, normal (0) 0 Dysarthria: No dysarthria (0) 0 Extinction/inattention: No extinct/inattent (0) 0 Total 1 Diagnosis, Assessment Plan Problem List/A P: 1. Encephalopathy 2. Cerebral infarction involving left middle cerebral artery Free Text A P: Mr. Patel is a 54 y.o. man with past medical history as detailed admitted to [facility] with necrotizing fasciitis. The findings from the patient's neurological examination are detailed above. His laboratory data and other diagnostic studies were reviewed and are documented above. Neurological: A complete stroke evaluation will be performed as follows- 1. Lipid panel, hemoglobin [id number] see below. 2. MRI of the brain without contrast-Subacute ischemic stroke in the left parietal lobe adjacent to the left lateral ventricle. 3. Echocardiogram-Normal left ventricular systolic function with an ejection fraction of 60-64%, mild left ventricular hypertrophy, dilated left atrium. 4. CTA of the brain and neck with contrast-No hemodynamically significant stenosis(es) of the intracranial or extracranial blood vessels. 5. Continue treatment with Aspirin 81 mg by mouth daily for stroke prophylaxis. 6. The patient's blood pressures may be gradually normalized with a goal blood pressure of less than 140/90 mmHg. Continue treatment with the current antihypertensive medication(s). Monitor vital signs per unit protocol and add/ adjust antihypertensive medication(s) to achieve the patient's goal blood pressure. 7. The patient's goal total cholesterol is less than 200 with a LDL of less than 70. The patient's total cholesterol was 114 with a LDL of 52. Treatment with atorvastatin 40 mg by mouth at bedtime daily was prescribed to the patient. 8. The patient's goal hemoglobin A1C is less than 7.0. The patient's hemoglobin A1C was 11.2. Tight glycemic control is recommended while the patient is hospitalized. Continue treatment with Lantus/Semglee 10 units subcutaneously at bedtime daily and SSI per protocol. 9. PT, OT, and ST as recommended. 10. Tobacco cessation counseling was provided to the patient. at 1819 RPT #:[id number] END OF REPORT [facility] 2024-07-31 15:09:00 [facility] ([facility]) Infectious Dis. Progress Note REPORT#:[id number] REPORT STATUS: Signed REPORT INITIALIZATION DATE:07/31/24 TIME: 150 PATIENT: CAROLNYN PATEL UNIT #: [id number] ROOM/BED: 2045-A : 70 AGE: 54 SEX: M ATTEND: Inga Johns MD ADM AUTHOR: Marce Kiser MD REPT SERVICE DT/TIME: 07/31/24 1509 * ALL edits or amendments must be made on the electronic/computer document * Subjective Chief complaint: Bacteremia Staphylococcus aureus present on admission MSSA bacteremia right lower extremity painPt seen and examined,is confused,lethargic ,not following commands.Was febrile ,hypotensive and tachycardic .Was to have KALYAN yesterday ,cancelled since unable to be scheduled and unable to get consent. Review of Systems Constitutional: fatigue. Objective General VS/I O: Vital Signs Date Temp Pulse Resp B/P B/P Mean Pulse Ox FiO2 07/30-07/31 97.2-98.4 64-121 16-19 100-131/63-82 75.4-98.2 92-100 Last Documented: Result Date Time Pulse Ox 96 07/31 1115 B/P 111/72 07/31 1115 B/P Mean 84.8 07/31 1115 Temp 98.2 07/31 1115 Pulse 72 07/31 1115 Resp 16 07/31 1115 O2 Flow Rate 2 07/31 1003 O2 Delivery Nasal cannula 07/30 1930 FiO2 32 07/28 0847 Vital Signs: Date Time Temp Pulse Resp B/P B/P Pulse O2 O2 Flow FiO2 Mean Ox Delivery Rate 07/31 1115 98.2 72 16 111/72 84.8 96 07/31 1003 2 07/31 0744 97.5 71 16 104/67 79.2 92 07/31 0524 97.9 77 16 100/63 75.4 96 07/30 2311 98.4 121 16 116/75 88.5 95 07/30 2006 97.2 65 19 131/82 98.2 100 07/30 1930 Nasal 2 cannula 07/30 1558 97.9 64 18 122/78 92.9 100 24 hour I O ending at 0700: 07/31 0700 07/30 1900 Intake Total Output Total 800 Balance -800 Output, Urine 800 PATIENT WEIGHT: Weight (lb): 140 Weight (oz): 4.69 Weight (kg): 63.636 Medications: Active Meds + DC'd Last 24 Hrs Aspirin (ECOTRIN) 81 MG DAILY PO Iopamidol (ISOVUE-370) 0 .STK-MED ONE .ROUTE (DC) Iopamidol (ISOVUE-370) 0 .STK-MED ONE .ROUTE (DC) Iopamidol (ISOVUE-370) 100 ML ONCE PRN IV Sodium Chloride (SODIUM CHLORIDE PF 10 ML FLUSH) 10 ML ASDIR PRN IV Aspirin (ECOTRIN) 325 MG DAILY PO (DC) Atorvastatin Calcium (LIPITOR 40MG TAB) 40 MG BEDTIME PO Perflutren Lipid Microsphere (DEFINITY) 1.1 ML PROCEDURE IV (CKD) Acetaminophen (ACETAMINOPHEN) 650 MG Q6H PRN PRN RECTAL Sodium Chloride (SODIUM CHLORIDE 0.9%) 1,000 ML .[id number] IV Acetaminophen (TYLENOL) 650 MG Q6H PRN PRN PO Furosemide (LASIX 20MG Inj) 20 MG Q12HR IV Albuterol Sulfate (ALBUTEROL SULFATE) 1.25 MG RTQ4H PRN PRN INH Diphenhydramine HCl (diphenhydrAMINE HCL) 12.5 MG Q4H PRN PRN IV Naloxone HCl (NARCAN) 0.1 MG Q2M PRN PRN IV Ondansetron HCl (ondansetron HCL) 4 MG Q6H PRN PRN IV Nicotine (HABITROL 21MG PATCH) 21 MG DAILY PRN PRN TRANSDERM (CKD) Carvedilol (COREG 3.125MG TAB) 3.125 MG BID PO Insulin Glargine (Lantus/Semglee) 10 UNIT BEDTIME SUBQ Cefazolin Sodium (Cefazolin Sodium) 2 GM Q8H IV Sodium Chloride (SODIUM CHLORIDE 0.9%) 100 ML Famotidine (PEPCID TAB) 20 MG BID AC PO Enoxaparin Sodium (LOVENOX 40MG SYRINGE) 40 MG 1700 SUBQ Tramadol HCl (ULTRAM) 50 MG Q4H PRN PRN PO Thiamine HCl (THIAMINE HCL) 100 MG DAILY PO Calcium Carbonate (TUMS 500MG) 1,000 MG Q6H PRN PRN PO Docusate Sodium (COLACE 100 MG CAPSULE) 100 MG BID PRN PRN PO Guaifenesin (guaiFENesin) 200 MG Q6H PRN PRN PO Insulin Human Lispro (Admelog) S/SCALE MED AC HS SUBQ Melatonin (MELATONIN) 6 MG BEDTIME PRN PRN PO Simethicone (SIMETHICONE) 80 MG Q6H PRN PRN PO Dextrose/Water (DEXTROSE 50%-WATER) 50 ML ASDIR PRN IV (CKD) Physical Exam General appearance: altered mental status Wound/incision: Location: Right foot dressing Site condition: dressing clean dry Head/Eyes: atraumatic ENT: moist mucosal membranes, normal dentition, normal nose Neck: full range of motion, non-tender, normal thyroid Cardiovascular: normal heart sounds, regular rate rhythm Respiratory: clear to auscultation, aerating well Extremities: moves all, normal capillary refill Musculoskeletal: normal inspection Psychiatry: normal affect Diagnosis, Assessment Plan Free Text A P: Sepsis on admission MSSA bacteremia present on admission Wound with Morganella morganii Necrotizing soft tissue infection Wound with morgenella IMPRESSION: The abdomen and pelvis are within normal limits. There are tiny bilateral pleural effusions with subsegmental atelectasis in the underlying lung bases. Will need long-term IV antibiotic at least 8 weeks End therapy 09/11 blood cultures negative s/p BKA 07/20 at 1510 RPT #:[id number] END OF REPORT [facility] 2024-07-30 23:55:00 [facility] ([facility]) Hospitalist Progress Note REPORT#:[id number] REPORT STATUS: Signed REPORT INITIALIZATION DATE:07/30/24 TIME: 2354 PATIENT: CAROLYNN PATEL UNIT #: [id number] ROOM/BED: [facility] : 70 AGE: 54 SEX: M ATTEND: Inga Johns MD ADM AUTHOR: Inga Johns MD REPT SERVICE DT/TIME: 07/30/242354 * ALL edits or amendments must be made on the electronic/computer document * Subjective Chief complaint: Pt seen and examined,is awake ,alert ,reports pain in R LE .Has dyarthria , slurred speech.Was febrile ,hypotensive and tachycardic .Was to have KALYAN ,cancelled since unable to be scheduled and unable to get consent. Patient reports: Yes: complaints, pain (R LE), pain controlled. Nursing reports: Yes: complaints (slurred speech,dysarthric), pain (R LE), pain controlled. Review of Systems Constitutional: Reports: generalized weakness, lethargy, malaise. Musculoskeletal: Reports: extremity pain (R LE). All systems rev neg: except as noted Objective General VS/I O: Vital Signs: Date Time Temp Pulse Resp B/P B/P Pulse O2 O2 Flow FiO2 Mean Ox Delivery Rate 07/30 2311 98.4 121 16 116/75 88.5 95 07/30 2005 97.2 65 19 131/82 98.2 100 07/30 1930 Nasal 2 cannula 07/30 1558 97.9 64 18 122/78 92.9 100 07/30 1143 97.5 62 16 126/76 92.7 100 07/30 0746 97.5 59 17 123/82 95.6 100 07/30 0354 97.3 61 17 112/72 85.3 97 24 hour I O ending at 0700: 07/30 0700 07/29 1900 Intake Total Output Total 700 Balance -700 Output, Urine 700 Patient 63.636 kg Weight Weight Estimated Measurement Method PATIENT WEIGHT: Weight (lb): 140 Weight (oz): 4.69 Weight (kg): 63.636 Medications: Active Meds + DC'd Last 24 Hrs Aspirin (ECOTRIN) 81 MG DAILY PO Iopamidol (ISOVUE-370) 0 .STK-MED ONE .ROUTE (DC) Iopamidol (ISOVUE-370) 0 .STK-MED ONE .ROUTE (DC) Iopamidol (ISOVUE-370) 100 ML ONCE PRN IV Sodium Chloride (SODIUM CHLORIDE PF 10 ML FLUSH) 10 ML ASDIR PRN IV Aspirin (ECOTRIN) 325 MG DAILY PO (DC) Potassium Chloride/Water (POTASSIUM CHLORIDE) 100 ML Q2H IV (DC) Atorvastatin Calcium (LIPITOR 40MG TAB) 40 MG BEDTIME PO Perflutren Lipid Microsphere (DEFINITY) 1.1 ML PROCEDURE IV (CKD) Acetaminophen (ACETAMINOPHEN) 650 MG Q6H PRN PRN RECTAL Sodium Chloride (SODIUM CHLORIDE 0.9%) 1,000 ML .[id number] IV Acetaminophen (TYLENOL) 650 MG Q6H PRN PRN PO Furosemide (LASIX 20MG Inj) 20 MG Q12HR IV Albuterol Sulfate (ALBUTEROL SULFATE) 1.25 MG RTQ4H PRN PRN INH Diphenhydramine HCl (diphenhydrAMINE HCL) 12.5 MG Q4H PRN PRN IV Naloxone HCl (NARCAN) 0.1 MG Q2M PRN PRN IV Ondansetron HCl (ondansetron HCL) 4 MG Q6H PRN PRN IV Nicotine (HABITROL 21MG PATCH) 21 MG DAILY PRN PRN TRANSDERM (CKD) Carvedilol (COREG 3.125MG TAB) 3.125 MG BID PO Insulin Glargine (Lantus/Semglee) 10 UNIT BEDTIME SUBQ Cefazolin Sodium (Cefazolin Sodium) 2 GM Q8H IV Sodium Chloride (SODIUM CHLORIDE 0.9%) 100 ML Famotidine (PEPCID TAB) 20 MG BID AC PO Enoxaparin Sodium (LOVENOX 40MG SYRINGE) 40 MG 1700 SUBQ Tramadol HCl (ULTRAM) 50 MG Q4H PRN PRN PO Thiamine HCl (THIAMINE HCL) 100 MG DAILY PO Calcium Carbonate (TUMS 500MG) 1,000 MG Q6H PRN PRN PO Docusate Sodium (COLACE 100 MG CAPSULE) 100 MG BID PRN PRN PO Guaifenesin (guaiFENesin) 200 MG Q6H PRN PRN PO Insulin Human Lispro (Admelog) S/SCALE MED AC HS SUBQ Melatonin (MELATONIN) 6 MG BEDTIME PRN PRN PO Simethicone (SIMETHICONE) 80 MG Q6H PRN PRN PO Dextrose/Water (DEXTROSE 50%-WATER) 50 ML ASDIR PRN IV (CKD) Physical Exam General appearance: alert, awake, oriented Head/Eyes: atraumatic, normal conjunctiva/sclera, normocephalic, PERRL ENT: moist mucosal membranes, normal ear left, normal ear right, normal nose Neck: supple/no meningismus, no masses or swelling Cardiovascular: normal capillary refill, normal heart sounds, regular rate rhythm Respiratory: decreased breath sounds, hypoxia, on oxygen, symmetric expansion, no distress Abdomen: normal bowel sounds, soft, no distention Genitourinary: no bladder distention, no flank pain, no urinary catheter Extremities: edema, moves all, right BKA Musculoskeletal: decreased ROM (R BKA) Neuro/ADDICTION COUNSELOR: abnormal speech (Slurred,dysarthric), alert, oriented X 3, CNII-XII intact, no motor deficits, no sensory deficits Skin: dry, intact Psychiatry: abnl judgment/insight, normal affect, normal mood Results Findings/Data: Laboratory Tests 07/30 1600 1142 0747 Chemistry POC Glucose (74 - 106 mg/dL) 177 H 166 H 120 H 173 H 185 H 07/30 07/30 0359 0359 Chemistry Sodium (136 - 145 mmol/L) 140 Potassium (3.5 - 5.1 mmol/L) 3.1 L Chloride (98 - 107 mmol/L) 98.0 Carbon Dioxide (21 - 32 mmol/L) 36.0 H Anion Gap (10 - 20 mmol/L) 9.1 L BUN (7 - 18 mg/dL) 19 H Creatinine (0.7 - 1.3 mg/dL) 0.50 L Glomerular Filtr Rate (>=60 mL/min) > 60 BUN/Creatinine Ratio (10 - 20) 35.2 H Glucose (74 - 106 mg/dL) 168 H Calcium (8.5 - 10.1 mg/dL) 7.8 L Total Bilirubin (0.0 - 1.0 mg/dL) 0.30 AST (15 - 37 IUnit/L) 25 ALT (12 - 78 IUnit/L) 11 L Total Alk Phosphatase (45 - 117 IUnit/L) 112 Total Protein (6.4 - 8.2 gram/dL) 5.1 L Albumin (3.4 - 5.0 g/dL) 1.5 L Globulin (2.7 - 4.2 gram/dL) 3.6 Albumin/Globulin Ratio (0.75 - 1.50) 0.4 L Triglycerides (20 - 150 mg/dL) 307 H Cholesterol (0 - 200 mg/dL) 114 LDL Cholesterol Measurd (0 - 99 mg/dL) 52 HDL Cholesterol (40 - 60 mg/dL) 6 L Cholesterol/HDL Ratio (0 - 4.9 RATIO) 19.0 H Laboratory Tests 07/30 0358 Hematology WBC (4.5 - 12.5 K/mm3) 7.6 RBC (4.0 - 5.8 mill/mm3) 2.83 L Hgb (13.0 - 17.5 gram/dL) 8.1 L Hct (42.0 - 52.0 %) 25.5 L MCV (80 - 98 fL) 90.1 MCH (27.0 - 33.0 picogram) 28.6 MCHC (33.0 - 36.0 gram/dL) 31.8 L RDW (11.6 - 16.2 %) 16.2 RDW Std Deviation (37.0 - 51.0 fL) 53.9 H Plt Count (150 - 450 K/mm3) 178 MPV (6.7 - 11.0 fL) 10.6 Neut % (Auto) (39.0 - 69.0 %) 39.9 Lymph % (Auto) (25.0 - 55.0 %) 46.4 Kershaw % (Auto) (0.0 - 10.0 %) 10.6 H Eos % (Auto) (0.0 - 5.0 %) 1.7 Baso % (Auto) (0.0 - 1.0 %) 0.7 Neut # (Auto) (1.8 - 7.7 K/mm3) 3.04 Lymph # (Auto) (1.0 - 5.0 K/mm3) 3.53 Kershaw # (Auto) (0 - 0.8 K/mm3) 0.81 H Eos # (Auto) (0.0 - 0.5 K/mm3) 0.13 Baso # (Auto) (0.0 - 0.2 K/mm3) 0.05 Nucleated RBC % (0 - 0 %) 0.0 Nucleated RBCs # (Man) (0.0 - 0.1 K/mm3) 0.00 Radiology data: Recent Impressions: CAT SCAN - CTA NECK 07/30 1915 Report Impression - Status: SIGNED Entered: 07/30/2024 194 IMPRESSION: Patency of the intracranial vessels bilaterally without vascular abnormality. Patency of the extracranial vessels bilaterally without vascular abnormality. *NASCET criteria was used to calculate the degree of vessel stenosis, if present* Impression By: DR.DIWWA Karo Bashir M.D. CAT SCAN - CTA HEAD 07/30 1915 Report Impression - Status: SIGNED Entered: 07/30/2024 1950 IMPRESSION: Patency of the intracranial vessels bilaterally without vascular abnormality. Patency of the extracranial vessels bilaterally without vascular abnormality. *NASCET criteria was used to calculate the degree of vessel stenosis, if present* Impression By: DR.DIWWA Karo Bashir M.D. 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 -Patient started on IV cefazolin 2 g every 8 hours.Will need IV ancef for 8 weeks on dc. 2.Acute hypoxic respiratory failure -07/22: Possibly related to lethargy from MANUFACTURING INTERN pump, MANUFACTURING INTERN pump discontinued, started on IV Dilaudid and [place] p.o. -Obtain chest x-ray: No acute infiltrates, effusions or congestion -Sputum cultures -Incentive spirometery -Started on breathing treatments -Pulm consult: Severe hypoalbuminemia, recommends diuresis ,check urine protein level.Ordered,not sent out. -Started on Lasix 20 mg IV every 12 hours and reassess clinically 3.Sepsis secondary to necrotizing fasciitis -Present on admission, normal lactic acid, wbc elevated, Tachycardic -Blood cultures positive for Staphylococcus aureus -Wound with Morganella morganii continue with cefazolin every 8 hrs x 8 weeks from 07/16/24 per ID -IV antibiotics to be set up. -Pt spiking fevers ,hypotensive and tachycardic ,given IV fluid boluses. -CXR shows patchy new right mid lung infiltrate. 4.MSSA bacteremia -IV cefazolin 2g q8hrs x 8 weeks from 07/16/2024 per ID. -Cardiology consulted for KALYAN.Unable to be done since unable to be scheduled and unable to get consent. 5.Type II diabetes mellitus with hyperglycemia -Uncontrolled, Hgb A 1 C 11.2% -On insulin sliding scale and lantus 10u bedtime 6.Hypokalemia -Potassium 3.0, given 40meq oral KCL -Replace and monitor as needed. -Is 3.1 today,replaced. 7.Superficial thrombosis of cephalic vein in right upper extremity -DVT ruled out -Doppler US is negative for DVT, but showed superficial vein thrombosis noted in the right cephalic vein 8.Hypertension -Blood pressure 160s-170s systolic. -Started on Coreg 3.125 mg twice daily -Allow for permissive hypertension ,contorl BP for systolic greater than 190 and diastolic greater than 110.On prn hydralazine based on these parameters. 9.Tobacco use disorder -Nicotine patch prn 10.Leukocytosis -WBC count is 16 ,due to MSSA bacteremia . -On ancef ,ID following.Trend white count and vital signs .Improved. 11.Anemia of chronic disease -Monitor H and H ,transfuse if Hb is less than 7. 12.Acute metabolic enecephalopathy due to acute cerebrovascular accident -CT of the brain shows no acute intracranial hemorrhage. 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 There is an infarct in the left temporal lobe adjacent to the posterior horn of the left lateral ventricle which is age indeterminate. This can be better assessed with MRI. -MRI brain without contrast shows acute infarct involving the left temporal and occipital lobe.. -Started on ASA and statin.Monitor neurochecks. -CTA head and neck unremarkable. -2D echo ordered. -Allow for permissive hypertension ,contorl BP for systolic greater than 190 and diastolic greater than 110.On prn hydralazine based on these parameters. -PT/OT/ST consulted. -Neurology consulted. DVT Px :Lovenox 40mg daily Code status :Full code.No known next of kin information. 35 minutes spent in reviewing labs ,imaging and discussing plan of care with the patient. Dispo:Rehab eval ordered. Quality: Gen [facility] Crit Care VTE Prophylaxis VTE prophylaxis initiated: yes (Lovenox) Current Medications Current medication review: I attest that the foregoing medication list in the medical record is true, accurate, and complete to the best of my knowledge. Advanced Care Plan 65 or Older Discussed with: patient (full code) at 1345 RPT #:[id number] END OF REPORT [facility] 2024-07-30 23:06:00 [id number] [facility] PATIENT NAME: CAROLYNN PATEL ADMIT DATE: 07/13/24 ACCOUNT NO: [id number] ROOM NO: [id number] AGE: 54 REPORT TYPE: eECHOCARDIOGRAM REPORT SEX: M DATE OF : [birth year] ADMITTING PHYSICIAN:Elton Ramírez MD ATTENDING PHYSICIAN:Inga Johns MD *[facility]* [address], [place] [address] Transthoracic Echocardiogram Patient: Carolynn Patel Study Date: 07/30/2024 BP: 112 / 72 URN: [id number] Location: : 1970 Age: 54 Gender: M Height: 71 in / 180.3 cm Weight: 140 lb / 63.5 kg BMI/BSA: 19.5 kg/m 2 / 1.77 m 2 *Ordering Physician: * Sharon Tan *Interpreting Physician: * Tammy Mcdonnell MD *Flat Spring Assembler: * Rose Jhaveri Indications: Stroke. Study data: Transthoracic echocardiogram. Procedure: A transthoracic echocardiogram was performed. Image quality was adequate. Complete 2D, complete spectral Doppler, and color Doppler. Rhythm: Normal sinus rhythm. Findings Left ventricle: The cavity size is normal. Wall thickness is mildly increased. Systolic function is normal. The estimated ejection fraction is 60-64%. Left ventricular diastolic function parameters are normal. Right ventricle: The cavity size is normal. Systolic function is normal. Left atrium: The atrium is dilated. Right atrium: The atrium is normal in size. Aorta: PATIENT NAME: CAROLYNN PATEL Aortic root: The root is normal-sized. Aortic valve: The valve is structurally normal. The valve is trileaflet. There is no evidence of stenosis. There is no regurgitation. Mitral valve: The valve is structurally normal. There is no evidence of stenosis. There is mild regurgitation. Tricuspid valve: The valve is structurally normal. There is trivial regurgitation. RVSP is estimated at 25mmHg. Pulmonic valve: The valve is structurally normal. There is no regurgitation. Pericardium: There is no pericardial effusion. Systemic veins: Inferior vena cava: The IVC is normal-sized. Measurements Left ventricle Value Ref COLLIN, LAX 4.8 cm 4.2 - 5.8 ESD, LAX 3.2 cm 2.5 - 4.0 FS, LAX 34 % 25 - 43 IVS, ED 1.3 cm 0.6 - 1.0 PW, ED 1.3 cm 0.6 - 1.0 IVS/PW, ED 0.97 --------- EF 63 % 52 - 72 E', lat amilcar, TDI 13.8 cm/sec >=10.0 E/e', lat amilcar, TDI 6 <=13 E', med amilcar, TDI 7.5 cm/sec >=7.0 E/e', med amilcar, TDI 11 --------- E', avg, TDI 10.7 cm/sec --------- E/e', avg, TDI 7 <=14 LVOT Value Ref Diam, S 2.18 cm --------- Area 3.7 cm 2 --------- Peak taco, S 1 m/sec --------- Mean taco, S 0.69 m/sec --------- VTI, S 20.8 cm --------- Peak grad, S 4 mm Hg --------- Mean grad, S 2 mm Hg --------- SV 77 ml --------- Qs 4.74 L/min --------- Qs/bsa 2.7 L/(min-m 2) --------- SV/bsa 44 ml/m 2 --------- Right ventricle Value Ref COLLIN, LAX 3.6 cm --------- Left atrium Value Ref AP dim, ES 4.4 cm 3.0 - 4.0 AP dim, ES MM 3.7 cm 3.0 - 4.0 LA/Ao root ratio, MM 1.27 --------- Aortic valve Value Ref Leaflet sep, MM 1.99 cm --------- Peak v, S 1.5 m/sec --------- PATIENT NAME: CAROLYNN PATEL Mean v, S 0.92 m/sec --------- VTI, S 28.1 cm --------- Mean grad, S 4 mm Hg --------- Peak grad, S 9.3 mm Hg --------- LVOT/AV, VTI ratio 0.74 --------- EDNA, VTI 2.75 cm 2 --------- LVOT/AV, Vpeak ratio 0.66 --------- EDNA, Vmax 2.45 cm 2 --------- Mitral valve Value Ref E-septal separation 1.2 cm --------- E-F slope 0.08 m/sec --------- Peak E 0.8 m/sec --------- Peak A 0.63 m/sec --------- Decel time 184 ms --------- Peak grad, D 2.5 mm Hg --------- Peak E/A ratio 1.27 --------- Tricuspid valve Value Ref TR peak v 2.5 m/sec <=2.8 Peak RV-RA grad, S 25 mm Hg --------- Aortic root Value Ref Root diam, ED MM 2.9 cm --------- Ascending aorta Value Ref AAo AP diam, S 3.1 cm --------- Inferior vena cava Value Ref Diam 2.6 cm <=2.1 Conclusions Summary: 1. Left ventricle: The cavity size is normal. Wall thickness is mildly increased. Systolic function is normal. The estimated ejection fraction is 60-64%. Left ventricular diastolic function parameters are normal. 2. Left atrium: The atrium is dilated. 3. Mitral valve: There is mild regurgitation. 4. Tricuspid valve: There is trivial regurgitation. RVSP is estimated at 25mmHg. Electronically signed by Tammy Mcdonnell MD 07/30/2024 23:06 at 2306 PATIENT NAME: CAROLYNN PATEL [facility] 2024-07-30 19:40:00 [facility] ([facility]) Neurology Consultation Note REPORT#:[id number] REPORT STATUS: Signed REPORT INITIALIZATION DATE:07/30/24 TIME: 1939 PATIENT: CAROLYNN PATEL UNIT #: [id number] ROOM/BED: [address] : [birth year] AGE: 54 SEX: M ATTEND: Inga Johns MD ADM AUTHOR: Romi Henriquez MD REPT SERVICE DT/TIME: 07/30/241939 * ALL edits or amendments must be made on the electronic/computer document * History of Present Illness HPI Reason for consult: Stroke Chief complaint: Necrotizing fasciitis of the right leg HPI: Mr. Patel is a 54 y.o. man with past medical history significant for diabetes mellitus type II admitted to [facility] on 07/13/2024 with necrotizing fasciitis of the right leg. The patient is encephalopathic, so the medical history is obtained from review of the electronic medical record. As indicated above, the patient was admitted to the hospital for necrotizing fasciitis of the right leg. During the hospitalization, Mr. Patel developed encephalopathy which reportedly worsened on 07/29/2024. A CT of the brain without contrast was obtained and revealed an age-indeterminate ischemic stroke in the left parietal lobe adjacent to the left lateral ventricle. A MRI of the brain without contrast was subsequently performed and confirmed the presence of a subacute ischemic stroke in the left parietal lobe adjacent to the left lateral ventricle. A neurological consultation is requested for recommendations for further evaluation and treatment of the patient's stroke. History - Adult longitudinal Past medical history: Reports: Diabetes mellitus. Additional medical history: Necrotizing fasciitis of the right leg Past surgical history: Reports: Amputation (Right [id number] amp.). Additional surgical history: Foot surgery Additional family history: No documented family medical history Alcohol use: Alcohol use (Quit drinking three weeks ago) Drug use: Denies recreational drugs Smoking status for patients 13 years old or older: Current every day smoker Other social history: Local resident Medications: Current Hospital Medications: Anti-Infective Agents Sig/John Start time Last Medication Dose Route Stop Time Status Admin Cefazolin Sodium 2 GM Q8H 07/16 1015 AC 07/30 (Cefazolin Sodium) IV 08/13 0216 1701 Sodium Chloride 100 ML (SODIUM CHLORIDE 0.9%) Antihistamine Drugs Sig/John Start time Last Medication Dose Route Stop Time Status Admin Diphenhydramine HCl 12.5 MG Q4H PRN PRN 07/20 1300 AC (diphenhydrAMINE HCL) IV 08/19 1259 Autonomic Drugs Sig/John Start time Last Medication Dose Route Stop Time Status Admin Albuterol Sulfate 1.25 MG RTQ4H PRN PRN 07/22 0930 AC 07/24 (ALBUTEROL SULFATE) INH 08/21 0929 2021 Nicotine 21 MG DAILY PRN PRN 07/19 0930 CKD 07/19 (HABITROL 21MG PATCH) TRANSDERM 08/18 0929 1246 Blood Formation,Coagulation Sig/John Start time Last Medication Dose Route Stop Time Status Admin Enoxaparin Sodium 40 MG 1700 07/14 1700 AC 07/30 (LOVENOX 40MG SUBQ 08/13 165 161 SYRINGE) Cardiovascular Drugs Sig/John Start time Last Medication Dose Route Stop Time Status Admin Atorvastatin Calcium 40 MG BEDTIME 07/29 2100 AC 07/29 (LIPITOR 40MG TAB) PO 08/28 Carvedilol 3.125 MG BID 07/18 170 AC 07/30 (COREG 3.125MG TAB) PO 08/17 1659 1613 Central Nervous System Agents Sig/John Start time Last Medication Dose Route Stop Time Status Admin Aspirin 325 MG DAILY 07/30 0900 AC 07/30 (ECOTRIN) PO 08/28 1629 0832 Aspirin 81 MG DAILY 07/29 1630 DC 07/29 (ECOTRIN) PO 08/28 1629 1714 Acetaminophen 650 MG Q6H PRN PRN 07/29 1215 AC 07/29 (ACETAMINOPHEN) RECTAL 08/28 1214 1218 Acetaminophen 650 MG Q6H PRN PRN 07/23 1645 AC 07/29 (TYLENOL) PO 08/22 1644 2139 Naloxone HCl 0.1 MG Q2M PRN PRN 07/20 1300 AC (NARCAN) IV 08/19 1259 Tramadol HCl 50 MG Q4H PRN PRN 07/14 1245 AC 07/25 (ULTRAM) PO 08/13 1244 0321 Diagnostic Agents Sig/John Start time Last Medication Dose Route Stop Time Status Admin Iopamidol 0 .STK-MED ONE 07/30 1914 DC (ISOVUE-370) .ROUTE Iopamidol 0 .STK-MED ONE 07/30 1905 DC (ISOVUE-370) .ROUTE Iopamidol 100 ML ONCE PRN 07/30 1745 AC 07/30 (ISOVUE-370) IV 07/31 1736 1915 Electrolytic, Caloric, And Luke Sig/John Start time Last Medication Dose Route Stop Time Status Admin Sodium Chloride 10 ML ASDIR PRN 07/30 1745 AC (SODIUM CHLORIDE PF IV 07/31 1736 10 ML FLUSH) Potassium Chloride/ 100 ML Q2H 07/30 0730 DC 07/30 Water IV 07/30 1129 1025 (POTASSIUM CHLORIDE) Sodium Chloride 1,000 ML .[id number] 07/28 0900 AC 07/30 (SODIUM CHLORIDE IV 08/27 0859 1219 0.9%) Furosemide 20 MG Q12HR 07/22 2100 AC 07/30 (LASIX 20MG Inj) IV 08/21 2058 0833 Calcium Carbonate 1,000 MG Q6H PRN PRN 07/13 2130 AC 07/14 (TUMS 500MG) PO 08/129 0832 Gastrointestinal Drugs Sig/John Start time Last Medication Dose Route Stop Time Status Admin Ondansetron HCl 4 MG Q6H PRN PRN 07/20 1300 AC (ondansetron HCL) IV 08/19 1259 Famotidine 20 MG BID AC 07/15 1200 AC 07/30 (PEPCID TAB) PO 08/14 1159 1613 Docusate Sodium 100 MG BID PRN PRN 07/13 2130 AC (COLACE 100 MG PO 08/12 2128 CAPSULE) Simethicone 80 MG Q6H PRN PRN 07/13 2130 AC (SIMETHICONE) PO 08/12 2128 Hormones And Synthetic Substit Sig/John Start time Last Medication Dose Route Stop Time Status Admin Insulin Glargine 10 UNIT BEDTIME 07/17 2100 AC 07/29 (Lantus/Semglee) SUBQ 08/16 Insulin Human Lispro See Dose AC HS 07/13 2130 AC 07/30 (Admelog) Insts (1) SUBQ 08/13 0729 1218 Miscellaneous Therapeutic Agen Sig/John Start time Last Medication Dose Route Stop Time Status Admin Perflutren Lipid 1.1 ML PROCEDURE 07/29 2029 CKD Microsphere IV 08/28 2028 (DEFINITY) Melatonin 6 MG BEDTIME PRN PRN 07/13 2130 AC (MELATONIN) PO 08/12 2128 Respiratory Tract Agents Sig/John Start time Last Medication Dose Route Stop Time Status Admin Guaifenesin 200 MG Q6H PRN PRN 07/13 2130 AC (guaiFENesin) PO 08/12 2128 Tpn Carrier Sig/John Start time Last Medication Dose Route Stop Time Status Admin Dextrose/Water 50 ML ASDIR PRN 07/13 184 CKD (DEXTROSE 50%-WATER) IV 08/12 184 Vitamins Sig/John Start time Last Medication Dose Route Stop Time Status Admin Thiamine HCl 100 MG DAILY 07/14 0900 AC 07/30 (THIAMINE HCL) PO 08/13 0859 0834 Dose Instructions: (1)Insulin Human Lispro (Admelog): S/SCALE MED Allergies: Coded Allergies: No Known Allergies (07/13/24) Review of Systems Unable to obtain due to: Secondary to the patient being encephalopathic Objective General VS: Last Documented: Result Date Time Pulse Ox 100 07/30 1558 B/P 122/78 07/30 1558 B/P Mean 92.9 07/30 1558 Temp 97.9 07/30 1558 Pulse 64 07/30 1558 Resp 18 07/30 1558 O2 Delivery Nasal cannula 07/29 2256 O2 Flow Rate 2.5 07/29 2256 FiO2 32 07/28 0847 PATIENT WEIGHT: Weight (lb): 140 Weight (oz): 4.69 Weight (kg): 63.636 Medications Active Meds + DC'd Last 24 Hrs Iopamidol (ISOVUE-370) 0 .STK-MED ONE .ROUTE (DC) Iopamidol (ISOVUE-370) 0 .STK-MED ONE .ROUTE (DC) Iopamidol (ISOVUE-370) 100 ML ONCE PRN IV Sodium Chloride (SODIUM CHLORIDE PF 10 ML FLUSH) 10 ML ASDIR PRN IV Aspirin (ECOTRIN) 325 MG DAILY PO Potassium Chloride/Water (POTASSIUM CHLORIDE) 100 ML Q2H IV (DC) Atorvastatin Calcium (LIPITOR 40MG TAB) 40 MG BEDTIME PO Perflutren Lipid Microsphere (DEFINITY) 1.1 ML PROCEDURE IV (CKD) Aspirin (ECOTRIN) 81 MG DAILY PO (DC) Acetaminophen (ACETAMINOPHEN) 650 MG Q6H PRN PRN RECTAL Sodium Chloride (SODIUM CHLORIDE 0.9%) 1,000 ML .[id number] IV Acetaminophen (TYLENOL) 650 MG Q6H PRN PRN PO Furosemide (LASIX 20MG Inj) 20 MG Q12HR IV Albuterol Sulfate (ALBUTEROL SULFATE) 1.25 MG RTQ4H PRN PRN INH Diphenhydramine HCl (diphenhydrAMINE HCL) 12.5 MG Q4H PRN PRN IV Naloxone HCl (NARCAN) 0.1 MG Q2M PRN PRN IV Ondansetron HCl (ondansetron HCL) 4 MG Q6H PRN PRN IV Nicotine (HABITROL 21MG PATCH) 21 MG DAILY PRN PRN TRANSDERM (CKD) Carvedilol (COREG 3.125MG TAB) 3.125 MG BID PO Insulin Glargine (Lantus/Semglee) 10 UNIT BEDTIME SUBQ Cefazolin Sodium (Cefazolin Sodium) 2 GM Q8H IV Sodium Chloride (SODIUM CHLORIDE 0.9%) 100 ML Famotidine (PEPCID TAB) 20 MG BID AC PO Enoxaparin Sodium (LOVENOX 40MG SYRINGE) 40 MG 1700 SUBQ Tramadol HCl (ULTRAM) 50 MG Q4H PRN PRN PO Thiamine HCl (THIAMINE HCL) 100 MG DAILY PO Calcium Carbonate (TUMS 500MG) 1,000 MG Q6H PRN PRN PO Docusate Sodium (COLACE 100 MG CAPSULE) 100 MG BID PRN PRN PO Guaifenesin (guaiFENesin) 200 MG Q6H PRN PRN PO Insulin Human Lispro (Admelog) S/SCALE MED AC HS SUBQ Melatonin (MELATONIN) 6 MG BEDTIME PRN PRN PO Simethicone (SIMETHICONE) 80 MG Q6H PRN PRN PO Dextrose/Water (DEXTROSE 50%-WATER) 50 ML ASDIR PRN IV (CKD) Physical Exam General appearance: altered mental status (Encephalopathic), alert, awake, no acute distress Head/Eyes: atraumatic, clear cornea, normal conjunctiva/sclera, normocephalic ENT: moist mucosal membranes Neck: full range of motion, non-tender, supple/no meningismus, no bruit / NL carotids, no masses or swelling Cardiovascular: regular rate and rhythm, normal heart sounds, no murmur Respiratory: aerating well, clear to auscultation, no distress Extremities: moves all, normal temperature, pulses present, no edema, Right [id number] amputation Musculoskeletal: full range of motion, normal inspection Skin: dry, intact, normal color, normal temperature, Healing incision of the right foreleg stump Speech Speech: normal Mental Status Orientation: Yes: to person. No: to time, to place, to situation. LOC: alert Mental status: normal Cognitive Function Cognitive function: poor recall Cranial Nerves Cranial nerves: Normal: II, III, IV, V, , VII, VIII, IX, X, XI, XII. Sensory Exam Sensory: Normal: pin prick, light touch. Motor Testing Motor testing 1: Normal: tone, strength. Abnormal: bulk (Diffusely diminished). Motor Testing 2: No asterixis, No dystonia, No fasciculation, No myoclonus, No tremor Upper strength detail: R bicep (5/5), L bicep (5/5), R tricep (5/5), L tricep (5 /5), R wrist extensor (5/5), L wrist extensor (5/5), R wrist flexor (5/5), L wrist flexor (5/5), R intrinsics hand (5/5), L intrinsics hand (5/5), R thenar ( 5/5), L thenar (5/5), No drift of either arm Lower strength detail: R illiopsoas (5/5), L illiopsoas (5/5), R quadriceps (5/5 ), L quadriceps (5/5), R hamstring (5/5), L hamstring (5/5), L gastroc (5/5), L anterior tib (5/5), L toe extensors (5/5), L toe flexors (5/5), No drift of either leg Cerebellar Test Cerebellar test: Normal R finger/nose/finger, Normal L finger/nose/finger, Normal L heel/knee/ odell Nystagmus: absent Reflexes Tendon reflexes: 1+: R Bicep, L Bicep, R Tricep, L Tricep, R brachioradialis, L brachioradialis, R Patella (Trace), L Patella (Trace), L achilles (Trace). Plantar reflexes: Down: Left. Gait Gait: Deferred Results Findings/Data: Laboratory Tests 07/30 07/30 07/30 07/30 07/30 1600 1142 0747 0359 0359 Chemistry Sodium (136 - 145 mmol/L) 140 Potassium (3.5 - 5.1 mmol/L) 3.1 L Chloride (98 - 107 mmol/L) 98.0 Carbon Dioxide (21 - 32 mmol/L) 36.0 H Anion Gap (10 - 20 mmol/L) 9.1 L BUN (7 - 18 mg/dL) 19 H Creatinine (0.7 - 1.3 mg/dL) 0.50 L Glomerular Filtr Rate (>=60 mL/min) > 60 BUN/Creatinine Ratio (10 - 20) 35.2 H Glucose (74 - 106 mg/dL) 168 H POC Glucose (74 - 106 mg/dL) 120 H 173 H 185 H Calcium (8.5 - 10.1 mg/dL) 7.8 L Total Bilirubin (0.0 - 1.0 mg/dL) 0.30 AST (15 - 37 IUnit/L) 25 ALT (12 - 78 IUnit/L) 11 L Total Alk Phosphatase (45 - 117 IUnit/L) 112 Total Protein (6.4 - 8.2 gram/dL) 5.1 L Albumin (3.4 - 5.0 g/dL) 1.5 L Globulin (2.7 - 4.2 gram/dL) 3.6 Albumin/Globulin Ratio (0.75 - 1.50) 0.4 L Triglycerides (20 - 150 mg/dL) 307 H Cholesterol (0 - 200 mg/dL) 114 LDL Cholesterol Measurd (0 - 99 mg/dL) 52 HDL Cholesterol (40 - 60 mg/dL) 6 L Cholesterol/HDL Ratio (0 - 4.9 RATIO) 19.0 H 07/29 2110 Chemistry POC Glucose (74 - 106 mg/dL) 148 H Laboratory Tests 07/30 0358 Hematology WBC (4.5 - 12.5 K/mm3) 7.6 RBC (4.0 - 5.8 mill/mm3) 2.83 L Hgb (13.0 - 17.5 gram/dL) 8.1 L Hct (42.0 - 52.0 %) 25.5 L MCV (80 - 98 fL) 90.1 MCH (27.0 - 33.0 picogram) 28.6 MCHC (33.0 - 36.0 gram/dL) 31.8 L RDW (11.6 - 16.2 %) 16.2 RDW Std Deviation (37.0 - 51.0 fL) 53.9 H Plt Count (150 - 450 K/mm3) 178 MPV (6.7 - 11.0 fL) 10.6 Neut % (Auto) (39.0 - 69.0 %) 39.9 Lymph % (Auto) (25.0 - 55.0 %) 46.4 Kershaw % (Auto) (0.0 - 10.0 %) 10.6 H Eos % (Auto) (0.0 - 5.0 %) 1.7 Baso % (Auto) (0.0 - 1.0 %) 0.7 Neut # (Auto) (1.8 - 7.7 K/mm3) 3.04 Lymph # (Auto) (1.0 - 5.0 K/mm3) 3.53 Kershaw # (Auto) (0 - 0.8 K/mm3) 0.81 H Eos # (Auto) (0.0 - 0.5 K/mm3) 0.13 Baso # (Auto) (0.0 - 0.2 K/mm3) 0.05 Nucleated RBC % (0 - 0 %) 0.0 Nucleated RBCs # (Man) (0.0 - 0.1 K/mm3) 0.00 Radiology Data: Recent Impressions: CAT SCAN - CTA NECK 07/30 1915 Report Impression - Status: SIGNED Entered: 07/30/2024 194 IMPRESSION: Patency of the intracranial vessels bilaterally without vascular abnormality. Patency of the extracranial vessels bilaterally without vascular abnormality. *NASCET criteria was used to calculate the degree of vessel stenosis, if present* Impression By: DR.DIWWA Karo Bashir M.D. CAT SCAN - CTA HEAD 07/30 1915 Report Impression - Status: SIGNED Entered: 07/30/2024 1950 IMPRESSION: Patency of the intracranial vessels bilaterally without vascular abnormality. Patency of the extracranial vessels bilaterally without vascular abnormality. *NASCET criteria was used to calculate the degree of vessel stenosis, if present* Impression By: DR.DIWWA Karo Bashir M.D. Results: labs reviewed, vital signs reviewed, vital signs stable, CT results reviewed, MRI results reviewed, current med profile rev'd, CTA brain, neck reviewed Scores - Neuro NIH Stroke Scale NIHSS applicable: Yes NIHSS NIHSS Response Value Level of consciousness: Alert and responsive (0) 0 Ask month age: 1 question right (1) 1 Blink eyes/squeeze hands: Performs 1 task (1) 1 Horizontal EOM: NL side/side eye mvmt (0) 0 Visual chan: No visual loss (0) 0 Facial palsy: Normal symmetry (0) 0 Right arm motor drift (10s) No drift 10 sec (0) 0 Left arm motor drift (10s) No drift 10 sec (0) 0 Right leg motor drift (5s) No drift 5 sec (0) 0 Left leg motor drift (5s) No drift 5 sec (0) 0 Limb ataxia FNF/Heel-Odell No ataxia (0) 0 Sensation (arms/legs/face): No sensory loss (0) 0 Language aphasia: No aphasia, normal (0) 0 Dysarthria: No dysarthria (0) 0 Extinction/inattention: No extinct/inattent (0) 0 Total 2 Diagnosis, Assessment Plan Problem List/A P: 1. Encephalopathy 2. Cerebral infarction involving left middle cerebral artery Free Text DxA P Notes: Mr. Patel is a 54 y.o. man with past medical history as detailed admitted to [facility] with necrotizing fasciitis. The findings from the patient's neurological examination are detailed above. His laboratory data and other diagnostic studies were reviewed and are documented above. Neurological: A complete stroke evaluation will be performed as follows- 1. Lipid panel, hemoglobin K3A-Jnatom see below. 2. MRI of the brain without contrast-Subacute ischemic stroke in the left parietal lobe adjacent to the left lateral ventricle. 3. Echocardiogram-Pending. 4. CTA of the brain and neck with contrast-No hemodynamically significant stenosis(es) of the intracranial or extracranial blood vessels. 5. Continue treatment with Aspirin 81 mg by mouth daily for stroke prophylaxis. 6. The patient's blood pressures may be gradually normalized with a goal blood pressure of less than 140/90 mmHg. Continue treatment with the current antihypertensive medication(s). Monitor vital signs per unit protocol and add/ adjust antihypertensive medication(s) to achieve the patient's goal blood pressure. 7. The patient's goal total cholesterol is less than 200 with a LDL of less than 70. The patient's total cholesterol was 114 with a LDL of 52. Treatment with atorvastatin 40 mg by mouth at bedtime daily was prescribed to the patient. 8. The patient's goal hemoglobin A1C is less than 7.0. The patient's hemoglobin A1C was 11.2. Tight glycemic control is recommended while the patient is hospitalized. Continue treatment with Lantus/Semglee 10 units subcutaneously at bedtime daily and SSI per protocol. 9. PT, OT, and ST as recommended. 10. Tobacco cessation counseling was provided to the patient. at 2005 RPT #:[id number] END OF REPORT [facility] 2024-07-30 14:11:00 [facility] ([facility]) Infectious Dis. Progress Note REPORT#:[id number] REPORT STATUS: Signed REPORT INITIALIZATION DATE:07/30/24 TIME: 1410 PATIENT: CAROLYNN PATEL UNIT #: [id number] ROOM/BED: [facility] : 70 AGE: 54 SEX: M ATTEND: Inga Johns MD ADM AUTHOR: Marce Kiser MD REPT SERVICE DT/TIME: 07/30/24 1411 * ALL edits or amendments must be made on the electronic/computer document * Subjective Chief complaint: Bacteremia Staphylococcus aureus present on admission MSSA bacteremia right lower extremity painPt seen and examined,is confused,lethargic ,not following commands.Was febrile ,hypotensive and tachycardic .Was to have KALYAN yesterday ,cancelled since unable to be scheduled and unable to get consent. Review of Systems Constitutional: fatigue. Objective General VS/I O: Vital Signs Date Temp Pulse Resp B/P B/P Mean Pulse Ox FiO2 07/29-07/30 97.3-98.2 56-75 16-20 94-126/61-82 71.8-95.6 94-100 Last Documented: Result Date Time Pulse Ox 100 07/30 1143 B/P 126/76 07/30 1143 B/P Mean 92.7 07/30 1143 Temp 97.5 07/30 1143 Pulse 62 07/30 1143 Resp 16 07/30 1143 O2 Delivery Nasal cannula 07/29 2256 O2 Flow Rate 2.5 07/29 2256 FiO2 32 07/28 0847 Vital Signs: Date Time Temp Pulse Resp B/P B/P Pulse O2 O2 Flow FiO2 Mean Ox Delivery Rate 07/30 1143 97.5 62 16 126/76 92.7 100 07/30 0746 97.5 59 17 123/82 95.6 100 07/30 0354 97.3 61 17 112/72 85.3 97 07/29 2353 97.5 57 16 108/72 84.1 99 07/29 2256 Nasal 2.5 cannula 07/29 2245 59 17 106/71 82.7 100 Nasal 2.50 cannula 07/29 2115 56 94/61 71.8 07/29 2023 97.7 72 17 104/70 81.3 100 07/29 1936 Nasal 4 cannula 07/29 1623 98.2 75 20 96/63 73.8 94 Nasal cannula 24 hour I O ending at 0700: 07/30 0700 07/29 1900 Intake Total Output Total 700 Balance -700 Output, Urine 700 Patient 63.636 kg Weight Weight Estimated Measurement Method PATIENT WEIGHT: Weight (lb): 140 Weight (oz): 4.69 Weight (kg): 63.636 Medications: Active Meds + DC'd Last 24 Hrs Aspirin (ECOTRIN) 325 MG DAILY PO Potassium Chloride/Water (POTASSIUM CHLORIDE) 100 ML Q2H IV (DC) Atorvastatin Calcium (LIPITOR 40MG TAB) 40 MG BEDTIME PO Perflutren Lipid Microsphere (DEFINITY) 1.1 ML PROCEDURE IV (CKD) Aspirin (ECOTRIN) 81 MG DAILY PO (DC) Acetaminophen (ACETAMINOPHEN) 650 MG Q6H PRN PRN RECTAL Sodium Chloride (SODIUM CHLORIDE 0.9%) 1,000 ML .[id number] IV Acetaminophen (TYLENOL) 650 MG Q6H PRN PRN PO Furosemide (LASIX 20MG Inj) 20 MG Q12HR IV Albuterol Sulfate (ALBUTEROL SULFATE) 1.25 MG RTQ4H PRN PRN INH Diphenhydramine HCl (diphenhydrAMINE HCL) 12.5 MG Q4H PRN PRN IV Naloxone HCl (NARCAN) 0.1 MG Q2M PRN PRN IV Ondansetron HCl (ondansetron HCL) 4 MG Q6H PRN PRN IV Nicotine (HABITROL 21MG PATCH) 21 MG DAILY PRN PRN TRANSDERM (CKD) Carvedilol (COREG 3.125MG TAB) 3.125 MG BID PO Insulin Glargine (Lantus/Semglee) 10 UNIT BEDTIME SUBQ Cefazolin Sodium (Cefazolin Sodium) 2 GM Q8H IV Sodium Chloride (SODIUM CHLORIDE 0.9%) 100 ML Famotidine (PEPCID TAB) 20 MG BID AC PO Enoxaparin Sodium (LOVENOX 40MG SYRINGE) 40 MG 1700 SUBQ Tramadol HCl (ULTRAM) 50 MG Q4H PRN PRN PO Thiamine HCl (THIAMINE HCL) 100 MG DAILY PO Calcium Carbonate (TUMS 500MG) 1,000 MG Q6H PRN PRN PO Docusate Sodium (COLACE 100 MG CAPSULE) 100 MG BID PRN PRN PO Guaifenesin (guaiFENesin) 200 MG Q6H PRN PRN PO Insulin Human Lispro (Admelog) S/SCALE MED AC HS SUBQ Melatonin (MELATONIN) 6 MG BEDTIME PRN PRN PO Simethicone (SIMETHICONE) 80 MG Q6H PRN PRN PO Dextrose/Water (DEXTROSE 50%-WATER) 50 ML ASDIR PRN IV (CKD) Physical Exam General appearance: alert, awake Wound/incision: Location: Right foot dressing Site condition: dressing clean dry Head/Eyes: atraumatic ENT: moist mucosal membranes, normal dentition, normal nose Neck: full range of motion, non-tender, normal thyroid Cardiovascular: normal heart sounds, regular rate rhythm Respiratory: clear to auscultation, aerating well Extremities: moves all, normal capillary refill Musculoskeletal: normal inspection Psychiatry: normal affect Diagnosis, Assessment Plan Free Text A P: Sepsis on admission MSSA bacteremia present on admission Wound with Morganella morganii Necrotizing soft tissue infection Wound with morgenella IMPRESSION: The abdomen and pelvis are within normal limits. There are tiny bilateral pleural effusions with subsegmental atelectasis in the underlying lung bases. Will need long-term IV antibiotic at least 8 weeks End therapy 09/11 blood cultures negative 24 hours Obtain KALYAN -pending report s/p BK 07/20 at 1616 RPT #:[id number] END OF REPORT [facility] 2024-07-30 12:27:00 [facility] ([facility]) Pulmonology Progress Note REPORT#:[id number] REPORT STATUS: Signed REPORT INITIALIZATION DATE:07/30/24 TIME: 1226 PATIENT: CAROLYNN PATEL UNIT #: [id number] ROOM/BED: [address] : 70 AGE: 54 SEX: M ATTEND: Inga Johns MD ADM AUTHOR: Ayanna Pack MD REPT SERVICE DT/TIME: 07/30/24 1227 * ALL edits or amendments must be made on the electronic/computer document * Subjective Chief complaint: dyspnea HPI: feels better no CP no cough no fever no dyspnea on 2LPm NC Comments: Patient is not in any distress Objective Physical Exam Head/eyes: atraumatic, normocephalic, PERRLA Neck: full range of motion, non-tender, no JVD Cardiovascular: normal heart sounds, normal S1/S2, no murmur Respiratory/chest: aerating well, clear to auscultation, symmetric expansion Abdomen: soft, non-tender, no guarding Extremities: moves all, normal capillary refill, no clubbing, no cyanosis Skin: dry, intact, normal turgor Diagnosis, Assessment Plan Free Text A P: Acute hypoxic resp failure bindu pleural effusion bibasilar atelectasis Nec fasciitis of RLE MSSA bacteremia DM-2 HTN Hypoalbumenimia Plan: improving O2 requirement. wean off. currently on 2LPM NC. pulm toileting airway clerance therapy work up for severe hypoalbuminemia per primary team avoid sedatives. wean Fio2 down. repeat CXR for interval change fllow up low BNP unliukely cardiac related. DVT proph 07/26/2024 Oxygen requirement is going down, breathing is stable, chest x-ray reviewed no pleural effusion. 07/28/2024 Blood cultures positive, KALYAN is planned, respiratory status remains stable 07/30/2024 Overall remains stable, breathing remains stable no distress at 1646 RPT #:[id number] END OF REPORT [facility] 2024-07-29 23:55:00 [facility] ([facility]) Hospitalist Progress Note REPORT#:[id number] REPORT STATUS: Signed REPORT INITIALIZATION DATE:07/29/24 TIME: 2354 PATIENT: CAROLYNN PATEL UNIT #: [id number] ROOM/BED: [address] : 70 AGE: 54 SEX: M ATTEND: Inga Johns MD ADM AUTHOR: Inga Johns MD REPT SERVICE DT/TIME: 07/29/24 410 * ALL edits or amendments must be made on the electronic/computer document * Subjective Chief complaint: Pt seen and examined,is confused,lethargic ,not following commands.Was febrile , hypotensive and tachycardic .Was to have KALYAN yesterday ,cancelled since unable to be scheduled and unable to get consent. Nursing reports: Yes: complaints (tachycardia,hypotension), confused (lethargic,not following cmnds), fever. Unable to obtain: medical condition (confused,lethargic), patient condition Review of Systems Unable to obtain due to: pt confused,lethargic Objective General VS/I O: Vital Signs: Date Time Temp Pulse Resp B/P B/P Pulse O2 O2 Flow FiO2 Mean Ox Delivery Rate 07/29 2353 97.5 57 16 108/72 84.1 99 07/29 2256 Nasal 2.5 cannula 07/29 2245 59 17 106/71 82.7 100 Nasal 2.50 cannula 07/29 2115 56 94/61 71.8 07/29 2023 97.7 72 17 104/70 81.3 100 07/29 1936 Nasal 4 cannula 07/29 1623 98.2 75 20 96/63 73.8 94 Nasal cannula 07/29 1314 101.1 115 24 93/61 71.5 98 Nasal cannula 07/29 1119 102.9 118 28 96/57 69.7 92 Nasal cannula 07/29 0843 97 Nasal 2 cannula 07/29 0823 97.5 90 18 153/95 114.4 95 Room air 07/29 0800 Nasal 3 cannula 07/29 0330 97.9 78 17 124/73 89.6 96 07/29 0010 97.7 82 17 104/70 81.0 92 24 hour I O ending at 0700: 07/29 0700 07/28 1900 Intake Total 600.00 Output Total 300 Balance 300.00 Intake, IV 600.00 Number 2 Incontinent Voids Output, Urine 300 PATIENT WEIGHT: Weight (lb): 140 Weight (oz): 4.69 Weight (kg): 63.636 Medications: Active Meds + DC'd Last 24 Hrs Aspirin (ECOTRIN) 325 MG DAILY PO Atorvastatin Calcium (LIPITOR 40MG TAB) 40 MG BEDTIME PO Perflutren Lipid Microsphere (DEFINITY) 1.1 ML PROCEDURE IV (CKD) Aspirin (ECOTRIN) 81 MG DAILY PO (DC) Acetaminophen (ACETAMINOPHEN) 650 MG Q6H PRN PRN RECTAL Sodium Chloride (SODIUM CHLORIDE 0.9%) 1,000 ML .[id number] IV Acetaminophen (TYLENOL) 650 MG Q6H PRN PRN PO Furosemide (LASIX 20MG Inj) 20 MG Q12HR IV Albuterol Sulfate (ALBUTEROL SULFATE) 1.25 MG RTQ4H PRN PRN INH Diphenhydramine HCl (diphenhydrAMINE HCL) 12.5 MG Q4H PRN PRN IV Naloxone HCl (NARCAN) 0.1 MG Q2M PRN PRN IV Ondansetron HCl (ondansetron HCL) 4 MG Q6H PRN PRN IV Nicotine (HABITROL 21MG PATCH) 21 MG DAILY PRN PRN TRANSDERM (CKD) Carvedilol (COREG 3.125MG TAB) 3.125 MG BID PO Insulin Glargine (Lantus/Semglee) 10 UNIT BEDTIME SUBQ Cefazolin Sodium (Cefazolin Sodium) 2 GM Q8H IV Sodium Chloride (SODIUM CHLORIDE 0.9%) 100 ML Famotidine (PEPCID TAB) 20 MG BID AC PO Enoxaparin Sodium (LOVENOX 40MG SYRINGE) 40 MG 1700 SUBQ Tramadol HCl (ULTRAM) 50 MG Q4H PRN PRN PO Thiamine HCl (THIAMINE HCL) 100 MG DAILY PO Calcium Carbonate (TUMS 500MG) 1,000 MG Q6H PRN PRN PO Docusate Sodium (COLACE 100 MG CAPSULE) 100 MG BID PRN PRN PO Guaifenesin (guaiFENesin) 200 MG Q6H PRN PRN PO Insulin Human Lispro (Admelog) S/SCALE MED AC HS SUBQ Melatonin (MELATONIN) 6 MG BEDTIME PRN PRN PO Simethicone (SIMETHICONE) 80 MG Q6H PRN PRN PO Dextrose/Water (DEXTROSE 50%-WATER) 50 ML ASDIR PRN IV (CKD) Physical Exam General appearance: confused, lethargic Head/Eyes: atraumatic, normal conjunctiva/sclera, normocephalic, PERRL ENT: moist mucosal membranes, normal ear left, normal ear right, normal nose Neck: supple/no meningismus, no masses or swelling Cardiovascular: normal capillary refill, normal heart sounds, regular rate rhythm Respiratory: decreased breath sounds, hypoxia, on oxygen, symmetric expansion, no distress Abdomen: normal bowel sounds, soft, no distention Genitourinary: no bladder distention, no flank pain, no urinary catheter Extremities: edema, moves all, right BKA Musculoskeletal: decreased ROM (R BKA) Neuro/ADDICTION COUNSELOR: disoriented Skin: dry, intact Psychiatry: abnl judgment/insight Results Findings/Data: Laboratory Tests 07/29 1623 1118 0822 Chemistry POC Glucose (74 - 106 mg/dL) 148 H 244 H 164 H 162 H Radiology data: Recent Impressions: CAT SCAN - CT HEAD/BRAIN W/O CONT 07/29 1150 Report Impression - Status: SIGNED Entered: 07/29/2024 1209 IMPRESSION: No acute intracranial hemorrhage. 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 There is an infarct in the left temporal lobe adjacent to the posterior horn of the left lateral ventricle which is age indeterminate. This can be better assessed with MRI. Findings were reported by telephone at 12:05 PM July 29, [address] Johns. [facility] Impression By: [email or web address] - Bertrand Conklin MD [facility] - MRI BRAIN W/O CONTRAST 07/295 Report Impression - Status: SIGNED Entered: 07/29/20242027 IMPRESSION: Acute infarct involving the left temporal and occipital lobe. Significant findings were verbally relayed to Dr. Tan on 07/29/2024 8:24 PM. Impression By: [email or web address] Karo Bashir M.D. 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 -Patient started on IV cefazolin 2 g every 8 hours.Will need IV ancef for 8 weeks on dc. 2.Acute hypoxic respiratory failure -07/22: Possibly related to lethargy from MANUFACTURING INTERN pump, MANUFACTURING INTERN pump discontinued, started on IV Dilaudid and [place] p.o. -Obtain chest x-ray: No acute infiltrates, effusions or congestion -Sputum cultures -Incentive spirometery -Started on breathing treatments -Pulm consult: Severe hypoalbuminemia, recommends diuresis ,check urine protein level.Ordered,not sent out. -Started on Lasix 20 mg IV every 12 hours and reassess clinically 3.Sepsis secondary to necrotizing fasciitis -Present on admission, normal lactic acid, wbc elevated, Tachycardic -Blood cultures positive for Staphylococcus aureus -Wound with Morganella morganii continue with cefazolin every 8 hrs x 8 weeks from 07/16/24 per ID -IV antibiotics to be set up. -Pt spiking fevers ,hypotensive and tachycardic ,given IV fluid boluses. -CXR shows patchy new right mid lung infiltrate. 4.MSSA bacteremia -IV cefazolin 2g q8hrs x 8 weeks from 07/16/2024 per ID. -Cardiology consulted for KALYAN.Unable to be done since unable to be scheduled and unable to get consent. 5.Type II diabetes mellitus with hyperglycemia -Uncontrolled, Hgb A 1 C 11.2% -On insulin sliding scale and lantus 10u bedtime 6.Hypokalemia -Potassium 3.0, given 40meq oral KCL -Replace and monitor as needed. -Is 2.8 today,replaced. 7.Superficial thrombosis of cephalic vein in right upper extremity -DVT ruled out -Doppler US is negative for DVT, but showed superficial vein thrombosis noted in the right cephalic vein 8.Hypertension -Blood pressure 160s-170s systolic. -Started on Coreg 3.125 mg twice daily 9.Tobacco use disorder -Nicotine patch prn 10.Leukocytosis -WBC count is 16 ,due to MSSA bacteremia . -On ancef ,ID following.Trend white count and vital signs .Improved. 11.Anemia of chronic disease -Monitor H and H ,transfuse if Hb is less than 7. 12.Acute metabolic enecephalopathy -CT of the brain shows no acute intracranial hemorrhage. 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 There is an infarct in the left temporal lobe adjacent to the posterior horn of the left lateral ventricle which is age indeterminate. This can be better assessed with MRI. -Will order MRI brain without contrast . -Started on ASA and statin.Monitor neurochecks. DVT Px :Lovenox 40mg daily Code status :Full code.No known next of kin information. 35 minutes spent in reviewing labs ,imaging and discussing plan of care with the patient. Dispo:Rehab eval ordered. Quality: Gen Med Crit Care VTE Prophylaxis VTE prophylaxis initiated: yes (Lovenox) Current Medications Current medication review: I attest that the foregoing medication list in the medical record is true, accurate, and complete to the best of my knowledge. Advanced Care Plan 65 or Older Discussed with: patient (full code) at 0344 RPT #:[id number] END OF REPORT [facility] 2024-07-29 20:26:00 [facility] ([facility]) Clinical Note REPORT#:[id number] REPORT STATUS: Signed REPORT INITIALIZATION DATE:07/29/24 TIME: 2025 PATIENT: CAROLYNN PATEL UNIT #: [id number] ROOM/BED: : 70 AGE: 54 SEX: M ATTEND: Inga Johns MD ADM AUTHOR: Sharon Tan MD REPT SERVICE DT/TIME: 07/29/242025 * ALL edits or amendments must be made on the electronic/computer document * Clinical Note Note: Notified by radiology of acute stroke findings on imaging. Will consult neurology. Patient is already on aspirin daily. Will add statin if not already on board. at 2026 RPT #:[id number] END OF REPORT [facility] 2024-07-29 10:13:00 [facility] ([facility]) Infectious Dis. Progress Note REPORT#:[id number] REPORT STATUS: Signed REPORT INITIALIZATION DATE:07/29/24 TIME: 1012 PATIENT: CAROLYNN PATEL UNIT #: [id number] ROOM/BED: : 70 AGE: 54 SEX: M ATTEND: Inga Johns MD ADM AUTHOR: Natalya Tolentino NP REPT SERVICE DT/TIME: 07/29/24 1013 * ALL edits or amendments must be made on the electronic/computer document * Subjective Chief complaint: Bacteremia Staphylococcus aureus present on admission MSSA bacteremia right lower extremity pain Review of Systems Constitutional: fatigue. All systems rev neg: except as marked Objective General VS/I O: Vital Signs Date Temp Pulse Resp B/P B/P Mean Pulse Ox FiO2 07/28-07/29 97.5-98.6 76-90 12-19 87-153/56-95 67.6-114.4 91-97 Last Documented: Result Date Time Pulse Ox 97 07/29 08 O2 Delivery Nasal cannula 07/29 842 O2 Flow Rate 2 07/29 0843 B/P 153/95 07/29 08 B/P Mean 114.4 07/29 822 Temp 97.5 07/29 822 Pulse 90 07/29 822 Resp 18 07/29 08 FiO2 32 07/28 0847 Vital Signs: Date Time Temp Pulse Resp B/P B/P Pulse O2 O2 Flow FiO2 Mean Ox Delivery Rate 07/29 08 97 Nasal 2 cannula 07/29 08 97.5 90 18 153/95 114.4 95 Room air 07/29 0330 97.9 78 17 124/73 89.6 96 07/29 0010 97.7 82 17 104/70 81.0 92 07/28 2000 Nasal 2 cannula 07/28 1909 98.1 76 17 102/67 78.7 96 07/28 1511 97.9 78 19 97/63 74.3 93 07/28 1226 Nasal 3 cannula 07/28 1225 98.2 85 12 97/61 73.0 93 Nasal 3 cannula 07/28 1157 98.2 86 19 90/56 67.6 91 07/28 1100 98.6 83 12 87/59 68.0 91 Room air 24 hour I O ending at 0700: 07/29 0700 07/28 1900 Intake Total 600.00 Output Total 300 Balance 300.00 Intake, IV 600.00 Number 2 Incontinent Voids Output, Urine 300 PATIENT WEIGHT: Weight (lb): Weight (oz): Weight (kg): 63.636 Medications: Active Meds + DC'd Last 24 Hrs Sodium Chloride (SODIUM CHLORIDE 0.9%) 1,000 ML .[id number] IV Acetaminophen (TYLENOL) 650 MG Q6H PRN PRN PO Furosemide (LASIX 20MG Inj) 20 MG Q12HR IV Albuterol Sulfate (ALBUTEROL SULFATE) 1.25 MG RTQ4H PRN PRN INH Diphenhydramine HCl (diphenhydrAMINE HCL) 12.5 MG Q4H PRN PRN IV Naloxone HCl (NARCAN) 0.1 MG Q2M PRN PRN IV Ondansetron HCl (ondansetron HCL) 4 MG Q6H PRN PRN IV Nicotine (HABITROL 21MG PATCH) 21 MG DAILY PRN PRN TRANSDERM (CKD) Carvedilol (COREG 3.125MG TAB) 3.125 MG BID PO Insulin Glargine (Lantus/Semglee) 10 UNIT BEDTIME SUBQ Cefazolin Sodium (Cefazolin Sodium) 2 GM Q8H IV Sodium Chloride (SODIUM CHLORIDE 0.9%) 100 ML Famotidine (PEPCID TAB) 20 MG BID AC PO Enoxaparin Sodium (LOVENOX 40MG SYRINGE) 40 MG 1700 SUBQ Tramadol HCl (ULTRAM) 50 MG Q4H PRN PRN PO Thiamine HCl (THIAMINE HCL) 100 MG DAILY PO Calcium Carbonate (TUMS 500MG) 1,000 MG Q6H PRN PRN PO Docusate Sodium (COLACE 100 MG CAPSULE) 100 MG BID PRN PRN PO Guaifenesin (guaiFENesin) 200 MG Q6H PRN PRN PO Insulin Human Lispro (Admelog) S/SCALE MED AC HS SUBQ Melatonin (MELATONIN) 6 MG BEDTIME PRN PRN PO Simethicone (SIMETHICONE) 80 MG Q6H PRN PRN PO Dextrose/Water (DEXTROSE 50%-WATER) 50 ML ASDIR PRN IV (CKD) Physical Exam General appearance: alert, awake Wound/incision: Location: Right foot dressing Site condition: dressing clean dry Head/Eyes: atraumatic ENT: moist mucosal membranes, normal dentition, normal nose Neck: full range of motion, non-tender, normal thyroid Cardiovascular: normal heart sounds, regular rate rhythm Respiratory: clear to auscultation, aerating well Extremities: moves all, normal capillary refill Musculoskeletal: normal inspection Psychiatry: normal affect Results Findings/Data: Laboratory Tests 07/29 07/28 07/28 07/28 0822 2133 1304 1056 Chemistry POC Glucose (74 - 106 mg/dL) 162 H 232 H 118 H 97 Diagnosis, Assessment Plan Free Text A P: Sepsis on admission MSSA bacteremia present on admission Wound with Morganella morganii Necrotizing soft tissue infection Wound with morgenella IMPRESSION: The abdomen and pelvis are within normal limits. There are tiny bilateral pleural effusions with subsegmental atelectasis in the underlying lung bases. Will need long-term IV antibiotic at least 8 weeks End therapy 09/11 blood cultures negative 24 hours Obtain KALYAN -pending report s/p BKA 07/[address] Kiser at 1016 at 1227 RPT #:[id number] END OF REPORT [facility] 2024-07-28 23:48:00 [facility] ([facility]) Hospitalist Progress Note REPORT#:[id number] REPORT STATUS: Signed REPORT INITIALIZATION DATE:07/28/24 TIME: 2347 PATIENT: CAROLYNN PATEL UNIT #: [id number] ROOM/BED: : 70 AGE: 54 SEX: M ATTEND: Inga Johns MD ADM AUTHOR: Inga Johns MD REPT SERVICE DT/TIME: 07/28/242347 * ALL edits or amendments must be made on the electronic/computer document * Subjective Chief complaint: Reports right lower extremity pain ,pain controlled.Is intermittently confused.Became febrile ,hypotensive and tachycardic .Was to have KALYAN today ,cancelled since unable to be scheduled and unable to get consent. Patient reports: Yes: complaints, pain (R LE), pain controlled. Nursing reports: Yes: complaints (tachycardic,hypotensive), confused, fever, pain (R LE), pain controlled. Review of Systems Constitutional: Reports: generalized weakness, lethargy, malaise. Musculoskeletal: Reports: extremity pain (R LE). All systems rev neg: except as noted Objective General VS/I O: Vital Signs: Date Time Temp Pulse Resp B/P B/P Pulse O2 O2 Flow FiO2 Mean Ox Delivery Rate 07/28 1909 98.1 76 17 102/67 78.7 96 07/28 1511 97.9 78 19 97/63 74.3 93 07/28 1226 Nasal 3 cannula 07/28 1225 98.2 85 12 97/61 73.0 93 Nasal 3 cannula 07/28 1157 98.2 86 19 90/56 67.6 91 07/28 1100 98.6 83 12 87/59 68.0 91 Room air 07/28 0847 94 Nasal 3 32 cannula 07/28 0843 97.7 113 18 97/61 72.7 94 Nasal cannula 07/28 0736 98.4 120 17 92/53 66.2 90 Nasal cannula 07/28 0723 Nasal 3 cannula 07/28 0438 97.5 82 15 105/72 83.4 93 Nasal cannula 24 hour I O ending at 0700: 07/28 0700 07/27 1900 Intake Total 700.00 Output Total 600 Balance 100.00 Intake, IV 700.00 Number 1 Incontinent Voids Output, Urine 600 PATIENT WEIGHT: Weight (lb): Weight (oz): Weight (kg): 63.636 Medications: Active Meds + DC'd Last 24 Hrs Sodium Chloride (SODIUM CHLORIDE 0.9%) 1,000 ML .[id number] IV Potassium Chloride/Water (POTASSIUM CHLORIDE) 100 ML ONCE ONE IV (DC) Potassium Chloride (K-DUR) 40 MEQ ONCE PO (DC) Acetaminophen (TYLENOL) 650 MG Q6H PRN PRN PO Furosemide (LASIX 20MG Inj) 20 MG Q12HR IV Albuterol Sulfate (ALBUTEROL SULFATE) 1.25 MG RTQ4H PRN PRN INH Diphenhydramine HCl (diphenhydrAMINE HCL) 12.5 MG Q4H PRN PRN IV Naloxone HCl (NARCAN) 0.1 MG Q2M PRN PRN IV Ondansetron HCl (ondansetron HCL) 4 MG Q6H PRN PRN IV Nicotine (HABITROL 21MG PATCH) 21 MG DAILY PRN PRN TRANSDERM (CKD) Carvedilol (COREG 3.125MG TAB) 3.125 MG BID PO Insulin Glargine (Lantus/Semglee) 10 UNIT BEDTIME SUBQ Cefazolin Sodium (Cefazolin Sodium) 2 GM Q8H IV Sodium Chloride (SODIUM CHLORIDE 0.9%) 100 ML Famotidine (PEPCID TAB) 20 MG BID AC PO Enoxaparin Sodium (LOVENOX 40MG SYRINGE) 40 MG 1700 SUBQ Tramadol HCl (ULTRAM) 50 MG Q4H PRN PRN PO Thiamine HCl (THIAMINE HCL) 100 MG DAILY PO Calcium Carbonate (TUMS 500MG) 1,000 MG Q6H PRN PRN PO Docusate Sodium (COLACE 100 MG CAPSULE) 100 MG BID PRN PRN PO Guaifenesin (guaiFENesin) 200 MG Q6H PRN PRN PO Insulin Human Lispro (Admelog) S/SCALE MED AC HS SUBQ Melatonin (MELATONIN) 6 MG BEDTIME PRN PRN PO Simethicone (SIMETHICONE) 80 MG Q6H PRN PRN PO Dextrose/Water (DEXTROSE 50%-WATER) 50 ML ASDIR PRN IV (CKD) Physical Exam General appearance: alert, awake, oriented Head/Eyes: atraumatic, EOMI, normal conjunctiva/sclera, normocephalic, PERRL ENT: moist mucosal membranes, normal ear left, normal ear right, normal nose Neck: full range of motion, non-tender, supple/no meningismus, no masses or swelling Cardiovascular: normal capillary refill, normal heart sounds, regular rate rhythm Respiratory: decreased breath sounds, hypoxia, on oxygen, symmetric expansion, no distress Abdomen: non-tender, normal bowel sounds, soft Genitourinary: no bladder distention, no flank pain, no urinary catheter Extremities: decreased range of motion (R LE), edema, moves all, right BKA Musculoskeletal: decreased ROM (R BKA) Neuro/ADDICTION COUNSELOR: alert, oriented X 3, normal speech, no motor deficits Skin: dry, intact Psychiatry: normal affect, normal judgment/insight, normal mood Results Findings/Data: Laboratory Tests 07/28 07/28 07/28 07/28 07/28 2133 1304 1056 0841 0735 Chemistry POC Glucose (74 - 106 mg/dL) 232 H 118 H 97 193 H 177 H 07/28 0325 Chemistry Sodium (136 - 145 mmol/L) 139 Potassium (3.5 - 5.1 mmol/L) 2.8 *L Chloride (98 - 107 mmol/L) 96.0 L Carbon Dioxide (21 - 32 mmol/L) 38.0 H Anion Gap (10 - 20 mmol/L) 7.8 L BUN (7 - 18 mg/dL) 19 H Creatinine (0.7 - 1.3 mg/dL) 0.50 L Glomerular Filtr Rate (>=60 mL/min) > 60 BUN/Creatinine Ratio (10 - 20) 39.6 H Glucose (74 - 106 mg/dL) 147 H Calcium (8.5 - 10.1 mg/dL) 7.9 L Laboratory Tests 07/28 0325 Coagulation INR (0.8 - 1.2) 1.2 PT Patient/Control Mix (10.0 - 14.0 seconds) 12.6 Laboratory Tests 07/28 0325 Hematology WBC (4.5 - 12.5 K/mm3) 9.3 RBC (4.0 - 5.8 mill/mm3) 2.98 L Hgb (13.0 - 17.5 gram/dL) 8.7 L Hct (42.0 - 52.0 %) 26.9 L MCV (80 - 98 fL) 90.3 MCH (27.0 - 33.0 picogram) 29.2 MCHC (33.0 - 36.0 gram/dL) 32.3 L RDW (11.6 - 16.2 %) 15.9 RDW Std Deviation (37.0 - 51.0 fL) 52.9 H Plt Count (150 - 450 K/mm3) 264 MPV (6.7 - 11.0 fL) 10.4 Neut % (Auto) (39.0 - 69.0 %) 56.6 Lymph % (Auto) (25.0 - 55.0 %) 32.2 [place] % (Auto) (0.0 - 10.0 %) 8.2 Eos % (Auto) (0.0 - 5.0 %) 1.1 Baso % (Auto) (0.0 - 1.0 %) 0.6 Neut # (Auto) (1.8 - 7.7 K/mm3) 5.28 Lymph # (Auto) (1.0 - 5.0 K/mm3) 3.01 [place] # (Auto) (0 - 0.8 K/mm3) 0.77 Eos # (Auto) (0.0 - 0.5 K/mm3) 0.10 Baso # (Auto) (0.0 - 0.2 K/mm3) 0.06 Nucleated RBC % (0 - 0 %) 0.0 Nucleated RBCs # (Man) (0.0 - 0.1 K/mm3) 0.00 Diagnosis, Assessment Plan Free Text DxA P Notes Free text DxA P notes: 1.Acute necrotizing fasciitis of right lower extremity -Status post debridement by general surgery on 07/13/24, general surgeon recommends BKA -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 -Patient started on IV cefazolin 2 g every 8 hours.Will need IV ancef for 8 weeks on dc. 2.Acute hypoxic respiratory failure -07/22: Possibly related to lethargy from MANUFACTURING INTERN pump, MANUFACTURING INTERN pump discontinued, started on IV Dilaudid and [place] p.o. -Obtain chest x-ray: No acute infiltrates, effusions or congestion -Sputum cultures -Incentive spirometery -Started on breathing treatments -Pulm consult: Severe hypoalbuminemia, recommends diuresis ,check urine protein level.Ordered,not sent out. -Started on Lasix 20 mg IV every 12 hours and reassess clinically 3.Sepsis secondary to necrotizing fasciitis -Present on admission, normal lactic acid, wbc elevated, Tachycardic -Blood cultures positive for Staphylococcus aureus -Wound with Morganella morganii continue with cefazolin every 8 hrs x 8 weeks from 07/16/24 per ID -IV antibiotics to be set up. -Pt spiking fevers ,hypotensive and tachycardic ,given IV fluid boluses. -CXR shows patchy new right mid lung infiltrate. 4.MSSA bacteremia -IV cefazolin 2g q8hrs x 8 weeks from 07/16/2024 per ID. -Cardiology consulted for KALYAN.Unable to be done since unable to be scheduled and unable to get consent. 5.Type II diabetes mellitus with hyperglycemia -Uncontrolled, Hgb A 1 C 11.2% -On insulin sliding scale and lantus 10u bedtime 6.Hypokalemia -Potassium 3.0, given 40meq oral KCL -Replace and monitor as needed. -Is 2.8 today,replaced. 7.Superficial thrombosis of cephalic vein in right upper extremity -DVT ruled out -Doppler US is negative for DVT, but showed superficial vein thrombosis noted in the right cephalic vein 8.Hypertension -Blood pressure 160s-170s systolic. -Started on Coreg 3.125 mg twice daily 9.Tobacco use disorder -Nicotine patch prn 10.Leukocytosis -WBC count is 16 ,due to MSSA bacteremia . -On ancef ,ID following.Trend white count and vital signs .Improved. 11.Anemia of chronic disease -Monitor H and H ,transfuse if Hb is less than 7. DVT Px :Lovenox 40mg daily Code status :Full code.No known next of kin information. 35 minutes spent in reviewing labs ,imaging and discussing plan of care with the patient. Dispo:Rehab eval ordered. Quality: Gen Med Crit Care VTE Prophylaxis VTE prophylaxis initiated: yes (Lovenox) Current Medications Current medication review: I attest that the foregoing medication list in the medical record is true, accurate, and complete to the best of my knowledge. Advanced Care Plan 65 or Older Discussed with: patient (full code) at 1149 RPT #:[id number] END OF REPORT [facility] 2024-07-28 15:38:00 [facility] Infectious Dis. Progress Note REPORT#:[id number] REPORT STATUS: Signed REPORT INITIALIZATION DATE:07/28/24 TIME: 153 PATIENT: CAROLYNN PATEL UNIT #: [id number] ROOM/BED: [address] : 70 AGE: 54 SEX: M ATTEND: Inga Johns MD ADM AUTHOR: Natalya Tolentino AQUATICS COORDINATOR REPT SERVICE DT/TIME: 07/28/24 1538 * ALL edits or amendments must be made on the electronic/computer document * Subjective Chief complaint: Bacteremia Staphylococcus aureus present on admission MSSA bacteremia right lower extremity pain Review of Systems Constitutional: fatigue, generalized weakness. All systems rev neg: except as marked Objective General VS/I O: Vital Signs Date Temp Pulse Resp B/P B/P Mean Pulse Ox FiO2 07/27-07/28 97.5-102.6 63-120 12-19 87-108/53-72 66.2-83.4 90-96 32 Last Documented: Result Date Time Pulse Ox 93 07/28 1511 B/P 97/63 07/28 1511 B/P Mean 74.3 07/28 1511 Temp 97.9 07/28 1511 Pulse 78 07/28 1511 Resp 19 07/28 1511 O2 Delivery Nasal cannula 07/28 1226 O2 Flow Rate 3 07/28 1226 FiO2 32 07/28 0847 Vital Signs: Date Time Temp Pulse Resp B/P B/P Pulse O2 O2 Flow FiO2 Mean Ox Delivery Rate 07/28 1511 97.9 78 19 97/63 74.3 93 07/28 1226 Nasal 3 cannula 07/28 1225 98.2 85 12 97/61 73.0 93 Nasal 3 cannula 07/28 1157 98.2 86 19 90/56 67.6 91 07/28 1100 98.6 83 12 87/59 68.0 91 Room air 07/28 0847 94 Nasal 3 32 cannula 07/28 0843 97.7 113 18 97/61 72.7 94 Nasal cannula 07/28 0736 98.4 120 17 92/53 66.2 90 Nasal cannula 07/28 0723 Nasal 3 cannula 07/28 0438 97.5 82 15 105/72 83.4 93 Nasal cannula 07/27 2320 97.5 63 15 106/71 82.7 94 Room air 07/27 1928 97.7 72 16 103/67 78.7 96 Nasal cannula 07/27 1549 102.6 111 18 108/63 78.0 93 Nasal cannula 24 hour I O ending at 0700: 07/28 0700 07/27 1900 Intake Total 700.00 Output Total 600 Balance 100.00 Intake, IV 700.00 Number 1 Incontinent Voids Output, Urine 600 PATIENT WEIGHT: Weight (lb): Weight (oz): Weight (kg): 63.636 Medications: Active Meds + DC'd Last 24 Hrs Sodium Chloride (SODIUM CHLORIDE 0.9%) 1,000 ML .[id number] IV Potassium Chloride/Water (POTASSIUM CHLORIDE) 100 ML ONCE ONE IV (DC) Potassium Chloride (K-DUR) 40 MEQ ONCE PO (DC) Sodium Chloride (SODIUM CHLORIDE 0.9%) 500 ML BOLUS ONCE ONE IV (DC) Sodium Chloride (SODIUM CHLORIDE 0.9%) 1,000 ML .Q24H IV (DC) Acetaminophen (TYLENOL) 650 MG Q6H PRN PRN PO Furosemide (LASIX 20MG Inj) 20 MG Q12HR IV Albuterol Sulfate (ALBUTEROL SULFATE) 1.25 MG RTQ4H PRN PRN INH Diphenhydramine HCl (diphenhydrAMINE HCL) 12.5 MG Q4H PRN PRN IV Naloxone HCl (NARCAN) 0.1 MG Q2M PRN PRN IV Ondansetron HCl (ondansetron HCL) 4 MG Q6H PRN PRN IV Nicotine (HABITROL 21MG PATCH) 21 MG DAILY PRN PRN TRANSDERM (CKD) Carvedilol (COREG 3.125MG TAB) 3.125 MG BID PO Insulin Glargine (Lantus/Semglee) 10 UNIT BEDTIME SUBQ Cefazolin Sodium (Cefazolin Sodium) 2 GM Q8H IV Sodium Chloride (SODIUM CHLORIDE 0.9%) 100 ML Famotidine (PEPCID TAB) 20 MG BID AC PO Enoxaparin Sodium (LOVENOX 40MG SYRINGE) 40 MG 1700 SUBQ Tramadol HCl (ULTRAM) 50 MG Q4H PRN PRN PO Thiamine HCl (THIAMINE HCL) 100 MG DAILY PO Calcium Carbonate (TUMS 500MG) 1,000 MG Q6H PRN PRN PO Docusate Sodium (COLACE 100 MG CAPSULE) 100 MG BID PRN PRN PO Guaifenesin (guaiFENesin) 200 MG Q6H PRN PRN PO Insulin Human Lispro (Admelog) S/SCALE MED AC HS SUBQ Melatonin (MELATONIN) 6 MG BEDTIME PRN PRN PO Simethicone (SIMETHICONE) 80 MG Q6H PRN PRN PO Dextrose/Water (DEXTROSE 50%-WATER) 50 ML ASDIR PRN IV (CKD) Physical Exam General appearance: alert, awake Wound/incision: Location: Right foot dressing Site condition: dressing clean dry Head/Eyes: atraumatic, clear cornea, EOMI ENT: moist mucosal membranes, normal dentition, normal nose Neck: full range of motion, non-tender, normal thyroid Cardiovascular: normal heart sounds, regular rate rhythm Respiratory: clear to auscultation, aerating well Extremities: moves all, normal capillary refill Musculoskeletal: normal inspection Psychiatry: normal affect Results Findings/Data: Laboratory Tests 07/28 07/28 07/28 07/28 07/28 1304 1056 0841 0735 0325 Chemistry Sodium (136 - 145 mmol/L) 139 Potassium (3.5 - 5.1 mmol/L) 2.8 *L Chloride (98 - 107 mmol/L) 96.0 L Carbon Dioxide (21 - 32 mmol/L) 38.0 H Anion Gap (10 - 20 mmol/L) 7.8 L BUN (7 - 18 mg/dL) 19 H Creatinine (0.7 - 1.3 mg/dL) 0.50 L Glomerular Filtr Rate (>=60 mL/min) > 60 BUN/Creatinine Ratio (10 - 20) 39.6 H Glucose (74 - 106 mg/dL) 147 H POC Glucose (74 - 106 mg/dL) 118 H 97 193 H 177 H Calcium (8.5 - 10.1 mg/dL) 7.9 L 07/27 1637 Chemistry POC Glucose (74 - 106 mg/dL) 125 H 150 H Laboratory Tests 07/28 324 Coagulation INR (0.8 - 1.2) 1.2 PT Patient/Control Mix (10.0 - 14.0 seconds) 12.6 Laboratory Tests 07/285 Hematology WBC (4.5 - 12.5 K/mm3) 9.3 RBC (4.0 - 5.8 mill/mm3) 2.98 L Hgb (13.0 - 17.5 gram/dL) 8.7 L Hct (42.0 - 52.0 %) 26.9 L MCV (80 - 98 fL) 90.3 MCH (27.0 - 33.0 picogram) 29.2 MCHC (33.0 - 36.0 gram/dL) 32.3 L RDW (11.6 - 16.2 %) 15.9 RDW Std Deviation (37.0 - 51.0 fL) 52.9 H Plt Count (150 - 450 K/mm3) 264 MPV (6.7 - 11.0 fL) 10.4 Neut % (Auto) (39.0 - 69.0 %) 56.6 Lymph % (Auto) (25.0 - 55.0 %) 32.2 [place] % (Auto) (0.0 - 10.0 %) 8.2 Eos % (Auto) (0.0 - 5.0 %) 1.1 Baso % (Auto) (0.0 - 1.0 %) 0.6 Neut # (Auto) (1.8 - 7.7 K/mm3) 5.28 Lymph # (Auto) (1.0 - 5.0 K/mm3) 3.01 [place] # (Auto) (0 - 0.8 K/mm3) 0.77 Eos # (Auto) (0.0 - 0.5 K/mm3) 0.10 Baso # (Auto) (0.0 - 0.2 K/mm3) 0.06 Nucleated RBC % (0 - 0 %) 0.0 Nucleated RBCs # (Man) (0.0 - 0.1 K/mm3) 0.00 Diagnosis, Assessment Plan Free Text A P: Sepsis on admission MSSA bacteremia present on admission Wound with Morganella morganii Necrotizing soft tissue infection wound with morgenella Will change antibiotic to Ancef Recheck of blood culture NEGATIVE SO FAR Obtain KALYAN Obtain CT chest abdomen pelvis agree with BKA IMPRESSION: The abdomen and pelvis are within normal limits. There are tiny bilateral pleural effusions with subsegmental atelectasis in the underlying lung bases. Will need long-term IV antibiotic at least 8 weeks end therapy 09/11 at 1554 at 1923 RPT #:[id number] END OF REPORT [facility] 2024-07-28 14:41:00 [facility] ([facility]) Rehab Progress Note REPORT#:[id number] REPORT STATUS: Signed REPORT INITIALIZATION DATE:07/28/24 TIME: 1441 PATIENT: CAROLYNN PATEL UNIT #: [id number] ROOM/BED: [address] : 70 AGE: 54 SEX: M ATTEND: Inga Johns MD ADM AUTHOR: Jeffrey Rodriguez DO REPT SERVICE DT/TIME: 07/28/24 1441 * ALL edits or amendments must be made on the electronic/computer document * Diagnosis, Assessment Plan Free Text A P: [id number] Rehab attestation: Face to face exam completed. Treatment plan discussed with patient. Meets continued stay criteria. Agree with interdisciplinary treatment plan. at 1445 RPT #:[id number] END OF REPORT [facility] 2024-07-28 13:16:00 [facility] ([facility]) Pulmonology Progress Note REPORT#:[id number] REPORT STATUS: Signed REPORT INITIALIZATION DATE:07/28/24 TIME: 1316 PATIENT: CAROLYNN PATEL UNIT #: [id number] ROOM/BED: [address] : 70 AGE: 54 SEX: M ATTEND: Inga Johns MD ADM AUTHOR: Ayanna Pack MD REPT SERVICE DT/TIME: 07/28/24 1316 * ALL edits or amendments must be made on the electronic/computer document * Subjective Chief complaint: dyspnea HPI: feels better no CP no cough no fever no dyspnea on 2LPm NC Comments: Patient is not in any respiratory distress Objective Physical Exam Head/eyes: atraumatic, normocephalic, PERRLA Neck: full range of motion, non-tender, no JVD Cardiovascular: normal heart sounds, normal S1/S2, no murmur Respiratory/chest: aerating well, clear to auscultation, symmetric expansion Abdomen: soft, non-tender, no guarding Extremities: moves all, normal capillary refill, no clubbing, no cyanosis Skin: dry, intact, normal turgor Diagnosis, Assessment Plan Free Text A P: Acute hypoxic resp failure bindu pleural effusion bibasilar atelectasis Nec fasciitis of RLE MSSA bacteremia DM-2 HTN Hypoalbumenimia Plan: improving O2 requirement. wean off. currently on 2LPM NC. pulm toileting airway clerance therapy work up for severe hypoalbuminemia per primary team avoid sedatives. wean Fio2 down. repeat CXR for interval change fllow up low BNP unliukely cardiac related. DVT proph 07/26/2024 Oxygen requirement is going down, breathing is stable, chest x-ray reviewed no pleural effusion. 07/28/2024 Blood cultures positive, KALYAN is planned, respiratory status remains stable at 1317 RPT #:[id number] END OF REPORT [facility] 2024-07-27 23:43:00 [facility] ([facility]) Hospitalist Progress Note REPORT#:[id number] REPORT STATUS: Signed REPORT INITIALIZATION DATE:07/27/24 TIME: 2343 PATIENT: CAROLYNN PATEL UNIT #: [id number] [address] AGE: 54 SEX: M ATTEND: Inga Johns MD ADM AUTHOR: Inga Johns MD REPT SERVICE DT/TIME: 07/27/24 3113 * ALL edits or amendments must be made on the electronic/computer document * Subjective Chief complaint: Reports right lower extremity pain ,pain controlled.Is intermittentlyconfused.Became febrile ,hypotensive and tachycardic later in the day. Patient reports: Yes: complaints, pain (R LE), pain controlled. Nursing reports: Yes: complaints, confused (Intermittently), pain (R LE), pain controlled. Review of Systems Constitutional: Reports: generalized weakness, lethargy, malaise. Musculoskeletal: Reports: extremity pain (R LE). All systems rev neg: except as noted Objective General VS/I O: Vital Signs: Date Time Temp Pulse Resp B/P B/P Pulse O2 O2 Flow FiO2 Mean Ox Delivery Rate 07/27 2320 97.5 63 15 106/71 82.7 94 Room air 07/27 1928 97.7 72 16 103/67 78.7 96 Nasal cannula 07/27 1549 102.6 111 18 108/63 78.0 93 Nasal cannula 07/27 1059 95 93 Nasal cannula 07/27 1058 98.2 91 16 108/71 83.1 88 Nasal cannula 07/27 1005 Nasal 2 cannula 07/27 0740 98.8 96 16 99/66 76.8 93 Nasal cannula 07/27 0347 97.7 72 18 115/73 87.2 93 07/27 0317 71 124/83 96.7 PATIENT WEIGHT: Weight (lb): Weight (oz): Weight (kg): 63.636 Medications: Active Meds + DC'd Last 24 Hrs Sodium Chloride (SODIUM CHLORIDE 0.9%) 500 ML BOLUS ONCE ONE IV (DC) Sodium Chloride (SODIUM CHLORIDE 0.9%) 1,000 ML .Q24H IV (DC) Acetaminophen (TYLENOL) 650 MG Q6H PRN PRN PO Furosemide (LASIX 20MG Inj) 20 MG Q12HR IV Hydrocodone Bitart/Acetaminophen (NORCO 7.5/325 TABLET) 1 TAB Q6H PRN PRN PO (DC) Hydromorphone HCl (Hydromorphone HCl) 1 MG Q6H PRN PRN IV (DC) Albuterol Sulfate (ALBUTEROL SULFATE) 1.25 MG RTQ4H PRN PRN INH Diphenhydramine HCl (diphenhydrAMINE HCL) 12.5 MG Q4H PRN PRN IV Naloxone HCl (NARCAN) 0.1 MG Q2M PRN PRN IV Ondansetron HCl (ondansetron HCL) 4 MG Q6H PRN PRN IV Nicotine (HABITROL 21MG PATCH) 21 MG DAILY PRN PRN TRANSDERM (CKD) Carvedilol (COREG 3.125MG TAB) 3.125 MG BID PO Insulin Glargine (Lantus/Semglee) 10 UNIT BEDTIME SUBQ Cefazolin Sodium (Cefazolin Sodium) 2 GM Q8H IV Sodium Chloride (SODIUM CHLORIDE 0.9%) 100 ML Famotidine (PEPCID TAB) 20 MG BID AC PO Enoxaparin Sodium (LOVENOX 40MG SYRINGE) 40 MG 1700 SUBQ Tramadol HCl (ULTRAM) 50 MG Q4H PRN PRN PO Thiamine HCl (THIAMINE HCL) 100 MG DAILY PO Calcium Carbonate (TUMS 500MG) 1,000 MG Q6H PRN PRN PO Docusate Sodium (COLACE 100 MG CAPSULE) 100 MG BID PRN PRN PO Guaifenesin (guaiFENesin) 200 MG Q6H PRN PRN PO Insulin Human Lispro (Admelog) S/SCALE MED AC HS SUBQ Melatonin (MELATONIN) 6 MG BEDTIME PRN PRN PO Simethicone (SIMETHICONE) 80 MG Q6H PRN PRN PO Dextrose/Water (DEXTROSE 50%-WATER) 50 ML ASDIR PRN IV (CKD) Physical Exam General appearance: alert, awake, oriented Head/Eyes: atraumatic, EOMI, normal conjunctiva/sclera, normocephalic, PERRL ENT: moist mucosal membranes, normal ear left, normal ear right, normal nose Neck: full range of motion, non-tender, supple/no meningismus, no masses or swelling Cardiovascular: normal capillary refill, normal heart sounds, regular rate rhythm Respiratory: decreased breath sounds, hypoxia, on oxygen, symmetric expansion, no distress Abdomen: non-tender, normal bowel sounds, soft Genitourinary: no bladder distention, no flank pain, no urinary catheter Extremities: decreased range of motion (R LE), edema, moves all, right BKA Musculoskeletal: decreased ROM (R BKA) Neuro/ADDICTION COUNSELOR: alert, oriented X 3, normal speech, no motor deficits Skin: dry, intact Psychiatry: normal affect, normal judgment/insight, normal mood Results Findings/Data: Laboratory Tests 07/27 1637 1101 0741 0202 Chemistry Sodium (136 - 145 mmol/L) 139 Potassium (3.5 - 5.1 mmol/L) 3.5 Chloride (98 - 107 mmol/L) 97.0 L Carbon Dioxide (21 - 32 mmol/L) 35.0 H Anion Gap (10 - 20 mmol/L) 10.5 BUN (7 - 18 mg/dL) 26 H Creatinine (0.7 - 1.3 mg/dL) 0.60 L Glomerular Filtr Rate (>=60 mL/min) > 60 BUN/Creatinine Ratio (10 - 20) 44.1 H Glucose (74 - 106 mg/dL) 140 H POC Glucose (74 - 106 mg/dL) 125 H 150 H 179 H 118 H Calcium (8.5 - 10.1 mg/dL) 7.9 L Phosphorus (2.5 - 4.9 mg/dL) 3.0 Magnesium (1.8 - 2.4 mg/dL) 1.9 Total Bilirubin (0.0 - 1.0 mg/dL) 0.20 AST (15 - 37 IUnit/L) 35 ALT (12 - 78 IUnit/L) 15 Total Alk Phosphatase (45 - 117 IUnit/L) 153 H Total Protein (6.4 - 8.2 gram/dL) 5.8 L Albumin (3.4 - 5.0 g/dL) 1.4 L Globulin (2.7 - 4.2 gram/dL) 4.4 H Albumin/Globulin Ratio (0.75 - 1.50) 0.3 L Laboratory Tests 07/27 0202 Hematology WBC (4.5 - 12.5 K/mm3) 16.3 H RBC (4.0 - 5.8 mill/mm3) 2.90 L Hgb (13.0 - 17.5 gram/dL) 8.7 L Hct (42.0 - 52.0 %) 26.5 L MCV (80 - 98 fL) 91.4 MCH (27.0 - 33.0 picogram) 30.0 MCHC (33.0 - 36.0 gram/dL) 32.8 L RDW (11.6 - 16.2 %) 16.1 RDW Std Deviation (37.0 - 51.0 fL) 53.5 H Plt Count (150 - 450 K/mm3) 316 MPV (6.7 - 11.0 fL) 10.7 Neut % (Auto) (39.0 - 69.0 %) 72.5 H Lymph % (Auto) (25.0 - 55.0 %) 21.8 L [place] % (Auto) (0.0 - 10.0 %) 4.4 Eos % (Auto) (0.0 - 5.0 %) 0.2 Baso % (Auto) (0.0 - 1.0 %) 0.2 Neut # (Auto) (1.8 - 7.7 K/mm3) 11.81 H Lymph # (Auto) (1.0 - 5.0 K/mm3) 3.55 [place] # (Auto) (0 - 0.8 K/mm3) 0.71 Eos # (Auto) (0.0 - 0.5 K/mm3) 0.03 Baso # (Auto) (0.0 - 0.2 K/mm3) 0.04 Add Manual Diff DIFF NEEDED Total Counted (#CELLS) 120 Seg Neutrophils % (39 - 69 %) 88.3 H Band Neutrophils % (0 - 10 %) 0 Lymphocytes % (Manual) (25 - 55 %) 10.0 L Monocytes % (Manual) (0 - 10 %) 1.7 Eosinophils % (Manual) (0.0 - 5.0 %) 0 Basophils % (Manual) (0 - 1.0 %) 0 Nucleated RBC % (0 - 0 %) 0.0 Metamyelocytes (0 - 0 %) 0 Myelocytes (0.0 - 0.0 %) 0 Promyelocytes (0 - 0 %) 0 Nucleated RBCs # (Man) (0.0 - 0.1 K/mm3) 0.00 Reactive Lymphocytes (%) 0 Immature Blood Cells (0 - 0 %) 0 Platelet Estimate ADEQUATE Plt Morphology Comment NORMAL Polychromasia 1+ Hypochromasia 1+ Anisocytosis 1+ Radiology data: Recent Impressions: RADIOLOGY - XR CHEST 1 V 07/27 223 Report Impression - Status: SIGNED Entered: 07/27/2024 0721 IMPRESSION: Patchy new right mid lung infiltrate. Impression By: [email or web address] - Rashad Gomez M.D. 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 -Patient started on IV cefazolin 2 g every 8 hours.Will need IV ancef for 8 weeks on dc. 2.Acute hypoxic respiratory failure -07/22: Possibly related to lethargy from MANUFACTURING INTERN pump, MANUFACTURING INTERN pump discontinued, started on IV Dilaudid and [place] p.o. -Obtain chest x-ray: No acute infiltrates, effusions or congestion -Sputum cultures -Incentive spirometery -Started on breathing treatments -Pulm consult: Severe hypoalbuminemia, recommends diuresis ,check urine protein level.Ordered,not sent out. -Started on Lasix 20 mg IV every 12 hours and reassess clinically 3.Sepsis secondary to necrotizing fasciitis -Present on admission, normal lactic acid, wbc elevated, Tachycardic -Blood cultures positive for Staphylococcus aureus -Wound with Morganella morganii continue with cefazolin every 8 hrs x 8 weeks from 07/16/24 per ID -IV antibiotics to be set up. -Pt spiking fevers ,hypotensive and tachycardic ,given IV fluid boluses. -CXR shows patchy new right mid lung infiltrate. 4.MSSA bacteremia -IV cefazolin 2g q8hrs x 8 weeks from 07/16/2024 per ID. -Cardiology consulted for KALYAN. 5.Type II diabetes mellitus with hyperglycemia -Uncontrolled, Hgb A 1 C 11.2% -On insulin sliding scale and lantus 10u bedtime 6.Hypokalemia -Potassium 3.0, given 40meq oral KCL -Replace and monitor as needed. 7.Superficial thrombosis of cephalic vein in right upper extremity -DVT ruled out -Doppler US is negative for DVT, but showed superficial vein thrombosis noted in the right cephalic vein 8.Hypertension -Blood pressure 160s-170s systolic. -Started on Coreg 3.125 mg twice daily 9.Tobacco use disorder -Nicotine patch prn 10.Leukocytosis -WBC count is 16 ,due to MSSA bacteremia . -On ancef ,ID following.Trend white count and vital signs . 11.Anemia of chronic disease -Monitor H and H ,transfuse if Hb is less than 7. DVT Px :Lovenox 40mg daily Code status :Full code.No known next of kin information. 35 minutes spent in reviewing labs ,imaging and discussing plan of care with the patient. Dispo:Rehab eval ordered. Quality: Gen Med Crit Care VTE Prophylaxis VTE prophylaxis initiated: yes (Lovenox) Current Medications Current medication review: I attest that the foregoing medication list in the medical record is true, accurate, and complete to the best of my knowledge. Advanced Care Plan 65 or Older Discussed with: patient (full code) at 2346 RPT #:[id number] END OF REPORT [facility] 2024-07-27 08:45:00 [facility] ([facility]) Infectious Dis. Progress Note REPORT#:[id number] REPORT STATUS: Signed REPORT INITIALIZATION DATE:07/27/24 TIME: 844 PATIENT: CAROLYNN PATEL UNIT #: [id number] ROOM/BED: [address] : 70 AGE: 54 SEX: M ATTEND: Inga Johns MD ADM AUTHOR: Marce Kiser MD REPT SERVICE DT/TIME: 07/27/24 0845 * ALL edits or amendments must be made on the electronic/computer document * Subjective Chief complaint: Bacteremia Staphylococcus aureus present on admission MSSA bacteremia right lower extremity pain HPI: This patient comes to the emergency room with negative soft tissue infection right lower extremity had to have an emergency surgical debridement Currently in bed Complaining of right foot pain plan for right BKA noted Patient seen examined chart reviewed Patient status post excisional debridement of necrotic tissue on July 13 Repeat blood culture from July so still pending Review of Systems Constitutional: fatigue. Objective General VS/I O: Vital Signs Date Temp Pulse Resp B/P B/P Mean Pulse Ox FiO2 07/26-07/27 97.7-102.9 68-118 16-18 78-163/50-92 59.3-116.0 83-98 Last Documented: Result Date Time Pulse Ox 93 07/27 0740 B/P 99/66 07/27 0740 B/P Mean 76.8 07/27 0740 O2 Delivery Nasal cannula 07/27 0740 Temp 98.8 07/27 0740 Pulse 96 07/27 0740 Resp 16 07/27 0740 O2 Flow Rate 3 07/26 1950 FiO2 36 07/24 2024 Vital Signs: Date Time Temp Pulse Resp B/P B/P Pulse O2 O2 Flow FiO2 Mean Ox Delivery Rate 07/27 0740 98.8 96 16 99/66 76.8 93 Nasal cannula 07/27 0347 97.7 72 18 115/73 87.2 93 07/27 0317 71 124/83 96.7 07/26 2329 78 98/63 74.5 83 07/26 2120 68 100/67 77.9 98 07/26 1950 3 07/26 1925 98.2 80 18 86/60 68.5 94 07/26 1745 98.6 91 90/56 67 Nasal 3 cannula 07/26 1700 109 89/52 64 96 Nasal 3 cannula 07/26 1641 102.9 118 78/50 59.3 88 Nasal cannula 07/26 1544 Room air 07/26 1126 97.7 84 16 163/92 116.0 94 Room air PATIENT WEIGHT: Weight (lb): Weight (oz): Weight (kg): 63.636 Medications: Active Meds + DC'd Last 24 Hrs Sodium Chloride (SODIUM CHLORIDE 0.9%) 500 ML BOLUS ONCE ONE IV (DC) Potassium Chloride (K-DUR) 40 MEQ ONCE ONE PO (DC) Sodium Chloride (SODIUM CHLORIDE 0.9%) 1,000 ML .Q24H IV Sodium Chloride (SODIUM CHLORIDE 0.9%) 500 ML BOLUS STA IV (DC) Acetaminophen (TYLENOL) 650 MG Q6H PRN PRN PO Furosemide (LASIX 20MG Inj) 20 MG Q12HR IV Hydrocodone Bitart/Acetaminophen (NORCO 7.5/325 TABLET) 1 TAB Q6H PRN PRN PO Hydromorphone HCl (Hydromorphone HCl) 1 MG Q6H PRN PRN IV Albuterol Sulfate (ALBUTEROL SULFATE) 1.25 MG RTQ4H PRN PRN INH Diphenhydramine HCl (diphenhydrAMINE HCL) 12.5 MG Q4H PRN PRN IV Naloxone HCl (NARCAN) 0.1 MG Q2M PRN PRN IV Ondansetron HCl (ondansetron HCL) 4 MG Q6H PRN PRN IV Nicotine (HABITROL 21MG PATCH) 21 MG DAILY PRN PRN TRANSDERM (CKD) Carvedilol (COREG 3.125MG TAB) 3.125 MG BID PO Insulin Glargine (Lantus/Semglee) 10 UNIT BEDTIME SUBQ Cefazolin Sodium (Cefazolin Sodium) 2 GM Q8H IV Sodium Chloride (SODIUM CHLORIDE 0.9%) 100 ML Famotidine (PEPCID TAB) 20 MG BID AC PO Enoxaparin Sodium (LOVENOX 40MG SYRINGE) 40 MG 1700 SUBQ Tramadol HCl (ULTRAM) 50 MG Q4H PRN PRN PO Thiamine HCl (THIAMINE HCL) 100 MG DAILY PO Calcium Carbonate (TUMS 500MG) 1,000 MG Q6H PRN PRN PO Docusate Sodium (COLACE 100 MG CAPSULE) 100 MG BID PRN PRN PO Guaifenesin (guaiFENesin) 200 MG Q6H PRN PRN PO Insulin Human Lispro (Admelog) S/SCALE MED AC HS SUBQ Melatonin (MELATONIN) 6 MG BEDTIME PRN PRN PO Simethicone (SIMETHICONE) 80 MG Q6H PRN PRN PO Ondansetron HCl (ondansetron HCL) 4 MG Q6H PRN PRN IV (DC) Dextrose/Water (DEXTROSE 50%-WATER) 50 ML ASDIR PRN IV (CKD) Physical Exam General appearance: alert, awake Wound/incision: Location: Right foot dressing Site condition: dressing clean dry Head/Eyes: atraumatic, clear cornea, EOMI ENT: moist mucosal membranes, normal dentition, normal nose Neck: full range of motion, non-tender, normal thyroid Cardiovascular: normal heart sounds, regular rate rhythm Respiratory: clear to auscultation, aerating well Diagnosis, Assessment Plan Problem List/A P: 1. Necrotizing fasciitis 2. Hypoxia Free Text A P: Sepsis on admission MSSA bacteremia present on admission Wound with Morganella morganii Necrotizing soft tissue infection wound with morgenella Will change antibiotic to Ancef Recheck of blood culture NEGATIVE SO FAR Obtain KALYAN Obtain CT chest abdomen pelvis agree with BKA IMPRESSION: The abdomen and pelvis are within normal limits. There are tiny bilateral pleural effusions with subsegmental atelectasis in the underlying lung bases. Will need long-term IV antibiotic at least 8 weeks end therapy 09/11 at 0846 RPT #:[id number] END OF REPORT [facility] 2024-07-27 08:15:00 [facility] General Surgery Progress Note REPORT#:[id number] REPORT STATUS: Signed REPORT INITIALIZATION DATE:07/27/24 TIME: 814 PATIENT: CAROLYNN PATEL UNIT #: [id number] ROOM/BED: [address] : 70 AGE: 54 SEX: M ATTEND: Inga Johns MD ADM AUTHOR: Juan Carlos Lord MD REPT SERVICE DT/TIME: 07/27/24814 * ALL edits or amendments must be made on the electronic/computer document * Subjective Patient reports: No: complaints. Objective General VS/I O: Last Documented: Result Date Time Pulse Ox 93 07/27 0740 B/P 99/66 07/27 0740 B/P Mean 76.8 07/27 0740 O2 Delivery Nasal cannula 07/27 0740 Temp 37.1 07/27 0740 Pulse 96 07/27 0740 Resp 16 07/27 0740 O2 Flow Rate 3 07/26 1950 FiO2 36 07/24 2024 Vital Signs Date Temp Pulse Resp B/P B/P Mean Pulse Ox FiO2 07/26-07/27 36.5-39.4 68-118 16-18 78-163/50-92 59.3-116.0 83-98 PATIENT WEIGHT: Weight (lb): Weight (oz): Weight (kg): 63.636 Physical Exam General appearance: alert, awake Extremities: right BK amp wound is intact and clean Diagnosis, Assessment Plan Free Text A P: pt is stable. Cont as ordered. at 0816 RPT #:[id number] END OF REPORT [facility] 2024-07-26 23:18:00 [facility] ([facility]) Hospitalist Progress Note REPORT#:[id number] REPORT STATUS: Signed REPORT INITIALIZATION DATE:07/26/24 TIME: 2317 PATIENT: CAROLYNN PATEL UNIT #: [id number] [address] AGE: 54 SEX: M ATTEND: Inga Johns MD ADM AUTHOR: Inga Johns MD REPT SERVICE DT/TIME: 07/26/242317 * ALL edits or amendments must be made on the electronic/computer document * Subjective Chief complaint: Reports right lower extremity pain ,pain controlled.Is intermittently confused.Became febrile ,hypotensive and tachycardic later in the day. Patient reports: Yes: complaints, pain (R LE), pain controlled. Nursing reports: Yes: complaints, confused (intermittently), pain (R LE), pain controlled. Review of Systems Constitutional: Reports: generalized weakness, lethargy, malaise. Musculoskeletal: Reports: extremity pain (right). All systems rev neg: except as noted Objective General VS/I O: Vital Signs: Date Time Temp Pulse Resp B/P B/P Pulse O2 O2 Flow FiO2 Mean Ox Delivery Rate 07/26 2120 68 100/67 77.9 98 07/26 1925 98.2 80 18 86/60 68.5 94 07/26 1745 98.6 91 90/56 67 Nasal 3 cannula 07/26 1700 109 89/52 64 96 Nasal 3 cannula 07/26 1641 102.9 118 78/50 59.3 88 Nasal cannula 07/26 1544 Room air 07/26 1126 97.7 84 16 163/92 116.0 94 Room air 07/26 0745 79 96 07/26 0744 97.5 63 16 121/78 92.0 89 Room air 07/26 0419 97.3 72 17 102/61 74.5 87 Room air PATIENT WEIGHT: Weight (lb): Weight (oz): Weight (kg): 63.636 Medications: Active Meds + DC'd Last 24 Hrs Sodium Chloride (SODIUM CHLORIDE 0.9%) 500 ML BOLUS ONCE ONE IV (DC) Potassium Chloride (K-DUR) 40 MEQ ONCE ONE PO (DC) Sodium Chloride (SODIUM CHLORIDE 0.9%) 1,000 ML .Q24H IV Sodium Chloride (SODIUM CHLORIDE 0.9%) 500 ML BOLUS STA IV (DC) Acetaminophen (TYLENOL) 650 MG Q6H PRN PRN PO Furosemide (LASIX 20MG Inj) 20 MG Q12HR IV Hydrocodone Bitart/Acetaminophen (NORCO 7.5/325 TABLET) 1 TAB Q6H PRN PRN PO Hydromorphone HCl (Hydromorphone HCl) 1 MG Q6H PRN PRN IV Albuterol Sulfate (ALBUTEROL SULFATE) 1.25 MG RTQ4H PRN PRN INH Diphenhydramine HCl (diphenhydrAMINE HCL) 12.5 MG Q4H PRN PRN IV Naloxone HCl (NARCAN) 0.1 MG Q2M PRN PRN IV Ondansetron HCl (ondansetron HCL) 4 MG Q6H PRN PRN IV Nicotine (HABITROL 21MG PATCH) 21 MG DAILY PRN PRN TRANSDERM (CKD) Carvedilol (COREG 3.125MG TAB) 3.125 MG BID PO Insulin Glargine (Lantus/Semglee) 10 UNIT BEDTIME SUBQ Cefazolin Sodium (Cefazolin Sodium) 2 GM Q8H IV Sodium Chloride (SODIUM CHLORIDE 0.9%) 100 ML Famotidine (PEPCID TAB) 20 MG BID AC PO Enoxaparin Sodium (LOVENOX 40MG SYRINGE) 40 MG 1700 SUBQ Tramadol HCl (ULTRAM) 50 MG Q4H PRN PRN PO Thiamine HCl (THIAMINE HCL) 100 MG DAILY PO Calcium Carbonate (TUMS 500MG) 1,000 MG Q6H PRN PRN PO Docusate Sodium (COLACE 100 MG CAPSULE) 100 MG BID PRN PRN PO Guaifenesin (guaiFENesin) 200 MG Q6H PRN PRN PO Insulin Human Lispro (Admelog) S/SCALE MED AC HS SUBQ Melatonin (MELATONIN) 6 MG BEDTIME PRN PRN PO Simethicone (SIMETHICONE) 80 MG Q6H PRN PRN PO Ondansetron HCl (ondansetron HCL) 4 MG Q6H PRN PRN IV (DC) Dextrose/Water (DEXTROSE 50%-WATER) 50 ML ASDIR PRN IV (CKD) Physical Exam General appearance: alert, awake, oriented Head/Eyes: atraumatic, EOMI, normal conjunctiva/sclera, normocephalic, PERRL ENT: moist mucosal membranes, normal ear left, normal ear right, normal nose Neck: full range of motion, non-tender, supple/no meningismus, no masses or swelling Cardiovascular: normal capillary refill, normal heart sounds, regular rate rhythm Respiratory: decreased breath sounds, hypoxia, on oxygen, symmetric expansion, no distress Abdomen: non-tender, normal bowel sounds, soft Genitourinary: no bladder distention, no flank pain, no urinary catheter Extremities: decreased range of motion (R LE), edema, moves all, right BKA Musculoskeletal: decreased ROM (R BKA) Neuro/ADDICTION COUNSELOR: alert, oriented X 3, normal speech, no motor deficits Skin: dry, intact Psychiatry: normal affect, normal judgment/insight, normal mood Results Findings/Data: Laboratory Tests 07/26 1740 1650 1650 1650 Chemistry Sodium (136 - 145 mmol/L) 136 Potassium (3.5 - 5.1 mmol/L) 2.7 *L Chloride (98 - 107 mmol/L) 92.0 L Carbon Dioxide (21 - 32 mmol/L) 39.0 H Anion Gap (10 - 20 mmol/L) 7.7 L BUN (7 - 18 mg/dL) 25 H Creatinine (0.7 - 1.3 mg/dL) 0.70 Glomerular Filtr Rate (>=60 mL/min) > 60 BUN/Creatinine Ratio (10 - 20) 35.2 H Glucose (74 - 106 mg/dL) 145 H POC Glucose (74 - 106 mg/dL) 208 H Lactic Acid (0.50 - 1.90 mmol/L) 1.4 1.9 Calcium (8.5 - 10.1 mg/dL) 8.3 L Ionized Calcium Tone (1.09 - 1.30 1.09 mmol/L) Phosphorus (2.5 - 4.9 mg/dL) 1.1 L Magnesium (1.8 - 2.4 mg/dL) 1.6 L 07/26 07/26 07/26 07/26 1650 1630 1151 0807 Chemistry POC Glucose (74 - 106 mg/dL) 144 H 197 H 179 H Total Bilirubin (0.0 - 1.0 mg/dL) 0.40 Direct Bilirubin (0.0 - 0.20 mg/dL) 0.20 AST (15 - 37 IUnit/L) 41 H ALT (12 - 78 IUnit/L) 16 Total Alk Phosphatase (45 - 117 IUnit/L) 194 H Total Protein (6.4 - 8.2 gram/dL) 6.8 Albumin (3.4 - 5.0 g/dL) 1.9 L Globulin (2.7 - 4.2 gram/dL) 4.9 H Albumin/Globulin Ratio (0.75 - 1.50) 0.4 L Laboratory Tests 07/26 1650 Hematology WBC (4.5 - 12.5 K/mm3) 17.0 H RBC (4.0 - 5.8 mill/mm3) 3.42 L Hgb (13.0 - 17.5 gram/dL) 10.1 L Hct (42.0 - 52.0 %) 29.8 L MCV (80 - 98 fL) 87.1 MCH (27.0 - 33.0 picogram) 29.5 MCHC (33.0 - 36.0 gram/dL) 33.9 RDW (11.6 - 16.2 %) 15.8 RDW Std Deviation (37.0 - 51.0 fL) 50.4 Plt Count (150 - 450 K/mm3) 368 MPV (6.7 - 11.0 fL) 10.3 Neut % (Auto) (39.0 - 69.0 %) 84.4 H Lymph % (Auto) (25.0 - 55.0 %) 9.4 L [place]haw % (Auto) (0.0 - 10.0 %) 4.8 Eos % (Auto) (0.0 - 5.0 %) 0.1 Baso % (Auto) (0.0 - 1.0 %) 0.5 Neut # (Auto) (1.8 - 7.7 K/mm3) 14.34 H Lymph # (Auto) (1.0 - 5.0 K/mm3) 1.59 Kershaw # (Auto) (0 - 0.8 K/mm3) 0.82 H Eos # (Auto) (0.0 - 0.5 K/mm3) 0.02 Baso # (Auto) (0.0 - 0.2 K/mm3) 0.08 Nucleated RBC % (0 - 0 %) 0.0 Nucleated RBCs # (Man) (0.0 - 0.1 K/mm3) 0.00 Radiology data: Recent Impressions: RADIOLOGY - XR CHEST 1 V 07/26 1642 Report Impression - Status: SIGNED Entered: 07/26/2024 4396 Impression: Improved chest. Impression By: DR.DIWWA Karo Bashir M.D. 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 -Patient started on IV cefazolin 2 g every 8 hours.Will need IV ancef for 8 weeks on dc. 2.Acute hypoxic respiratory failure -07/22: Possibly related to lethargy from MANUFACTURING INTERN pump, MANUFACTURING INTERN pump discontinued, started on IV Dilaudid and [place] p.o. -Obtain chest x-ray: No acute infiltrates, effusions or congestion -Sputum cultures -Incentive spirometery -Started on breathing treatments -Pulm consult: Severe hypoalbuminemia, recommends diuresis ,check urine protein level.Ordered,not sent out. -Started on Lasix 20 mg IV every 12 hours and reassess clinically 3.Sepsis secondary to necrotizing fasciitis -Present on admission, normal lactic acid, wbc elevated, Tachycardic -Blood cultures positive for Staphylococcus aureus -Wound with Morganella morganii continue with cefazolin every 8 hrs x 8 weeks from 07/16/24 per ID -IV antibiotics to be set up. -Pt spiking fevers ,hypotensive and tachycardic ,given IV fluid boluses. 4.MSSA bacteremia -IV cefazolin 2g q8hrs x 8 weeks from 07/16/2024 per ID. 5.Type II diabetes mellitus with hyperglycemia -Uncontrolled, Hgb A 1 C 11.2% -On insulin sliding scale and lantus 10u bedtime 6.Hypokalemia -Potassium 3.0, given 40meq oral KCL -Replace and monitor as needed. 7.Superficial thrombosis of cephalic vein in right upper extremity -DVT ruled out -Doppler US is negative for DVT, but showed superficial vein thrombosis noted in the right cephalic vein 8.Hypertension -Blood pressure 160s-170s systolic. -Started on Coreg 3.125 mg twice daily 9.Tobacco use disorder -Nicotine patch prn 10.Leukocytosis -WBC count is 16 ,due to MSSA bacteremia . -On ancef ,ID following.Trend white count and vital signs . 11.Anemia of chronic disease -Monitor H and H ,transfuse if Hb is less than 7. DVT Px :Lovenox 40mg daily Code status :Full code.No known next of kin information. Advance care planning discussed with the patient ,16 minutes spent. 35 minutes spent in reviewing labs ,imaging and discussing plan of care with the patient. Quality: Gen Med Crit Care VTE Prophylaxis VTE prophylaxis initiated: yes (Lovenox) Current Medications Current medication review: I attest that the foregoing medication list in the medical record is true, accurate, and complete to the best of my knowledge. Advanced Care Plan 65 or Older Discussed with: patient (full code) at 2023 RPT #:[id number] END OF REPORT [facility] 2024-07-26 17:00:00 [facility] ([facility]) Pulmonology Progress Note REPORT#:[id number] REPORT STATUS: Signed REPORT INITIALIZATION DATE:07/26/24 TIME: 170 PATIENT: CAROLYNN PATEL UNIT #: [id number] ROOM/BED: [address] : 70 AGE: 54 SEX: M ATTEND: Inga Johns MD ADM AUTHOR: Ayanna Pack MD REPT SERVICE DT/TIME: 07/26/24 1700 * ALL edits or amendments must be made on the electronic/computer document * Subjective Chief complaint: dyspnea HPI: feels better no CP no cough no fever no dyspnea on 2LPm NC Comments: Breathing remains stable Objective Physical Exam Head/eyes: atraumatic, normocephalic, PERRLA Neck: full range of motion, non-tender, no JVD Cardiovascular: normal heart sounds, normal S1/S2, no murmur Respiratory/chest: aerating well, clear to auscultation, symmetric expansion Abdomen: soft, non-tender, no guarding Extremities: moves all, normal capillary refill, no clubbing, no cyanosis Skin: dry, intact, normal turgor Diagnosis, Assessment Plan Free Text A P: Acute hypoxic resp failure bindu pleural effusion bibasilar atelectasis Nec fasciitis of RLE MSSA bacteremia DM-2 HTN Hypoalbumenimia Plan: improving O2 requirement. wean off. currently on 2LPM NC. pulm toileting airway clerance therapy work up for severe hypoalbuminemia per primary team avoid sedatives. wean Fio2 down. repeat CXR for interval change fllow up low BNP unliukely cardiac related. DVT proph 07/26/2024 Oxygen requirement is going down, breathing is stable, chest x-ray reviewed no pleural effusion. at 1702 RPT #:[id number] END OF REPORT [facility] 2024-07-26 10:40:00 [facility] ([facility]) Infectious Dis. Progress Note REPORT#:[id number] REPORT STATUS: Signed REPORT INITIALIZATION DATE:07/26/24 TIME: 104 PATIENT: CAROLYNN PATEL UNIT #: [id number] ROOM/BED: [address] : 70 AGE: 54 SEX: M ATTEND: Inga Johns MD ADM AUTHOR: Marce Kiser MD REPT SERVICE DT/TIME: 07/26/24 1040 * ALL edits or amendments must be made on the electronic/computer document * Subjective Chief complaint: Bacteremia Staphylococcus aureus present on admission MSSA bacteremia right lower extremity pain HPI: This patient comes to the emergency room with negative soft tissue infection right lower extremity had to have an emergency surgical debridement Currently in bed Complaining of right foot pain plan for right BKA noted Patient seen examined chart reviewed Patient status post excisional debridement of necrotic tissue on July 13 Repeat blood culture from July so still pending Review of Systems Constitutional: fatigue. Allergy/Immun: Denies: allergic reaction, anaphylaxis. Objective General VS/I O: Vital Signs Date Temp Pulse Resp B/P B/P Mean Pulse Ox FiO2 07/25-07/26 97.3-100.9 55-111 14-17 82-121/57-78 65.5-92.0 85-96 Last Documented: Result Date Time Pulse Ox 96 07/26 0745 Pulse 79 07/26 0745 B/P 121/78 07/26 0744 B/P Mean 92.0 07/26 0744 O2 Delivery Room air 07/26 0744 Temp 97.5 07/26 0744 Resp 16 07/26 0744 O2 Flow Rate 2 07/25 0800 FiO2 36 07/24 2024 Vital Signs: Date Time Temp Pulse Resp B/P B/P Pulse O2 O2 Flow FiO2 Mean Ox Delivery Rate 07/26 0745 79 96 07/26 0744 97.5 63 16 121/78 92.0 89 Room air 07/26 0419 97.3 72 17 102/61 74.5 87 Room air 07/25 2311 98.1 73 17 82/57 65.5 94 Room air 07/25 2135 100.9 111 17 91/59 69.7 85 Room air 07/25 1213 97.3 55 14 105/68 80.1 86 Room air PATIENT WEIGHT: Weight (lb): Weight (oz): Weight (kg): 63.636 Medications: Active Meds + DC'd Last 24 Hrs Acetaminophen (TYLENOL) 650 MG Q6H PRN PRN PO Furosemide (LASIX 20MG Inj) 20 MG Q12HR IV Hydrocodone Bitart/Acetaminophen (NORCO 7.5/325 TABLET) 1 TAB Q6H PRN PRN PO Hydromorphone HCl (Hydromorphone HCl) 1 MG Q6H PRN PRN IV Albuterol Sulfate (ALBUTEROL SULFATE) 1.25 MG RTQ4H PRN PRN INH Diphenhydramine HCl (diphenhydrAMINE HCL) 12.5 MG Q4H PRN PRN IV Naloxone HCl (NARCAN) 0.1 MG Q2M PRN PRN IV Ondansetron HCl (ondansetron HCL) 4 MG Q6H PRN PRN IV Nicotine (HABITROL 21MG PATCH) 21 MG DAILY PRN PRN TRANSDERM (CKD) Carvedilol (COREG 3.125MG TAB) 3.125 MG BID PO Insulin Glargine (Lantus/Semglee) 10 UNIT BEDTIME SUBQ Cefazolin Sodium (Cefazolin Sodium) 2 GM Q8H IV Sodium Chloride (SODIUM CHLORIDE 0.9%) 100 ML Famotidine (PEPCID TAB) 20 MG BID AC PO Enoxaparin Sodium (LOVENOX 40MG SYRINGE) 40 MG 1700 SUBQ Tramadol HCl (ULTRAM) 50 MG Q4H PRN PRN PO Thiamine HCl (THIAMINE HCL) 100 MG DAILY PO Calcium Carbonate (TUMS 500MG) 1,000 MG Q6H PRN PRN PO Docusate Sodium (COLACE 100 MG CAPSULE) 100 MG BID PRN PRN PO Guaifenesin (guaiFENesin) 200 MG Q6H PRN PRN PO Insulin Human Lispro (Admelog) S/SCALE MED AC HS SUBQ Melatonin (MELATONIN) 6 MG BEDTIME PRN PRN PO Simethicone (SIMETHICONE) 80 MG Q6H PRN PRN PO Ondansetron HCl (ondansetron HCL) 4 MG Q6H PRN PRN IV Dextrose/Water (DEXTROSE 50%-WATER) 50 ML ASDIR PRN IV (CKD) Physical Exam General appearance: alert, awake Wound/incision: Location: Right foot dressing Site condition: dressing clean dry Head/Eyes: atraumatic, clear cornea, EOMI ENT: moist mucosal membranes, normal dentition, normal nose Neck: full range of motion, non-tender, normal thyroid Cardiovascular: normal heart sounds, regular rate rhythm Respiratory: clear to auscultation, aerating well Diagnosis, Assessment Plan Problem List/A P: 1. Necrotizing fasciitis 2. Hypoxia Free Text A P: Sepsis on admission MSSA bacteremia present on admission Wound with Morganella morganii Necrotizing soft tissue infection wound with morgenella Will change antibiotic to Ancef Recheck of blood culture NEGATIVE SO FAR Obtain KALYAN Obtain CT chest abdomen pelvis agree with BKA IMPRESSION: The abdomen and pelvis are within normal limits. There are tiny bilateral pleural effusions with subsegmental atelectasis in the underlying lung bases. Will need long-term IV antibiotic at least 8 weeks end therapy 09/11 at 1040 RPT #:[id number] END OF REPORT [facility] 2024-07-26 08:34:00 [facility] ([facility]) General Surgery Progress Note REPORT#:[id number] REPORT STATUS: Signed REPORT INITIALIZATION DATE:07/26/24 TIME: 833 PATIENT: CAROLYNN PATEL UNIT #: [id number] ROOM/BED: [address] : 70 AGE: 54 SEX: M ATTEND: Elton Ramírez MD ADM AUTHOR: Juan Carlos Lord MD REPT SERVICE DT/TIME: 07/26/24 0834 * ALL edits or amendments must be made on the electronic/computer document * Subjective Patient reports: No: complaints. Objective General VS/I O: Last Documented: Result Date Time Pulse Ox 96 07/26 0745 Pulse 79 07/26 0745 B/P 121/78 07/26 0744 B/P Mean 92.0 07/26 0744 O2 Delivery Room air 07/26 0744 Temp 36.4 07/26 0744 Resp 16 07/26 0744 O2 Flow Rate 2 07/25 0800 FiO2 36 07/24 2024 Vital Signs Date Temp Pulse Resp B/P B/P Mean Pulse Ox FiO2 07/25-07/26 36.3-38.3 55-111 14-17 82-121/57-78 65.5-92.0 85-96 PATIENT WEIGHT: Weight (lb): Weight (oz): Weight (kg): 63.636 Physical Exam General appearance: alert, awake Extremities: right BK amp wound is intact and clean Diagnosis, Assessment Plan Free Text A P: Pt is stable. Cont physical thapy. at 0836 RPT #:[id number] END OF REPORT [facility] 2024-07-25 16:41:00 [facility] ([facility]) Pulmonology Progress Note REPORT#:[id number] REPORT STATUS: Signed REPORT INITIALIZATION DATE:07/25/24 TIME: 164 PATIENT: CAROLYNN PATEL UNIT #: [id number] ROOM/BED: [address] : 70 AGE: 54 SEX: M ATTEND: Elton Ramírez MD ADM AUTHOR: Tom Barillas MD REPT SERVICE DT/TIME: 07/25/24 1641 * ALL edits or amendments must be made on the electronic/computer document * Subjective Chief complaint: dyspnea HPI: feels better no CP no cough no fever no dyspnea on 2LPm NC Objective General VS/I O: Last Documented: Result Date Time Pulse Ox 86 07/25 1213 B/P 105/68 07/25 1213 B/P Mean 80.1 07/25 1213 O2 Delivery Room air 07/25 1213 Temp 36.3 07/25 1213 Pulse 55 07/25 1213 Resp 14 07/25 1213 O2 Flow Rate 2 07/25 0800 FiO2 36 07/24 2024 24 hour I O ending at 0700: 07/25 0700 07/24 1900 Intake Total Output Total 950 Balance -950 Number 1 Incontinent Voids Output, Urine 950 PATIENT WEIGHT: Weight (lb): Weight (oz): Weight (kg): 63.636 Physical Exam General appearance: alert, awake, oriented Head/eyes: atraumatic, normocephalic, PERRLA Neck: full range of motion, non-tender, no JVD Cardiovascular: normal heart sounds, normal S1/S2, no murmur Respiratory/chest: aerating well, clear to auscultation, symmetric expansion Abdomen: soft, non-tender, no guarding Extremities: moves all, normal capillary refill, no clubbing, no cyanosis Skin: dry, intact, normal turgor Results Findings/Data: Laboratory Tests 07/25/24 1110: [Embedded Image Not Available] 07/25/24 1109: [Embedded Image Not Available] Laboratory Tests 07/25 07/25 07/25 07/24 1159 1109 0820 1954 Chemistry Sodium (136 - 145 mmol/L) 133 L Potassium (3.5 - 5.1 mmol/L) 3.0 L Chloride (98 - 107 mmol/L) 90.0 L Carbon Dioxide (21 - 32 mmol/L) 39.0 H Anion Gap (10 - 20 mmol/L) 7.0 L BUN (7 - 18 mg/dL) 20 H Creatinine (0.7 - 1.3 mg/dL) 0.50 L Glomerular Filtr Rate (>=60 mL/min) > 60 BUN/Creatinine Ratio (10 - 20) 37.0 H Glucose (74 - 106 mg/dL) 226 H POC Glucose (74 - 106 mg/dL) 237 H 178 H 192 H Calcium (8.5 - 10.1 mg/dL) 7.7 L Laboratory Tests 07/25 1110 Hematology WBC (4.5 - 12.5 K/mm3) 8.0 RBC (4.0 - 5.8 mill/mm3) 3.02 L Hgb (13.0 - 17.5 gram/dL) 8.9 L Hct (42.0 - 52.0 %) 26.8 L MCV (80 - 98 fL) 88.7 MCH (27.0 - 33.0 picogram) 29.5 MCHC (33.0 - 36.0 gram/dL) 33.2 RDW (11.6 - 16.2 %) 15.5 RDW Std Deviation (37.0 - 51.0 fL) 50.2 Plt Count (150 - 450 K/mm3) 405 MPV (6.7 - 11.0 fL) 10.1 Neut # (Auto) (1.8 - 7.7 K/mm3) 4.55 Lymph # (Auto) (1.0 - 5.0 K/mm3) 2.65 [place]haw # (Auto) (0 - 0.8 K/mm3) 0.66 Eos # (Auto) (0.0 - 0.5 K/mm3) 0.06 Baso # (Auto) (0.0 - 0.2 K/mm3) 0.05 Add Manual Diff DIFF NEEDED Total Counted (#CELLS) 115 Seg Neutrophils % (39 - 69 %) 65.2 Band Neutrophils % (0 - 10 %) 15.7 H Lymphocytes % (Manual) (25 - 55 %) 13.0 L Monocytes % (Manual) (0 - 10 %) 6.1 Eosinophils % (Manual) (0.0 - 5.0 %) 0 Basophils % (Manual) (0 - 1.0 %) 0 Nucleated RBC % (0 - 0 %) 0.0 Metamyelocytes (0 - 0 %) 0 Myelocytes (0.0 - 0.0 %) 0 Promyelocytes (0 - 0 %) 0 Nucleated RBCs # (Man) (0.0 - 0.1 K/mm3) 0.00 Reactive Lymphocytes (%) 0 Immature Blood Cells (0 - 0 %) 0 Platelet Estimate ADEQUATE Plt Morphology Comment SIZE VARIABLE Hypochromasia 1+ Anisocytosis 1+ Macrocytosis 1+ Morphology Comment NORMAL Diagnosis, Assessment Plan Free Text A P: Acute hypoxic resp failure bindu pleural effusion bibasilar atelectasis Nec fasciitis of RLE MSSA bacteremia DM-2 HTN Hypoalbumenimia Plan: improving O2 requirement. wean off. currently on 2LPM NC. pulm toileting airway clerance therapy work up for severe hypoalbuminemia per primary team avoid sedatives. wean Fio2 down. repeat CXR for interval change fllow up low BNP unliukely cardiac related. DVT proph at 1642 RPT #:[id number] END OF REPORT [facility] 2024-07-25 15:09:00 [facility] ([facility]) Infectious Dis. Progress Note REPORT#:[id number] REPORT STATUS: Signed REPORT INITIALIZATION DATE:07/25/24 TIME: 1508 PATIENT: CAROLYNN PATEL UNIT #: [id number] ROOM/BED: [address] : 70 AGE: 54 SEX: M ATTEND: Elton Ramírez MD ADM AUTHOR: Marce Kiser MD REPT SERVICE DT/TIME: 07/25/24 1509 * ALL edits or amendments must be made on the electronic/computer document * Subjective Chief complaint: Bacteremia Staphylococcus aureus present on admission MSSA bacteremia right lower extremity pain HPI: This patient comes to the emergency room with negative soft tissue infection right lower extremity had to have an emergency surgical debridement Currently in bed Complaining of right foot pain plan for right BKA noted Patient seen examined chart reviewed Patient status post excisional debridement of necrotic tissue on July 13 Repeat blood culture from July so still pending Objective General VS/I O: Vital Signs Date Temp Pulse Resp B/P B/P Mean Pulse Ox FiO2 07/24-07/25 97.3-98.8 55-87 14-18 98-116/68-76 79.7-89.6 79-97 36 Last Documented: Result Date Time Pulse Ox 86 07/25 1213 B/P 105/68 07/25 1213 B/P Mean 80.1 07/25 1213 O2 Delivery Room air 07/25 1213 Temp 97.3 07/25 1213 Pulse 55 07/25 1213 Resp 14 07/25 1213 O2 Flow Rate 3 07/24 2204 FiO2 36 07/24 2024 Vital Signs: Date Time Temp Pulse Resp B/P B/P Pulse O2 O2 Flow FiO2 Mean Ox Delivery Rate 07/25 1213 97.3 55 14 105/68 80.1 86 Room air 07/25 0821 97.3 67 15 104/68 79.7 93 Room air 07/25 0431 97.6 107/72 83 07/25 0428 65 18 97 07/24 2333 98.1 87 18 98/72 80.7 90 07/24 2204 Nasal 3 cannula 07/24 2024 94 Nasal 4 36 cannula 07/24 2003 82 17 93 Nasal 3 cannula 07/24 191 98.8 86 18 116/76 89.6 79 24 hour I O ending at 0700: 07/25 0700 07/24 1900 Intake Total Output Total 950 Balance -950 Number 1 Incontinent Voids Output, Urine 950 PATIENT WEIGHT: Weight (lb): Weight (oz): Weight (kg): 63.636 Medications: Active Meds + DC'd Last 24 Hrs Acetylcysteine (MUCOMYST 20%) 400 MG RTQ12H INH (DC) Acetaminophen (TYLENOL) 650 MG Q6H PRN PRN PO Furosemide (LASIX 20MG Inj) 20 MG Q12HR IV Hydrocodone Bitart/Acetaminophen (NORCO 7.5/325 TABLET) 1 TAB Q6H PRN PRN PO Hydromorphone HCl (Hydromorphone HCl) 1 MG Q6H PRN PRN IV Albuterol Sulfate (ALBUTEROL SULFATE) 1.25 MG RTQ4H PRN PRN INH Diphenhydramine HCl (diphenhydrAMINE HCL) 12.5 MG Q4H PRN PRN IV Naloxone HCl (NARCAN) 0.1 MG Q2M PRN PRN IV Ondansetron HCl (ondansetron HCL) 4 MG Q6H PRN PRN IV Nicotine (HABITROL 21MG PATCH) 21 MG DAILY PRN PRN TRANSDERM (CKD) Carvedilol (COREG 3.125MG TAB) 3.125 MG BID PO Insulin Glargine (Lantus/Semglee) 10 UNIT BEDTIME SUBQ Cefazolin Sodium (Cefazolin Sodium) 2 GM Q8H IV Sodium Chloride (SODIUM CHLORIDE 0.9%) 100 ML Famotidine (PEPCID TAB) 20 MG BID AC PO Enoxaparin Sodium (LOVENOX 40MG SYRINGE) 40 MG 1700 SUBQ Tramadol HCl (ULTRAM) 50 MG Q4H PRN PRN PO Thiamine HCl (THIAMINE HCL) 100 MG DAILY PO Calcium Carbonate (TUMS 500MG) 1,000 MG Q6H PRN PRN PO Docusate Sodium (COLACE 100 MG CAPSULE) 100 MG BID PRN PRN PO Guaifenesin (guaiFENesin) 200 MG Q6H PRN PRN PO Insulin Human Lispro (Admelog) S/SCALE MED AC HS SUBQ Melatonin (MELATONIN) 6 MG BEDTIME PRN PRN PO Simethicone (SIMETHICONE) 80 MG Q6H PRN PRN PO Ondansetron HCl (ondansetron HCL) 4 MG Q6H PRN PRN IV Dextrose/Water (DEXTROSE 50%-WATER) 50 ML ASDIR PRN IV (CKD) Physical Exam General appearance: alert Wound/incision: Location: Right foot dressing Site condition: dressing clean dry Head/Eyes: atraumatic, clear cornea, EOMI ENT: moist mucosal membranes, normal dentition, normal nose Neck: full range of motion, non-tender, normal thyroid Cardiovascular: normal heart sounds, regular rate rhythm Respiratory: clear to auscultation, aerating well Diagnosis, Assessment Plan Problem List/A P: 1. Necrotizing fasciitis 2. Hypoxia Free Text A P: Sepsis on admission MSSA bacteremia present on admission Wound with Morganella morganii Necrotizing soft tissue infection wound with morgenella Will change antibiotic to Ancef Recheck of blood culture NEGATIVE SO FAR Obtain KALYAN Obtain CT chest abdomen pelvis agree with BKA IMPRESSION: The abdomen and pelvis are within normal limits. There are tiny bilateral pleural effusions with subsegmental atelectasis in the underlying lung bases. Will need long-term IV antibiotic at least 8 weeks end therapy 09/11 at 1509 RPT #:[id number] END OF REPORT [facility] 2024-07-25 12:50:00 [facility]) Hospitalist Progress Note REPORT#:[id number] REPORT STATUS: Signed REPORT INITIALIZATION DATE:07/25/24 TIME: 1250 PATIENT: CAROLYNN PATEL UNIT #: [id number] ROOM/BED: [address] : 70 AGE: 54 SEX: M ATTEND: Elton Ramírez MD ADM AUTHOR: Kings Oliva AQUATICS COORDINATOR REPT SERVICE DT/TIME: 07/25/24 1250 * ALL edits or amendments must be made on the electronic/computer document * Subjective Chief complaint: Reports right leg pain/PT/OT Patient reports: No: complaints. Nursing reports: No: complaints. Objective General VS/I O: Vital Signs: Date Time Temp Pulse Resp B/P B/P Pulse O2 O2 Flow FiO2 Mean Ox Delivery Rate 07/25 1213 36.3 55 14 105/68 80.1 86 Room air 07/25 0821 36.3 67 15 104/68 79.7 93 Room air 07/25 0431 36.4 107/72 83 07/25 0428 65 18 97 07/24 2333 36.7 87 18 98/72 80.7 90 07/24 2204 Nasal 3 cannula 07/24 2024 94 Nasal 4 36 cannula 07/24 2003 82 17 93 Nasal 3 cannula 07/24 1918 37.1 86 18 116/76 89.6 79 24 hour I O ending at 0700: 07/25 0700 07/24 1900 Intake Total Output Total 950 Balance -950 Number 1 Incontinent Voids Output, Urine 950 PATIENT WEIGHT: Weight (lb): Weight (oz): Weight (kg): 63.636 Medications: Active Meds + DC'd Last 24 Hrs Acetylcysteine (MUCOMYST 20%) 400 MG RTQ12H INH (DC) Acetaminophen (TYLENOL) 650 MG Q6H PRN PRN PO Furosemide (LASIX 20MG Inj) 20 MG Q12HR IV Hydrocodone Bitart/Acetaminophen (NORCO 7.5/325 TABLET) 1 TAB Q6H PRN PRN PO Hydromorphone HCl (Hydromorphone HCl) 1 MG Q6H PRN PRN IV Albuterol Sulfate (ALBUTEROL SULFATE) 1.25 MG RTQ4H PRN PRN INH Diphenhydramine HCl (diphenhydrAMINE HCL) 12.5 MG Q4H PRN PRN IV Naloxone HCl (NARCAN) 0.1 MG Q2M PRN PRN IV Ondansetron HCl (ondansetron HCL) 4 MG Q6H PRN PRN IV Nicotine (HABITROL 21MG PATCH) 21 MG DAILY PRN PRN TRANSDERM (CKD) Carvedilol (COREG 3.125MG TAB) 3.125 MG BID PO Insulin Glargine (Lantus/Semglee) 10 UNIT BEDTIME SUBQ Cefazolin Sodium (Cefazolin Sodium) 2 GM Q8H IV Sodium Chloride (SODIUM CHLORIDE 0.9%) 100 ML Famotidine (PEPCID TAB) 20 MG BID AC PO Enoxaparin Sodium (LOVENOX 40MG SYRINGE) 40 MG 1700 SUBQ Tramadol HCl (ULTRAM) 50 MG Q4H PRN PRN PO Thiamine HCl (THIAMINE HCL) 100 MG DAILY PO Calcium Carbonate (TUMS 500MG) 1,000 MG Q6H PRN PRN PO Docusate Sodium (COLACE 100 MG CAPSULE) 100 MG BID PRN PRN PO Guaifenesin (guaiFENesin) 200 MG Q6H PRN PRN PO Insulin Human Lispro (Admelog) S/SCALE MED AC HS SUBQ Melatonin (MELATONIN) 6 MG BEDTIME PRN PRN PO Simethicone (SIMETHICONE) 80 MG Q6H PRN PRN PO Ondansetron HCl (ondansetron HCL) 4 MG Q6H PRN PRN IV Dextrose/Water (DEXTROSE 50%-WATER) 50 ML ASDIR PRN IV (CKD) Physical Exam General appearance: alert, awake Head/Eyes: atraumatic, clear cornea, normal eyelids/periorb., normocephalic, PERRL Neck: full range of motion, non-tender Cardiovascular: normal capillary refill, normal heart sounds Respiratory: hypoxia, on oxygen, aerating well Abdomen: non-tender, normal bowel sounds, soft, no distention, no guarding Genitourinary: no bladder distention, no flank pain, no urinary catheter Extremities: decreased range of motion, edema, moves all, right BKA Neuro/ADDICTION COUNSELOR: alert, oriented X 3, CNII-XII intact, normal speech, no motor deficits Skin: dry, intact Psychiatry: normal affect, normal judgment/insight, normal mood Results Findings/Data: Laboratory Tests 07/25 07/25 07/25 07/24 07/24 1159 1109 0820 1954 1554 Chemistry Sodium (136 - 145 mmol/L) 133 L Potassium (3.5 - 5.1 mmol/L) 3.0 L Chloride (98 - 107 mmol/L) 90.0 L Carbon Dioxide (21 - 32 mmol/L) 39.0 H Anion Gap (10 - 20 mmol/L) 7.0 L BUN (7 - 18 mg/dL) 20 H Creatinine (0.7 - 1.3 mg/dL) 0.50 L Glomerular Filtr Rate (>=60 mL/min) > 60 BUN/Creatinine Ratio (10 - 20) 37.0 H Glucose (74 - 106 mg/dL) 226 H POC Glucose (74 - 106 mg/dL) 237 H 178 H 192 H 136 H Calcium (8.5 - 10.1 mg/dL) 7.7 L Laboratory Tests 07/25 1110 Hematology WBC (4.5 - 12.5 K/mm3) 8.0 RBC (4.0 - 5.8 mill/mm3) 3.02 L Hgb (13.0 - 17.5 gram/dL) 8.9 L Hct (42.0 - 52.0 %) 26.8 L MCV (80 - 98 fL) 88.7 MCH (27.0 - 33.0 picogram) 29.5 MCHC (33.0 - 36.0 gram/dL) 33.2 RDW (11.6 - 16.2 %) 15.5 RDW Std Deviation (37.0 - 51.0 fL) 50.2 Plt Count (150 - 450 K/mm3) 405 MPV (6.7 - 11.0 fL) 10.1 Neut # (Auto) (1.8 - 7.7 K/mm3) 4.55 Lymph # (Auto) (1.0 - 5.0 K/mm3) 2.65 [place] # (Auto) (0 - 0.8 K/mm3) 0.66 Eos # (Auto) (0.0 - 0.5 K/mm3) 0.06 Baso # (Auto) (0.0 - 0.2 K/mm3) 0.05 Add Manual Diff DIFF NEEDED Total Counted (#CELLS) 115 Seg Neutrophils % (39 - 69 %) 65.2 Band Neutrophils % (0 - 10 %) 15.7 H Lymphocytes % (Manual) (25 - 55 %) 13.0 L Monocytes % (Manual) (0 - 10 %) 6.1 Eosinophils % (Manual) (0.0 - 5.0 %) 0 Basophils % (Manual) (0 - 1.0 %) 0 Nucleated RBC % (0 - 0 %) 0.0 Metamyelocytes (0 - 0 %) 0 Myelocytes (0.0 - 0.0 %) 0 Promyelocytes (0 - 0 %) 0 Nucleated RBCs # (Man) (0.0 - 0.1 K/mm3) 0.00 Reactive Lymphocytes (%) 0 Immature Blood Cells (0 - 0 %) 0 Platelet Estimate ADEQUATE Plt Morphology Comment SIZE VARIABLE Hypochromasia 1+ Anisocytosis 1+ Macrocytosis 1+ Morphology Comment NORMAL Results: vital signs reviewed, current med profile rev'd Diagnosis, Assessment Plan Free Text DxA P Notes Free text DxA P notes: #Acute necrotizing fasciitis of right lower extremity status post debridement by general surgery on 07/13/24, 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 Patient started on IV cefazolin 2 g every 8 hours Acute hypoxic respiratory failure -07/22: Possibly related to lethargy from MANUFACTURING INTERN pump MANUFACTURING INTERN pump discontinued, start on IV Dilaudid and [place] p.o. -Obtain chest x-ray: No acute infiltrates, effusions or congestion -sputum cultures -Incentive spirometer with no simple -Start on breathing treatments -Pulm consult: Severe hypoalbuminemia, recommends diuresis check urine protein level. -Start on Lasix 20 mg IV every 12 hours and reassess clinically #Sepsis secondary to necrotizing fasciitis present on admission, normal lactic acid, wbc elevated, Tachycardic Blood cultures positive for Staphylococcus aureus Wound with Morganella morganii continue with cefazolin every 8 hrs x 8 weeks from 07/16/24 per ID IV antibiotics #MSSA bacteremia IV cefazolin 2g q8hrs x 8 weeks from 07/16/2024 per ID #Type II diabetes mellitus with hyperglycemia uncontrolled, Hgb A 1 C 11.2% insulin sliding scale and lantus 10u bedtime #Hypokalemia potassium 3.0, give 40meq oral KCL #superficial thrombosis of cephalic vein in right upper extremity DVT ruled out doppler US is negative for DVT, but showed superficial vein thrombosis noted in the right cephalic vein #Hypertension Blood pressure 160s-170s systolic. Started on Coreg 3.125 mg twice daily #Tobacco use disorder nicotine patch prn DVT Px Lovenox 40mg daily Code status Full code at 1307 at 0902 RPT #:[id number] END OF REPORT [facility] 2024-07-24 20:02:00 [facility] ([facility]) Infectious Dis. Progress Note REPORT#:[id number] REPORT STATUS: Signed REPORT INITIALIZATION DATE:07/24/24 TIME: 2001 PATIENT: CAROLYNN PATEL UNIT #: [id number] ROOM/BED: [address] : 70 AGE: 54 SEX: M ATTEND: Elton Ramírez MD ADM AUTHOR: Marce Kiser MD REPT SERVICE DT/TIME: 07/24/242001 * ALL edits or amendments must be made on the electronic/computer document * Subjective Chief complaint: Bacteremia Staphylococcus aureus present on admission MSSA bacteremia right lower extremity pain HPI: This patient comes to the emergency room with negative soft tissue infection right lower extremity had to have an emergency surgical debridement Currently in bed Complaining of right foot pain plan for right BKA noted Patient seen examined chart reviewed Patient status post excisional debridement of necrotic tissue on July 13 Repeat blood culture from July so still pending Objective Physical Exam Wound/incision: Location: Right foot dressing Site condition: dressing clean dry Head/Eyes: atraumatic, clear cornea, EOMI ENT: moist mucosal membranes, normal dentition, normal nose Neck: full range of motion, non-tender, normal thyroid Cardiovascular: normal heart sounds, regular rate rhythm Respiratory: clear to auscultation, aerating well Diagnosis, Assessment Plan Problem List/A P: 1. Necrotizing fasciitis 2. Hypoxia Free Text A P: Sepsis on admission MSSA bacteremia present on admission Wound with Morganella morganii Necrotizing soft tissue infection wound with morgenella Will change antibiotic to Ancef Recheck of blood culture NEGATIVE SO FAR Obtain KALYAN Obtain CT chest abdomen pelvis agree with BKA IMPRESSION: The abdomen and pelvis are within normal limits. There are tiny bilateral pleural effusions with subsegmental atelectasis in the underlying lung bases. Will need long-term IV antibiotic at least 8 weeks end therapy 09/11 at 2002 RPT #:[id number] END OF REPORT [facility] 2024-07-24 13:29:00 [facility] ([facility]) Hospitalist Progress Note REPORT#:[id number] REPORT STATUS: Signed REPORT INITIALIZATION DATE:07/24/24 TIME: 1328 PATIENT: CAROLYNN PATEL UNIT #: [id number] ROOM/BED: [address] : 70 AGE: 54 SEX: M ATTEND: Elton Ramírez MD ADM AUTHOR: Kings Oliva AQUATICS COORDINATOR REPT SERVICE DT/TIME: 07/24/24 1329 * ALL edits or amendments must be made on the electronic/computer document * Subjective Chief complaint: Reports right leg pain/PT/OT Patient reports: No: complaints. Nursing reports: No: complaints. Objective General VS/I O: Vital Signs: Date Time Temp Pulse Resp B/P B/P Pulse O2 O2 Flow FiO2 Mean Ox Delivery Rate 07/24 1131 36.6 80 15 100/64 76.4 93 Room air 07/24 0931 94 Nasal 4 36 cannula 07/24 0733 36.6 73 15 108/75 85.9 92 Room air 07/24 0522 36.8 67 18 98/65 76.1 92 07/23 2349 36.6 64 18 101/69 79.4 96 07/23 2141 97 Nasal 4 36 cannula 07/23 2021 39.0 78 16 96/ 75.9 99 Nasal cannula 07/23 2019 Nasal 3 cannula 07/23 1551 39.4 120 16 111/68 82.6 92 Room air PATIENT WEIGHT: Weight (lb): Weight (oz): Weight (kg): 63.636 Medications: Active Meds + DC'd Last 24 Hrs Acetaminophen (TYLENOL) 650 MG ONCE ONE PO (DC) Acetylcysteine (MUCOMYST 20%) 400 MG RTQ12H INH Acetaminophen (TYLENOL) 650 MG Q6H PRN PRN PO Furosemide (LASIX 20MG Inj) 20 MG Q12HR IV Hydrocodone Bitart/Acetaminophen (NORCO 7.5/325 TABLET) 1 TAB Q6H PRN PRN PO Hydromorphone HCl (Hydromorphone HCl) 1 MG Q6H PRN PRN IV Albuterol Sulfate (ALBUTEROL SULFATE) 1.25 MG RTQ4H PRN PRN INH Diphenhydramine HCl (diphenhydrAMINE HCL) 12.5 MG Q4H PRN PRN IV Naloxone HCl (NARCAN) 0.1 MG Q2M PRN PRN IV Ondansetron HCl (ondansetron HCL) 4 MG Q6H PRN PRN IV Nicotine (HABITROL 21MG PATCH) 21 MG DAILY PRN PRN TRANSDERM (CKD) Carvedilol (COREG 3.125MG TAB) 3.125 MG BID PO Insulin Glargine (Lantus/Semglee) 10 UNIT BEDTIME SUBQ Cefazolin Sodium (Cefazolin Sodium) 2 GM Q8H IV Sodium Chloride (SODIUM CHLORIDE 0.9%) 100 ML Famotidine (PEPCID TAB) 20 MG BID AC PO Enoxaparin Sodium (LOVENOX 40MG SYRINGE) 40 MG 1700 SUBQ Tramadol HCl (ULTRAM) 50 MG Q4H PRN PRN PO Thiamine HCl (THIAMINE HCL) 100 MG DAILY PO Calcium Carbonate (TUMS 500MG) 1,000 MG Q6H PRN PRN PO Docusate Sodium (COLACE 100 MG CAPSULE) 100 MG BID PRN PRN PO Guaifenesin (guaiFENesin) 200 MG Q6H PRN PRN PO Insulin Human Lispro (Admelog) S/SCALE MED AC HS SUBQ Melatonin (MELATONIN) 6 MG BEDTIME PRN PRN PO Simethicone (SIMETHICONE) 80 MG Q6H PRN PRN PO Ondansetron HCl (ondansetron HCL) 4 MG Q6H PRN PRN IV Dextrose/Water (DEXTROSE 50%-WATER) 50 ML ASDIR PRN IV (CKD) Physical Exam General appearance: alert, awake Head/Eyes: atraumatic, clear cornea, normal eyelids/periorb., normocephalic, PERRL Neck: full range of motion, non-tender Cardiovascular: normal capillary refill, normal heart sounds Respiratory: hypoxia, on oxygen, aerating well Abdomen: non-tender, normal bowel sounds, soft, no distention, no guarding Genitourinary: no bladder distention, no flank pain, no urinary catheter Extremities: decreased range of motion, edema, moves all, right BKA Neuro/ADDICTION COUNSELOR: alert, oriented X 3, CNII-XII intact, normal speech, no motor deficits Skin: dry, intact Psychiatry: normal affect, normal judgment/insight, normal mood Results Findings/Data: Laboratory Tests 07/24 07/24 07/23 07/23 1130 0731 2024 1552 Chemistry POC Glucose (74 - 106 mg/dL) 213 H 271 H 227 H 171 H Results: vital signs reviewed, current med profile rev'd Diagnosis, Assessment Plan Free Text DxA P Notes Free text DxA P notes: #Acute necrotizing fasciitis of right lower extremity status post debridement by general surgery on 07/13/24, 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 Patient started on IV cefazolin 2 g every 8 hours Acute hypoxic respiratory failure -07/22: Possibly related to lethargy from MANUFACTURING INTER[employer] pump MANUFACTURING INTERN pump discontinued, start on IV Dilaudid and [place] p.o. -Obtain chest x-ray: No acute infiltrates, effusions or congestion -sputum cultures -Incentive spirometer with no simple -Start on breathing treatments -Pulm consult: Severe hypoalbuminemia, recommends diuresis check urine protein level. -Start on Lasix 20 mg IV every 12 hours and reassess clinically #Sepsis secondary to necrotizing fasciitis present on admission, normal lactic acid, wbc elevated, Tachycardic Blood cultures positive for Staphylococcus aureus Wound with Morganella morganii continue with cefazolin every 8 hrs x 8 weeks from 07/16/24 per ID IV antibiotics #MSSA bacteremia IV cefazolin 2g q8hrs x 8 weeks from 07/16/2024 per ID #Type II diabetes mellitus with hyperglycemia uncontrolled, Hgb A 1 C 11.2% insulin sliding scale and lantus 10u bedtime #Hypokalemia potassium 3.0, give 40meq oral KCL #superficial thrombosis of cephalic vein in right upper extremity DVT ruled out doppler US is negative for DVT, but showed superficial vein thrombosis noted in the right cephalic vein #Hypertension Blood pressure 160s-170s systolic. Started on Coreg 3.125 mg twice daily #Tobacco use disorder nicotine patch prn DVT Px Lovenox 40mg daily Code status Full code at 1330 at 0902 RPT #:[id number] END OF REPORT [facility] 2024-07-24 11:00:00 [facility] ([facility] Pulmonology Progress Note REPORT#:[id number] REPORT STATUS: Signed REPORT INITIALIZATION DATE:07/24/24 TIME: 1100 PATIENT: CAROLYNN PATEL UNIT #: [id number] ROOM/BED: [address] : 70 AGE: 54 SEX: M ATTEND: Elton Ramírez MD ADM AUTHOR: Tom Barillas MD REPT SERVICE DT/TIME: 07/24/24 1100 * ALL edits or amendments must be made on the electronic/computer document * Subjective Chief complaint: dyspnea HPI: feels better no CP no cough no fever no dyspnea on 2LPm NC Review of Systems ROS All systems rev neg: except as marked Objective General VS/I O: Last Documented: Result Date Time Pulse Ox 92 07/24 732 B/P 108/75 07/24 732 B/P Mean 85.9 07/24 732 O2 Delivery Room air 07/24 732 Temp 36.6 07/24 732 Pulse 73 07/24 732 Resp 15 07/24 732 FiO2 36 07/23 2140 O2 Flow Rate 4 07/23 2140 PATIENT WEIGHT: Weight (lb): Weight (oz): Weight (kg): 63.636 Physical Exam General appearance: alert, awake, oriented Head/eyes: atraumatic, normocephalic, PERRLA Neck: full range of motion, non-tender, no JVD Cardiovascular: normal heart sounds, normal S1/S2, no murmur Respiratory/chest: aerating well, clear to auscultation, symmetric expansion Abdomen: soft, non-tender, no guarding Extremities: moves all, normal capillary refill, no clubbing, no cyanosis Skin: dry, intact, normal turgor Results Findings/Data: Laboratory Tests 07/2431 2024 1552 1141 Chemistry POC Glucose (74 - 106 mg/dL) 271 H 227 H 171 H 147 H Diagnosis, Assessment Plan Free Text A P: Acute hypoxic resp failure bindu pleural effusion bibasilar atelectasis Nec fasciitis of RLE MSSA bacteremia DM-2 HTN Hypoalbumenimia Plan: improving O2 requirement. wean off. currently on 2LPM NC. pulm toileting airway clerance therapy work up for hypoalbuminemia. urine protein/Cr to assess for proteinuria not done yet avoid sedatives. wean Fio2 down. repeat CXR in 1-2 days low BNP unliukely cardiac related. DVT proph at 1102 RPT #:[id number] END OF REPORT [facility] 2024-07-23 14:43:00 [facility] ([facility]) Hospitalist Progress Note REPORT#:[id number] REPORT STATUS: Signed REPORT INITIALIZATION DATE:07/23/24 TIME: 3 PATIENT: CAROLYNN PATEL UNIT #: [id number] ROOM/BED: [address] : 70 AGE: 54 SEX: M ATTEND: Elton Ramírez MD ADM AUTHOR: Kings Oliva NP REPT SERVICE DT/TIME: 07/23/24 6674 * ALL edits or amendments must be made on the electronic/computer document * Subjective Chief complaint: Reports right leg pain/PT/OT Patient reports: No: complaints. Nursing reports: No: complaints. Comments: loraine is from [place] and family would love rehab over there if need be Objective General VS/I O: Vital Signs: Date Time Temp Pulse Resp B/P B/P Pulse O2 O2 Flow FiO2 Mean Ox Delivery Rate 07/23 1141 36.9 96 16 154/89 110.6 92 Room air 07/23 1139 36.6 16 07/23 0739 36.5 77 16 109/66 80.0 93 Nasal cannula 07/23 0437 36.6 79 18 110/68 82.0 95 Nasal cannula 07/22 2320 37.4 103 17 98/64 75.4 93 Nasal cannula 07/22 2030 Nasal 4 cannula 07/22 1944 36.8 98 15 115/71 85.6 91 Nasal cannula 07/22 1557 36.8 98 16 111/67 81.9 92 Nasal cannula PATIENT WEIGHT: Weight (lb): Weight (oz): Weight (kg): 63.636 Medications: Active Meds + DC'd Last 24 Hrs Acetylcysteine (MUCOMYST 20%) 400 MG RTQ12H INH Furosemide (LASIX 20MG Inj) 20 MG Q12HR IV Hydrocodone Bitart/Acetaminophen (NORCO 7.5/325 TABLET) 1 TAB Q6H PRN PRN PO Hydromorphone HCl (Hydromorphone HCl) 1 MG Q6H PRN PRN IV Albuterol Sulfate (ALBUTEROL SULFATE) 1.25 MG RTQ4H PRN PRN INH Diphenhydramine HCl (diphenhydrAMINE HCL) 12.5 MG Q4H PRN PRN IV Naloxone HCl (NARCAN) 0.1 MG Q2M PRN PRN IV Ondansetron HCl (ondansetron HCL) 4 MG Q6H PRN PRN IV Nicotine (HABITROL 21MG PATCH) 21 MG DAILY PRN PRN TRANSDERM (CKD) Carvedilol (COREG 3.125MG TAB) 3.125 MG BID PO Insulin Glargine (Lantus/Semglee) 10 UNIT BEDTIME SUBQ Cefazolin Sodium (Cefazolin Sodium) 2 GM Q8H IV Sodium Chloride (SODIUM CHLORIDE 0.9%) 100 ML Famotidine (PEPCID TAB) 20 MG BID AC PO Enoxaparin Sodium (LOVENOX 40MG SYRINGE) 40 MG 1700 SUBQ Tramadol HCl (ULTRAM) 50 MG Q4H PRN PRN PO Thiamine HCl (THIAMINE HCL) 100 MG DAILY PO Calcium Carbonate (TUMS 500MG) 1,000 MG Q6H PRN PRN PO Docusate Sodium (COLACE 100 MG CAPSULE) 100 MG BID PRN PRN PO Guaifenesin (guaiFENesin) 200 MG Q6H PRN PRN PO Insulin Human Lispro (Admelog) S/SCALE MED AC HS SUBQ Melatonin (MELATONIN) 6 MG BEDTIME PRN PRN PO Simethicone (SIMETHICONE) 80 MG Q6H PRN PRN PO Ondansetron HCl (ondansetron HCL) 4 MG Q6H PRN PRN IV Dextrose/Water (DEXTROSE 50%-WATER) 50 ML ASDIR PRN IV (CKD) Hydralazine HCl (APRESOLINE) 10 MG Q2H PRN PRN IV (DC) Physical Exam General appearance: alert, awake Head/Eyes: atraumatic, clear cornea, normal eyelids/periorb., normocephalic, PERRL Neck: full range of motion, non-tender Cardiovascular: normal capillary refill, normal heart sounds Respiratory: hypoxia, on oxygen, aerating well Abdomen: non-tender, normal bowel sounds, soft, no distention, no guarding Genitourinary: no bladder distention, no flank pain, no urinary catheter Extremities: decreased range of motion, edema, moves all, right BKA Neuro/ADDICTION COUNSELOR: alert, oriented X 3, CNII-XII intact, normal speech, no motor deficits Skin: dry, intact Psychiatry: normal affect, normal judgment/insight, normal mood Results Findings/Data: Laboratory Tests 07/23 07/23 07/22 07/22 1141 0740 1946 1548 Chemistry POC Glucose (74 - 106 mg/dL) 147 H 188 H 211 H 189 H Results: vital signs reviewed, current med profile rev'd Diagnosis, Assessment Plan Orders: Procedure Date/time Status Occupational Therapist Consult 07/23 1200 Active Physical Therapist Consult 07/23 1159 Active Free Text DxA P Notes Free text DxA P notes: #Acute necrotizing fasciitis of right lower extremity status post debridement by general surgery on 07/13/24, 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 Patient started on IV cefazolin 2 g every 8 hours Acute hypoxic respiratory failure -07/22: Possibly related to lethargy from MANUFACTURING INTERN pump MANUFACTURING INTERN pump discontinued, start on IV Dilaudid and [place] p.o. -Obtain chest x-ray: No acute infiltrates, effusions or congestion -sputum cultures -Incentive spirometer with no simple -Start on breathing treatments -Pulm consult: Severe hypoalbuminemia, recommends diuresis check urine protein level. -Start on Lasix 20 mg IV every 12 hours and reassess clinically #Sepsis secondary to necrotizing fasciitis present on admission, normal lactic acid, wbc elevated, Tachycardic Blood cultures positive for Staphylococcus aureus Wound with Morganella morganii continue with cefazolin every 8 hrs x 8 weeks from 07/16/24 per ID IV antibiotics #MSSA bacteremia IV cefazolin 2g q8hrs x 8 weeks from 07/16/2024 per ID #Type II diabetes mellitus with hyperglycemia uncontrolled, Hgb A 1 C 11.2% insulin sliding scale and lantus 10u bedtime #Hypokalemia potassium 3.0, give 40meq oral KCL #superficial thrombosis of cephalic vein in right upper extremity DVT ruled out doppler US is negative for DVT, but showed superficial vein thrombosis noted in the right cephalic vein #Hypertension Blood pressure 160s-170s systolic. Started on Coreg 3.125 mg twice daily #Tobacco use disorder nicotine patch prn DVT Px Lovenox 40mg daily Code status Full code at 1442 at 145 [facility] #:[id number] END OF REPORT [facility] 2024-07-23 12:22:00 [facility] General Surgery Progress Note REPORT#:[id number] REPORT STATUS: Signed REPORT INITIALIZATION DATE:07/23/24 TIME: 1222 PATIENT: CAROLYNN PATEL UNIT #: [id number] ROOM/BED: [address] : 70 AGE: 54 SEX: M ATTEND: Elton Ramírez MD ADM AUTHOR: Galilea Sanabria MD REPT SERVICE DT/TIME: 07/23/24 1222 * ALL edits or amendments must be made on the electronic/computer document * General Date of surgery: 07/20/24 Status post: R leg BKA Subjective HPI: Patient overall well, eating, no fevers. Objective General VS/I O: Last Documented: Result Date Time Pulse Ox 92 07/23 1141 B/P 154/89 07/23 1141 B/P Mean 110.6 07/23 1141 O2 Delivery Room air 07/23 1141 Temp 36.9 07/23 1141 Pulse 96 07/23 1141 Resp 16 07/23 1141 O2 Flow Rate 4 07/22 2030 Vital Signs Date Temp Pulse Resp B/P B/P Mean Pulse Ox FiO2 07/22-07/23 36.5-37.4 77-103 15-18 98-154/64-89 75.4-110.6 91-95 PATIENT WEIGHT: Weight (lb): Weight (oz): Weight (kg): 63.636 Medications: Active Meds + DC'd Last 24 Hrs Acetylcysteine (MUCOMYST 20%) 400 MG RTQ12H INH Furosemide (LASIX 20MG Inj) 20 MG Q12HR IV Hydrocodone Bitart/Acetaminophen (NORCO 7.5/325 TABLET) 1 TAB Q6H PRN PRN PO Hydromorphone HCl (Hydromorphone HCl) 1 MG Q6H PRN PRN IV Albuterol Sulfate (ALBUTEROL SULFATE) 1.25 MG RTQ4H PRN PRN INH Diphenhydramine HCl (diphenhydrAMINE HCL) 12.5 MG Q4H PRN PRN IV Naloxone HCl (NARCAN) 0.1 MG Q2M PRN PRN IV Ondansetron HCl (ondansetron HCL) 4 MG Q6H PRN PRN IV Nicotine (HABITROL 21MG PATCH) 21 MG DAILY PRN PRN TRANSDERM (CKD) Carvedilol (COREG 3.125MG TAB) 3.125 MG BID PO Insulin Glargine (Lantus/Semglee) 10 UNIT BEDTIME SUBQ Cefazolin Sodium (Cefazolin Sodium) 2 GM Q8H IV Sodium Chloride (SODIUM CHLORIDE 0.9%) 100 ML Famotidine (PEPCID TAB) 20 MG BID AC PO Enoxaparin Sodium (LOVENOX 40MG SYRINGE) 40 MG 1700 SUBQ Tramadol HCl (ULTRAM) 50 MG Q4H PRN PRN PO Thiamine HCl (THIAMINE HCL) 100 MG DAILY PO Calcium Carbonate (TUMS 500MG) 1,000 MG Q6H PRN PRN PO Docusate Sodium (COLACE 100 MG CAPSULE) 100 MG BID PRN PRN PO Guaifenesin (guaiFENesin) 200 MG Q6H PRN PRN PO Insulin Human Lispro (Admelog) S/SCALE MED AC HS SUBQ Melatonin (MELATONIN) 6 MG BEDTIME PRN PRN PO Simethicone (SIMETHICONE) 80 MG Q6H PRN PRN PO Ondansetron HCl (ondansetron HCL) 4 MG Q6H PRN PRN IV Dextrose/Water (DEXTROSE 50%-WATER) 50 ML ASDIR PRN IV (CKD) Hydralazine HCl (APRESOLINE) 10 MG Q2H PRN PRN IV (DC) Physical Exam General appearance: alert, awake Extremities: right BK amp dressing removed, incision looks clean and dry. dressing reapplied. Results Findings/Data: Laboratory Tests 07/23 07/23 07/22 07/22 1141 0740 1946 1548 Chemistry POC Glucose (74 - 106 mg/dL) 147 H 188 H 211 H 189 H Diagnosis, Assessment Plan Problem List/A P: 1. Necrotizing fasciitis Free Text A P: pt stable status post BKA 3 days ago. Will get OT PT eval. Continue supportive care. at 1224 RPT #:[id number] END OF REPORT [facility] 2024-07-23 09:49:00 [facility] ([facility]) Pulmonology Progress Note REPORT#:[id number] REPORT STATUS: Signed REPORT INITIALIZATION DATE:07/23/24 TIME: 948 PATIENT: CAROLYNN PATEL UNIT #: [id number] ROOM/BED: [address] : 70 AGE: 54 SEX: M ATTEND: Elton Ramírez MD ADM AUTHOR: Tom Barillas MD REPT SERVICE DT/TIME: 07/23/24 0949 * ALL edits or amendments must be made on the electronic/computer document * Subjective Chief complaint: dyspnea HPI: feels better no CP no cough no fever no dyspnea on 2LPm NC Review of Systems ROS All systems rev neg: except as marked Objective General VS/I O: Last Documented: Result Date Time Pulse Ox 93 07/23 738 B/P 109/66 07/23 738 B/P Mean 80.0 07/23 738 O2 Delivery Nasal cannula 07/23 738 Temp 36.5 07/23 738 Pulse 77 07/23 738 Resp 16 07/23 738 O2 Flow Rate 4 07/22 2029 PATIENT WEIGHT: Weight (lb): Weight (oz): Weight (kg): 63.636 Physical Exam General appearance: alert, awake, oriented Head/eyes: atraumatic, normocephalic, PERRLA Neck: full range of motion, non-tender, no JVD Cardiovascular: normal heart sounds, normal S1/S2, no murmur Respiratory/chest: aerating well, clear to auscultation, symmetric expansion Abdomen: soft, non-tender, no guarding Extremities: moves all, normal capillary refill, no clubbing, no cyanosis Skin: dry, intact, normal turgor Results Findings/Data: Laboratory Tests 07/23 07/22 07/22 07/22 0740 1946 1548 1107 Chemistry POC Glucose (74 - 106 mg/dL) 188 H 211 H 189 H 128 H Radiology data: Recent Impressions: RADIOLOGY - XR CHEST 1 V 07/22 1105 Report Impression - Status: SIGNED Entered: 07/22/2024 1143 IMPRESSION: No acute infiltrates, effusion or congestion. Dependent changes. Impression By: [email or web address] Karo Gomez M.D. Diagnosis, Assessment Plan Free Text A P: Acute hypoxic resp failure bindu pleural effusion bibasilar atelectasis Nec fasciitis of RLE MSSA bacteremia DM-2 HTN Hypoalbumenimia Plan: improving O2 requirement pulm toileting airway clerance therapy IS add Mucomyst gentle diuresis intermittently work up for hypoalbuminemia. Pending urine protein/Cr to assess for proteinuria. avoid sedatives. wean Fio2 down. low BNP unliukely cardiac related. DVT proph at 0951 RPT #:[id number] END OF REPORT [facility] 2024-07-22 17:58:00 [facility] ([facility] Infectious Dis. Progress Note REPORT#:[id number] REPORT STATUS: Signed REPORT INITIALIZATION DATE:07/22/24 TIME: 1757 PATIENT: CAROLYNN PATEL UNIT #: [id number] ROOM/BED: [address] : 70 AGE: 54 SEX: M ATTEND: Elton Ramírez MD ADM AUTHOR: Marce Kiser MD REPT SERVICE DT/TIME: 07/22/241757 * ALL edits or amendments must be made on the electronic/computer document * Subjective Chief complaint: Bacteremia Staphylococcus aureus present on admission MSSA bacteremia right lower extremity pain HPI: This patient comes to the emergency room with negative soft tissue infection right lower extremity had to have an emergency surgical debridement Currently in bed Complaining of right foot pain plan for right BKA noted Patient seen examined chart reviewed Patient status post excisional debridement of necrotic tissue on July 13 Repeat blood culture from July so still pending Review of Systems Constitutional: fatigue. Objective General VS/I O: Vital Signs Date Temp Pulse Resp B/P B/P Mean Pulse Ox FiO2 07/21-07/22 97.5-100.4 89-106 16-17 97-132/57-83 70.3-99.3 81-95 Last Documented: Result Date Time Pulse Ox 92 07/22 1557 B/P 111/67 07/22 1557 B/P Mean 81.9 07/22 1557 O2 Delivery Nasal cannula 07/22 155 Temp 98.2 07/22 1557 Pulse 98 07/22 1557 Resp 16 07/22 1557 O2 Flow Rate 4 07/21 1999 Vital Signs: Date Time Temp Pulse Resp B/P B/P Pulse O2 O2 Flow FiO2 Mean Ox Delivery Rate 07/22 1557 98.2 98 16 111/67 81.9 92 Nasal cannula 07/22 1124 100.0 101 16 101/65 76.7 91 Nasal cannula 07/22 0907 105 94 07/22 0753 104 16 90 Nasal cannula 07/22 0750 100.4 106 16 118/74 88.3 81 Room air 07/22 0750 100.4 106 16 118/74 88.3 81 Room air 07/22 0359 97.5 102 17 97/57 70.3 92 07/21 2322 98.8 89 16 132/83 99.3 95 07/21 2018 100.4 89 17 102/73 82.9 95 07/21 1999 Nasal 4 cannula PATIENT WEIGHT: Weight (lb): Weight (oz): Weight (kg): 63.636 Medications: Active Meds + DC'd Last 24 Hrs Furosemide (LASIX 20MG Inj) 20 MG Q12HR IV Hydrocodone Bitart/Acetaminophen (NORCO 7.5/325 TABLET) 1 TAB Q6H PRN PRN PO Hydromorphone HCl (Hydromorphone HCl) 1 MG Q6H PRN PRN IV Furosemide (FUROSEMIDE) 40 MG ONCE ONE IV (DC) Albuterol Sulfate (ALBUTEROL SULFATE) 1.25 MG RTQ4H PRN PRN INH Diphenhydramine HCl (diphenhydrAMINE HCL) 12.5 MG Q4H PRN PRN IV Hydromorphone HCl 50 ML ASDIR IV (DC) Naloxone HCl (NARCAN) 0.1 MG Q2M PRN PRN IV Ondansetron HCl (ondansetron HCL) 4 MG Q6H PRN PRN IV Nicotine (HABITROL 21MG PATCH) 21 MG DAILY PRN PRN TRANSDERM (CKD) Carvedilol (COREG 3.125MG TAB) 3.125 MG BID PO Insulin Glargine (Lantus/Semglee) 10 UNIT BEDTIME SUBQ Cefazolin Sodium (Cefazolin Sodium) 2 GM Q8H IV Sodium Chloride (SODIUM CHLORIDE 0.9%) 100 ML Famotidine (PEPCID TAB) 20 MG BID AC PO Enoxaparin Sodium (LOVENOX 40MG SYRINGE) 40 MG 1700 SUBQ Tramadol HCl (ULTRAM) 50 MG Q4H PRN PRN PO Thiamine HCl (THIAMINE HCL) 100 MG DAILY PO Calcium Carbonate (TUMS 500MG) 1,000 MG Q6H PRN PRN PO Docusate Sodium (COLACE 100 MG CAPSULE) 100 MG BID PRN PRN PO Guaifenesin (guaiFENesin) 200 MG Q6H PRN PRN PO Insulin Human Lispro (Admelog) S/SCALE MED AC HS SUBQ Melatonin (MELATONIN) 6 MG BEDTIME PRN PRN PO Simethicone (SIMETHICONE) 80 MG Q6H PRN PRN PO Ondansetron HCl (ondansetron HCL) 4 MG Q6H PRN PRN IV Dextrose/Water (DEXTROSE 50%-WATER) 50 ML ASDIR PRN IV (CKD) Hydralazine HCl (APRESOLINE) 10 MG Q2H PRN PRN IV Physical Exam General appearance: alert, awake Wound/incision: Location: Right foot dressing Site condition: dressing clean dry Head/Eyes: atraumatic, clear cornea, EOMI ENT: moist mucosal membranes, normal dentition, normal nose Neck: full range of motion, non-tender, normal thyroid Cardiovascular: normal heart sounds, regular rate rhythm Respiratory: clear to auscultation, aerating well Diagnosis, Assessment Plan Problem List/A P: 1. Necrotizing fasciitis 2. Hypoxia Free Text A P: Sepsis on admission MSSA bacteremia present on admission Wound with Morganella morganii Necrotizing soft tissue infection wound with morgenella Will change antibiotic to Ancef Recheck of blood culture NEGATIVE SO FAR Obtain KALYAN Obtain CT chest abdomen pelvis agree with BKA IMPRESSION: The abdomen and pelvis are within normal limits. There are tiny bilateral pleural effusions with subsegmental atelectasis in the underlying lung bases. Will need long-term IV antibiotic at least 8 weeks end therapy 09/11 at 1800 RPT #:[id number] END OF REPORT [facility] 2024-07-22 16:34:00 [facility] ([facility]) Hospitalist Progress Note REPORT#:[id number] REPORT STATUS: Signed REPORT INITIALIZATION DATE:07/22/24 TIME: 1634 PATIENT: CAROLYNN PATEL UNIT #: [id number] ROOM[facility]BED: [facility] : 70 AGE: 54 SEX: M ATTEND: Elton Ramírez MD ADM AUTHOR: Elton Ramírez MD REPT SERVICE DT/TIME: 07/22/24 9964 * ALL edits or amendments must be made on the electronic/computer document * Subjective Chief complaint: Reports right leg pain Comments: Nurse reports patient is hypoxic and lethargy Review of Systems Unable to obtain due to: Due to lethargy Objective General VS/I O: Vital Signs: Date Time Temp Pulse Resp B/P B/P Pulse O2 O2 Flow FiO2 Mean Ox Delivery Rate 07/22 1557 98.2 98 16 111/67 81.9 92 Nasal cannula 07/22 1124 100.0 101 16 101/65 76.7 91 Nasal cannula 07/22 0907 105 94 07/22 0753 104 16 90 Nasal cannula 07/22 0750 100.4 106 16 118/74 88.3 81 Room air 07/22 0750 100.4 106 16 118/74 88.3 81 Room air 07/22 0359 97.5 102 17 97/57 70.3 92 07/21 2322 98.8 89 16 132/83 99.3 95 07/21 2018 100.4 89 17 102/73 82.9 95 07/21 1999 Nasal 4 cannula PATIENT WEIGHT: Weight (lb): Weight (oz): Weight (kg): 63.636 Physical Exam Head/Eyes: atraumatic, clear cornea, normal eyelids/periorb., normocephalic, PERRL Neck: full range of motion, non-tender Cardiovascular: normal capillary refill, normal heart sounds Respiratory: hypoxia, on oxygen, aerating well Abdomen: non-tender, normal bowel sounds, soft, no distention, no guarding Genitourinary: no bladder distention, no flank pain, no urinary catheter Extremities: decreased range of motion, edema, moves all, right BKA Neuro/ADDICTION COUNSELOR: alert, oriented X 3, CNII-XII intact, normal speech, no motor deficits Skin: dry, intact Psychiatry: normal affect, normal judgment/insight, normal mood Diagnosis, Assessment Plan Free Text DxA P Notes Free text DxA P notes: #Acute necrotizing fasciitis of right lower extremity status post debridement by general surgery on 07/13/24, 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 Patient started on IV cefazolin 2 g every 8 hours Acute hypoxic respiratory failure -07/22: Possibly related to lethargy from MANUFACTURING INTERN pump MANUFACTURING INTERN pump discontinued, start on IV Dilaudid and [place] p.o. -Obtain chest x-ray: No acute infiltrates, effusions or congestion -sputum cultures -Incentive spirometer with no simple -Start on breathing treatments -Pulm consult: Severe hypoalbuminemia, recommends diuresis check urine protein level. -Start on Lasix 20 mg IV every 12 hours and reassess clinically #Sepsis secondary to necrotizing fasciitis present on admission, normal lactic acid, wbc elevated, Tachycardic Blood cultures positive for Staphylococcus aureus Wound with Morganella morganii continue with cefazolin every 8 hrs x 8 weeks from 07/16/24 per ID IV antibiotics #MSSA bacteremia IV cefazolin 2g q8hrs x 8 weeks from 07/16/2024 per ID #Type II diabetes mellitus with hyperglycemia uncontrolled, Hgb A 1 C 11.2% insulin sliding scale and lantus 10u bedtime #Hypokalemia potassium 3.0, give 40meq oral KCL #superficial thrombosis of cephalic vein in right upper extremity DVT ruled out doppler US is negative for DVT, but showed superficial vein thrombosis noted in the right cephalic vein #Hypertension Blood pressure 160s-170s systolic. Started on Coreg 3.125 mg twice daily #Tobacco use disorder nicotine patch prn DVT Px Lovenox 40mg daily Code status Full code at 1643 RPT #:[id number] END OF REPORT [facility] 2024-07-22 12:29:00 [facility] ([facility] General Surgery Progress Note REPORT#:[id number] REPORT STATUS: Signed REPORT INITIALIZATION DATE:07/22/24 TIME: 1229 PATIENT: CAROLYNN PATEL UNIT #: [id number] ROOM/BED: [address] : 70 AGE: 54 SEX: M ATTEND: Jimenez Sanchez MD ADM AUTHOR: Galilea Sanabria MD REPT SERVICE DT/TIME: 07/22/24 1229 * ALL edits or amendments must be made on the electronic/computer document * General Date of surgery: 07/20/24 Status post: R leg BKA Subjective HPI: Patient overall well, noted to be somewhat obtunded this morning on the MANUFACTURING INTERN. No other issues. Objective General VS/I O: Last Documented: Result Date Time Pulse Ox 91 07/22 1124 B/P 101/65 07/22 1124 B/P Mean 76.7 07/22 1123 O2 Delivery Nasal cannula 07/22 1123 Temp 37.8 07/22 112 Pulse 101 07/22 1124 Resp 16 07/22 1123 O2 Flow Rate 4 07/21 1999 Vital Signs Date Temp Pulse Resp B/P B/P Mean Pulse Ox FiO2 07/21-07/22 36.4-38.5 89-119 14-17 97-132/57-83 70.3-99.3 81-95 PATIENT WEIGHT: Weight (lb): Weight (oz): Weight (kg): 63.636 Medications: Active Meds + DC'd Last 24 Hrs Hydrocodone Bitart/Acetaminophen (NORCO 7.5/325 TABLET) 1 TAB Q6H PRN PRN PO Hydromorphone HCl (Hydromorphone HCl) 1 MG Q6H PRN PRN IV Furosemide (FUROSEMIDE) 40 MG ONCE ONE IV (DC) Albuterol Sulfate (ALBUTEROL SULFATE) 1.25 MG RTQ4H PRN PRN INH Diphenhydramine HCl (diphenhydrAMINE HCL) 12.5 MG Q4H PRN PRN IV Hydromorphone HCl 50 ML ASDIR IV (DC) Naloxone HCl (NARCAN) 0.1 MG Q2M PRN PRN IV Ondansetron HCl (ondansetron HCL) 4 MG Q6H PRN PRN IV Nicotine (HABITROL 21MG PATCH) 21 MG DAILY PRN PRN TRANSDERM (CKD) Carvedilol (COREG 3.125MG TAB) 3.125 MG BID PO Insulin Glargine (Lantus/Semglee) 10 UNIT BEDTIME SUBQ Cefazolin Sodium (Cefazolin Sodium) 2 GM Q8H IV Sodium Chloride (SODIUM CHLORIDE 0.9%) 100 ML Famotidine (PEPCID TAB) 20 MG BID AC PO Enoxaparin Sodium (LOVENOX 40MG SYRINGE) 40 MG 1700 SUBQ Tramadol HCl (ULTRAM) 50 MG Q4H PRN PRN PO Thiamine HCl (THIAMINE HCL) 100 MG DAILY PO Calcium Carbonate (TUMS 500MG) 1,000 MG Q6H PRN PRN PO Docusate Sodium (COLACE 100 MG CAPSULE) 100 MG BID PRN PRN PO Guaifenesin (guaiFENesin) 200 MG Q6H PRN PRN PO Insulin Human Lispro (Admelog) S/SCALE MED AC HS SUBQ Melatonin (MELATONIN) 6 MG BEDTIME PRN PRN PO Simethicone (SIMETHICONE) 80 MG Q6H PRN PRN PO Ondansetron HCl (ondansetron HCL) 4 MG Q6H PRN PRN IV Dextrose/Water (DEXTROSE 50%-WATER) 50 ML ASDIR PRN IV (CKD) Hydralazine HCl (APRESOLINE) 10 MG Q2H PRN PRN IV Physical Exam General appearance: confused, alert, awake Extremities: right BK amp dressing is clean and dry. Results Findings/Data: Laboratory Tests 07/22 07/22 07/21 07/21 07/21 1107 0840 2017 1821 1248 Chemistry POC Glucose (74 - 106 mg/dL) 128 H 132 H 130 H 160 H 142 H Diagnosis, Assessment Plan Problem List/A P: 1. Necrotizing fasciitis Free Text A P: pt stable status post BKA 2 days ago. Will DC MANUFACTURING INTERN and give him IV intermittent Dilaudid and start him on [place] p.o. Continue supportive care. at 1231 RPT #:[id number] END OF REPORT [facility] 2024-07-22 11:00:00 [facility] ([facility]) Pulmonary Consultation Note REPORT#:[id number] REPORT STATUS: Signed REPORT INITIALIZATION DATE:07/22/24 TIME: 1100 PATIENT: CAROLYNN PATEL UNIT #: [id number] ROOM/BED: [address]: 70 AGE: 54 SEX: M ATTEND: Jimenez Sanchez MD ADM AUTHOR: Tom Barillas MD REPT SERVICE DT/TIME: 07/22/24 1100 * ALL edits or amendments must be made on the electronic/computer document * History of Present Illness HPI Requesting clinician: Reason for consult: hypoxia Chief complaint: dyspnea History - Adult longitudinal Past medical history: Reports: Diabetes mellitus. Smoking status for patients 13 years old or older: Current every day smoker Packs per day: 1 Pack years: 0 Allergies: Coded Allergies: No Known Allergies (07/13/24) Diagnosis, Assessment Plan Free Text DxA P Notes Free Text DxA P Notes: Acute hypoxic resp failure bindu pleural effusion bibasilar atelectasis Nec fasciitis of RLE MSSA bacteremia DM-2 HTN Hypoalbumenimia Plan: pt has severe hypoalbumenemia with albumin level of 1 I reviewed bases of lungs images seen on CT abd- there are small pleural effusions and minimal atelectasis hypoxia is likeoly multifactorial related to atelectasis/edema/pl effusions. I recommend diuresis I recommend further work up for hypoalbumeniemia, check urine protein level. obtain CXR wean Fio2 down. currently on 5LPM NC low BNP unliukely cardiac related. DVT proph at 1105 RPT #:[id number] END OF REPORT [facility] 2024-07-21 21:49:00 [facility] ([facility]) Infectious Dis. Progress Note REPORT#:[id number] REPORT STATUS: Signed REPORT INITIALIZATION DATE:07/21/24 TIME: 2148 PATIENT: CAROLYNN PATEL UNIT #: [id number] ROOM/BED: [address] : 70 AGE: 54 SEX: M ATTEND: Jimenez Sanchez MD ADM AUTHOR: Marce Kiser MD REPT SERVICE DT/TIME: 07/21/242148 * ALL edits or amendments must be made on the electronic/computer document * Subjective Chief complaint: Bacteremia Staphylococcus aureus present on admission MSSA bacteremia right lower extremity pain HPI: This patient comes to the emergency room with negative soft tissue infection right lower extremity had to have an emergency surgical debridement Currently in bed Complaining of right foot pain plan for right BKA noted Patient seen examined chart reviewed Patient status post excisional debridement of necrotic tissue on July 13 Repeat blood culture from July so still pending Review of Systems Constitutional: fatigue. Objective General VS/I O: Vital Signs Date Temp Pulse Resp B/P B/P Mean Pulse Ox FiO2 07/21 97.7-101.3 82-119 14-17 102-163/66-98 82.9-116.2 87-97 Last Documented: Result Date Time Pulse Ox 95 07/21 2018 B/P 102/73 07/21 2018 B/P Mean 82.9 07/21 2018 Temp 100.4 07/21 2018 Pulse 89 07/21 2018 Resp 17 07/21 2018 O2 Delivery Nasal cannula 07/21 1619 O2 Flow Rate 4 07/21 1304 Vital Signs: Date Time Temp Pulse Resp B/P B/P Pulse O2 O2 Flow FiO2 Mean Ox Delivery Rate 07/21 2018 100.4 89 17 102/73 82.9 95 07/21 1619 99.7 102 16 119/73 88.5 94 Nasal cannula 07/21 1304 92 Nasal 4 cannula 07/21 1259 101.3 119 14 120/66 84.1 87 07/21 0835 98.1 83 14 153/98 116.1 97 07/21 0441 97.7 88 148/84 105.3 94 07/21 0032 98.1 82 163/93 116.2 93 PATIENT WEIGHT: Weight (lb): Weight (oz): Weight (kg): 63.636 Medications: Active Meds + DC'd Last 24 Hrs Diphenhydramine HCl (diphenhydrAMINE HCL) 12.5 MG Q4H PRN PRN IV Hydromorphone HCl 50 ML ASDIR IV (CKD) Naloxone HCl (NARCAN) 0.1 MG Q2M PRN PRN IV Ondansetron HCl (ondansetron HCL) 4 MG Q6H PRN PRN IV Nicotine (HABITROL 21MG PATCH) 21 MG DAILY PRN PRN TRANSDERM (CKD) Carvedilol (COREG 3.125MG TAB) 3.125 MG BID PO Insulin Glargine (Lantus/Semglee) 10 UNIT BEDTIME SUBQ Cefazolin Sodium (Cefazolin Sodium) 2 GM Q8H IV Sodium Chloride (SODIUM CHLORIDE 0.9%) 100 ML Famotidine (PEPCID TAB) 20 MG BID AC PO Enoxaparin Sodium (LOVENOX 40MG SYRINGE) 40 MG 1700 SUBQ Tramadol HCl (ULTRAM) 50 MG Q4H PRN PRN PO Thiamine HCl (THIAMINE HCL) 100 MG DAILY PO Calcium Carbonate (TUMS 500MG) 1,000 MG Q6H PRN PRN PO Docusate Sodium (COLACE 100 MG CAPSULE) 100 MG BID PRN PRN PO Guaifenesin (guaiFENesin) 200 MG Q6H PRN PRN PO Insulin Human Lispro (Admelog) S/SCALE MED AC HS SUBQ Melatonin (MELATONIN) 6 MG BEDTIME PRN PRN PO Simethicone (SIMETHICONE) 80 MG Q6H PRN PRN PO Ondansetron HCl (ondansetron HCL) 4 MG Q6H PRN PRN IV Dextrose/Water (DEXTROSE 50%-WATER) 50 ML ASDIR PRN IV (CKD) Hydralazine HCl (APRESOLINE) 10 MG Q2H PRN PRN IV Physical Exam General appearance: alert, awake Wound/incision: Location: Right foot dressing Site condition: dressing clean dry Head/Eyes: atraumatic, clear cornea, EOMI ENT: moist mucosal membranes, normal dentition, normal nose Neck: full range of motion, non-tender, normal thyroid Cardiovascular: normal heart sounds, regular rate rhythm Respiratory: clear to auscultation, aerating well Diagnosis, Assessment Plan Problem List/A P: 1. Necrotizing fasciitis 2. Hypoxia Free Text A P: Sepsis on admission MSSA bacteremia present on admission Wound with Morganella morganii Necrotizing soft tissue infection wound with morgenella Will change antibiotic to Ancef Recheck of blood culture NEGATIVE SO FAR Obtain KALYAN Obtain CT chest abdomen pelvis agree with BKA IMPRESSION: The abdomen and pelvis are within normal limits. There are tiny bilateral pleural effusions with subsegmental atelectasis in the underlying lung bases. Will need long-term IV antibiotic at least 8 weeks at 2149 RPT #:[id number] END OF REPORT [facility] 2024-07-21 17:45:00 [facility] ([facility]) Infectious Dis. Progress Note REPORT#:[id number] REPORT STATUS: Signed REPORT INITIALIZATION DATE:07/21/24 TIME: 1744 PATIENT: CAROLYNN PATEL UNIT #: [id number] ROOM/BED: [address] : 70 AGE: 54 SEX: M ATTEND: Elton Ramírez MD ADM AUTHOR: Natalya Tolentino AQUATICS COORDINATOR REPT SERVICE DT/TIME: 07/21/241744 * ALL edits or amendments must be made on the electronic/computer document * Subjective Chief complaint: Bacteremia Staphylococcus aureus present on admission MSSA bacteremia right lower extremity pain HPI: This patient comes to the emergency room with negative soft tissue infection right lower extremity had to have an emergency surgical debridement Currently in bed Complaining of right foot pain plan for right BKA noted Patient seen examined chart reviewed Patient status post excisional debridement of necrotic tissue on July 13 Repeat blood culture from July so still pending Objective Physical Exam Wound/incision: Location: Right foot dressing Site condition: dressing clean dry Head/Eyes: atraumatic, clear cornea, EOMI ENT: moist mucosal membranes, normal dentition, normal nose Neck: full range of motion, non-tender, normal thyroid Cardiovascular: normal heart sounds, regular rate rhythm Diagnosis, Assessment Plan Problem List/A P: 1. Necrotizing fasciitis 2. Hypoxia Free Text A P: Sepsis on admission MSSA bacteremia present on admission Wound with Morganella morganii Necrotizing soft tissue infection wound with morgenella Will change antibiotic to Ancef Recheck of blood culture NEGATIVE SO FAR Obtain KALYAN Obtain CT chest abdomen pelvis agree with BKA IMPRESSION: The abdomen and pelvis are within normal limits. There are tiny bilateral pleural effusions with subsegmental atelectasis in the underlying lung bases. Will need long-term IV antibiotic at least 8 weeks at 1940 RPT #:[id number] END OF REPORT [facility] 2024-07-21 09:56:00 [facility] ([facility]) General Surgery Progress Note REPORT#:[id number] REPORT STATUS: Signed REPORT INITIALIZATION DATE:07/21/24 TIME: 955 PATIENT: CARLOYNN PATEL UNIT #: [id number] ROOM/BED: [address] : 70 AGE: 54 SEX: M ATTEND: Jimenez Sanchez MD ADM AUTHOR: Juan Carlos Lord MD REPT SERVICE DT/TIME: 07/21/24955 * ALL edits or amendments must be made on the electronic/computer document * Subjective Patient reports: No: complaints. Objective General VS/I O: Last Documented: Result Date Time Pulse Ox 97 07/21 834 B/P 153/98 07/21 834 B/P Mean 116.1 07/21 834 Temp 36.7 07/21 834 Pulse 83 07/21 0735 Resp 14 07/21 834 O2 Delivery Nasal cannula 07/20 155 O2 Flow Rate 2 07/20 1400 Vital Signs Date Temp Pulse Resp B/P B/P Mean Pulse Ox FiO2 07/20-07/21 36.4-36.7 72-89 14-20 98-163/62-98 97.5-116.2 91-98 PATIENT WEIGHT: Weight (lb): Weight (oz): Weight (kg): 63.636 Physical Exam General appearance: alert, awake Extremities: right BK amp dressing is dry. Results Findings/Data: Laboratory Tests 07/21/24416: [Embedded Image Not Available] 07/21/246: [Embedded Image Not Available] Laboratory Tests 07/21 07/21 07/20 07/20 07/20 0831 0416 2104 1557 1101 Chemistry Sodium (136 - 145 mmol/L) 128 L Potassium (3.5 - 5.1 mmol/L) 4.3 Chloride (98 - 107 mmol/L) 93.0 L Carbon Dioxide (21 - 32 mmol/L) 31.0 Anion Gap (10 - 20 mmol/L) 8.3 L BUN (7 - 18 mg/dL) 13 Creatinine (0.7 - 1.3 mg/dL) 0.40 L Glomerular Filtr Rate (>=60 mL/min) > 60 BUN/Creatinine Ratio (10 - 20) 34.2 H Glucose (74 - 106 mg/dL) 110 H POC Glucose (74 - 106 mg/dL) 104 124 H 109 H 143 H Calcium (8.5 - 10.1 mg/dL) 7.4 L Laboratory Tests 07/217 Hematology WBC (4.5 - 12.5 K/mm3) 10.6 RBC (4.0 - 5.8 mill/mm3) 3.19 L Hgb (13.0 - 17.5 gram/dL) 9.5 L Hct (42.0 - 52.0 %) 28.4 L MCV (80 - 98 fL) 89.0 MCH (27.0 - 33.0 picogram) 29.8 MCHC (33.0 - 36.0 gram/dL) 33.5 RDW (11.6 - 16.2 %) 15.5 RDW Std Deviation (37.0 - 51.0 fL) 50.4 Plt Count (150 - 450 K/mm3) 615 H MPV (6.7 - 11.0 fL) 9.3 Neut # (Auto) (1.8 - 7.7 K/mm3) 7.43 Lymph # (Auto) (1.0 - 5.0 K/mm3) 1.58 [place]haw # (Auto) (0 - 0.8 K/mm3) 0.60 Eos # (Auto) (0.0 - 0.5 K/mm3) 0.09 Baso # (Auto) (0.0 - 0.2 K/mm3) 0.10 Add Manual Diff YES Total Counted (#CELLS) 115 Seg Neutrophils % (39 - 69 %) 86.9 H Band Neutrophils % (0 - 10 %) 0 Lymphocytes % (Manual) (25 - 55 %) 7.8 L Monocytes % (Manual) (0 - 10 %) 1.7 Eosinophils % (Manual) (0.0 - 5.0 %) 0.9 Basophils % (Manual) (0 - 1.0 %) 0.9 Nucleated RBC % (0 - 0 %) 0.0 Metamyelocytes (0 - 0 %) 0 Myelocytes (0.0 - 0.0 %) 0.9 H Promyelocytes (0 - 0 %) 0 Nucleated RBCs # (Man) (0.0 - 0.1 K/mm3) 0.00 Reactive Lymphocytes (%) 0 Immature Blood Cells (0 - 0 %) 0.9 H Platelet Estimate INCREASED Plt Morphology Comment NORMAL Polychromasia 1+ Anisocytosis 1+ Macrocytosis 1+ Diagnosis, Assessment Plan Free Text A P: pt is stable. Cont as ordered. at 0957 RPT #:[id number] END OF REPORT [facility] 2024-07-21 09:40:00 [facility] ([facility]) Hospitalist Progress Note REPORT#:[id number] REPORT STATUS: Signed REPORT INITIALIZATION DATE:07/21/24 TIME: 939 PATIENT: CAROLYNN PATEL UNIT #: [id number] ROOM/BED: [address] : 70 AGE: 54 SEX: M ATTEND: Jimenez Sanchez MD ADM AUTHOR: Elton Ramírez MD REPT SERVICE DT/TIME: 07/21/24 0940 * ALL edits or amendments must be made on the electronic/computer document * Subjective Chief complaint: Reports right leg pain Patient reports: Yes: pain. No: diarrhea, fever, vomiting. Objective Physical Exam Head/Eyes: atraumatic, clear cornea, normal eyelids/periorb., normocephalic, PERRL Neck: full range of motion, non-tender Cardiovascular: normal capillary refill, normal heart sounds Respiratory: clear to auscultation, no distress Abdomen: non-tender, normal bowel sounds, soft, no distention, no guarding Genitourinary: no bladder distention, no flank pain, no urinary catheter Extremities: decreased range of motion, edema, moves all, right BKA Neuro/ADDICTION COUNSELOR: alert, oriented X 3, CNII-XII intact, normal speech, no motor deficits Skin: dry, intact Psychiatry: normal affect, normal judgment/insight, normal mood Diagnosis, Assessment Plan Free Text DxA P Notes Free text DxA P notes: #Acute necrotizing fasciitis of right lower extremity status post debridement by general surgery on 07/13/24, 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 Patient started on IV cefazolin 2 g every 8 hours #Sepsis secondary to necrotizing fasciitis present on admission, normal lactic acid, wbc elevated, Tachycardic Blood cultures positive for Staphylococcus aureus Wound with Morganella morganii continue with cefazolin every 8 hrs x 8 weeks from 07/16/24 per ID IV antibiotics #MSSA bacteremia IV cefazolin 2g q8hrs #Type II diabetes mellitus with hyperglycemia uncontrolled, Hgb A 1 C 11.2% insulin sliding scale and lantus 10u bedtime #Hypokalemia potassium 3.0, give 40meq oral KCL #superficial thrombosis of cephalic vein in right upper extremity DVT ruled out doppler US is negative for DVT, but showed superficial vein thrombosis noted in the right cephalic vein #Hypertension Blood pressure 160s-170s systolic. Started on Coreg 3.125 mg twice daily #Tobacco use disorder nicotine patch prn DVT Px Lovenox 40mg daily Code status Full code at 1946 RPT #:[id number] END OF REPORT [facility] 2024-07-20 18:47:00 [facility] ([facility] Hospitalist Progress Note REPORT#:[id number] REPORT STATUS: Signed REPORT INITIALIZATION DATE:07/20/24 TIME: 1846 PATIENT: CAROLYNN PATEL UNIT #: [id number] ROOM/BED: [address] : 70 AGE: 54 SEX: M ATTEND: Jimenez Sanchez MD ADM AUTHOR: Jimenez Sanchez MD REPT SERVICE DT/TIME: 07/20/241846 * ALL edits or amendments must be made on the electronic/computer document * Subjective Chief complaint: Reports right leg pain Objective General VS/I O: Vital Signs: Date Time Temp Pulse Resp B/P B/P Pulse O2 O2 Flow FiO2 Mean Ox Delivery Rate 07/20 2108 97.5 79 154/94 114.2 95 07/20 1556 97.7 72 14 132/80 97.5 92 Nasal cannula 07/20 1400 76 16 137/80 96 Nasal 2 cannula 07/20 1345 75 18 139/74 96 Nasal 2 cannula 07/20 1330 78 20 135/78 97 Nasal 2 cannula 07/20 1315 80 19 125/78 96 Nasal 2 cannula 07/20 1313 Simple 7 mask 07/20 1300 80 16 121/77 94 Room air 07/20 1245 98.0 86 16 98/62 98 Simple 7 mask 07/20 1045 97.6 89 17 157/86 91 Room air 07/20 1000 Nasal 2 cannula 07/20 0759 73 14 171/106 127.4 91 Nasal cannula 07/20 0420 98.1 75 17 149/85 106.4 97 07/19 2318 98.2 77 17 144/87 106.2 95 PATIENT WEIGHT: Weight (lb): Weight (oz): Weight (kg): 63.636 Medications: Active Meds + DC'd Last 24 Hrs Enoxaparin Sodium (LOVENOX 40MG SYRINGE) 40 MG 1700 SUBQ (CAN) Hydromorphone HCl 50 ML .STK-MED ONE IV (DCr) Diphenhydramine HCl (diphenhydrAMINE HCL) 12.5 MG Q4H PRN PRN IV Hydromorphone HCl 50 ML ASDIR IV (CKD) Naloxone HCl (NARCAN) 0.1 MG Q2M PRN PRN IV Ondansetron HCl (ondansetron HCL) 4 MG Q6H PRN PRN IV Morphine Sulfate (morphine SULFATE) 0 .STK-MED ONE .ROUTE (DCr) Diphenhydramine HCl (diphenhydrAMINE HCL) 12.5 MG PROCEDURE PRN IV (DC) Hydralazine HCl (APRESOLINE) 5 MG Q10M PRN PRN IV (DC) Hydrocodone Bitart/Acetaminophen (NORCO 5/325 TABLET) 1 TAB PACU ONCE PRN PRN PO (DC) Hydrocodone Bitart/Acetaminophen (NORCO 10/325 TABLET) 1 TAB PACU ONCE PRN PRN PO (DC) Hydromorphone HCl (Hydromorphone HCl) 0.5 MG Q10M PRN PRN IV (DC) Hydromorphone HCl (Hydromorphone HCl) 1 MG Q10M PRN PRN IV (DC) Labetalol HCl (LABETOLOL HCL) 2.5 MG Q5M PRN PRN IV (DC) Meperidine HCl (MEPERIDINE HCL) 25 MG ONCE PRN IV (DC) Ondansetron HCl (ondansetron HCL) 4 MG ONCE PRN IV (DC) Midazolam HCl (VERSED) 0 .STK-MED ONE .ROUTE (DCr) Propofol (propofoL) 20 ML .STK-MED ONE IV (DCr) Rocuronium [place] (ZEMURON) 0 .STK-MED ONE IV (DC) Fentanyl Citrate (SUBLIMAZE INJ. 2ML) 0 .STK-MED ONE .ROUTE (DC) Glycopyrrolate (GLYCOPYRROLATE) 0 .STK-MED ONE .ROUTE (DC) Lidocaine HCl (LIDOCAINE HCL 2% PF) 0 .STK-MED ONE .ROUTE (DC) Nicotine (HABITROL 21MG PATCH) 21 MG DAILY PRN PRN TRANSDERM (CKD) Carvedilol (COREG 3.125MG TAB) 3.125 MG BID PO Insulin Glargine (Lantus/Semglee) 10 UNIT BEDTIME SUBQ Cefazolin Sodium (Cefazolin Sodium) 2 GM Q8H IV Sodium Chloride (SODIUM CHLORIDE 0.9%) 100 ML Famotidine (PEPCID TAB) 20 MG BID AC PO Enoxaparin Sodium (LOVENOX 40MG SYRINGE) 40 MG 1700 SUBQ Tramadol HCl (ULTRAM) 50 MG Q4H PRN PRN PO Thiamine HCl (THIAMINE HCL) 100 MG DAILY PO Calcium Carbonate (TUMS 500MG) 1,000 MG Q6H PRN PRN PO Docusate Sodium (COLACE 100 MG CAPSULE) 100 MG BID PRN PRN PO Guaifenesin (guaiFENesin) 200 MG Q6H PRN PRN PO Insulin Human Lispro (Admelog) S/SCALE MED AC HS SUBQ Melatonin (MELATONIN) 6 MG BEDTIME PRN PRN PO Simethicone (SIMETHICONE) 80 MG Q6H PRN PRN PO Ondansetron HCl (ondansetron HCL) 4 MG Q6H PRN PRN IV Dextrose/Water (DEXTROSE 50%-WATER) 50 ML ASDIR PRN IV (CKD) Hydralazine HCl (APRESOLINE) 10 MG Q2H PRN PRN IV Physical Exam Head/Eyes: atraumatic, clear cornea, normal eyelids/periorb., normocephalic, PERRL Neck: full range of motion, non-tender Cardiovascular: normal capillary refill, normal heart sounds Respiratory: clear to auscultation, no distress Abdomen: non-tender, normal bowel sounds, soft, no distention, no guarding Genitourinary: no bladder distention, no flank pain, no urinary catheter Extremities: decreased range of motion, edema, moves all, right BKA Neuro/ADDICTION COUNSELOR: alert, oriented X 3, CNII-XII intact, normal speech, no motor deficits Psychiatry: normal affect, normal judgment/insight, normal mood Diagnosis, Assessment Plan Free Text DxA P Notes Free text DxA P notes: #Acute necrotizing fasciitis of right lower extremity status post debridement by general surgery on 07/13/24, general surgeon recommends BKA right below the knee amputation done today 07/20/24 As needed pain medication IV fluid Discussed with infectious disease, blood culture grew Staphylococcus aureus, infectious disease consulted recommend stopping clindamycin and iv cefepime. Patient started on IV cefazolin 2 g every 8 hours #Sepsis secondary to necrotizing fasciitis present on admission, normal lactic acid, wbc elevated, Tachycardic Blood cultures positive for Staphylococcus aureus IV antibiotics #Staphylococcus aureus bacteremia IV cefazolin 2g q8hrs #Type II diabetes mellitus with hyperglycemia uncontrolled, Hgb A 1 C 11.2% insulin sliding scale and lantus 10u bedtime #Hypokalemia potassium 3.0, give 40meq oral KCL #superficial thrombosis of cephalic vein in right upper extremity DVT ruled out doppler US is negative for DVT, but showed superficial vein thrombosis noted in the right cephalic vein #Hypertension Blood pressure 160s-170s systolic. Started on Coreg 3.125 mg twice daily #Tobacco abuse nicotine patch prn DVT Px Lovenox 40mg daily Code status Full code at 2156 [facility] #:[id number] END OF REPORT [facility] 2024-07-20 12:46:00 [id number] [facility] PATIENT NAME: CAROLYNN PATEL ADMIT DATE: 07/13/24 ACCOUNT NO: [id number] ROOM NO: V.[id number] AGE: 54 REPORT TYPE: OPERATIVE REPORT SEX: M DATE OF : 70 ADMITTING PHYSICIAN:Macho Musa MD ATTENDING PHYSICIAN:Jimenez Sanchez MD OPERATION DATE: 07/20/2024 PREOPERATIVE DIAGNOSIS: Necrotizing infection, right foot. POSTOPERATIVE DIAGNOSIS: Necrotizing infection, right foot. PROCEDURE: Right below-knee amputation. SURGEON: Juan Carlos Lord MD BUSINESS PLANNING DIRECTOR: Ag Meneses. ANESTHESIA: General. INDICATIONS AND FINDINGS: The patient is a 54-year-old male, who presented with complaints of necrosis in the right foot, extensive debridement which involved debriding large amount of plantar skin such that the foot was not salvageable. At surgery, the patient had viable tissues at the level of the amputation. There was some edema, but no necrotic tissue. He had atherosclerotic changes in his arteries. Tissues all appeared viable. TECHNIQUE: After adequate general anesthesia, the patient in supine position, the right leg was prepped and draped in sterile fashion with Betadine solution. Measuring 9 cm distal to the tibial tuberosity, an incision was made to the anterior aspect of the leg, then carried out posteriorly to create posterior myocutaneous flap. Anterior compartment muscles were divided with electrocautery. Anterior tibial neurovascular bundle was divided between clamps. More medially, the muscles were divided with electrocautery. Saphenous vein was divided between clamps. The tibia was stripped to its periosteum and divided with a Gigli saw being beveled anteriorly. The fibula was then exposed, stripped to its periosteum and divided as proximally as possible with a Gigli saw. Posterior muscles were divided with electrocautery. Posterior tibial and peroneal neurovascular bundles were divided between clamps. Remaining posterior muscles were divided and the leg was removed with some muscles left on the posterior flap. The clamped vessels were suture ligated with 2-0 silk. Some muscular arteries were also suture ligated with 2-0 silk and hemostasis achieved. The wound was irrigated with saline. The flap was then brought anteriorly and superficial fascia closed with interrupted sutures of 2-0 Vicryl. Skin was closed with burt. Sterile dressing was applied and the leg was placed into a knee immobilizer. The patient tolerated the procedure well. Estimated blood loss was 200 mL. There were no complications. All counts were correct. The patient was taken to the recovery room in satisfactory condition. PATIENT NAME: CAROLYNN PATEL Dictated By: Juan Carlos Lord MD Date Dictated: 07/20/2024 12:46:40 Date Transcribed: 07/20/2024 13:06:57 QAMAR/NORI Receipt ID: [id number] Authenticated by Juan Carlos Lord MD On 07/21/2024 10:42:20 AM at 1042 PATIENT NAME: CAROLYNN PATEL [facility] 2024-07-20 12:42:00 [facility] ([facility]) Brief Op Lisandro REPORT#:[id number] REPORT STATUS: Signed REPORT INITIALIZATION DATE:07/20/24 TIME: 1242 PATIENT: CAROLYNN PATEL UNIT #: [id number] ROOM/BED: : 70 AGE: 54 SEX: M ATTEND: Jimenez Sanchez MD ADM AUTHOR: Juan Carlos Lord MD REPT SERVICE DT/TIME: 07/20/24 1242 * ALL edits or amendments must be made on the electronic/computer document * Op/Inv Proc Note - Brief Pre-procedure diagnosis: Necrotizing Infection right foot Post-procedure diagnosis: same as pre procedure dx Procedures performed: Right Below Knee Amputation Primary Surgeon: Risa Car Runner(s): Gideon Anesthesia: general anesthesia Findings: see dictation Complications: none Estimated blood loss in ml's: 200 cc Specimens removed/altered: right leg Disposition: PACU Dictation number: [id number] at 1246 RPT #:[id number] END OF REPORT [facility] 2024-07-20 12:29:00 [facility] ([facility]) Post Anesthesia Evaluation REPORT#:[id number] REPORT STATUS: Signed REPORT INITIALIZATION DATE:07/20/24 TIME: 1229 PATIENT: CAROLYNN PATEL UNIT #: [id number] ROOM/BED: : 70 AGE: 54 SEX: M ATTEND: Inga Johns MD ADM AUTHOR: Matthew Ramos MD REPT SERVICE DT/TIME: 07/20/24 1229 * ALL edits or amendments must be made on the electronic/computer document * Post Anesthesia Evaluation Anes. changes from pre-op eval ORM Surgeries: Surgery Date and Time: 07/20/2024 1130 Proposed Primary Procedure: RT BKA Anesthetic: general LMA Date: 07/20/24 Level of consciousness: no change, patient awake, able to answer questions, participate in this eval. Neurological assessment: Musculoskeletal: returned to pre-status Vital signs: Last Documented: Result Date Time Pulse Ox 91 07/20 1045 B/P 157/86 07/20 104 O2 Delivery Room air 07/20 1044 Temp 36.4 07/20 104 Pulse 89 07/20 1045 Resp 17 07/20 1045 B/P Mean 127.4 07/20 0759 O2 Flow Rate 2 07/18 2029 Cardiovascular: no change, CV system stable, vital signs stable Respiratory/Airway: respiratory system stable, maintains without support Pain: adequately controlled Hydration: euvolemic Temp status: normothermic Presence of N/V: no Anesthesia complications: no Conclusions: no apparent anes. issues at 1247 RPT #:[id number] END OF REPORT [facility] 2024-07-20 11:54:00 [facility] ([facility]) Infectious Dis. Progress Note REPORT#:[id number] REPORT STATUS: Signed REPORT INITIALIZATION DATE:07/20/24 TIME: 1153 PATIENT: CAROLYNN PATEL UNIT #: [id number] ROOM/BED: [address] : 70 AGE: 54 SEX: M ATTEND: Jimenez Sanchez MD ADM AUTHOR: Marce Kiser MD REPT SERVICE DT/TIME: 07/20/24 1154 * ALL edits or amendments must be made on the electronic/computer document * Subjective Chief complaint: Bacteremia Staphylococcus aureus present on admission MSSA bacteremia right lower extremity pain HPI: This patient comes to the emergency room with negative soft tissue infection right lower extremity had to have an emergency surgical debridement Currently in bed Complaining of right foot pain plan for right BKA noted Patient seen examined chart reviewed Patient status post excisional debridement of necrotic tissue on July 13 Repeat blood culture from July so still pending Objective Physical Exam Wound/incision: Location: Right foot dressing Site condition: dressing clean dry Head/Eyes: atraumatic, clear cornea, EOMI ENT: moist mucosal membranes, normal dentition, normal nose Neck: full range of motion, non-tender, normal thyroid Cardiovascular: normal heart sounds, regular rate rhythm Diagnosis, Assessment Plan Problem List/A P: 1. Necrotizing fasciitis 2. Hypoxia Free Text A P: Sepsis on admission MSSA bacteremia present on admission Wound with Morganella morganii Necrotizing soft tissue infection wound with morgenella Will change antibiotic to Ancef Recheck of blood culture NEGATIVE SO FAR Obtain KALYAN Obtain CT chest abdomen pelvis agree with BKA IMPRESSION: The abdomen and pelvis are within normal limits. There are tiny bilateral pleural effusions with subsegmental atelectasis in the underlying lung bases. Will need long-term IV antibiotic at least 8 weeks at 1155 RPT #:[id number] END OF REPORT [facility] 2024-07-19 15:16:00 [facility] ([facility]) Hospitalist Progress Note REPORT#:[id number] REPORT STATUS: Signed REPORT INITIALIZATION DATE:07/19/24 TIME: 1515 PATIENT: CAROLYNN PATEL UNIT #: [id number] ROOM/BED: [address] : 70 AGE: 54 SEX: M ATTEND: Jimenez Sanchze MD ADM AUTHOR: Jimenez Sanchez MD REPT SERVICE DT/TIME: 07/19/24 1516 * ALL edits or amendments must be made on the electronic/computer document * Subjective Chief complaint: Reports moderate pain in right foot today Objective General VS/I O: Vital Signs: Date Time Temp Pulse Resp B/P B/P Pulse O2 O2 Flow FiO2 Mean Ox Delivery Rate 07/19 1144 99.0 81 166/99 121.1 94 Nasal cannula 07/19 0820 Nasal cannula 07/19 0710 98.4 79 18 167/94 118.1 94 Room air 07/19 0459 98.2 81 17 137/87 103.9 94 07/19 0046 98.2 88 17 148/75 99.5 88 Room air 07/18 2029 Nasal 2 cannula 07/18 1938 99.7 91 17 136/84 101.2 95 / 1549 98.6 99 17 176/95 122.0 93 Room air 24 hour I O ending at 0700: 07/19 0700 07/18 1900 Intake Total 100.00 Output Total 700 Balance -700 100.00 Intake, IV 100.00 Output, Urine 700 PATIENT WEIGHT: Weight (lb): Weight (oz): Weight (kg): 63.636 Medications: Active Meds + DC'd Last 24 Hrs Nicotine (HABITROL 21MG PATCH) 21 MG DAILY PRN PRN TRANSDERM (CKD) Carvedilol (COREG 3.125MG TAB) 3.125 MG BID PO Insulin Glargine (Lantus/Semglee) 10 UNIT BEDTIME SUBQ Cefazolin Sodium (Cefazolin Sodium) 2 GM Q8H IV Sodium Chloride (SODIUM CHLORIDE 0.9%) 100 ML Famotidine (PEPCID TAB) 20 MG BID AC PO Enoxaparin Sodium (LOVENOX 40MG SYRINGE) 40 MG 1700 SUBQ Tramadol HCl (ULTRAM) 50 MG Q4H PRN PRN PO Thiamine HCl (THIAMINE HCL) 100 MG DAILY PO Calcium Carbonate (TUMS 500MG) 1,000 MG Q6H PRN PRN PO Docusate Sodium (COLACE 100 MG CAPSULE) 100 MG BID PRN PRN PO Guaifenesin (guaiFENesin) 200 MG Q6H PRN PRN PO Insulin Human Lispro (Admelog) S/SCALE MED AC HS SUBQ Melatonin (MELATONIN) 6 MG BEDTIME PRN PRN PO Simethicone (SIMETHICONE) 80 MG Q6H PRN PRN PO Ondansetron HCl (ondansetron HCL) 4 MG Q6H PRN PRN IV Dextrose/Water (DEXTROSE 50%-WATER) 50 ML ASDIR PRN IV (CKD) Hydralazine HCl (APRESOLINE) 10 MG Q2H PRN PRN IV Physical Exam Head/Eyes: atraumatic, clear cornea, normal eyelids/periorb., normocephalic, PERRL Neck: full range of motion, non-tender Cardiovascular: normal capillary refill, normal heart sounds Respiratory: clear to auscultation, no distress Abdomen: non-tender, normal bowel sounds, soft, no distention, no guarding Genitourinary: no bladder distention, no flank pain, no urinary catheter Extremities: decreased range of motion, edema, moves all, no edema, R foot erythema up to above ankle 4 cm Ulcer plantar foot under right big toe Bullous lesions /wounds left medial foot and plantar foot Neuro/ADDICTION COUNSELOR: alert, oriented X 3, CNII-XII intact, normal speech, no motor deficits Psychiatry: normal affect, normal judgment/insight, normal mood Diagnosis, Assessment Plan Free Text DxA P Notes Free text DxA P notes: #Acute necrotizing fasciitis of right lower extremity status post debridement by general surgery on 07/13/24, general surgeon recommends BKA on 07/20/24 As needed pain medication IV fluid Discussed with infectious disease, blood culture grew Staphylococcus aureus, infectious disease consulted recommend stopping clindamycin and iv cefepime. Patient started on IV cefazolin 2 g every 8 hours #Sepsis secondary to necrotizing fasciitis present on admission, normal lactic acid, wbc elevated, Tachycardic Blood cultures positive for Staphylococcus aureus IV antibiotics #Staphylococcus aureus bacteremia IV cefazolin 2g q8hrs #Type II diabetes mellitus with hyperglycemia uncontrolled, Hgb A 1 C 11.2% insulin sliding scale and lantus 10u bedtime #Hypokalemia potassium 3.0, give 40meq oral KCL #superficial thrombosis of cephalic vein in right upper extremity DVT ruled out doppler US is negative for DVT, but showed superficial vein thrombosis noted in the right cephalic vein #Hypertension Blood pressure 160s-170s systolic. Started on Coreg 3.125 mg twice daily #Tobacco abuse nicotine patch prn DVT Px Lovenox 40mg daily Code status Full code at 1517 RPT #:[id number] END OF REPORT [facility] 2024-07-19 10:16:00 [facility] ([facility]) Infectious Dis. Progress Note REPORT#:[id number] REPORT STATUS: Signed REPORT INITIALIZATION DATE:07/19/24 TIME: 1016 PATIENT: CAROLYNN PATEL UNIT #: [id number] ROOM/BED: [address] : 70 AGE: 54 SEX: M ATTEND: Jimenez Sanchez MD ADM AUTHOR: Marce Kiser MD REPT SERVICE DT/TIME: 07/19/24 1016 * ALL edits or amendments must be made on the electronic/computer document * Subjective Chief complaint: Bacteremia Staphylococcus aureus present on admission MSSA bacteremia right lower extremity pain HPI: This patient comes to the emergency room with negative soft tissue infection right lower extremity had to have an emergency surgical debridement Currently in bed Complaining of right foot pain plan for right BKA noted Patient seen examined chart reviewed Patient status post excisional debridement of necrotic tissue on July 13 Repeat blood culture from July so still pending Review of Systems Constitutional: fatigue. Objective General VS/I O: Vital Signs Date Temp Pulse Resp B/P B/P Mean Pulse Ox FiO2 07/18-07/19 98.1-99.7 79-99 15-18 136-176/75-95 99.5-122.0 88-95 Last Documented: Result Date Time Pulse Ox 94 07/19 0710 B/P 167/94 / 0710 B/P Mean 118.1 07/19 0710 O2 Delivery Room air 07/19 0710 Temp 98.4 / 0710 Pulse 79 / 0710 Resp 18 07/19 0710 O2 Flow Rate 2 / 2030 Vital Signs: Date Time Temp Pulse Resp B/P B/P Pulse O2 O2 Flow FiO2 Mean Ox Delivery Rate 07/19 0710 98.4 79 18 167/94 118.1 94 Room air 07/19 0459 98.2 81 17 137/87 103.9 94 07/19 0046 98.2 88 17 148/75 99.5 88 Room air 07/18 2030 Nasal 2 cannula 07/18 1938 99.7 91 17 136/84 101.2 95 07/18 1549 98.6 99 17 176/95 122.0 93 Room air 07/18 1132 98.1 80 15 166/92 116.6 95 Room air 24 hour I O ending at 0700: 07/19 0700 07/18 1900 Intake Total 100.00 Output Total 700 Balance -700 100.00 Intake, IV 100.00 Output, Urine 700 PATIENT WEIGHT: Weight (lb): Weight (oz): Weight (kg): 63.636 Medications: Active Meds + DC'd Last 24 Hrs Nicotine (HABITROL 21MG PATCH) 21 MG DAILY PRN PRN TRANSDERM (CKD) Carvedilol (COREG 3.125MG TAB) 3.125 MG BID PO Insulin Glargine (Lantus/Semglee) 10 UNIT BEDTIME SUBQ Cefazolin Sodium (Cefazolin Sodium) 2 GM Q8H IV Sodium Chloride (SODIUM CHLORIDE 0.9%) 100 ML Famotidine (PEPCID TAB) 20 MG BID AC PO Enoxaparin Sodium (LOVENOX 40MG SYRINGE) 40 MG 1700 SUBQ Tramadol HCl (ULTRAM) 50 MG Q4H PRN PRN PO Thiamine HCl (THIAMINE HCL) 100 MG DAILY PO Calcium Carbonate (TUMS 500MG) 1,000 MG Q6H PRN PRN PO Docusate Sodium (COLACE 100 MG CAPSULE) 100 MG BID PRN PRN PO Guaifenesin (guaiFENesin) 200 MG Q6H PRN PRN PO Insulin Human Lispro (Admelog) S/SCALE MED AC HS SUBQ Melatonin (MELATONIN) 6 MG BEDTIME PRN PRN PO Simethicone (SIMETHICONE) 80 MG Q6H PRN PRN PO Ondansetron HCl (ondansetron HCL) 4 MG Q6H PRN PRN IV Dextrose/Water (DEXTROSE 50%-WATER) 50 ML ASDIR PRN IV (CKD) Hydralazine HCl (APRESOLINE) 10 MG Q2H PRN PRN IV Physical Exam General appearance: alert Wound/incision: Location: Right foot dressing Site condition: dressing clean dry Head/Eyes: atraumatic, clear cornea, EOMI ENT: moist mucosal membranes, normal dentition, normal nose Neck: full range of motion, non-tender, normal thyroid Cardiovascular: normal heart sounds, regular rate rhythm Diagnosis, Assessment Plan Problem List/A P: 1. Necrotizing fasciitis 2. Hypoxia Free Text A P: Sepsis on admission MSSA bacteremia present on admission Wound with Morganella morganii Necrotizing soft tissue infection wound with morgenella Will change antibiotic to Ancef Recheck of blood culture NEGATIVE SO FAR Obtain KALYAN Obtain CT chest abdomen pelvis IMPRESSION: The abdomen and pelvis are within normal limits. There are tiny bilateral pleural effusions with subsegmental atelectasis in the underlying lung bases. Will need long-term IV antibiotic at least 8 weeks at 1018 RPT #:[id number] END OF REPORT [facility] 2024-07-18 18:42:00 [facility] ([facility]) Infectious Dis. Progress Note REPORT#:[id number] REPORT STATUS: Signed REPORT INITIALIZATION DATE:07/18/24 TIME: 1841 PATIENT: CAROLYNN PATEL UNIT #: [id number] ROOM/BED: [address] : 70 AGE: 54 SEX: M ATTEND: Jimenez Sanchez MD ADM AUTHOR: Marce Kiser MD REPT SERVICE DT/TIME: 07/18/241841 * ALL edits or amendments must be made on the electronic/computer document * Subjective Chief complaint: Bacteremia Staphylococcus aureus present on admission MSSA bacteremia right lower extremity pain HPI: This patient comes to the emergency room with negative soft tissue infection right lower extremity had to have an emergency surgical debridement Currently in bed Complaining of right foot pain plan for right BKA noted Patient seen examined chart reviewed Patient status post excisional debridement of necrotic tissue on July 13 Repeat blood culture from July so still pending Review of Systems Constitutional: fatigue. All systems rev neg: except as marked Objective General VS/I O: Vital Signs Date Temp Pulse Resp B/P B/P Mean Pulse Ox FiO2 07/17-07/18 98.1-99.3 80-99 15-17 160-176/88-96 113.2-122.0 91-95 Last Documented: Result Date Time Pulse Ox 93 07/18 1549 B/P 176/95 07/18 1549 B/P Mean 122.0 07/18 1549 O2 Delivery Room air 07/18 1549 Temp 98.6 07/18 1549 Pulse 99 07/18 1549 Resp 17 07/18 1549 O2 Flow Rate 2 07/17 2030 Vital Signs: Date Time Temp Pulse Resp B/P B/P Pulse O2 O2 Flow FiO2 Mean Ox Delivery Rate 07/18 1549 98.6 99 17 176/95 122.0 93 Room air 07/18 1132 98.1 80 15 166/92 116.6 95 Room air 07/18 0708 99.3 84 17 160/90 113.3 95 Room air 07/18 0429 99.1 88 17 164/96 119.0 94 Nasal cannula 07/18 0040 99.0 87 16 163/88 113.2 91 Nasal cannula 07/17 2051 99.1 90 17 160/90 113.4 93 Nasal cannula 07/17 2030 Nasal 2 cannula 24 hour I O ending at 0700: 07/18 0700 07/17 1900 Intake Total 1350.00 Output Total 600 900 Balance -600 450.00 Intake, IV 700.00 Intake, Oral 650 Output, Urine 600 900 PATIENT WEIGHT: Weight (lb): Weight (oz): Weight (kg): 63.636 Medications: Active Meds + DC'd Last 24 Hrs Carvedilol (COREG 3.125MG TAB) 3.125 MG BID PO Potassium Chloride (K-DUR) 40 MEQ ONCE ONE PO (DC) Insulin Glargine (Lantus/Semglee) 10 UNIT BEDTIME SUBQ Cefazolin Sodium (Cefazolin Sodium) 2 GM Q8H IV Sodium Chloride (SODIUM CHLORIDE 0.9%) 100 ML Famotidine (PEPCID TAB) 20 MG BID AC PO Enoxaparin Sodium (LOVENOX 40MG SYRINGE) 40 MG 1700 SUBQ Tramadol HCl (ULTRAM) 50 MG Q4H PRN PRN PO Thiamine HCl (THIAMINE HCL) 100 MG DAILY PO Calcium Carbonate (TUMS 500MG) 1,000 MG Q6H PRN PRN PO Docusate Sodium (COLACE 100 MG CAPSULE) 100 MG BID PRN PRN PO Guaifenesin (guaiFENesin) 200 MG Q6H PRN PRN PO Insulin Human Lispro (Admelog) S/SCALE MED AC HS SUBQ Melatonin (MELATONIN) 6 MG BEDTIME PRN PRN PO Simethicone (SIMETHICONE) 80 MG Q6H PRN PRN PO Ondansetron HCl (ondansetron HCL) 4 MG Q6H PRN PRN IV Dextrose/Water (DEXTROSE 50%-WATER) 50 ML ASDIR PRN IV (CKD) Hydralazine HCl (APRESOLINE) 10 MG Q2H PRN PRN IV Physical Exam General appearance: alert, awake Wound/incision: Location: Right foot dressing Site condition: dressing clean dry Head/Eyes: atraumatic, clear cornea, EOMI ENT: moist mucosal membranes, normal dentition, normal nose Neck: full range of motion, non-tender, normal thyroid Cardiovascular: normal heart sounds, regular rate rhythm Diagnosis, Assessment Plan Problem List/A P: 1. Necrotizing fasciitis 2. Hypoxia Free Text A P: Sepsis on admission MSSA bacteremia present on admission Wound with Morganella morganii Necrotizing soft tissue infection wound with morgenella Will change antibiotic to Ancef Recheck of blood culture NEGATIVE SO FAR Obtain KALYAN Obtain CT chest abdomen pelvis IMPRESSION: The abdomen and pelvis are within normal limits. There are tiny bilateral pleural effusions with subsegmental atelectasis in the underlying lung bases. Will need long-term IV antibiotic at least 8 weeks at 1843 RPT #:[id number] END OF REPORT [facility] 2024-07-18 16:02:00 [facility] ([facility] Hospitalist Progress Note REPORT#:[id number] REPORT STATUS: Signed REPORT INITIALIZATION DATE:07/18/24 TIME: 160 PATIENT: CAROLYNN PATEL UNIT #: [id number] ROOM/BED: [address] : 70 AGE: 54 SEX: M ATTEND: Jimenez Sanchez MD ADM AUTHOR: Jimenez Sanchez MD REPT SERVICE DT/TIME: 07/18/24 1602 * ALL edits or amendments must be made on the electronic/computer document * Subjective Chief complaint: Reports moderate pain in right foot today Objective General VS/I O: Vital Signs: Date Time Temp Pulse Resp B/P B/P Pulse O2 O2 Flow FiO2 Mean Ox Delivery Rate 07/18 1549 98.6 99 17 176/95 122.0 93 Room air 07/18 1132 98.1 80 15 166/92 116.6 95 Room air 07/18 0708 99.3 84 17 160/90 113.3 95 Room air 07/18 0429 99.1 88 17 164/96 119.0 94 Nasal cannula 07/18 0040 99.0 87 16 163/88 113.2 91 Nasal cannula 07/17 2050 99.1 90 17 160/90 113.4 93 Nasal cannula 07/17 2029 Nasal 2 cannula 24 hour I O ending at 0700: 01/05 0700 01/04 1900 Intake Total 1350.00 Output Total 600 900 Balance -600 450.00 Intake, IV 700.00 Intake, Oral 650 Output, Urine 600 900 PATIENT WEIGHT: Weight (lb): Weight (oz): Weight (kg): 63.636 Medications: Active Meds + DC'd Last 24 Hrs Potassium Chloride (K-DUR) 40 MEQ ONCE ONE PO (DC) Insulin Glargine (Lantus/Semglee) 10 UNIT BEDTIME SUBQ Cefazolin Sodium (Cefazolin Sodium) 2 GM Q8H IV Sodium Chloride (SODIUM CHLORIDE 0.9%) 100 ML Famotidine (PEPCID TAB) 20 MG BID AC PO Enoxaparin Sodium (LOVENOX 40MG SYRINGE) 40 MG 1700 SUBQ Tramadol HCl (ULTRAM) 50 MG Q4H PRN PRN PO Thiamine HCl (THIAMINE HCL) 100 MG DAILY PO Calcium Carbonate (TUMS 500MG) 1,000 MG Q6H PRN PRN PO Docusate Sodium (COLACE 100 MG CAPSULE) 100 MG BID PRN PRN PO Guaifenesin (guaiFENesin) 200 MG Q6H PRN PRN PO Insulin Human Lispro (Admelog) S/SCALE MED AC HS SUBQ Melatonin (MELATONIN) 6 MG BEDTIME PRN PRN PO Simethicone (SIMETHICONE) 80 MG Q6H PRN PRN PO Ondansetron HCl (ondansetron HCL) 4 MG Q6H PRN PRN IV Dextrose/Water (DEXTROSE 50%-WATER) 50 ML ASDIR PRN IV (CKD) Hydralazine HCl (APRESOLINE) 10 MG Q2H PRN PRN IV Physical Exam Head/Eyes: atraumatic, clear cornea, normal eyelids/periorb., normocephalic, PERRL Neck: full range of motion, non-tender Cardiovascular: normal capillary refill, normal heart sounds Respiratory: clear to auscultation, no distress Abdomen: non-tender, normal bowel sounds, soft, no distention, no guarding Genitourinary: no bladder distention, no flank pain, no urinary catheter Extremities: decreased range of motion, edema, moves all, no edema, R foot erythema up to above ankle 4 cm Ulcer plantar foot under right big toe Bullous lesions /wounds left medial foot and plantar foot Neuro/ADDICTION COUNSELOR: alert, oriented X 3, CNII-XII intact, normal speech, no motor deficits Psychiatry: normal affect, normal judgment/insight, normal mood Diagnosis, Assessment Plan Free Text DxA P Notes Free text DxA P notes: #Acute necrotizing fasciitis of right lower extremity status post debridement by general surgery on 07/13/24, general surgeon recommends BKA on 07/20/24 As needed pain medication IV fluid Discussed with infectious disease, blood culture grew Staphylococcus aureus, infectious disease consulted recommend stopping clindamycin and iv cefepime. Patient started on IV cefazolin 2 g every 8 hours #Sepsis secondary to necrotizing fasciitis present on admission, normal lactic acid, wbc elevated, Tachycardic Blood cultures positive for Staphylococcus aureus IV antibiotics #Staphylococcus aureus bacteremia IV cefazolin 2g q8hrs #Type II diabetes mellitus with hyperglycemia uncontrolled, Hgb A 1 C 11.2% insulin sliding scale and lantus 10u bedtime #Hypokalemia potassium 3.0, give 40meq oral KCL #superficial thrombosis of cephalic vein in right upper extremity DVT ruled out doppler US is negative for DVT, but showed superficial vein thrombosis noted in the right cephalic vein #Hypertension Blood pressure 160s-170s systolic. Started on Coreg 3.125 mg twice daily DVT Px Lovenox 40mg daily Code status Full code at 1604 RPT #:[id number] END OF REPORT [facility] 2024-07-18 08:00:00 [facility] ([facility] General Surgery Progress Note REPORT#:[id number] REPORT STATUS: Signed REPORT INITIALIZATION DATE:07/18/24 TIME: 0800 PATIENT: CAROLYNN PATEL UNIT #: [id number] ROOM/BED: [address] : 70 AGE: 54 SEX: M ATTEND: Jimenez Sanchez MD ADM AUTHOR: Juan Carlos Lord MD REPT SERVICE DT/TIME: 07/18/24 0800 * ALL edits or amendments must be made on the electronic/computer document * Subjective Patient reports: No: complaints. Objective General VS/I O: Last Documented: Result Date Time Pulse Ox 95 07/18 0708 B/P 160/90 07/18 0708 B/P Mean 113.3 07/18 707 O2 Delivery Room air 07/18 707 Temp 37.4 07/18 07 Pulse 84 07/18 07 Resp 17 07/18 07 O2 Flow Rate 2 07/17 2030 Vital Signs Date Temp Pulse Resp B/P B/P Mean Pulse Ox FiO2 07/17-07/18 36.7-37.4 84-90 16-18 125-164/83-96 97.0-119.0 91-96 24 hour I O ending at 0700: 07/18 0700 07/17 1900 Intake Total 1350.00 Output Total 600 900 Balance -600 450.00 Intake, IV 700.00 Intake, Oral 650 Output, Urine 600 900 PATIENT WEIGHT: Weight (lb): Weight (oz): Weight (kg): 63.636 Physical Exam General appearance: alert, awake Extremities: right foot wound is stable Diagnosis, Assessment Plan Free Text A P: Pt is stable. cont IV abx. Plan right BK amp 07/20. at 0801 RPT #:[id number] END OF REPORT [facility] 2024-07-17 17:18:00 [facility] ([facility] Hospitalist Progress Note REPORT#:[id number] REPORT STATUS: Signed REPORT INITIALIZATION DATE:07/17/24 TIME: 1717 PATIENT: CAROLYNN PATEL UNIT #: [id number] ROOM/BED: [address] : 70 AGE: 54 SEX: M ATTEND: Jimenez Sanchez MD ADM AUTHOR: Jimenez Sanchez MD REPT SERVICE DT/TIME: 07/17/241717 * ALL edits or amendments must be made on the electronic/computer document * Subjective Chief complaint: denies any pain in right leg. no complaints Objective General VS/I O: Vital Signs: Date Time Temp Pulse Resp B/P B/P Pulse O2 O2 Flow FiO2 Mean Ox Delivery Rate 07/17 1555 98.1 90 18 163/90 114.1 96 07/17 1104 98.2 86 18 125/83 97.0 95 07/17 0902 Nasal 2 cannula 07/17 0717 97.7 82 18 163/91 114.9 96 07/17 0443 97.9 81 16 174/81 111.8 99 Nasal cannula 07/17 0132 97.9 94 16 138/84 101.6 94 Room air 24 hour I O ending at 0700: 07/17 0700 07/16 1900 Intake Total 800.00 Output Total 800 Balance 0 Intake, IV 550.00 Intake, Oral 250 Output, Urine 800 PATIENT WEIGHT: Weight (lb): Weight (oz): Weight (kg): 63.636 Medications: Active Meds + DC'd Last 24 Hrs Insulin Glargine (Lantus/Semglee) 10 UNIT BEDTIME SUBQ (UNV) Cefazolin Sodium (Cefazolin Sodium) 2 GM Q8H IV Sodium Chloride (SODIUM CHLORIDE 0.9%) 100 ML Famotidine (PEPCID TAB) 20 MG BID AC PO Enoxaparin Sodium (LOVENOX 40MG SYRINGE) 40 MG 1700 SUBQ Tramadol HCl (ULTRAM) 50 MG Q4H PRN PRN PO Thiamine HCl (THIAMINE HCL) 100 MG DAILY PO Calcium Carbonate (TUMS 500MG) 1,000 MG Q6H PRN PRN PO Docusate Sodium (COLACE 100 MG CAPSULE) 100 MG BID PRN PRN PO Guaifenesin (guaiFENesin) 200 MG Q6H PRN PRN PO Insulin Human Lispro (Admelog) S/SCALE MED AC HS SUBQ Melatonin (MELATONIN) 6 MG BEDTIME PRN PRN PO Simethicone (SIMETHICONE) 80 MG Q6H PRN PRN PO Ondansetron HCl (ondansetron HCL) 4 MG Q6H PRN PRN IV Sodium Chloride (SODIUM CHLORIDE 0.9%) 1,000 ML .Q10H IV (DC) Dextrose/Water (DEXTROSE 50%-WATER) 50 ML ASDIR PRN IV (CKD) Hydralazine HCl (APRESOLINE) 10 MG Q2H PRN PRN IV Physical Exam Head/Eyes: atraumatic, clear cornea, normal eyelids/periorb., normocephalic, PERRL Neck: full range of motion, non-tender Cardiovascular: normal capillary refill, normal heart sounds Respiratory: clear to auscultation, no distress Abdomen: non-tender, normal bowel sounds, soft, no distention, no guarding Genitourinary: no bladder distention, no flank pain, no urinary catheter Extremities: decreased range of motion, edema, moves all, no edema, R foot erythema up to above ankle 4 cm Ulcer plantar foot under right big toe Bullous lesions /wounds left medial foot and plantar foot Neuro/ADDICTION COUNSELOR: alert, oriented X 3, CNII-XII intact, normal speech, no motor deficits Psychiatry: normal affect, normal judgment/insight, normal mood Diagnosis, Assessment Plan Free Text DxA P Notes Free text DxA P notes: #Acute necrotizing fasciitis of right lower extremity status post debridement by general surgery on 07/13/24, general surgeon recommends BKA on 07/20/24 As needed pain medication IV fluid Discussed with infectious disease, blood culture grew Staphylococcus aureus, infectious disease consulted recommend stopping clindamycin and iv cefepime. Patient started on IV cefazolin 2 g every 8 hours #Sepsis secondary to necrotizing fasciitis present on admission, normal lactic acid, wbc elevated, Tachycardic Blood cultures positive for Staphylococcus aureus IV antibiotics #Staphylococcus aureus bacteremia IV cefazolin 2g q8hrs #Type II diabetes mellitus with hyperglycemia uncontrolled, Hgb A 1 C 11.2% insulin sliding scale and lantus 10u bedtime #Hypokalemia potassium 3.0, give 40meq oral KCL #superficial thrombosis of cephalic vein in right upper extremity DVT ruled out doppler US is negative for DVT, but showed superficial vein thrombosis noted in the right cephalic vein DVT Px Lovenox 40mg daily Code status Full code at 2039 [facility] #:[id number] END OF REPORT [facility] 2024-07-17 12:28:00 [facility] ([facility]) Infectious Dis. Progress Note REPORT#:[id number] REPORT STATUS: Signed REPORT INITIALIZATION DATE:07/17/24 TIME: 1228 PATIENT: CAROLYNN PATEL UNIT #: [id number] ROOM/BED: [address] : 70 AGE: 54 SEX: M ATTEND: Jimenez Sanchez MD ADM AUTHOR: Marce Kiser MD REPT SERVICE DT/TIME: 07/17/24 1228 * ALL edits or amendments must be made on the electronic/computer document * Subjective Chief complaint: Bacteremia Staphylococcus aureus present on admission MSSA bacteremia right lower extremity pain HPI: This patient comes to the emergency room with negative soft tissue infection right lower extremity had to have an emergency surgical debridement Currently in bed Complaining of right foot pain plan for right BKA noted Patient seen examined chart reviewed Patient status post excisional debridement of necrotic tissue on July 13 Repeat blood culture from July so still pending Objective Physical Exam Wound/incision: Location: Right foot dressing Site condition: dressing clean dry Head/Eyes: atraumatic, clear cornea, EOMI ENT: moist mucosal membranes, normal dentition, normal nose Neck: full range of motion, non-tender, normal thyroid Cardiovascular: normal heart sounds, regular rate rhythm Diagnosis, Assessment Plan Problem List/A P: 1. Necrotizing fasciitis 2. Hypoxia Free Text A P: Sepsis on admission MSSA bacteremia present on admission Wound with Morganella morganii Necrotizing soft tissue infection wound with morgenella Will change antibiotic to Ancef Recheck of blood culture Obtain KALYAN Obtain CT chest abdomen pelvis IMPRESSION: The abdomen and pelvis are within normal limits. There are tiny bilateral pleural effusions with subsegmental atelectasis in the underlying lung bases. Check HIV negative nonreactive Will need long-term IV antibiotic at least 8 weeks at 1229 RPT #:[id number] END OF REPORT [facility] 2024-07-17 09:15:00 [facility] ([facility] General Surgery Progress Note REPORT#:[id number] REPORT STATUS: Signed REPORT INITIALIZATION DATE:07/17/24 TIME: 914 PATIENT: CAROLYNN PATEL UNIT #: [id number] ROOM/BED: [facility] : 70 AGE: 54 SEX: M ATTEND: Jimenez Sanchez MD ADM AUTHOR: Juan Carlos Lord MD REPT SERVICE DT/TIME: 07/17/24 0915 * ALL edits or amendments must be made on the electronic/computer document * Subjective Comments: Pt is sleeping Objective General VS/I O: Last Documented: Result Date Time Pulse Ox 96 07/17 716 B/P 163/91 07/17 716 B/P Mean 114.9 07/17 716 Temp 36.5 07/17 07 Pulse 82 07/17 0717 Resp 18 07/17 716 O2 Delivery Nasal cannula 07/17 044 O2 Flow Rate 2 07/16 2029 Vital Signs Date Temp Pulse Resp B/P B/P Mean Pulse Ox FiO2 07/16-07/17 36.5-37.3 81-94 16-20 138-174/81-91 100.1-114.9 92-99 24 hour I O ending at 0700: 07/17 0700 07/16 1900 Intake Total 800.00 Output Total 800 Balance 0 Intake, IV 550.00 Intake, Oral 250 Output, Urine 800 PATIENT WEIGHT: Weight (lb): Weight (oz): Weight (kg): 63.636 Physical Exam General appearance: sleeping comfortably Extremities: right foot wound is stable. Diagnosis, Assessment Plan Free Text A P: Pt is stable. cont as ordered. at 0916 RPT #:[id number] END OF REPORT [facility] 2024-07-16 18:09:00 [facility] ([facility] Hospitalist Progress Note REPORT#:[id number] REPORT STATUS: Signed REPORT INITIALIZATION DATE:07/16/24 TIME: 1808 PATIENT: CAROLYNN PATEL UNIT #: [id number] ROOM/BED: [address] : 70 AGE: 54 SEX: M ATTEND: Jimenez Sanchez MD ADM AUTHOR: Jimenez Sanchez MD REPT SERVICE DT/TIME: 07/16/241808 * ALL edits or amendments must be made on the electronic/computer document * Subjective Chief complaint: denies any pain in right leg. no complaints Objective General VS/I O: Vital Signs: Date Time Temp Pulse Resp B/P B/P Pulse O2 O2 Flow FiO2 Mean Ox Delivery Rate 07/16 1535 98.4 90 18 160/88 112.1 94 07/16 1126 99.1 91 18 141/84 102.7 96 07/16 0850 Nasal 2 cannula 07/16 0711 98.6 83 18 147/83 103.9 95 07/16 0502 98.1 87 17 155/80 105.2 98 Nasal cannula 07/16 0025 99.1 88 18 159/61 93.7 98 Nasal cannula 07/15 1930 Nasal 3 cannula 07/15 1928 99.1 92 18 151/67 95.1 96 Nasal cannula 24 hour I O ending at 0700: 07/16 0700 07/15 1900 Intake Total Output Total 600 900 Balance -600 -900 Number Voids 2 Output, Urine 600 900 PATIENT WEIGHT: Weight (lb): Weight (oz): Weight (kg): 63.636 Medications: Active Meds + DC'd Last 24 Hrs Iopamidol (ISOVUE-370) 0 .STK-MED ONE .ROUTE (DC) Cefazolin Sodium (Cefazolin Sodium) 2 GM Q8H IV Sodium Chloride (SODIUM CHLORIDE 0.9%) 100 ML Famotidine (PEPCID TAB) 20 MG BID AC PO Cefepime HCl (MAXIPIME 2GM VIAL) 2,000 MG Q8H IV (DC) Sodium Chloride (SODIUM CHLORIDE 0.9% PF) 10 ML Enoxaparin Sodium (LOVENOX 40MG SYRINGE) 40 MG 1700 SUBQ Tramadol HCl (ULTRAM) 50 MG Q4H PRN PRN PO Thiamine HCl (THIAMINE HCL) 100 MG DAILY PO Calcium Carbonate (TUMS 500MG) 1,000 MG Q6H PRN PRN PO Docusate Sodium (COLACE 100 MG CAPSULE) 100 MG BID PRN PRN PO Guaifenesin (guaiFENesin) 200 MG Q6H PRN PRN PO Insulin Human Lispro (Admelog) S/SCALE MED AC HS SUBQ Melatonin (MELATONIN) 6 MG BEDTIME PRN PRN PO Simethicone (SIMETHICONE) 80 MG Q6H PRN PRN PO Morphine Sulfate (morphine SULFATE) 4 MG Q4H PRN PRN IV Ondansetron HCl (ondansetron HCL) 4 MG Q6H PRN PRN IV Sodium Chloride (SODIUM CHLORIDE 0.9%) 1,000 ML .Q10H IV Clindamycin Phosphate (CLEOCIN 600 MG/NS 50 ML) 50 ML Q8H IV (DC) Dextrose/Water (DEXTROSE 50%-WATER) 50 ML ASDIR PRN IV (CKD) Hydralazine HCl (APRESOLINE) 10 MG Q2H PRN PRN IV Physical Exam Head/Eyes: atraumatic, clear cornea, normal eyelids/periorb., normocephalic, PERRL Neck: full range of motion, non-tender Cardiovascular: normal capillary refill, normal heart sounds Respiratory: clear to auscultation, no distress Abdomen: non-tender, normal bowel sounds, soft, no distention, no guarding Genitourinary: no bladder distention, no flank pain, no urinary catheter Extremities: decreased range of motion, edema, moves all, no edema, R foot erythema up to above ankle 4 cm Ulcer plantar foot under right big toe Bullous lesions /wounds left medial foot and plantar foot Neuro/ADDICTION COUNSELOR: alert, oriented X 3, CNII-XII intact, normal speech, no motor deficits Psychiatry: normal affect, normal judgment/insight, normal mood Diagnosis, Assessment Plan Free Text DxA P Notes Free text DxA P notes: #Acute necrotizing fasciitis of right lower extremity status post debridement by general surgery on 07/13/24, general surgeon recommends BKA on 07/20/24 As needed pain medication IV fluid Discussed with infectious disease, blood culture grew Staphylococcus aureus, infectious disease consulted recommend stopping clindamycin and iv cefepime. Patient started on IV cefazolin 1 g every 8 hours #Sepsis secondary to necrotizing fasciitis present on admission, normal lactic acid, wbc elevated, Tachycardic Blood cultures positive for Staphylococcus aureus IV antibiotics #Staphylococcus aureus bacteremia IV cefazolin #Type II diabetes mellitus with hyperglycemia check Hgb A 1 C insulin sliding scale and lantus #Hypokalemia potassium 3.0, give 40meq oral KCL #rule out DVT of right upper extremity doppler US ordered DVT Px Start Lovenox after surgery Code status Full code at 1810 RPT #:[id number] END OF REPORT [facility] 2024-07-16 10:08:00 [facility] ([facility]) Infectious Dis. Progress Note REPORT#:[id number] REPORT STATUS: Signed REPORT INITIALIZATION DATE:07/16/24 TIME: 1008 PATIENT: CAROLYNN PATEL UNIT #: [id number] ROOM/BED: [address] : 70 AGE: 54 SEX: M ATTEND: Jimenez Sanchez MD ADM AUTHOR: Marce Kiser MD REPT SERVICE DT/TIME: 07/16/24 1008 * ALL edits or amendments must be made on the electronic/computer document * Subjective Chief complaint: Bacteremia Staphylococcus aureus present on admission MSSA bacteremia right lower extremity pain HPI: This patient comes to the emergency room with negative soft tissue infection right lower extremity had to have an emergency surgical debridement Currently in bed Complaining of right foot pain plan for right BKA noted Patient seen examined chart reviewed Patient status post excisional debridement of necrotic tissue on July 13 Review of Systems Constitutional: fatigue. Skin: Denies: abrasion, bruising. All systems rev neg: except as marked Objective General VS/I O: Vital Signs Date Temp Pulse Resp B/P B/P Mean Pulse Ox FiO2 07/15-07/16 98.1-99.7 83-92 15-19 147-159/61-94 93.7-115.0 94-98 Last Documented: Result Date Time Pulse Ox 95 07/16 0711 B/P 147/83 / 0711 B/P Mean 103.9 07/16 0711 Temp 98.6 / 0711 Pulse 83 / 0711 Resp 18 / 0711 O2 Delivery Nasal cannula 07/16 0502 O2 Flow Rate 3 07/15 1930 Vital Signs: Date Time Temp Pulse Resp B/P B/P Pulse O2 O2 Flow FiO2 Mean Ox Delivery Rate / 0711 98.6 83 18 147/83 103.9 95 / 0502 98.1 87 17 155/80 105.2 98 Nasal cannula 07/16 0025 99.1 88 18 159/61 93.7 98 Nasal cannula 07/15 1930 Nasal 3 cannula 07/15 1928 99.1 92 18 151/67 95.1 96 Nasal cannula 07/15 1702 98.6 07/15 1533 99.7 91 15 157/94 115.0 95 Nasal cannula 07/15 1113 98.2 85 19 151/90 110.5 94 Nasal cannula 24 hour I O ending at 0700: 03 0700 / 1900 Intake Total Output Total 600 900 Balance -600 -900 Number Voids 2 Output, Urine 600 900 PATIENT WEIGHT: Weight (lb): Weight (oz): Weight (kg): 63.636 Medications: Active Meds + DC'd Last 24 Hrs Famotidine (PEPCID TAB) 20 MG BID AC PO Cefepime HCl (MAXIPIME 2GM VIAL) 2,000 MG Q8H IV Sodium Chloride (SODIUM CHLORIDE 0.9% PF) 10 ML Enoxaparin Sodium (LOVENOX 40MG SYRINGE) 40 MG 1700 SUBQ Tramadol HCl (ULTRAM) 50 MG Q4H PRN PRN PO Thiamine HCl (THIAMINE HCL) 100 MG DAILY PO Calcium Carbonate (TUMS 500MG) 1,000 MG Q6H PRN PRN PO Docusate Sodium (COLACE 100 MG CAPSULE) 100 MG BID PRN PRN PO Guaifenesin (guaiFENesin) 200 MG Q6H PRN PRN PO Insulin Human Lispro (Admelog) S/SCALE MED AC HS SUBQ Melatonin (MELATONIN) 6 MG BEDTIME PRN PRN PO Simethicone (SIMETHICONE) 80 MG Q6H PRN PRN PO Morphine Sulfate (morphine SULFATE) 4 MG Q4H PRN PRN IV Ondansetron HCl (ondansetron HCL) 4 MG Q6H PRN PRN IV Sodium Chloride (SODIUM CHLORIDE 0.9%) 1,000 ML .Q10H IV Clindamycin Phosphate (CLEOCIN 600 MG/NS 50 ML) 50 ML Q8H IV Dextrose/Water (DEXTROSE 50%-WATER) 50 ML ASDIR PRN IV (CKD) Hydralazine HCl (APRESOLINE) 10 MG Q2H PRN PRN IV Physical Exam General appearance: alert Wound/incision: Location: Right foot dressing Site condition: dressing clean dry Head/Eyes: atraumatic, clear cornea, EOMI ENT: moist mucosal membranes, normal dentition, normal nose Neck: full range of motion, non-tender, normal thyroid Cardiovascular: normal heart sounds, regular rate rhythm Diagnosis, Assessment Plan Problem List/A P: 1. Necrotizing fasciitis 2. Hypoxia Free Text A P: Sepsis on admission MSSA bacteremia present on admission Wound with Morganella morganii Necrotizing soft tissue infection wound with morgenella Will change antibiotic to Ancef Recheck of blood culture Obtain KALYAN Obtain CT chest abdomen pelvis to rule out an abscess Check HIV Will need long-term IV antibiotic at 1011 RPT #:[id number] END OF REPORT [facility] 2024-07-16 07:07:00 [facility] General Surgery Progress Note REPORT#:[id number] REPORT STATUS: Signed REPORT INITIALIZATION DATE:07/16/24 TIME: 706 PATIENT: CAROLYNN PATEL UNIT #: [id number] ROOM/BED: [address] : 70 AGE: 54 SEX: M ATTEND: Jimenez Sanchez MD ADM AUTHOR: Juan Carlos Lord MD REPT SERVICE DT/TIME: 07/16/24 07 * ALL edits or amendments must be made on the electronic/computer document * Subjective Patient reports: No: complaints. Objective General VS/I O: Last Documented: Result Date Time Pulse Ox 98 07/16 0502 B/P 155/80 07/16 0502 B/P Mean 105.2 07/16 0502 O2 Delivery Nasal cannula 07/16 0502 Temp 36.7 07/16 0502 Pulse 87 07/16 0502 Resp 17 07/16 0502 O2 Flow Rate 3 07/15 1930 Vital Signs Date Temp Pulse Resp B/P B/P Mean Pulse Ox FiO2 07/15-07/16 36.7-37.6 85-92 15-19 130-159/61-94 93.7-115.0 89-98 24 hour I O ending at 0700: 07/16 0700 07/15 1900 Intake Total Output Total 600 900 Balance -600 -900 Number Voids 2 Output, Urine 600 900 PATIENT WEIGHT: Weight (lb): Weight (oz): Weight (kg): 63.636 Physical Exam General appearance: alert, awake Extremities: dressing is dry Diagnosis, Assessment Plan Free Text A P: Pt is stable. Pt had extensive tissue necrosis on right foot and foot is not salvageable. Plan right BK am 07/20. at 0708 RPT #:[id number] END OF REPORT [facility] 2024-07-15 17:42:00 [facility] ([facility]) Hospitalist Progress Note REPORT#:[id number] REPORT STATUS: Signed REPORT INITIALIZATION DATE:07/15/24 TIME: 1741 PATIENT: CAROLYNN PATEL UNIT #: [id number] ROOM/BED: [address] : 70 AGE: 54 SEX: M ATTEND: Jimenez Sanchez MD ADM AUTHOR: Jimenez Sanchez MD REPT SERVICE DT/TIME: 07/15/241741 * ALL edits or amendments must be made on the electronic/computer document * Subjective Chief complaint: denies any pain in right leg. no complaints Objective General VS/I O: Vital Signs: Date Time Temp Pulse Resp B/P B/P Pulse O2 O2 Flow FiO2 Mean Ox Delivery Rate 07/15 1702 98.6 07/15 1533 99.7 91 15 157/94 115.0 95 Nasal cannula 07/15 1113 98.2 85 19 151/90 110.5 94 Nasal cannula 07/15 0800 Nasal 3 cannula 07/15 0719 98.1 87 18 130/78 95.4 89 07/15 0329 98.2 91 18 120/72 88.2 96 Nasal cannula 07/14 2331 99.0 99 17 125/74 91.3 97 Nasal cannula 07/14 2000 Nasal 3 cannula 07/14 1904 99.1 109 17 124/75 91.2 96 Nasal cannula 24 hour I O ending at 0700: 07/15 0700 07/14 1900 Intake Total 500 Output Total 800 Balance -300 Intake, Oral 500 Output, Urine 800 PATIENT WEIGHT: Weight (lb): Weight (oz): Weight (kg): 63.636 Medications: Active Meds + DC'd Last 24 Hrs Famotidine (PEPCID TAB) 20 MG BID AC PO Cefepime HCl (MAXIPIME 2GM VIAL) 2,000 MG Q8H IV Sodium Chloride (SODIUM CHLORIDE 0.9% PF) 10 ML Enoxaparin Sodium (LOVENOX 40MG SYRINGE) 40 MG 1700 SUBQ Tramadol HCl (ULTRAM) 50 MG Q4H PRN PRN PO Thiamine HCl (THIAMINE HCL) 100 MG DAILY PO Calcium Carbonate (TUMS 500MG) 1,000 MG Q6H PRN PRN PO Docusate Sodium (COLACE 100 MG CAPSULE) 100 MG BID PRN PRN PO Guaifenesin (guaiFENesin) 200 MG Q6H PRN PRN PO Insulin Human Lispro (Admelog) S/SCALE MED AC HS SUBQ Melatonin (MELATONIN) 6 MG BEDTIME PRN PRN PO Simethicone (SIMETHICONE) 80 MG Q6H PRN PRN PO Morphine Sulfate (morphine SULFATE) 4 MG Q4H PRN PRN IV Ondansetron HCl (ondansetron HCL) 4 MG Q6H PRN PRN IV Sodium Chloride (SODIUM CHLORIDE 0.9%) 1,000 ML .Q10H IV Clindamycin Phosphate (CLEOCIN 600 MG/NS 50 ML) 50 ML Q8H IV Dextrose/Water (DEXTROSE 50%-WATER) 50 ML ASDIR PRN IV (CKD) Hydralazine HCl (APRESOLINE) 10 MG Q2H PRN PRN IV Physical Exam Head/Eyes: atraumatic, clear cornea, normal eyelids/periorb., normocephalic, PERRL Neck: full range of motion, non-tender Cardiovascular: normal capillary refill, normal heart sounds Respiratory: clear to auscultation, no distress Abdomen: non-tender, normal bowel sounds, soft, no distention, no guarding Genitourinary: no bladder distention, no flank pain, no urinary catheter Extremities: decreased range of motion, edema, moves all, no edema, R foot erythema up to above ankle 4 cm Ulcer plantar foot under right big toe Bullous lesions /wounds left medial foot and plantar foot Neuro/ADDICTION COUNSELOR: alert, oriented X 3, CNII-XII intact, normal speech, no motor deficits Psychiatry: normal affect, normal judgment/insight, normal mood Diagnosis, Assessment Plan Free Text DxA P Notes Free text DxA P notes: #Acute necrotizing fasciitis of right lower extremity status post debridement by general surgery on 07/13/24, general surgeon recommends BKA on 07/20/24 As needed pain medication IV fluid Discussed with infectious disease, continue IV clindamycin and iv cefepime #Sepsis secondary to necrotizing fasciitis present on admission, normal lactic acid, wbc elevated, Tachycardic Blood cultures IV antibiotics #Type II diabetes mellitus with hyperglycemia check Hgb A 1 C insulin sliding scale and lantus #Hypokalemia potassium 3.0, give 40meq oral KCL #rule out DVT of right upper extremity doppler US ordered DVT Px Start Lovenox after surgery Code status Full code at 1744 RPT #:[id number] END OF REPORT [facility] 2024-07-15 12:44:00 [id number] [facility] PATIENT NAME: CAROLYNN PATEL ADMIT DATE: 07/13/24 ACCOUNT NO: [id number] ROOM NO: [facility] AGE: 54 REPORT TYPE: eNVL VENOUS ULTRASOUND SEX: M DATE OF : 70 ADMITTING PHYSICIAN:Macho Musa MD ATTENDING PHYSICIAN:Jimenez Sanchez MD *[facility]* [address] [place], [place] [address] Limited Upper Extremity Venous Duplex Study Patient: Carolynn Patel Study Date: 07/15/2024 BP: URN: [id number] Location: : 1970 Age: 54 Gender: M Height: / Weight: / BMI/BSA: / *Ordering Physician: * Jimenez Sanchez *Interpreting Physician: * Tammy Clemons MD *[employer]er: Yolanda Hernandez RVT Indications: Swelling of limb. Study data: Limited upper extremity venous duplex study. Right evaluation with grayscale 2D imaging, color Doppler imaging, and spectral Doppler analysis. Location: Bedside. Patient status: Inpatient. Patient room number: 3064. Study status: PHYLLIS. Venous flow: + + --------+ + !Location !Properties !Thrombus ! + + --------+ + !R internal jugular!Phasic; spontaneous; compressible ! ! + + --------+ + !R subclavian !Phasic; spontaneous; normal ! ! ! !augmentation ! ! PATIENT NAME: CAROLYNN PATEL + + --------+ + !R axillary !Phasic; spontaneous; normal ! ! ! !augmentation; compressible ! ! + + --------+ + !R brachial !Phasic; spontaneous; normal ! ! ! !augmentation; compressible ! ! + + --------+ + !R radial !Compressible ! ! + + --------+ + !R ulnar !Compressible ! ! + + --------+ + !R basilic !Compressible ! ! + + --------+ + !R cephalic !Noncompressible !Thrombus visualized! + + --------+ + *Velocities are expressed in cm/s, Diameters are expressed in cm Conclusions Study suggests superficial vein thrombosis noted in the right cephalic vein. Electronically signed by Tammy Clemons MD 07/15/2024 12:44 at 1244 PATIENT NAME: CAROLYNN PATEL [facility] 2024-07-15 12:31:00 [facility] ([facility]) Infectious Dis. Progress Note REPORT#:[id number] REPORT STATUS: Signed REPORT INITIALIZATION DATE:07/15/24 TIME: 1231 PATIENT: CAROLYNN PATEL UNIT #: [id number] ROOM/BED: [address] : 70 AGE: 54 SEX: M ATTEND: Jimenez Sanchez MD ADM AUTHOR: Marce Kiser MD REPT SERVICE DT/TIME: 07/15/24 1231 * ALL edits or amendments must be made on the electronic/computer document * Subjective Chief complaint: Right lower extremity pain Objective Physical Exam Wound/incision: Location: Right foot dressing Site condition: dressing clean dry Head/Eyes: atraumatic, clear cornea, EOMI ENT: moist mucosal membranes, normal dentition, normal nose Neck: full range of motion, non-tender, normal thyroid Cardiovascular: normal heart sounds, regular rate rhythm Diagnosis, Assessment Plan Problem List/A P: 1. Necrotizing fasciitis 2. Hypoxia Free Text A P: Wound with morgenella change to rocephin after bka can dc abx at 1232 RPT #:[id number] END OF REPORT [facility] 2024-07-15 07:12:00 [facility] General Surgery Progress Note REPORT#:[id number] REPORT STATUS: Signed REPORT INITIALIZATION DATE:07/15/24 TIME: 711 PATIENT: CAROLYNN PATEL UNIT #: [id number] ROOM/BED: [address] : 70 AGE: 54 SEX: M ATTEND: Jimenez Sanchez MD ADM AUTHOR: Juan Carlos Lord MD REPT SERVICE DT/TIME: 07/15/24 0712 * ALL edits or amendments must be made on the electronic/computer document * Subjective Patient reports: No: complaints. Objective General VS/I O: Last Documented: Result Date Time Pulse Ox 96 07/15 0329 B/P 120/72 07/15 328 B/P Mean 88.2 07/15 328 O2 Delivery Nasal cannula 07/15 328 Temp 36.8 07/15 328 Pulse 91 07/15 328 Resp 18 07/15 328 O2 Flow Rate 3 07/14 1999 Vital Signs Date Temp Pulse Resp B/P B/P Mean Pulse Ox FiO2 07/14-07/15 36.5-37.3 91-109 16-18 120-129/72-81 0.0-97.2 93-97 24 hour I O ending at 0700: 07/15 0700 07/14 1900 Intake Total Output Total 800 Balance -800 Output, Urine 800 PATIENT WEIGHT: Weight (lb): Weight (oz): Weight (kg): 63.636 Physical Exam Extremities: no edema, dressing is dry Diagnosis, Assessment Plan Free Text A P: Pt is stable. cont abx. at 0712 RPT #:[id number] END OF REPORT [facility] 2024-07-14 12:33:00 [facility] Hospitalist Progress Note REPORT#:[id number] REPORT STATUS: Signed REPORT INITIALIZATION DATE:07/14/24 TIME: 1233 PATIENT: CAROLYNN PATEL UNIT #: [id number] ROOM/BED: [address] : 70 AGE: 54 SEX: M ATTEND: Jimenez Sanchez MD ADM AUTHOR: Jimenez Sanchez MD REPT SERVICE DT/TIME: 07/14/24 1233 * ALL edits or amendments must be made on the electronic/computer document * Subjective Chief complaint: denies any pain in right leg. no complaints Objective General VS/I O: Vital Signs: Date Time Temp Pulse Resp B/P B/P Pulse O2 O2 Flow FiO2 Mean Ox Delivery Rate 07/14 1107 97.7 94 16 129/81 97.2 96 07/14 0800 Nasal 3 cannula 07/14 0715 97.7 16 125/76 0.0 96 07/14 0422 98.6 108 18 131/75 93.4 92 Room air 07/136 98.8 98 16 130/79 95.7 97 Nasal cannula 07/13 2045 98.1 102 18 150/92 111.5 96 Nasal cannula 07/13 2030 99.0 100 22 136/81 100 Nasal 3 cannula 07/13 2018 Nasal 3 cannula 07/13 2015 93 20 138/75 100 Nasal 3 cannula 07/13 2002 100 Nasal 3 cannula 07/13 2000 95 12 123/80 91 Room air 07/13 1947 Simple 5 mask 07/13 1947 96.8 90 18 122/69 96 Simple 5 mask 07/13 1714 102 108/71 85 93 07/13 1607 98.7 95 16 145/84 104 95 Nasal 2 cannula 24 hour I O ending at 0700: 07/14 0700 07/13 1900 Intake Total 1700.00 Output Total 650 Balance 1050.00 Intake, IV 700.00 Intake, Oral 1000 Output, Urine 650 Patient 63.636 kg Weight Weight Estimated Measurement Method PATIENT WEIGHT: Weight (lb): Weight (oz): Weight (kg): 63.636 Medications: Active Meds + DC'd Last 24 Hrs Enoxaparin Sodium (LOVENOX 40MG SYRINGE) 40 MG 1700 SUBQ Meropenem (MERREM) 500 MG Q6H IV Sodium Chloride (SODIUM CHLORIDE 0.9% PF) 10 ML Vancomycin HCl (VANCOMYCIN HCL) 1,000 MG Q12H IV Sodium Chloride (SODIUM CHLORIDE 0.9%) 250 ML Meropenem (MEROPENEM) 1,000 MG Q8H IV (CAN) Sodium Chloride (SODIUM CHLORIDE 0.9% PF) 20 ML Miscellaneous Information (VANCOMYCIN PHARMACY TO DOSE) 1 EACH ASDIR IV (CKD) Folic Acid (FOLIC ACID) 1 MG DAILY PO Multivitamins Therapeutic (THERAGRAN) 1 UDTAB DAILY PO Thiamine HCl (THIAMINE HCL) 100 MG DAILY PO Potassium Chloride (K-DUR) 40 MEQ ONCE ONE PO (DC) Insulin Human Lispro (Admelog) S/SCALE LOW Q6HR SUBQ (CAN) Calcium Carbonate (TUMS 500MG) 1,000 MG Q6H PRN PRN PO Docusate Sodium (COLACE 100 MG CAPSULE) 100 MG BID PRN PRN PO Guaifenesin (guaiFENesin) 200 MG Q6H PRN PRN PO Insulin Human Lispro (Admelog) S/SCALE MED AC HS SUBQ Ketorolac Tromethamine (KETOROLAC TROMETHAMINE) 30 MG Q6H PRN PRN IV Melatonin (MELATONIN) 6 MG BEDTIME PRN PRN PO Simethicone (SIMETHICONE) 80 MG Q6H PRN PRN PO Fentanyl Citrate (SUBLIMAZE INJ. 2ML) 25 MCG Q5M PRN PRN IV (DC) Hydralazine HCl (APRESOLINE) 5 MG Q10M PRN PRN IV (DC) Hydrocodone Bitart/Acetaminophen (NORCO 5/325 TABLET) 1 TAB Q4H PRN PRN PO (DC) Hydromorphone HCl (Hydromorphone HCl) 0.5 MG Q10M PRN PRN IV (DC) Morphine Sulfate (morphine SULFATE) 4 MG Q4H PRN PRN IV Ondansetron HCl (ondansetron HCL) 4 MG Q6H PRN PRN IV Ondansetron HCl (ondansetron HCL) 4 MG ONCE PRN IV (DC) Sodium Chloride (SODIUM CHLORIDE 0.9%) 1,000 ML .Q10H IV Albuterol/Ipratropium (DUONEB) 3 ML RTQ4H INH (DC) Sugammadex Sodium (BRIDION) 0 .STK-MED ONE IV (DC) Phenylephrine HCl (Biorphen PF 500 mcg/5 mL) 0 .STK-MED ONE IV (DC) Ceftriaxone Sodium (ROCEPHIN) 0 .STK-MED ONE .ROUTE (DC) Sodium Chloride (SODIUM CHLORIDE 0.9%) 200 ML .STK-MED ONE IV (DC) Cefepime HCl (MAXIPIME) 1 GM Q8H IV (DC) Sodium Chloride (SODIUM CHLORIDE 0.9% PF) 10 ML Clindamycin Phosphate (CLEOCIN 600 MG/NS 50 ML) 50 ML Q8H IV Succinylcholine Chloride ([id number]) 0 .STK-MED ONE IV (DCr) Dextrose/Water (DEXTROSE 50%-WATER) 50 ML ASDIR PRN IV (CKD) Fentanyl Citrate (SUBLIMAZE INJ. 2ML) 25 MCG Q5M PRN PRN IV (DC) Hydralazine HCl (APRESOLINE) 5 MG Q10M PRN PRN IV (DC) Hydromorphone HCl (Hydromorphone HCl) 0.5 MG Q10M PRN PRN IV (DC) Ondansetron HCl (ondansetron HCL) 4 MG ONCE PRN IV (DC) Lidocaine HCl (LIDOCAINE HCL 2% PF) 0 .STK-MED ONE .ROUTE (DC) Ondansetron HCl (ondansetron HCL) 4 MG Q4H PRN PRN IV (DC) Etomidate (AMIDATE) 0 .STK-MED ONE IV (DC) Propofol (propofoL) 20 ML .STK-MED ONE IV (DCr) Rocuronium [place] (ZEMURON) 0 .STK-MED ONE IV (DCr) Acetaminophen (TYLENOL) 650 MG Q4H PRN PRN PO (DC) Hydralazine HCl (APRESOLINE) 10 MG Q2H PRN PRN IV Hydrocodone Bitart/Acetaminophen (NORCO 5/325 TABLET) 1 TAB Q4H PRN PRN PO (DC) Morphine Sulfate (morphine SULFATE) 4 MG Q4H PRN PRN IV (DC) Ondansetron HCl (ondansetron HCL) 4 MG Q6H PRN PRN IV (DC) Sodium Chloride (SODIUM CHLORIDE 0.9%) 1,000 ML .Q8H IV (DC) Iopamidol (ISOVUE-370) 0 .STK-MED ONE .ROUTE (DC) Morphine Sulfate (morphine SULFATE) 4 MG X1ED STA IV (DC) Physical Exam Head/Eyes: atraumatic, clear cornea, normal eyelids/periorb., normocephalic, PERRL Neck: full range of motion, non-tender Cardiovascular: normal capillary refill, normal heart sounds Respiratory: clear to auscultation, no distress Abdomen: non-tender, normal bowel sounds, soft, no distention, no guarding Genitourinary: no bladder distention, no flank pain, no urinary catheter Extremities: decreased range of motion, edema, moves all, no edema, R foot erythema up to above ankle 4 cm Ulcer plantar foot under right big toe Bullous lesions /wounds left medial foot and plantar foot Neuro/ADDICTION COUNSELOR: alert, oriented X 3, CNII-XII intact, normal speech, no motor deficits Psychiatry: normal affect, normal judgment/insight, normal mood Diagnosis, Assessment Plan Free Text DxA P Notes Free text DxA P notes: #Acute necrotizing fasciitis of right lower extremity status post debridement by general surgery on 07/13/24, general surgeon recommends BKA As needed pain medication IV fluid Discussed with infectious disease, will start IV clindamycin, meropenem, and vancomcyin #Sepsis secondary to necrotizing fasciitis present on admission, normal lactic acid, wbc elevated, Tachycardic Blood cultures IV antibiotics #Type II diabetes mellitus with hyperglycemia check Hgb A 1 C insulin sliding scale and lantus #Hypokalemia potassium 3.0, give 40meq oral KCL #rule out DVT of right upper extremity doppler US ordered DVT Px Start Lovenox after surgery Code status Full code at 1237 RPT #:[id number] END OF REPORT [facility] 2024-07-14 10:20:00 [facility] Prog.Note-Vancomycin REPORT#:[id number] REPORT STATUS: Signed REPORT INITIALIZATION DATE:07/14/24 TIME: 1020 PATIENT: CAROLYNN PATEL UNIT #: [id number] ROOM/BED: [address] : 70 AGE: 54 SEX: M ATTEND: Jimenez Sanchez MD ADM AUTHOR: Musa Clark [facility] REPT SERVICE DT/TIME: 07/14/24 1020 * ALL edits or amendments must be made on the electronic/computer document * Vancomycin Vancomycin Medication Therapy Goal: trough 15-20 mcg/mL Indication for treatment: necrotizing fasciitis Weight: Actual weight (kg): 63.6 VS and I/O: Vital Signs Date Temp Pulse Resp B/P B/P Mean Pulse Ox FiO2 07/13-07/14 96.8-99.0 90-108 12- 108-150/69-92 0.0-111.5 91-100 72 hours ending at 0700 07/14 0707/13 1900 07/13 0707/12 1900 07/12 07/11 0700 1900 Intake 1700.00 Total Output 650 Total Balance 1050.00 Intake, IV 700.00 Intake, 1000 Oral Output, 650 Urine Patient 63.636 kg Weight Weight Estimated Measuremen t Method 72 Hour I O Total 07/14 0700 07/12 0700 Intake Total 1700.00 Output Total 650 Balance 1050.00 Labs: Laboratory Test : 07/14 07/14 07/13 0142 0141 1626 Chemistry BUN (7 - 18 mg/dL) 32 H 30 H Creatinine (0.7 - 1.3 mg/dL) 0.70 0.80 Hematology WBC (4.5 - 12.5 K/mm3) 18.4 H 22.7 H Microbiology: 07/14 727 NASAL: MRSA Screen - ORD 07/13 2310 BLOOD: Blood Culture - RECD 07/13 2310 BLOOD: Blood Culture - RECD 07/13 2226 BLOOD: Blood Culture - RECD 07/13 2226 BLOOD: Blood Culture - RECD 07/13 1930 FOOT: Wound Culture - RES 07/13 1930 FOOT: Anaerobic Culture - RES 07/13 1930 FOOT: Gram Stain - RES Treatment plan: consult, initiation of therapy Regimen: Pharmacy consulted to dose vancomycin empirically to goal trough 15-20 mcg/ml for necrotizing fasciitis. Based on pt wt/renal function, start vancomycin at 1000 mg IV q12h. Pharmacy will follow. at 1021 RPT #:[id number] END OF REPORT [facility] 2024-07-14 09:39:00 [facility] ([facility]) Infect Disease Consult Note REPORT#:[id number] REPORT STATUS: Signed REPORT INITIALIZATION DATE:07/14/24 TIME: 938 PATIENT: CAROLYNN PATEL UNIT #: [id number] ROOM/BED: [address] : 70 AGE: 54 SEX: M ATTEND: Jimenez Sanchez MD ADM AUTHOR: Marce Kiser MD REPT SERVICE DT/TIME: 07/14/24 0939 * ALL edits or amendments must be made on the electronic/computer document * History of Present Illness Reason for consult: Right lower extremity pain, cellulitis Chief complaint: Right lower extremity pain PCP: PCP: No Primary or Family Physician HPI: The patient who is here with right foot infection apparently had this infection for some time he have symptoms for about 3 months but now is coming with worsening condition for last few days due to concern that is negative I soft tissue infection he was seen by surgery to go to the OR for surgical debridement infectious is consulted CAT scan was done showed soft tissue emphysematous changes patient was seen examined please refer to the orders for antibiotic. Patient currently complaining of pain patient currently in medical floor in the emergency room when he first cameHPI: 54 y-o male has necrotizing infection right foot extending to right lower leg. Patient reports symptoms with pain and discoloration and ulcer in the right foot about 3 months ago which has been worse over the last 24 hours and so presented to [facility]. The patient was transferred here for concern for necrotizing fasciitis.. By ER physician patient already got vancomycin and Rocephin in the outside ER. Patient has been seen by surgery with plan to go to the OR at this time for debridement, I discussed with infectious disease and will start the patient on clindamycin and cefepime Patient agreeable to surgery at this time, denies any complaints other than pain in the right foot for which she was given morphine in the ER. Patient is a poor historian, on my evaluation only reports history of diabetes. He also reports history of alcohol abuse, daily drinker but quit about 3 weeks ago. Also reports history of nicotine use, about [address] right lower extremity this admission shows subcutaneous and soft tissue emphysematous changes extending from the foot to the level of the mid tibia consistent with history of necrotizing fasciitis. Chest x-ray showed bilateral opacities that may represent edema versus atelectasis versus infectious process Past medical history DM Past surgical history Foot surgery unclear indication Social history Daily drinker quit 3 weeks ago Smokes 4 cigarettes daily No illicit drug Allergies no known drug allergy The patient was seen by surgery underwent surgical debridement on July 13 History - Adult longitudinal Past medical history: Reports: Diabetes mellitus. Smoking status for patients 13 years old or older: Current every day smoker Packs per day: 1 Pack years: 0 Allergies: Coded Allergies: No Known Allergies (07/13/24) Objective General VS/I O: Vital Signs Date Temp Pulse Resp B/P B/P Mean Pulse Ox FiO2 07/13-07/14 96.8-99.0 90-108 12-22 108-150/69-92 0.0-111.5 91-100 Last Documented: Result Date Time Pulse Ox 93 07/14 1514 B/P 127/74 07/14 1514 B/P Mean 0.0 07/14 1514 Temp 97.7 07/14 1514 Resp 16 07/14 1514 Pulse 94 07/14 1107 O2 Delivery Nasal cannula 07/14 0800 O2 Flow Rate 3 07/14 0800 Vital Signs: Date Time Temp Pulse Resp B/P B/P Pulse O2 O2 Flow FiO2 Mean Ox Delivery Rate 07/14 1514 97.7 16 127/74 0.0 93 07/14 1107 97.7 94 16 129/81 97.2 96 07/14 0800 Nasal 3 cannula 07/14 0715 97.7 16 125/76 0.0 96 07/14 0422 98.6 108 18 131/75 93.4 92 Room air 07/13 2246 98.8 98 16 130/79 95.7 97 Nasal cannula 07/13 2045 98.1 102 18 150/92 111.5 96 Nasal cannula 07/13 2030 99.0 100 22 136/81 100 Nasal 3 cannula 07/13 2018 Nasal 3 cannula 07/13 2015 93 20 138/75 100 Nasal 3 cannula 07/13 2002 100 Nasal 3 cannula 07/13 2000 95 12 123/80 91 Room air 07/137 Simple 5 mask 07/13 1947 96.8 90 18 122/69 96 Simple 5 mask 07/13 1714 102 108/71 85 93 24 hour I O ending at 0700: 07/14 0700 07/13 1900 Intake Total 1700.00 Output Total 650 Balance 1050.00 Intake, IV 700.00 Intake, Oral 1000 Output, Urine 650 Patient 63.636 kg Weight Weight Estimated Measurement Method PATIENT WEIGHT: Weight (lb): Weight (oz): Weight (kg): 63.636 Physical Exam General appearance: alert, awake Wound/incision: Location: Right foot dressing Site condition: dressing clean dry Head/Eyes: atraumatic, clear cornea, EOMI ENT: moist mucosal membranes, normal dentition, normal nose Neck: full range of motion, non-tender, normal thyroid Cardiovascular: normal heart sounds, regular rate rhythm Diagnosis, Assessment Plan Problem List/A P: 1. Necrotizing fasciitis 2. Hypoxia Orders: Right foot infection negative for soft tissue infection history of diabetes mellitus Status post surgical debridement wound culture showing gram-negative sakshi Chronic ulcer for few months now with superimposed acute infection Leukocytosis improved Will put the patient on vancomycin and clindamycin and cefepime discontinue meropenem await culture sensitivity further recommendations to follow at 1231 RPT #:[id number] END OF REPORT [facility] 2024-07-14 08:01:00 [facility] General Surgery Progress Note REPORT#:[id number] REPORT STATUS: Signed REPORT INITIALIZATION DATE:07/14/24 TIME: 0801 PATIENT: CAROLYNN PATEL UNIT #: [id number] ROOM/BED: [address] : 70 AGE: 54 SEX: M ATTEND: Macho Musa MD ADM AUTHOR: Juan Carlos Lord MD REPT SERVICE DT/TIME: 07/14/24 0801 * ALL edits or amendments must be made on the electronic/computer document * Subjective Comments: Pt has mild pain in his right foot. Objective General VS/I O: Last Documented: Result Date Time Pulse Ox 96 07/14 0715 B/P 125/76 07/14 0715 B/P Mean 0.0 07/14 0715 Temp 36.5 07/14 0715 Resp 16 07/14 07 O2 Delivery Room air 07/14 0422 Pulse 108 07/14 0422 O2 Flow Rate 3 07/13 2030 Vital Signs Date Temp Pulse Resp B/P B/P Mean Pulse Ox FiO2 07/13-07/14 36.0-37.2 90-108 12- 108-150/69-92 0.0-111.5 91-100 24 hour I O ending at 0700: 07/14 0700 07/13 1900 Intake Total Output Total Balance Patient 63.636 kg Weight Weight Estimated Measurement Method PATIENT WEIGHT: Weight (lb): Weight (oz): Weight (kg): 63.636 Physical Exam General appearance: alert, awake Extremities: right foot dressing has serous drainage, Results Findings/Data: Laboratory Tests 07/14/24 0142: [Embedded Image Not Available] 07/14/24 0141: [Embedded Image Not Available] 07/13/24 1626: [Embedded Image Not Available] Laboratory Tests 07/14 07/14 07/14 07/14 07/13 0713 0205 0142 0142 2226 Chemistry Sodium (136 - 145 mmol/L) 136 Potassium (3.5 - 5.1 mmol/L) 3.0 L Chloride (98 - 107 mmol/L) 96.0 L Carbon Dioxide (21 - 32 mmol/L) 31.0 Anion Gap (10 - 20 mmol/L) 12.0 BUN (7 - 18 mg/dL) 32 H Creatinine (0.7 - 1.3 mg/dL) 0.70 Glomerular Filtr Rate (>=60 mL/min) > 60 BUN/Creatinine Ratio (10 - 20) 43.2 H Glucose (74 - 106 mg/dL) 152 H POC Glucose (74 - 106 mg/dL) 183 H 162 H Calcium (8.5 - 10.1 mg/dL) 8.4 L Phosphorus (2.5 - 4.9 mg/dL) 2.7 Magnesium (1.8 - 2.4 mg/dL) 2.4 Total Bilirubin (0.0 - 1.0 mg/dL) 0.40 AST (15 - 37 IUnit/L) 88 H ALT (12 - 78 IUnit/L) 35 Total Alk Phosphatase (45 - 117 IUnit/L) 141 H Troponin I (0 - 54 pg/mL) 6.370 6.000 Total Protein (6.4 - 8.2 gram/dL) 5.9 L Albumin (3.4 - 5.0 g/dL) 1.7 L Globulin (2.7 - 4.2 gram/dL) 4.2 Albumin/Globulin Ratio (0.75 - 1.50) 0.4 L 07/13 07/13 07/13 07/13 07/13 2226 2107 1626 1626 1626 Chemistry Sodium (136 - 145 mmol/L) 132 L Potassium (3.5 - 5.1 mmol/L) 3.2 L Chloride (98 - 107 mmol/L) 92.0 L Carbon Dioxide (21 - 32 mmol/L) 32.0 Anion Gap (10 - 20 mmol/L) 11.2 BUN (7 - 18 mg/dL) 30 H Creatinine (0.7 - 1.3 mg/dL) 0.80 Glomerular Filtr Rate (>=60 mL/min) > 60 BUN/Creatinine Ratio (10 - 20) 39.0 H Glucose (74 - 106 mg/dL) 210 H POC Glucose (74 - 106 mg/dL) 222 H Hemoglobin A1c (% HbA1) 11.2 Estim Average Glucose (MG/DL) 275 Lactic Acid (0.50 - 1.90 mmol/L) 1.9 Calcium (8.5 - 10.1 mg/dL) 8.8 Total Bilirubin (0.0 - 1.0 mg/dL) 0.70 Direct Bilirubin (0.0 - 0.20 mg/dL) 0.50 H AST (15 - 37 IUnit/L) 82 H ALT (12 - 78 IUnit/L) 34 Total Alk Phosphatase (45 - 117 IUnit/L) 161 H Troponin I (0 - 54 pg/mL) 4.970 B-Natriuretic Peptide (0 - 100 pgram/mL) 25.0 Total Protein (6.4 - 8.2 gram/dL) 6.4 Albumin (3.4 - 5.0 g/dL) 1.9 L Globulin (2.7 - 4.2 gram/dL) 4.5 H Albumin/Globulin Ratio (0.75 - 1.50) 0.4 L Laboratory Tests 07/14 07/13 0141 1626 Hematology WBC (4.5 - 12.5 K/mm3) 18.4 H 22.7 H RBC (4.0 - 5.8 mill/mm3) 3.57 L 3.85 L Hgb (13.0 - 17.5 gram/dL) 10.7 L 12.0 L Hct (42.0 - 52.0 %) 31.4 L 34.1 L MCV (80 - 98 fL) 88.0 88.6 MCH (27.0 - 33.0 picogram) 30.0 31.2 MCHC (33.0 - 36.0 gram/dL) 34.1 35.2 RDW (11.6 - 16.2 %) 14.0 14.1 RDW Std Deviation (37.0 - 51.0 fL) 45.4 45.6 Plt Count (150 - 450 K/mm3) 342 376 MPV (6.7 - 11.0 fL) 11.2 H 11.1 H Neut # (Auto) (1.8 - 7.7 K/mm3) 14.37 H 18.99 H Lymph # (Auto) (1.0 - 5.0 K/mm3) 2.11 1.57 [place] # (Auto) (0 - 0.8 K/mm3) 0.88 H 1.09 H Eos # (Auto) (0.0 - 0.5 K/mm3) 0.04 0.00 Baso # (Auto) (0.0 - 0.2 K/mm3) 0.06 0.08 Add Manual Diff YES YES Total Counted (#CELLS) 115 116 Seg Neutrophils % (39 - 69 %) 88.7 H 73.3 H Band Neutrophils % (0 - 10 %) 0 13.8 H Lymphocytes % (Manual) (25 - 55 %) 8.7 L 7.7 L Monocytes % (Manual) (0 - 10 %) 2.6 0.9 Eosinophils % (Manual) (0.0 - 5.0 %) 0 0 Basophils % (Manual) (0 - 1.0 %) 0 0 Plasma Cell % (Manual) (0.0 - 0.0) 2.6 H Nucleated RBC % (0 - 0 %) 0.0 0.0 Metamyelocytes (0 - 0 %) 0 0 Myelocytes (0.0 - 0.0 %) 0 0 Promyelocytes (0 - 0 %) 0 1.7 H Nucleated RBCs # (Man) (0.0 - 0.1 K/mm3) 0.00 0.00 Reactive Lymphocytes (%) 0 0 Immature Blood Cells (0 - 0 %) 0 0 Platelet Estimate ADEQUATE ADEQUATE Plt Morphology Comment SIZE VARIABLE SIZE VARIABLE Polychromasia 3+ 1+ Poikilocytosis 1+ Anisocytosis 2+ 1+ Macrocytosis 1+ 1+ Spherocytes 1+ Ovalocytes 1+ Stomatocytes 1+ Elliptocytes 1+ Morphology Comment NORMAL Laboratory Tests 07/14 99 Toxicology Urine Opiates Screen (<300 ng/mL) POSITIVE Urine Methadone Screen (<300 ng/mL) NEGATIVE Urine Barbiturates (<200 ng/mL) NEGATIVE Ur Phencyclidine Scrn (<25 ng/mL) NEGATIVE Ur Amphetamines Screen (<1000 ng/mL) NEGATIVE U Benzodiazepines Scrn (<200 ng/mL) NEGATIVE Urine Cocaine Screen (<300 ng/mL) NEGATIVE Urine Cannabinoids (<50 ng/mL) NEGATIVE Laboratory Tests 07/14 99 Urines Urine Color (YELLOW) PINKISH H Urine Appearance (CLEAR) CLOUDY H Urine pH (5.0 - 8.0) 6.0 Ur Specific [place] (1.001 - 1.035) <=1.005 Urine Protein (Neg - 15 mg/dL) 1+ Urine Glucose (UA) (NEGATIVE mg/dL) 70-100 (1+) Urine Ketones (NEGATIVE mg/dL) 2+ Urine Blood (NEGATIVE) TRACE Urine Nitrite (NEGATIVE) NEGATIVE Urine Bilirubin (NEGATIVE) 1+ (Small 0.5-1.0) Urine Urobilinogen (0.0 - 0.2 mg/dL) >=8.0 Ur Leukocyte Esterase (NEGATIVE) NEGATIVE Urine RBC (0 - 5 #/HPF) 0-2 Urine WBC (0 - 5 per HPF) 0-5 Ur Epithelial Cells (FEW per HPF) Rare (0-1/hpf) Urine Bacteria (NONE #/HPF) FEW Diagnosis, Assessment Plan Free Text A P: Pt is stable. Cont abx., he will likely need right BK amp. at 0802 RPT #:[id number] END OF REPORT [facility] 2024-07-13 19:51:00 [facility] ([facility]) Post Anesthesia Evaluation REPORT#:[id number] REPORT STATUS: Signed REPORT INITIALIZATION DATE:07/13/24 TIME: 1950 PATIENT: CAROLYNN PATEL UNIT #: [id number] ROOM/BED: [place] [address] : 70 AGE: 54 SEX: M ATTEND: Macho Musa MD ADM AUTHOR: Bertin Looney DO REPT SERVICE DT/TIME: 07/13/241950 * ALL edits or amendments must be made on the electronic/computer document * Post Anesthesia Evaluation Anes. changes from pre-op eval ORM Surgeries: Surgery Date and Time: 07/13/20242299 Proposed Primary Procedure: DEBRIDEMENT OF RIGHT LEG Anesthetic: GETA Level of consciousness: no change, patient awake, able to answer questions, participate in this eval. Vital signs: Last Documented: Result Date Time Pulse Ox 93 07/13 1714 B/P 108/71 07/13 1714 B/P Mean 85 07/13 171 Pulse 102 07/13 171 O2 Delivery Nasal cannula 07/13 160 O2 Flow Rate 2 07/13 1607 Temp 37.1 07/13 1607 Resp 16 07/13 1607 Cardiovascular: CV system stable, vital signs stable Respiratory/Airway: respiratory system stable, maintains without support Pain: adequately controlled Hydration: adequate Temp status: normothermic Presence of N/V: no Anesthesia complications: no at 195 RPT #:[id number] END OF REPORT [facility] 2024-07-13 19:47:00 [id number] [facility] PATIENT NAME: CAROLYNN PATEL ADMIT DATE: 07/13/24 ACCOUNT NO: [id number] ROOM NO: V.3064 AGE: 54 REPORT TYPE: OPERATIVE REPORT SEX: M DATE OF : 70 ADMITTING PHYSICIAN:Macho Musa MD ATTENDING PHYSICIAN:Macho Musa MD OPERATION DATE: 07/13/2024 PREOPERATIVE DIAGNOSIS: Necrotizing infection, right foot and leg. POSTOPERATIVE DIAGNOSIS: Necrotizing infection, right foot and leg. PROCEDURE: Radical excisional debridement, necrotizing infection right foot and leg, skin, subcutaneous tissue, muscle, fascia and tendon, 360 square centimeters. SURGEON: Juan Carlos Lord MD BUSINESS PLANNING DIRECTOR: None. ANESTHESIA: General. INDICATIONS AND FINDINGS: The patient is a 54-year-old male with a history of diabetes, who apparently had chronic ulcers on his right foot, who developed worsening necrotizing infection involving skin, subcutaneous tissue, muscle, fascia and tendon involving the medial aspect of the foot extending across the plantar aspect to the lateral aspect and distally to the level of the fifth toe. The area of debridement was measured at 360 square centimeters. Debridement was carried back to healthy bleeding tissue. TECHNIQUE: After adequate general anesthesia, the patient in the supine position. The right foot and leg was prepped and draped in sterile fashion with Betadine solution starting at the medial aspect of the foot where there was a large blister, incision was made. There was necrotic skin and necrosis extended down to the subcutaneous tissue and fascia and muscle. The necrotic tissue extended proximally up on to the leg and all the necrotic tissue was excised using electrocautery. The area of debridement on the leg was skin, subcutaneous tissue, muscle and tendon as well as fascia and the necrotic tissue also was down in the plantar aspect of the foot and all this necrotic tissue was excised, extended distally along the lateral aspect of the foot to the fifth metatarsal head. Using electrocautery, all this necrotic tissue was excised. Hemostasis achieved with electrocautery and one larger vein was controlled with Hemoclips. The wound was then irrigated with saline, inspected for hemostasis, which was seen to be adequate. The wound was then dressed with Xeroform gauze and dry sterile dressing. The patient tolerated the procedure well. Estimated blood loss was 100 mL. There were no complications. All counts were correct and the patient was taken to the recovery room in satisfactory condition. Dictated By: Juan Carlos Lord MD PATIENT NAME: CAROLYNN PATEL Date Dictated: 07/13/2024 19:47:18 Date Transcribed: 07/13/2024 23:34:43 DWG/CIARA Receipt ID: [id number] Authenticated by Juan Carlos Lord MD On 07/14/2024 07:01:12 AM at 0701 PATIENT NAME: CAROLYNN PATEL [facility] 2024-07-13 19:40:00 [facility] ([facility]) Brief Op Lisandro REPORT#:[id number] REPORT STATUS: Signed REPORT INITIALIZATION DATE:07/13/24 TIME: 1939 PATIENT: CAROLYNN PATEL UNIT #: [id number] ROOM/BED: [place] [address] : 70 AGE: 54 SEX: M ATTEND: Macho Musa MD ADM AUTHOR: Juan Carlos Lord MD REPT SERVICE DT/TIME: 07/13/241939 * ALL edits or amendments must be made on the electronic/computer document * Op/Inv Proc Note - Brief Pre-procedure diagnosis: Necrotizing Infectioni right Foot and leg Post-procedure diagnosis: same as pre procedure dx Procedures performed: Radical Excisional Debridement Necrotizing Infection Right Leg, Skin, subcutaneous tissue, Muscle, FAscia and Tendon, 360 sq cm Primary Surgeon: Risa Car Runner(s): none Anesthesia: general anesthesia Findings: see dictation Complications: none Estimated blood loss in ml's: 100 cc Specimens removed/altered: C S, Debrided tissue Drain(s): wound dressed open Disposition: PACU Dictation number: [id number] at 1947 RPT #:[id number] END OF REPORT [facility] 2024-07-13 18:25:00 [id number] [facility] PATIENT NAME: CAROLYNN PATEL ADMIT DATE: 07/13/24 ACCOUNT NO: [id number] ROOM NO: V.3064 AGE: 54 REPORT TYPE: CONSULTATION REPORT SEX: M DATE OF : 70 ADMITTING PHYSICIAN:Macho Musa MD ATTENDING PHYSICIAN:Macho Musa MD CONSULTATION DATE: 07/13/2024 REFERRING PHYSICIAN: Dr. Musa. HISTORY OF PRESENT ILLNESS: The patient is a 54-year-old male, who has very poor historian, presented with complaints of pain in his right foot. The patient says he has not been ambulatory, says the foot has been a problem for 4-5 months, but it got worse and he came to the hospital. He was at another hospital, was transferred to [facility]. PAST MEDICAL HISTORY: Significant for alcohol abuse as he drinks 4-5 ____ a day. He thinks he might be diabetic, but does not really know any of his medical history. ALLERGIES: HE HAS NO KNOWN DRUG ALLERGIES. MEDICATIONS: He says he does not take any medications. PAST SURGICAL HISTORY: He says he has not had previous surgery. FAMILY HISTORY: Cannot be obtained. SOCIAL HISTORY: The patient drinks alcohol as above. Does not admit to smoking cigarettes. REVIEW OF SYSTEMS: Very limited as the patient is a very poor historian. PHYSICAL EXAMINATION: GENERAL: The patient is awake and alert, in no distress. VITAL SIGNS: He is afebrile, heart rate is 102, blood pressure is normal. HEENT: The sclerae is nonicteric. NECK: Had no masses. LUNGS: Equal breath sounds, clear bilaterally. CARDIAC: Regular rate and rhythm with no murmur. ABDOMEN: Soft. There is no tenderness. EXTREMITIES: The femoral pulses are palpable bilaterally. Right lower extremity and the foot, there is some bullous lesions and necrosis involving the fifth toe, but also necrosis involving more proximal foot. IMAGING STUDIES: CT of the leg reveals subcutaneous emphysema extending from the foot to the level of the mid tibia. LABORATORY DATA: White blood cell count 22.7, hemoglobin 12, hematocrit 34. PATIENT NAME: CAROLYNN PATEL Chemistry: Significant for glucose of 210. Lactic acid is normal. Liver function tests were essentially normal. ASSESSMENT AND PLAN: A 54-year-old male with necrotizing infection involving the right foot. He will need surgery tonight to debride the foot. This was a limb-threatening situation, but plan at this point is just to debride the foot, but he may ultimately end up with amputation and this was explained to the patient. Thank you for asking me to see Mr. Patel. Dictated By: Juan Carlos Lord MD Date Dictated: 07/13/2024 18:25:43 Date Transcribed: 07/13/2024 22:17:17 QAMAR/MT/JOSIAH Receipt ID: [id number] Authenticated by Juan Carlos Lord MD On 07/14/2024 07:01:10 AM at 0701 PATIENT NAME: CAROLYNN PATEL [facility] 2024-07-13 18:20:00 [facility] Hospitalist History Physical REPORT#:[id number] REPORT STATUS: Signed REPORT INITIALIZATION DATE:07/13/24 TIME: 1819 PATIENT: CAROLYNN PATEL UNIT #: [id number] ROOM/BED: [place] [address] : 70 AGE: 54 SEX: M ATTEND: Macho Musa MD ADM AUTHOR: Macho Musa MD REPT SERVICE DT/TIME: 07/13/241819 * ALL edits or amendments must be made on the electronic/computer document * History of Present Illness HPI Chief complaint: Worsening pain right lower extremity PCP: PCP: No Primary or Family Physician HPI: 54 y-o male has necrotizing infection right foot extending to right lower leg. Patient reports symptoms with pain and discoloration and ulcer in the right foot about 3 months ago which has been worse over the last 24 hours and so presented to [facility] ER. The patient was transferred here for concern for necrotizing fasciitis.. By ER physician patient already got vancomycin and Rocephin in the outside ER. Patient has been seen by surgery with plan to go to the OR at this time for debridement, I discussed with infectious disease and will start the patient on clindamycin and cefepime Patient agreeable to surgery at this time, denies any complaints other than pain in the right foot for which she was given morphine in the ER. Patient is a poor historian, on my evaluation only reports history of diabetes. He also reports history of alcohol abuse, daily drinker but quit about 3 weeks ago. Also reports history of nicotine use, about [address] right lower extremity this admission shows subcutaneous and soft tissue emphysematous changes extending from the foot to the level of the mid tibia consistent with history of necrotizing fasciitis. Chest x-ray showed bilateral opacities that may represent edema versus atelectasis versus infectious process Past medical history DM Past surgical history Foot surgery unclear indication Social history Daily drinker quit 3 weeks ago Smokes 4 cigarettes daily No illicit drug Allergies no known drug allergy History Social History Smoking status for patients 13 years old or older: Unknown,if ever smoked Medication/Allergy-Vaccine Hx Allergies: Coded Allergies: No Known Allergies (07/13/24) Review of Systems Constitutional: Denies: fever. Skin: Reports: other (R foot ulcer and wounds). Denies: itching. Eyes: Denies: visual loss/blurred. Respiratory: Denies: SOB. Cardiovascular: Denies: chest pain. GI: Denies: nausea, vomiting. Musculoskeletal: Reports: extremity pain, extremity swelling. Heme: Denies: bleeding. Neuro: Denies: dizziness. Psych: Denies: agitation. OBJECTIVE VS/I O: Vital Signs Date Temp Pulse Resp B/P B/P Mean Pulse Ox FiO2 07/13 37.1 95-102 16 108-145/71-84 85-104 93-95 Last Documented: Result Date Time Pulse Ox 93 07/13 1714 B/P 108/71 07/13 1714 B/P Mean 85 07/13 1714 Pulse 102 07/13 1714 O2 Delivery Nasal cannula 07/13 1607 O2 Flow Rate 2 07/13 1607 Temp 37.1 07/13 1607 Resp 16 07/13 1607 Patient Weight and BMI Weight (kg): 63.636 BMI: 19.6 Medications: Active Meds + DC'd Last 24 Hrs Albuterol/Ipratropium (DUONEB) 3 ML RTQ4H INH Cefepime HCl (MAXIPIME) 1 GM Q8HR IV (UNVr) Sodium Chloride (SODIUM CHLORIDE 0.9% PF) 10 ML Clindamycin Phosphate (CLEOCIN 600 MG/NS 50 ML) 50 ML Q8HR IV (UNVr) Ondansetron HCl (ondansetron HCL) 4 MG Q4H PRN PRN IV (UNV) Acetaminophen (TYLENOL) 650 MG Q4H PRN PRN PO Hydralazine HCl (APRESOLINE) 10 MG Q2H PRN PRN IV Hydrocodone Bitart/Acetaminophen (NORCO 5/325 TABLET) 1 TAB Q4H PRN PRN PO Morphine Sulfate (morphine SULFATE) 4 MG Q4H PRN PRN IV Ondansetron HCl (ondansetron HCL) 4 MG Q6H PRN PRN IV Sodium Chloride (SODIUM CHLORIDE 0.9%) 1,000 ML .Q8H IV Iopamidol (ISOVUE-370) 0 .STK-MED ONE .ROUTE (DC) Morphine Sulfate (morphine SULFATE) 4 MG X1ED STA IV (DC) General appearance: alert, awake Head/Eyes: atraumatic, clear cornea, normal eyelids/periorb., normocephalic, PERRL Neck: full range of motion, non-tender Cardiovascular: normal capillary refill, normal heart sounds Respiratory: clear to auscultation, no distress Abdomen: non-tender, normal bowel sounds, soft, no distention, no guarding Extremities: decreased range of motion, edema, moves all, no edema, R foot erythema up to above ankle 4 cm Ulcer plantar foot under right big toe Bullous lesions /wounds left medial foot and plantar foot Neuro/ADDICTION COUNSELOR: alert, oriented X 3 Diagnosis, Assessment Plan Free Text A P: Necrotizing fasciitis affecting right lower extremity Seen by general surgery, keep n.p.o., plan for surgery this evening As needed pain medication IV fluid Discussed with infectious disease, will start clindamycin and cefepime Patient apparently got a dose of vancomycin and Rocephin in the outside ER Sepsis wbc elevated Tachycardic 2/2 RLE necrotizing fasciitis Blood culures IV antibiotics per ID Reported history of DM check Hgb A 1 C SSI DVT Px Start Lovenox after surgery Code status Full code at 1831 RPT #:[id number] END OF REPORT [facility] 2024-07-13 18:14:00 [facility] ([facility]) Consultation Note - Brief REPORT#:[id number] REPORT STATUS: Signed REPORT INITIALIZATION DATE:07/13/24 TIME: 1813 PATIENT: CAROLYNN PATEL UNIT #: [id number] [place]BED: [place] [address] : 70 AGE: 54 SEX: M ATTEND: Macho Musa MD ADM AUTHOR: Juan Carlos Lord MD REPT SERVICE DT/TIME: 07/13/241813 * ALL edits or amendments must be made on the electronic/computer document * History - Adult longitudinal Allergies: Coded Allergies: No Known Allergies (07/13/24) Brief Consult Note Free Text A P: 54 y-o male has necrotizing infection right foot extending to right lower leg. He needs emergency surgery to debride the infection as this is limb threatening condition. pt to go to OR for surgery as an emergency. Full note dictated: Yes ([id number]) at 1826 RPT #:[id number] END OF REPORT [facility] 2024-07-13 17:22:00 [facility] ([facility]) EMERGENCY PROVIDER REPORT REPORT#:[id number] REPORT STATUS: Signed DATE:07/13/24 TIME: 1721 PATIENT: CAROLYNN PATEL UNIT #: [id number] [facility] 70 AGE: 54 SEX: M PCP PHYS: No Primary or Family Physician SERVICE AUTHOR: Jorge Temple MD REP SRV REP SRV TM: 1722 * ALL edits or amendments must be made on the electronic/computer document * See Addendum HPI-Extremity Prob Lower General Initial Greet Date/Time 07/13/24 1615 Presentation Chief Complaint Leg problem R Free Text HPI Notes Free Text HPI Notes Patient is a 54-year-old male past medical history of uncontrolled diabetes who is otherwise a poor historian presenting as a transfer from [facility] due to concern for neck chest fasciitis of right lower extremity. Reportedly called EMS for pain of right lower extremity. When asked when it started reports 8 months ago. Has black bulla to the medial aspect of right ankle and wound to bottom of foot. No obvious crepitus otherwise. Warmth and erythema extending up to knee. Stable and route. Received cefepime and vancomycin prior to arrival. Also noted to have hyperglycemia without acidosis and given 5 units of insulin. Patient is otherwise reported to require nasal cannula for adequate oxygenation but had negative CTA chest at outside hospital. BNP reportedly 347 mildly elevated at outside hospital. Lactic acid of 2.5 leukocytosis of 19.7. X-ray of right lower leg showed gas concerning for necrotizing fasciitis. Stable on arrival. Review of Systems ROS Statements All systems rev neg except as marked. (and as per hpi) Past Medical History - Adult Stated Complaint FOOT INFECTION Allergies Coded Allergies: No Known Allergies (07/13/24) Past Medical History: Reports: Diabetes mellitus. Smoking status for patients 13 years old or older: Unknown,if ever smoked Physical Exam Vital Signs Vital Signs First Documented: Result Date Time Pulse Ox 95 07/13 1607 B/P 145/84 07/13 1607 B/P Mean 104 07/13 1607 O2 Delivery Nasal cannula 07/13 1607 O2 Flow Rate 2 07/13 1607 Temp 37.1 07/13 1607 Pulse 95 07/13 1607 Resp 16 07/13 1607 Last Documented: Result Date Time Pulse Ox 93 07/13 1714 B/P 108/71 07/13 1714 B/P Mean 85 07/13 1714 Pulse 102 07/13 1714 O2 Delivery Nasal cannula 07/13 1607 O2 Flow Rate 2 07/13 1607 Temp 37.1 07/13 1607 Resp 16 07/13 1607 Review of Vital Signs Reviewed Focused PE General/Const General/Const Awake, Alert, Well appearing Resp/Chest Respiratory/Chest Breath sounds NL, Breath sounds = bilat, No respiratory distress, No rales, No rhonchi, No wheezing Cardiovascular Cardiovascular Heart rate NL, Regular rhythm, Heart sounds NL, Peripheral circulation NL MS Lower Extrem Lower Ext/Pelvis/MS Atraumatic, Inspection NL, Full range of motion, No swelling, Non-tender, No erythema, No deformity, Neurologic intact, Vascular intact, No edema MS Ankle/Foot Ankle/Foot No deformity, Neurologic intact, Vascular intact, edema of foot and lower right leg with erythema warmth ttp and open wound to bottom of foot, malodorous with purulent drainage, no black bullae to medial right ankle Skin Skin Color NL, Warm, Dry, Intact, Turgor NL, No swelling Neurologic Neurologic Oriented X3, Speech NL, No motor deficits, No sensory deficits Interpretation Diagnostics Lab Results Interpretation Results Laboratory Tests 07/13/24 1626: [Embedded Image Not Available] Laboratory Tests: 07/13 07/13 07/13 1626 1626 1626 Chemistry Sodium (136 - 145 mmol/L) 132 L Potassium (3.5 - 5.1 mmol/L) 3.2 L Chloride (98 - 107 mmol/L) 92.0 L Carbon Dioxide (21 - 32 mmol/L) 32.0 Anion Gap (10 - 20 mmol/L) 11.2 BUN (7 - 18 mg/dL) 30 H Creatinine (0.7 - 1.3 mg/dL) 0.80 Glomerular Filtr Rate (>=60 mL/min) > 60 BUN/Creatinine Ratio (10 - 20) 39.0 H Glucose (74 - 106 mg/dL) 210 H Lactic Acid (0.50 - 1.90 mmol/L) 1.9 Calcium (8.5 - 10.1 mg/dL) 8.8 Total Bilirubin (0.0 - 1.0 mg/dL) 0.70 Direct Bilirubin (0.0 - 0.20 mg/dL) 0.50 H AST (15 - 37 IUnit/L) 82 H ALT (12 - 78 IUnit/L) 34 Total Alk Phosphatase (45 - 117 IUnit/L) 161 H Troponin I (0 - 54 pg/mL) 4.970 B-Natriuretic Peptide (0 - 100 pgram/mL) 25.0 Total Protein (6.4 - 8.2 gram/dL) 6.4 Albumin (3.4 - 5.0 g/dL) 1.9 L Globulin (2.7 - 4.2 gram/dL) 4.5 H Albumin/Globulin Ratio (0.75 - 1.50) 0.4 L Hematology WBC (4.5 - 12.5 K/mm3) 22.7 H RBC (4.0 - 5.8 mill/mm3) 3.85 L Hgb (13.0 - 17.5 gram/dL) 12.0 L Hct (42.0 - 52.0 %) 34.1 L MCV (80 - 98 fL) 88.6 MCH (27.0 - 33.0 picogram) 31.2 MCHC (33.0 - 36.0 gram/dL) 35.2 RDW (11.6 - 16.2 %) 14.1 RDW Std Deviation (37.0 - 51.0 fL) 45.6 Plt Count (150 - 450 K/mm3) 376 MPV (6.7 - 11.0 fL) 11.1 H Neut # (Auto) (1.8 - 7.7 K/mm3) 18.99 H Lymph # (Auto) (1.0 - 5.0 K/mm3) 1.57 [place]haw # (Auto) (0 - 0.8 K/mm3) 1.09 H Eos # (Auto) (0.0 - 0.5 K/mm3) 0.00 Baso # (Auto) (0.0 - 0.2 K/mm3) 0.08 Add Manual Diff YES Total Counted (#CELLS) 116 Seg Neutrophils % (39 - 69 %) 73.3 H Band Neutrophils % (0 - 10 %) 13.8 H Lymphocytes % (Manual) (25 - 55 %) 7.7 L Monocytes % (Manual) (0 - 10 %) 0.9 Eosinophils % (Manual) (0.0 - 5.0 %) 0 Basophils % (Manual) (0 - 1.0 %) 0 Plasma Cell % (Manual) (0.0 - 0.0) 2.6 H Nucleated RBC % (0 - 0 %) 0.0 Metamyelocytes (0 - 0 %) 0 Myelocytes (0.0 - 0.0 %) 0 Promyelocytes (0 - 0 %) 1.7 H Nucleated RBCs # (Man) (0.0 - 0.1 K/mm3) 0.00 Reactive Lymphocytes (%) 0 Immature Blood Cells (0 - 0 %) 0 Platelet Estimate ADEQUATE Plt Morphology Comment SIZE VARIABLE Polychromasia 1+ Poikilocytosis 1+ Anisocytosis 1+ Macrocytosis 1+ Stomatocytes 1+ Microbiology: Date/Time Procedure - Status Source Growth 07/13 1626 Blood Culture - ORD BLOOD 07/13 162 Blood Culture - ORD BLOOD 07/13 1616 Blood Culture - ORD BLOOD 07/13 161 Blood Culture - ORD BLOOD Recent Impressions: CAT SCAN - CT LOWER EXTRM W/CON RT 07/13 1635 Report Impression - Status: SIGNED Entered: 07/13/20241658 IMPRESSION: Subcutaneous and deep soft tissue emphysematous changes extending from the foot to the level of the mid tibia. Findings consistent with patient's history of necrotizing fasciitis. Impression By: Nahum Sung M.D. CAT SCAN - CT LOWER EXTRM W/CON RT 07/13 1635 Report Impression - Status: SIGNED Entered: 07/13/20241658 IMPRESSION: Subcutaneous and deep soft tissue emphysematous changes extending from the foot to the level of the mid tibia. Findings consistent with patient's history of necrotizing fasciitis. Impression By: Nahum Sung M.D. CAT SCAN - CT LOWER EXTRM W/CON RT 07/13 1635 Report Impression - Status: SIGNED Entered: 07/13/20241658 IMPRESSION: Subcutaneous and deep soft tissue emphysematous changes extending from the foot to the level of the mid tibia. Findings consistent with patient's history of necrotizing fasciitis. Impression By: Nahum Sung M.D. RADIOLOGY - XR CHEST 1 V 07/13 1659 Report Impression - Status: SIGNED Entered: 07/13/2024 1717 IMPRESSION: Bilateral opacities may represent combination of edema, atelectasis or infectious process. Location: Impression By: Nahum Sung M.D. ECG #1 Interpretation ECG Interpretation Note EKG per my interpretation shows sinus tachycardia rate of [address]-T wave changes. No STEMI. No acute interval abnormality. Re-Evaluation MDM Free Text MDM Notes Free Text MDM Notes Differential includes was not limited to osteomyelitis, necrotizing fasciitis. Patient otherwise poor historian. Covered with antibiotics prior to arrival. Discussed with podiatry Dr. Coates. Will obtain a CT scan of right lower extremity. Patient otherwise stable at this time. Will give morphine for pain. Re-Evaluation/Progress Re-Evaluation/Progress Text/Dict Note CT scan consistent with necrotizing fasciitis up to the medial tibia. We discussed with Dr. Coates who is recommending discussion with general surgery given extent of disease. Discussed with Dr. Khan who will come evaluate patient. Patient will otherwise be admitted. Labs here are otherwise remarkable for leukocytosis white blood cells 22.7, hyperglycemia without acidosis, mild electrolyte abnormalities, otherwise grossly unremarkable. Chest x-ray otherwise reveals bilateral opacities of unclear significance at this time. Was otherwise not noted on CT scan from outside hospital which were negative for pulmonary malaise him or any other significant findings. BNP here is otherwise normal unlike outside hospital which was elevated Re-Eval Status Unchanged ED Course Medication(s) Ordered Medication(s) Ordered: Autonomic Drugs Sig/John Start time Last Medication Dose Route Stop Time Status Admin Albuterol/Ipratropium 3 ML RTQ4H 07/13 1945 AC INH 07/14 526 Cardiovascular Drugs Sig/John Start time Last Medication Dose Route Stop Time Status Admin Hydralazine HCl 10 MG Q2H PRN PRN 07/13 1730 AC IV 07/14 526 Central Nervous System Agents Sig/John Start time Last Medication Dose Route Stop Time Status Admin Acetaminophen 650 MG Q4H PRN PRN 07/13 1730 AC PO 07/14 526 Hydrocodone Bitart/ 1 TAB Q4H PRN PRN 07/13 1730 AC Acetaminophen PO 07/14 526 Morphine Sulfate 4 MG Q4H PRN PRN 07/13 1730 AC IV 07/14 526 Morphine Sulfate 4 MG X1ED STA 07/13 1615 DC 07/13 IV 07/13 1616 1642 Diagnostic Agents Sig/John Start time Last Medication Dose Route Stop Time Status Admin Iopamidol 0 .STK-MED ONE 07/13 1653 DC 07/13 .ROUTE 1654 Electrolytic, Caloric, And Luke Sig/John Start time Last Medication Dose Route Stop Time Status Admin Sodium Chloride 1,000 ML .Q8H 07/13 1730 IV 07/14 526 Gastrointestinal Drugs Sig/John Start time Last Medication Dose Route Stop Time Status Admin Ondansetron HCl 4 MG Q6H PRN PRN 07/13 1730 AC IV 07/14 526 Patient Discharge Departure Vital Signs/Condition Vital Signs First Documented: Result Date Time Pulse Ox 95 07/13 1607 B/P 145/84 07/13 1607 B/P Mean 104 07/13 1607 O2 Delivery Nasal cannula 07/13 1607 O2 Flow Rate 2 07/13 1607 Temp 37.1 07/13 1607 Pulse 95 07/13 1607 Resp 16 07/13 1607 Last Documented: Result Date Time Pulse Ox 93 12/31 1714 B/P 108/71 07/13 171 B/P Mean 85 07/13 1714 Pulse 102 07/13 1714 O2 Delivery Nasal cannula 07/13 1607 O2 Flow Rate 2 07/13 160 Temp 37.1 07/13 160 Resp 16 07/13 160 All vital signs available at the time of this entry have been reviewed. Clinical Impression Clinical Impression Primary Impression: Necrotizing fasciitis Secondary Impressions: Hypoxia Disposition Decision Hospitalize Hosp Physician Name Macho Musa MD Hosp Physician Hospitalist Request Time 1723 Request Date 07/13/24 )( Accepts Hospitalization Yes )( Reason for Hospitalization necrotizing fascitis )( Accepted Time 172 )( Accepted Date 07/13/24 Call Information will see patient, agrees with eval, agrees with plan at 1920 Addendum 1: 07/13/241926 by Jorge Temple MD Patient Addendum Addendum Total critical care time 35 minutes. Total critical care time documented does not include time spent on separately billed procedures or the services of residents, students, nurses or physician assistants. I personally saw and examined the patient. I have reviewed all diagnostic interpretations and treatment plans as written. I was present for the tenorio portions of any procedures performed and the inclusive time noted in any critical care statement. Critical care time includes patient management by me, time spent at the patients bedside, time to review lab and imaging results, discussing patient care, documentation in the medical record, and time spent with the family or caregiver. at 1927 [facility] #:[phone] END OF REPORT [facility] 2024-07-13 17:15:00 [phone] [facility] PATIENT NAME: CAROLYNN PATEL ADMIT DATE: 07/13/24 ACCOUNT NO: [id number] ROOM NO: [id number] AGE: 54 REPORT TYPE: eEKG REPORT SEX: M DATE OF : [birth year] ADMITTING PHYSICIAN:Macho Musa MD ATTENDING PHYSICIAN:Macho Musa MD Order: [id number] Test Reason : Test Date/Time Stamp: FriJul 13 2024 17:15:45 Blood Pressure : 108/071 mmHG Vent. Rate : 102 BPM Atrial Rate : 102 BPM P-R Int : 148 ms QRS Dur : 098 ms QT Int : 352 ms P-R-T Axes : 028 030 036 degrees QTc Int : 458 ms Sinus tachycardia Otherwise normal ECG No previous ECGs available Confirmed by Tammy Clemons ([id number]) on 07/14/2024 7:28:45 AM Referred By: Self Referred Confirmed by:Tammy Clemons at 0728 PATIENT NAME: CAROLYNN PATEL [facility]
--- NOTE | 2024-08-28 13:15 | EDPHYS ---
Physician Documentation [facility] Name: Stuart Patel Age: 54 yrs Sex: Male : 1970 Arrival Date: 08/28/2024 Time: 12:44 Bed IW3 Private MD: ED Physician Raymond Alvarado HPI: 08/28 13:16 This 54 yrs old Male presents to ER via Wheelchair with complaints of wound ec2 issue. 13:16 Patient arrives today for evaluation of his wound. Patient had a below the knee ec2 amputation approximately 5 to 6 weeks ago, earlier today had fallen on his amputated site and the wound had broke open. Reports he has a appointment with his surgeon in 2 days. No fevers or chills, no purulence, no nausea or vomiting, no other concerns.. Historical: - Allergies: 13:03 No Known Allergies; db - PMHx: 13:03 diabetes mellitus; Hypertension; sciatica; db - PSHx: 13:03 right below the knee amputation; db - Immunization history:: Adult Immunizations unknown. - Infectious Disease History:: Denies. - Social history:: Smoking status: Patient denies any tobacco usage or history of. ROS: 13:17 Constitutional: as per hpi ec2 Exam: 13:17 Constitutional: GEN: NAD Head: atraumatic Eyes: EOMI Ears: External ears are ec2 normal. CV: regular rate LUNGS: no respiratory distress ABD: non-distended SKIN: Well-healed wound sites, burt torn, wound dehiscence noted, no purulence, no drainage, no tenderness to the area. MSK: no evidence of trauma Vital Signs: 13:02 BP 116 / 84; Pulse 89; Resp 18; Temp 97.8; Pulse Ox 99% ; db MDM: 12:50 Medical Screening Exam initiated ec2 13:17 Data reviewed: vital signs, nurses notes. ED course: Patient arrives today for ec2 evaluation of his wound. Examination consistent with wound dehiscence. Will start the patient on empiric antibiotic therapy, will have patient follow-up with her surgeon in 48 hours. Patient discharged home. Return precautions given. Low suspicion for wound infection, will suspicion for osteomyelitis. Patient can follow-up nonurgently.. Administered Medications: No medications were administered Disposition Summary: 08/28/24 13:15 Discharge Ordered Condition: Stable ec2 Diagnosis - Wound Dehiscence ec2 Followup: ec2 - With: Private Physician - When: - Reason: Re-evaluation by your physician Discharge Instructions: - Discharge Summary Sheet ec2 - Wound Dehiscence, [id number] ec2 Forms: - Medication Reconciliation Form ec2 - Antibiotic Education ec2 - Prescription Opioid Use ec2 - Patient Portal Instructions ec2 - Leadership Thank You Letter ec2 Prescriptions: - Bactrim DS 800-160 mg Oral Tablet - take 1 tablet ORAL route every 12 hours for 7 days; 14 tablet; Refills: 0, ec2 Product Selection Permitted Signatures: Rosalina Finnegan RN RN db Raymond Alvarado MD MD ec2
--- NOTE | 2024-08-28 13:15 | ER ---
Nurse's Notes [facility] Name: Stuart Patel Age: 54 yrs Sex: Male : 1970 Arrival Date: 08/28/2024 Time: 12:44 Bed IW3 Private MD: Diagnosis: Wound Dehiscence Presentation: 08/28 12:58 Chief complaint: Patient states: FALL TODAY. RIGHT BELOW KNEE AMPUTATION AND WOUND CAME db OPEN . APPOINTMENT ON FRIDAY. NOTED OTHER ANDREW ARE INTACT. Coronavirus screen: Client denies travel out of the [place] in the last 14 days. At this time, the client does not indicate any symptoms associated with coronavirus-19. Ebola Screen: Patient negative for fever greater than or equal to 101.5 degrees Fahrenheit, and additional compatible Ebola Virus Disease symptoms Patient denies exposure to infectious person. Patient denies travel to an Ebola-affected area in the 21 days before illness onset. No symptoms or risks identified at this time. 12:58 Method Of Arrival: Wheelchair db 13:02 Initial Sepsis Screen: Does the patient meet any 2 criteria? No. Patient's initial db sepsis screen is negative. Does the patient have a suspected source of infection? No. Patient's initial sepsis screen is negative. Risk Assessment: Do you want to hurt yourself or someone else? Patient reports no desire to harm self or others. Note WOUND REDRESSED IN TRIAGE BY DR. ALVARADO. Onset of symptoms was August 28, 2024. 13:02 Acuity: VICKI 3 db Triage Assessment: 13:03 General: Appears in no apparent distress. comfortable, Behavior is calm, cooperative. db Pain: Denies pain. Neuro: Level of Consciousness is awake, alert, obeys commands, Oriented to person, place, time, situation. Respiratory: Airway is patent Respiratory effort is even, unlabored, Respiratory pattern is regular, symmetrical. Derm: Wound noted right leg. Historical: - Allergies: 13:03 No Known Allergies; db - PMHx: 13:03 diabetes mellitus; Hypertension; sciatica; db - PSHx: 13:03 right below the knee amputation; db - Immunization history:: Adult Immunizations unknown. - Infectious Disease History:: Denies. - Social history:: Smoking status: Patient denies any tobacco usage or history of. Screenin:26 [facility] ED Fall Risk Assessment (Adult) History of falling in the last 3 months, db including since admission Yes- single mechanical fall (1 pt) Confusion or Disorientation No (0 pts) Intoxicated or Sedated No (0 pts) Impaired Gait Yes (1 pt) Mobility Assist Device Used Yes (1 pt) Altered Elimination No (0 pt) Score/Fall Risk Level 3 or more points = High Risk Oriented to surroundings, Maintained a safe environment. Abuse screen: Denies threats or abuse. Denies injuries from another. Nutritional screening: No deficits noted. Tuberculosis screening: No symptoms or risk factors identified. Assessment: 13:26 Reassessment: Patient appears in no apparent distress at this time. Patient and/or db family updated on plan of care and expected duration. Pain level reassessed. Patient is alert, oriented x 3, equal unlabored respirations, skin warm/dry/pink. Neuro: Level of Consciousness is awake, alert, obeys commands, Oriented to person, place, time, situation. Vital Signs: 13:02 BP 116 / 84; Pulse 89; Resp 18; Temp 97.8; Pulse Ox 99% ; db ED Course: 12:47 Patient arrived in ED. [id number] 12:48 Raymond Alvarado MD is Attending Physician. ec2 13:02 Triage completed. db 13:03 Arm band placed on Patient placed in waiting room. db 13:10 Dressings: Kerlix X 1; right leg. db 13:26 Patient has correct armband on for positive identification. Provided Education on: db DISCHARGE, PRESCRIPTIONS AND FOLLOWUP. 13:26 No provider procedures requiring assistance completed. Patient did not have IV access db during this emergency room visit. Administered Medications: No medications were administered Medication: 13:26 VIS not applicable for this client. db Outcome: 13:15 Discharge ordered by . ec2 13:26 Discharged to home via wheelchair, with family, db 13:26 Condition: stable 13:26 Discharge instructions given to patient, family, Instructed on discharge instructions, follow up and referral plans. Prescriptions given X 1, 13:28 Patient left the ED. db Signatures: Tanisha Simpson [email or web address] Rosalina Finnegan, RN RN db Raymond Alvarado MD MD ec2
[2024-08-28 13:33] VITALS: BP 116/84; TEMP 97.8; O2SAT 99
== END 2024-08-28 13:28 | disposition home or self-care (01) ==
LOC: ER 12:44
DX: T87.81 Dehiscence of amputation stump (principal); Z89.511 Acquired absence of right leg below knee
CPT/HCPCS: 99283